=== PATIENT | male | born 1965 | race Caucasian/White ===

== ENCOUNTER 2020-02-16 17:09 | Emergency (ER) | payer BC, SELFPAY ==
[2020-02-16] VITALS (7 sets, daily range): BP systolic 114–130; BP diastolic 77–94; PULSE 74–82; RESP 16–18; TEMP 36.5–36.9; O2SAT 97–99; BMI 19.2
[2020-02-16 17:22] LABS: Glucose, Whole Blood 119 mg/dL (60-115)
--- NOTE | 2020-02-16 17:33 | ECG_ITS ---
Test Reason : SYNCOPE Blood Pressure : / mmHG Vent. Rate : 079 BPM Atrial Rate : 080 BPM P-R Int : 162 ms QRS Dur : 094 ms QT Int : 392 ms P-R-T Axes : 057 041 049 degrees QTc Int : 449 ms Normal sinus rhythm Minimal voltage criteria for LVH, may be normal variant Borderline ECG No significant changes seen Referred By: Jessika Reilly Electronically Signed By:LEMUEL JASMINE MD
--- NOTE | 2020-02-16 17:45 | ED.SYNCOPE ---
HPI - Syncope General Chief Complaint: Syncope Stated Complaint: failure to thrive Time Seen by Provider: 02/16/20 17:14 Source: EMS Mode of arrival: EMS History of Present Illness HPI narrative: 54-year-old male with a past medical history of hemorrhoids presenting to ED S/P witnessed syncopal episode at home APPLICATION SUPPORT. Patient reports having issues with hemorrhoids over the past week, has been taking about 5 hotSitz baths daily for relief, got out of a Sitz bath today, felt lightheaded, laid on bed and had syncopal episode. Denies head trauma. Also reports decreased p.o. intake/dehydration due to hemorrhoids. Denies complaints at present other than hemorrhoid pain. Denies CP/SOB, abdominal pain, nausea/vomiting, headache, rectal bleeding MD complaint: loss of consciousness and felt faint -: second(s) Related Data Allergies Allergy/AdvReac Type Severity Reaction Status Date / Time No Known Allergies Allergy Unverified 12/20/19 14:59 [No Known Allergies*] Review of Systems Review of Systems: Constitutional: No Weight loss, No Fever Eyes: No Eye Pain, No Vision Changes Cardiovascular: No Chest Pain, No SOB, No Palpitations Respiratory: No Cough, No Sputum, No Dyspnea Gastrointestinal: No Nausea, No Vomiting, No Diarrhea, No Constipation, No Abdominal pain, no bloody stool Genitourinary: No irregular bleeding, No Dysuria, No Urinary Frequency, No Hematuria, + hemorrhoid pain Musculoskeletal: No joint pain, No Myalgias, No Joint Swelling Skin: No Skin Lesions, No rash Neuro: No Weakness, No Numbness, No Paresthesias, +Loss of Consciousness, + lightheadedness prior to syncope, No Headache Yes all other systems are reviewed and are negative Neurologic: Denies Abnormal speech present and Denies Sensory deficit (Neuro) [facility] Past Medical History Attestation statement: The following information was validated with the patient. Surgical History (Updated 02/16/20 @ 17:20 by En Liu) History of appendectomy Social History Social History Alcohol intake: never Smoking Status: Never smoker Use of substances other than those prescribed or required for medical reasons: No Advance Directives: No Advance Directives Information Provided: Yes Physical Exam Vital Signs: Vital Signs: Last Vital Signs Temp 98.4 F 02/16/20 20:00 Pulse 82 02/16/20 20:09 Resp 16 02/16/20 20:00 BP 130/94 H 02/16/20 20:09 Pulse Ox 99 02/16/20 20:00 Body Mass Index 19.2 Const: General: cooperative and healthy appearing Orientation/consciousness: patient oriented x3 Limitations: no limitations HENMT: Head: Yes normal to inspection Ears: hearing grossly normal bilaterally General nose exam: Normal external nose present Face and sinus: Yes normal facial exam Eyes: General: appearance normal, both eyes and all related structures Periorbital: periorbital findings normal Pupils: Equal, round and reactive pupils present EOM: EOMs intact bilaterally Neck: Neck: Yes normal visual inspection and Yes no meningeal signs Resp: Effort & Inspection: normal respiratory effort Auscultation: clear to auscultation bilaterally, no crackles, no rhonchi and no wheezes Cardio: Rate: regular rate Heart sounds: S1 normal heart sound present and S2 normal heart sound present GI: Inspection: Yes normal to inspection Palpation (GI): Soft to palpation, nontender, no guarding and not rigid : Other: + large hemorrhoid noted at 9 o'clock region. Tender to palpation. No evidence of thrombosis, no surrounding cellulitis or fluctuance. No bleeding Skin: Rashes: no rashes Wounds: no wounds Neuro: General: patient oriented x3, tone normal, moves all extremities, no meningeal signs, no focal motor deficits and CN's II-XI intact bilaterally Cranial nerves: Yes Equal, round and reactive pupils present Cognition (Neuro): normal cognition Speech: No Abnormal speech present Gait exam (Neuro): Normal gait present Motor exam (neuro): 5/5 motor strength present throughout Sensory Exam: No Sensory deficit (Neuro) Extrem: General: Yes normal to inspection Course Course Course Narrative: -leukocytosis of 15.4 > vital signs stable, no indication for sepsis at this time Orthostatics negative Patient was given lidocaine cream tube for hemorrhoids in the ED -BUN 29 likely dehydration, troponin 5 > will obtain 3 hour repeat at 8:30 p.m., labs otherwise unremarkable -repeat EKG unchanged from prior earlier today -2147--repeat troponin without 50% increase in delta, PA unlikely Lab results discussed with patient including worrisome signs and symptoms and strict return precautions. Patient verbalized understanding feel safe discharge home MDM - Syncope MDM Narrative Medical decision making narrative: 54-year-old male with a past medical history of hemorrhoids presenting to ED S/P witnessed syncopal episode at home APPLICATION SUPPORT. On exam VSS, NAD/well-appearing, no focal neuro deficits, hemorrhoid noted on exam without acute complications. Syncopal episode likely vasovagal or from dehydration. Low concern for ACS, PE, or other infectious etiology Plan: EKG, labs, IVF, reassess Lab Data Result diagrams: 02/16/20 18:26 02/16/20 18:26 Labs: Lab Results 02/16/20 02/16/20 02/16/20 Range/Units 17:19 18:26 18:26 WBC 15.4 H (4.8-10.8) X10*3/uL RBC 4.64 (4.60-5.80) X10*6/uL Hgb 14.2 (14.0-18.0) g/dl Hct 43.0 (42-52) % MCV 92.7 (80-98) fL MCH 30.6 (27.0-33.0) pg MCHC 33.0 (31.0-36.0) g/dl RDW 11.9 (11.0-16.0) % Plt Count 289 (160-400) X10*3/uL MPV 10.6 (9.4-12.4) fL Immature Gran % (Auto) 0.3 (0.0-0.4) % Neut % (Auto) 84.4 H (45-73) % Lymph % (Auto) 7.4 L (20-40) % [place] % (Auto) 7.5 (2-11) % Eos % (Auto) 0.1 (0-4) % Baso % (Auto) 0.3 (0-2) % Lymph # (Auto) 1.1 L (1.2-4.9) X10*3/uL [place] # (Auto) 1.2 (0.1-1.2) X10*3/uL Eos # (Auto) 0.0 (0.0-0.4) X10*3/uL Baso # (Auto) 0.0 (0.0-0.2) X10*3/uL Abs Immat Gran (auto) 0.05 H (0.00-0.03) X10*3/uL Absolute Neuts (auto) 13.0 H (2.0-8.3) X10*3/uL Absolute Nucleated RBC 0.000 (0.0-0.012) X10*3/uL Nucleated RBC % (auto) 0.0 (0.0-0.2) /100WBC Hold Blue Top Sodium 138 (135-145) mmol/L Potassium 4.0 (3.3-5.1) mmol/l Chloride 102 (96-108) mmol/L Carbon Dioxide 25 (22-29) mmol/L Anion Gap 15 (12-20) BUN 29 H (9-16) mg/dL Creatinine 1.07 (0.5-1.4) mg/dL Estim Creat Clear Calc 70.6 Estimated GFR > 60 POC Glucose 119 H (60-115) mg/dL Random Glucose 103 (60-115) mg/dL Calcium 8.8 (8.4-10.2) mg/dL Magnesium (1.6-2.6) mg/dL Total Bilirubin (0.0-1.0) mg/dL Direct Bilirubin (0.0-0.5) mg/dL AST (5-37) U/L ALT (0-40) U/L Alkaline Phosphatase (39-117) U/L Troponin I High Sens (<3.5-35.0) ng/L Total Protein (6.5-8.0) g/dL Albumin (3.5-5.0) g/dL Urine Color Urine Appearance Urine pH (5.0-8.0) Ur Specific [place] (1.005-1.025) Urine Protein (NEG-TRACE) MG/DL Urine Glucose (UA) (NEG) MG/DL Urine Ketones (NEG) MG/DL Urine Blood (NEG) Urine Nitrite (NEG) Ur Leukocyte Esterase (NEG) Urine RBC (0) /HPF Urine WBC (0-4) /HPF Ur Squamous Epith Cells /LPF Urine Bacteria /LPF Urine Mucus /LPF 02/16/20 02/16/20 02/16/20 Range/Units 18:26 18:26 18:26 WBC (4.8-10.8) X10*3/uL RBC (4.60-5.80) X10*6/uL Hgb (14.0-18.0) g/dl Hct (42-52) % MCV (80-98) fL MCH (27.0-33.0) pg MCHC (31.0-36.0) g/dl RDW (11.0-16.0) % Plt Count (160-400) X10*3/uL MPV (9.4-12.4) fL Immature Gran % (Auto) (0.0-0.4) % Neut % (Auto) (45-73) % Lymph % (Auto) (20-40) % [place] % (Auto) (2-11) % Eos % (Auto) (0-4) % Baso % (Auto) (0-2) % Lymph # (Auto) (1.2-4.9) X10*3/uL [place] # (Auto) (0.1-1.2) X10*3/uL Eos # (Auto) (0.0-0.4) X10*3/uL Baso # (Auto) (0.0-0.2) X10*3/uL Abs Immat Gran (auto) (0.00-0.03) X10*3/uL Absolute Neuts (auto) (2.0-8.3) X10*3/uL Absolute Nucleated RBC (0.0-0.012) X10*3/uL Nucleated RBC % (auto) (0.0-0.2) /100WBC Hold Blue Top SEE NOTE Sodium (135-145) mmol/L Potassium (3.3-5.1) mmol/l Chloride (96-108) mmol/L Carbon Dioxide (22-29) mmol/L Anion Gap (12-20) BUN (9-16) mg/dL Creatinine (0.5-1.4) mg/dL Estim Creat Clear Calc Estimated GFR POC Glucose (60-115) mg/dL Random Glucose (60-115) mg/dL Calcium (8.4-10.2) mg/dL Magnesium 1.7 (1.6-2.6) mg/dL Total Bilirubin 1.1 H (0.0-1.0) mg/dL Direct Bilirubin 0.4 (0.0-0.5) mg/dL AST 18 (5-37) U/L ALT 21 (0-40) U/L Alkaline Phosphatase 119 H (39-117) U/L Troponin I High Sens 5.0 (<3.5-35.0) ng/L Total Protein 6.9 (6.5-8.0) g/dL Albumin 4.0 (3.5-5.0) g/dL Urine Color Urine Appearance Urine pH (5.0-8.0) Ur Specific [place] (1.005-1.025) Urine Protein (NEG-TRACE) MG/DL Urine Glucose (UA) (NEG) MG/DL Urine Ketones (NEG) MG/DL Urine Blood (NEG) Urine Nitrite (NEG) Ur Leukocyte Esterase (NEG) Urine RBC (0) /HPF Urine WBC (0-4) /HPF Ur Squamous Epith Cells /LPF Urine Bacteria /LPF Urine Mucus /LPF 02/16/20 02/16/20 Range/Units 20:07 20:40 WBC (4.8-10.8) X10*3/uL RBC (4.60-5.80) X10*6/uL Hgb (14.0-18.0) g/dl Hct (42-52) % MCV (80-98) fL MCH (27.0-33.0) pg MCHC (31.0-36.0) g/dl RDW (11.0-16.0) % Plt Count (160-400) X10*3/uL MPV (9.4-12.4) fL Immature Gran % (Auto) (0.0-0.4) % Neut % (Auto) (45-73) % Lymph % (Auto) (20-40) % [place] % (Auto) (2-11) % Eos % (Auto) (0-4) % Baso % (Auto) (0-2) % Lymph # (Auto) (1.2-4.9) X10*3/uL [place] # (Auto) (0.1-1.2) X10*3/uL Eos # (Auto) (0.0-0.4) X10*3/uL Baso # (Auto) (0.0-0.2) X10*3/uL Abs Immat Gran (auto) (0.00-0.03) X10*3/uL Absolute Neuts (auto) (2.0-8.3) X10*3/uL Absolute Nucleated RBC (0.0-0.012) X10*3/uL Nucleated RBC % (auto) (0.0-0.2) /100WBC Hold Blue Top Sodium (135-145) mmol/L Potassium (3.3-5.1) mmol/l Chloride (96-108) mmol/L Carbon Dioxide (22-29) mmol/L Anion Gap (12-20) BUN (9-16) mg/dL Creatinine (0.5-1.4) mg/dL Estim Creat Clear Calc Estimated GFR POC Glucose (60-115) mg/dL Random Glucose (60-115) mg/dL Calcium (8.4-10.2) mg/dL Magnesium (1.6-2.6) mg/dL Total Bilirubin (0.0-1.0) mg/dL Direct Bilirubin (0.0-0.5) mg/dL AST (5-37) U/L ALT (0-40) U/L Alkaline Phosphatase (39-117) U/L Troponin I High Sens 5.2 (<3.5-35.0) ng/L Total Protein (6.5-8.0) g/dL Albumin (3.5-5.0) g/dL Urine Color YELLOW Urine Appearance CLEAR Urine pH 6.0 (5.0-8.0) Ur Specific [place] >= 1.030 H (1.005-1.025) Urine Protein NEG (NEG-TRACE) MG/DL Urine Glucose (UA) NEG (NEG) MG/DL Urine Ketones NEG (NEG) MG/DL Urine Blood 1+ H (NEG) Urine Nitrite NEG (NEG) Ur Leukocyte Esterase NEG (NEG) Urine RBC 0-2 (0) /HPF Urine WBC 0-2 (0-4) /HPF Ur Squamous Epith Cells NONE /LPF Urine Bacteria NONE /LPF Urine Mucus 1+ /LPF ECG Data Attestation: I personally reviewed and interpreted this ECG as follows: ECG interpretation date: 02/16/20 Interpretation: Initial EKG normal sinus rhythm. Rate 79. Peak Ts noted throughout Discharge Plan Discharge Clinical Impression: Vasovagal syncope, Hemorrhoid Patient Disposition: Home, Self-Care Instructions: Hydrocortisone (Into the rectum), Syncope (ED) Additional Instructions: Your blood work showed nonspecific markers of inflammation You need to have close follow-up with your primary care doctor Make sure you are drinking plenty of fluids at home Apply a topical lidocaine to her hemorrhoids in addition to hydrocortisone at home for symptomatic relief You should follow-up with the colorectal doctor If her symptoms persist or worsen, your passing out again, developed chest pain, shortness of breath, abdominal pain, or unable to eat or drink return to the ED Referrals: Brenton Hui MD [Physician] - 1 week Physician,Unknown [Primary Care Provider] - 2 days (Your doctor)
[2020-02-16] MEDS: 0.9 % Sodium Chloride 1,000 ML 999 ML IVCONT ×2 (18:27)
[2020-02-16 18:33] LABS: MANUAL DIFF FLAG NO
[2020-02-16 18:36] LABS: Basophils Percent Auto 0.3 % (0-2); Eosinophils Percent Auto 0.1 % (0-4); Hemoglobin 14.2 g/dl (14.0-18.0); Imm Gran Abs Auto 0.05 X10*3/uL (0.00-0.03); Imm Gran Pct Auto 0.3 % (0.0-0.4); Lymphocytes Absolute Auto 1.1 X10*3/uL (1.2-4.9); Lymphocytes Percent Auto 7.4 % (20-40); Mean Corpuscular Hemoglobin 30.6 pg (27.0-33.0); Mean Corpuscular Volume 92.7 fL (80-98); Mean Platelet Volume 10.6 fL (9.4-12.4); Monocytes Absolute Auto 1.2 X10*3/uL (0.1-1.2); Monocytes Percent Auto 7.5 % (2-11); Neutrophils Percent Auto 84.4 % (45-73); Platelet Count 289 X10*3/uL (160-400); Red Blood Count 4.64 X10*6/uL (4.60-5.80); Red Cell Distribution Width 11.9 % (11.0-16.0); White Blood Count 15.4 X10*3/uL (4.8-10.8)
[2020-02-16] MEDS: Lidocaine 5 % Ointment 35 GM 1 APPL TOPICAL (18:43)
[2020-02-16 18:58] LABS: Anion Gap 15 (12-20); Blood Urea Nitrogen 29 mg/dL (9-16); Calcium 8.8 mg/dL (8.4-10.2); Carbon Dioxide 25 mmol/L (22-29); Chloride 102 mmol/L (96-108); Creatinine Clr Calc Pharmacy 70.6; Estimated Glomerular Filt Rate > 60; Glucose Random 103 mg/dL (60-115); Sodium 138 mmol/L (135-145)
[2020-02-16 19:04] LABS: Alanine Aminotransferase 21 U/L (0-40); Alkaline Phosphatase 119 U/L (39-117); Aspartate Amino Transferase 18 U/L (5-37); Bilirubin Direct 0.4 mg/dL (0.0-0.5); Bilirubin Total 1.1 mg/dL (0.0-1.0); Magnesium 1.7 mg/dL (1.6-2.6); Total Protein 6.9 g/dL (6.5-8.0)
--- NOTE | 2020-02-16 19:50 | ECG_ITS ---
Test Reason : REPEAT Blood Pressure : / mmHG Vent. Rate : 074 BPM Atrial Rate : 074 BPM P-R Int : 168 ms QRS Dur : 098 ms QT Int : 404 ms P-R-T Axes : 052 011 034 degrees QTc Int : 448 ms Normal sinus rhythm Normal ECG When compared with ECG of 28-MAY-2019 12:41, No significant change was found Referred By: Jessika Reilly Electronically Signed By:LEMUEL JASMINE MD
[2020-02-16 20:13] LABS: Glucose Urine UA NEG (NEG); Leukocyte Esterase Urine NEG (NEG); Nitrite Urine NEG (NEG); Specific Gravity - Urine >= 1.030 (1.005-1.025); Urine Blood 1+ (NEG); Urine Ketones NEG (NEG); Urine Protein NEG (NEG-TRACE)
[2020-02-16 20:16] LABS: Appearance Urine CLEAR; Color Urine YELLOW
[2020-02-16 20:50] LABS: Mucus Urine 1+ /LPF; RBC Urine 0-2 /HPF (0); WBC Urine 0-2 /HPF (0-4)
[2020-02-16 21:12] LABS: Troponin-I High Sensitivity 5.2 ng/L (<3.5-35.0)
== END 2020-02-16 22:07 | disposition home or self-care (01) ==
PROVIDERS: Physician Assistant; Emergency Provider Student in an Organized Health Care Education/Training Program
DX: R55 Syncope and collapse (principal)
CPT/HCPCS: 36415; 80048; 80076; 81001; 82947; 83735; 84484; 85025; 93005; 96360; 99284; 99285

== ENCOUNTER 2020-05-28 09:54 | Outpatient (REF) | payer BC, SELFPAY ==
--- NOTE | ~2020-05-28 | XR_ITS ---
EXAMINATION: XR SHOULDER, LEFT CLINICAL INFORMATION: Pain in unspecified shoulder COMPARISON: None TECHNIQUE: AP internal rotation, Grashey, scapular Y, and axillary views of the left shoulder. FINDINGS: There is mild acromioclavicular osteoarthritis. Glenohumeral joint is well preserved. No fracture. Alignment is anatomic. Soft tissues are normal with no abnormal calcifications. XR/XR shoulder LT min 2V IMPRESSION: No acute osseous abnormality of the left shoulder.
[2020-05-28 11:25] LABS: Rheumatoid Factor < 15.0 IU/mL (<15.0)
== END 2020-05-28 09:55 | disposition home or self-care (01) ==
LOC: HO.LAB 09:54
PROVIDERS: PCP Internal Medicine; Visit Provider Nurse Practitioner Family
DX: M25.519 Pain in unspecified shoulder (principal)
CPT/HCPCS: 36415; 73030; 86431

== ENCOUNTER 2021-04-17 14:25 | Outpatient (REF) | payer BC, SELFPAY ==
--- NOTE | ~2021-04-17 | US_ITS ---
EXAMINATION: ULTRASOUND EXTREMITY NONVASCULAR CLINICAL INFORMATION: Painful lump in her buttock COMPARISON: None TECHNIQUE: Grayscale and color imaging of the left inner but acuity using a linear transducer FINDINGS: There is a complex cystic lesion in the left inner buttock corresponding to palpable abnormality. This is 1 cm deep to the skin. This measures 2.9 x 2.42 cm. This appears avascular. Ultrasound appearance is nonspecific. This may represent a a small abscess or sinus tract. If there is history of previous trauma, hematoma. Neoplastic process cannot be excluded and clinical correlation is recommended. US/US extremity nonvascular IMPRESSION: 2.9 x 2.4 x 2 cm complex cyst in the left inner buttock. Ultrasound appearance is nonspecific. This may represent a small abscess or sinus tract. Differential would include a hematoma. Neoplastic process cannot be excluded. If there is concern of a sinus tract or fistula, CT or MRI of the pelvis may be helpful.
== END 2021-04-17 14:26 | disposition home or self-care (01) ==
LOC: HO.HMGCX 14:25
PROVIDERS: PCP Internal Medicine; Visit Provider Nurse Practitioner Family
DX: R22.9 Localized swelling, mass and lump, unspecified (principal)
CPT/HCPCS: 76882

== ENCOUNTER 2021-04-18 08:34 | Emergency (ER) | payer BC, SELFPAY ==
--- NOTE | ~2021-04-18 | CT_ITS ---
EXAMINATION: CT ABDOMEN AND PELVIS WITH CONTRAST CLINICAL INFORMATION: Left lower quadrant pain. The bladder. COMPARISON: None TECHNIQUE: Multidetector volumetric images were obtained from the superior aspect of the liver through the pubic symphysis following administration 85 mL of Omnipaque 350 intravenous contrast. Sagittal and coronal reformatted images were obtained on the technologist's workstation. Oral contrast: No This CT examination was performed using dose optimization techniques as appropriate, variously including the following: *Automated exposure control *Adjustment of mA and/or kV according to patient size (this includes techniques or standardized protocols for targeted exams where dose is matched to indication/reason for exam; i.e. extremities or head) *Use of iterative reconstruction technique DLP: 454 mGy-cm FINDINGS: LUNG BASES: There is bibasilar atelectatic changes. The heart size is normal. LIVER, GALLBLADDER, AND BILIARY TREE: The liver is normal in size, shape, and attenuation. There is a 9 mm hypodensity in the segment 4A. No additional lesions seen. There is no intrahepatic ductal dilatation. The gallbladder is unremarkable with no evidence of radiopaque gallstones, gallbladder wall thickening, or obvious pericholecystic inflammatory changes. PANCREAS: Unremarkable. SPLEEN: Unremarkable. ADRENAL GLANDS: Unremarkable. KIDNEYS AND URETERS: The kidneys are normal in size, shape, and attenuation. No hydronephrosis, hydroureter, or calculi seen. No perinephric stranding. Is a punctate hypodensity in the lower pole left kidney likely tiny cysts. BLADDER: The bladder is decompressed. GASTROINTESTINAL TRACT: There is scattered stool and gas seen throughout the colon without significant distention. Mild mural thickening seen involving the sigmoid colon with minimal pericolic fat stranding, nonspecific colitis. No diverticula visualized. ABDOMINAL WALL: No significant hernia is appreciated. LYMPH NODES: Normal. VASCULAR: Unremarkable. PELVIC VISCERA: There is a left perirectal small abscess measuring 2.7 x 2.1 x 3.5 cm. It extends from the left perirectal, perianal lesion into the ischiorectal fossa. Minimal fat stranding extends to the subcutaneous medial buttock however there is no fistulous tract seen. Soft tissue density along the left sigmoid-rectum junction question adherent stool versus soft tissue mass. Recommend sigmoidoscopy. There is scattered stool and gas seen throughout the colon without significant distention. The small bowel loops are normal caliber. OSSEOUS STRUCTURES: There is vacuum disc phenomena L5-S1 disc level with a rudimentary S1-S2 disc. CT/CT abdomen pelvis w con IMPRESSION: Small left perirectal abscess extending the ischiorectal fossa. Nonspecific mild mural thickening of sigmoid colon with pericolic fat stranding likely inflammatory and infectious colitis. Soft tissue density along the left sigmoid/rectum junction question adherent stool versus soft tissue mass. Recommend sigmoidoscopy. Fleischner guidelines were followed.
[2021-04-18 08:56] VITALS: BP 127/78; PULSE 75; RESP 18; TEMP 35.9; O2SAT 100; BMI 19.5
[2021-04-18 14:09] LABS: MANUAL DIFF FLAG NO
[2021-04-18 14:10] LABS: Basophils Percent Auto 0.1 % (0-2); Eosinophils Percent Auto 0.4 % (0-4); Hematocrit 42.9 % (42.0-52.0); Hemoglobin 14.1 g/dl (14.0-18.0); Imm Gran Abs Auto 0.03 X10*3/uL (0.00-0.03); Imm Gran Pct Auto 0.4 % (0.0-0.4); Lymphocytes Absolute Auto 1.6 X10*3/uL (1.2-4.9); Lymphocytes Percent Auto 18.9 % (20-40); Mean Corpuscular HGB Conc 32.9 g/dl (31.0-36.0); Mean Corpuscular Hemoglobin 29.4 pg (27.0-33.0); Mean Corpuscular Volume 89.6 fL (80.0-98.0); Monocytes Absolute Auto 0.5 X10*3/uL (0.1-1.2); Monocytes Percent Auto 5.6 % (2-11); Neutrophils Absolute Auto 6.3 x10*3/uL (2.0-8.3); Neutrophils Percent Auto 74.6 % (45-73); Platelet Count 286 X10*3/uL (160-400); Red Blood Count 4.79 X10*6/uL (4.60-5.80); Red Cell Distribution Width 11.8 % (11.0-16.0); White Blood Count 8.5 X10*3/uL (4.8-10.8)
[2021-04-18 14:23] LABS: COVID-19 Test Positive (Negative)
[2021-04-18 14:30] LABS: Lactic Acid 1.2 mmol/L (0.5-2.0)
[2021-04-18 14:34] LABS: Alanine Aminotransferase 14 U/L (0-40); Alkaline Phosphatase 103 U/L (39-117); Anion Gap 11 (12-20); Aspartate Amino Transferase 11 U/L (5-37); Bilirubin Direct 0.4 mg/dL (0.0-0.5); Bilirubin Total 1.2 mg/dL (0.0-1.0); Blood Urea Nitrogen 14 mg/dL (9-16); Calcium 9.7 mg/dL (8.4-10.2); Carbon Dioxide 29 mmol/L (22-29); Chloride 105 mmol/L (96-108); Creatinine Clr Calc Pharmacy 92.5; Estimated Glomerular Filt Rate > 60; Glucose Random 163 mg/dL (60-115); Magnesium 1.5 mg/dL (1.6-2.6); Potassium 3.9 mmol/L (3.3-5.1); Sodium 141 mmol/L (135-145)
--- NOTE | 2021-04-18 15:48 | ED.ABDPAIN ---
HPI - Abdominal Pain General Chief Complaint: Abdominal Pain Stated Complaint: diverticulitis Time Seen by Provider: 04/18/21 13:15 Source: patient Mode of arrival: ambulatory Limitations: no limitations History of Present Illness HPI narrative: 55-year-old male with a past medical history of alcohol abuse, anxiety, GERD, diverticulitis, and hyperlipidemia presents with 1 month of changes in his stool, reduced amount of stool, and 10 days worsening left lower abdominal pain. Patient states that 1 month ago he fell a lump in the left side of his inner buttock by his anus. States that at times he has been constipated and other times has had diarrhea. And states he is passing a lot of gas and his stool is very thin and he is having smaller bowel movements. States he has been losing weight. No pain with bowel movement, no nausea or vomiting, no dark, tarry, or bloody stool. Ten days ago patient had fever and chills and tested COVID positive with a rapid test at home. One week ago his Covid symptoms resolved. He took a home rapid COVID test yesterday that was negative, and had an ultrasound at an urgent care in the soft tissue of his left buttock. Does not have those results yet. This morning he started having abdominal pain in his left lower quadrant. States that he has no pain now, but has concern for diverticulitis, because he was hospitalized with diverticulitis for 1 week in the past. States that the pain in his left buttock has been severe for the last month. Related Data Home Medications Medication Instructions Recorded Confirmed cholecalciferol (vitamin D3) 25 25 mcg PO DAILY 03/10/20 04/07/21 mcg (1,000 unit) capsule Previous Rx's Medication Instructions Recorded metaxalone 400 mg tablet 800 mg PO TID PRN 30 Days #30 tab 03/24/21 ibuprofen 600 mg tablet 600 mg PO TID 30 Days #90 tab 04/07/21 amoxicillin 875 mg-potassium 1 tab PO BID 7 Days #14 tab 04/18/21 clavulanate 125 mg tablet (Augmentin) Allergies Allergy/AdvReac Type Severity Reaction Status Date / Time No Known Allergies Allergy Verified 04/07/21 13:59 [No Known Allergies*] Review of Systems Constitutional: Denies body ache(s), Denies chills, Denies fatigue, Denies fever(s), Denies headache(s), Denies malaise and Denies weakness Eyes: Denies diplopia Denies dysphagia, Denies vertigo, Denies dizziness, Denies otalgia, Denies headache(s), Denies post nasal drip and Denies sore throat Cardiovascular: Denies chest pain, Denies syncope, Denies leg edema, Denies lightheadedness, Denies Loss of Consciousness, Denies palpitations and Denies dyspnea Respiratory: Denies chest congestion, Denies cough and Denies dyspnea Gastrointestinal: Reports abdominal pain, Denies melena, Reports bloating, Denies hematochezia, Reports change in bowel habits, Denies coffee ground emesis, Reports constipation, Denies dysphagia, Reports excessive flatus, Denies early satiety, Denies fecal incontinence, Reports diarrhea, Denies nausea and Denies vomiting Genitourinary: Denies dysuria, Denies flank pain, Denies penile discharge, Denies scrotal swelling, Denies testicular mass and Denies testicular pain Musculoskeletal: Reports no additional musculoskeletal complaints Comments: lump inner left buttock Denies confusion, Denies vertigo, Denies dizziness, Denies syncope, Denies headache(s) and Denies weakness Psychiatric: Denies anxiety, Denies confusion and Denies depression Endocrine: Denies fatigue and Denies palpitations Physical Exam Vital Signs: Vital Signs: Last Vital Signs Temp 98.2 F 04/18/21 16:25 Pulse 82 04/18/21 16:25 Resp 18 04/18/21 16:25 BP 125/89 04/18/21 16:25 Pulse Ox 100 04/18/21 08:56 BMI result Body Mass Index 19.5 Const: General: No confusion Nutritional Appearance: well nourished Orientation/consciousness: No confusion Limitations: no limitations HENMT: Head: Yes normal to inspection, Yes normocephalic and Yes atraumatic Ears: hearing grossly normal bilaterally, external ears normal, TM's normal bilaterally and EAC's normal General nose exam: Normal external nose present Face and sinus: Yes normal facial exam and Yes sinuses nontender Mouth: Normal oral and palatal mucosa present Throat: Yes posterior oropharynx normal Eyes: Conjunctivae: conjunctivae normal Pupils: Equal, round and reactive pupils present EOM: EOMs intact bilaterally Neck: Neck: Yes full ROM, Yes no lymphadenopathy and Yes supple Resp: Effort & Inspection: normal respiratory effort and able to speak in complete sentences Auscultation: clear to auscultation bilaterally, no crackles, no rales, no rhonchi and no wheezes Cardio: Rate: regular rate Rhythm: regular rhythm Heart sounds: S1 normal heart sound present and S2 normal heart sound present GI: Other: Able to palpate very small mass that was not painful on left inner buttock near anus. Not in perineal area, mass is deep to the skin, no erythema or pointing Inspection: Yes normal to inspection Palpation (GI): Soft to palpation, Tenderness to palpation present (GI) in the LLQ, no guarding and not rigid Percussion: Yes normal to percussion Auscultation: normal bowel sounds Rectal Exam - Male: Yes visual inspection normal, Yes normal sphincter tone, No Abnormal stool present, No External hemorrhoid(s) present, No Internal hemorrhoid(s) present, No Lesions present (GI), No Fistula present (GI), No Excoriation present (GI), No fecal impaction, No Anal fissure(s) present, No mass and No tenderness : Male General Exam: Yes normal external exam, No ecchymosis, No edema, No erythema, No inguinal lymphadenopathy and No tenderness Penis: normal penis and circumcised Meatus: meatus normal Scrotum: scrotum normal Testes: Testes normal, testicular lie normal, epididymides normal, no epidiymal tenderness, no testicular mass, no testicular swelling and no testicular tenderness Skin: General skin exam: no rashes or lesions noted Neuro: General: No confusion Cranial nerves: Yes Equal, round and reactive pupils present Extrem: General: Yes normal to inspection and Yes full ROM Psych: Appearance: grossly normal Affect: normal affect Attitude: cooperative Thought process: Normal thought process present Course Course Course Narrative: 55-year-old male presents with changes in stool, pain in his left buttock by his anus, for the last month. In addition, patient has had lower left abdominal pain which has worsened this morning with a history of diverticulitis. Patient is anxious with stable vitals. This is rectal exam shows no hemorrhoid, left soft tissue near anus has a small, 1 cm mass I could palpate, is not painful to palpate. Will get CT with concern for both diverticulitis and perirectal abscess Patient is COVID positive, CBC had shows no leukocytosis, magnesium 1.5, bilirubin 1.2, no elevation of AST, ALT, or alk-phos. Urine shows 2+ blood, no infection, fecal occult blood test is positive. H&H 14.1 and 42.9 Lipase within normal limits. Patient tells me he is due for colonoscopy and has 1 scheduled at the end of May Reevaluation(s) Reevaluation #1: CT/CT abdomen pelvis w con IMPRESSION: Small left perirectal abscess extending the ischiorectal fossa. Nonspecific mild mural thickening of sigmoid colon with pericolic fat stranding likely inflammatory and infectious colitis. Soft tissue density along the left sigmoid/rectum junction question adherent stool versus soft tissue mass. Recommend sigmoidoscopy. [facility] with general surgery, Dr Stearns, who advised treating with antibiotics and he would like to see the patient in his office this coming Tuesday Patient tells me he has had micro hematuria for years, and has had a negative cystoscope in the past and his primary care provider is aware of this. Fecal occult blood can be explained by colitis. Advised patient if he has worsening pain, fevers, nausea vomiting, dark tarry or bloody stools, he should return to emergency room Referred pt to Dr Stearns for re-evaluation early next week MDM - Abdominal Pain Lab Data Result diagrams: 04/18/21 14:01 04/18/21 14:01 Labs: Lab Results 04/18/21 04/18/21 04/18/21 Range/Units 14:01 14:01 14:01 WBC 8.5 (4.8-10.8) X10*3/uL RBC 4.79 (4.60-5.80) X10*6/uL Hgb 14.1 (14.0-18.0) g/dl Hct 42.9 (42.0-52.0) % MCV 89.6 (80.0-98.0) fL MCH 29.4 (27.0-33.0) pg MCHC 32.9 (31.0-36.0) g/dl RDW 11.8 (11.0-16.0) % Plt Count 286 (160-400) X10*3/uL MPV 11.0 (9.4-12.4) fL Immature Gran % (Auto) 0.4 (0.0-0.4) % Neut % (Auto) 74.6 H (45-73) % Lymph % (Auto) 18.9 L (20-40) % Shannon % (Auto) 5.6 (2-11) % Eos % (Auto) 0.4 (0-4) % Baso % (Auto) 0.1 (0-2) % Lymph # (Auto) 1.6 (1.2-4.9) X10*3/uL Shannon # (Auto) 0.5 (0.1-1.2) X10*3/uL Eos # (Auto) 0.0 (0.0-0.4) X10*3/uL Baso # (Auto) 0.0 (0.0-0.2) X10*3/uL Abs Immat Gran (auto) 0.03 (0.00-0.03) X10*3/uL Absolute Neuts (auto) 6.3 (2.0-8.3) x10*3/uL Absolute Nucleated RBC 0.000 (0.0-0.012) X10*3/uL Nucleated RBC % (auto) 0.0 (0.0-0.2) /100WBC Sodium 141 (135-145) mmol/L Potassium 3.9 (3.3-5.1) mmol/L Chloride 105 (96-108) mmol/L Carbon Dioxide 29 (22-29) mmol/L Anion Gap 11 L (12-20) BUN 14 (9-16) mg/dL Creatinine 0.82 (0.5-1.4) mg/dL Estim Creat Clear Calc 92.5 Estimated GFR > 60 Random Glucose 163 H D (60-115) mg/dL Lactic Acid 1.2 (0.5-2.0) mmol/L Calcium 9.7 D (8.4-10.2) mg/dL Magnesium 1.5 L (1.6-2.6) mg/dL Total Bilirubin 1.2 H (0.0-1.0) mg/dL Direct Bilirubin 0.4 (0.0-0.5) mg/dL AST 11 (5-37) U/L ALT 14 (0-40) U/L Alkaline Phosphatase 103 (39-117) U/L Total Protein 7.0 (6.5-8.0) g/dL Albumin 4.0 (3.5-5.0) g/dL Lipase 26 (8-78) U/L Urine Color Urine Appearance Urine pH (5.0-8.0) Ur Specific [place] (1.005-1.025) Urine Protein (NEG-TRACE) MG/DL Urine Glucose (UA) (NEG) MG/DL Urine Ketones (NEG) MG/DL Urine Blood (NEG) Urine Nitrite (NEG) Ur Leukocyte Esterase (NEG) Urine RBC (0) /HPF Urine WBC (0-4) /HPF Ur Squamous Epith Cells /LPF Urine Bacteria /LPF Stool Occult Blood (NEGATIVE) COVID-19 ([facility]) (Negative) COVID-19 Clin Com 04/18/21 04/18/21 04/18/21 Range/Units 14:01 16:33 16:34 WBC (4.8-10.8) X10*3/uL RBC (4.60-5.80) X10*6/uL Hgb (14.0-18.0) g/dl Hct (42.0-52.0) % MCV (80.0-98.0) fL MCH (27.0-33.0) pg MCHC (31.0-36.0) g/dl RDW (11.0-16.0) % Plt Count (160-400) X10*3/uL MPV (9.4-12.4) fL Immature Gran % (Auto) (0.0-0.4) % Neut % (Auto) (45-73) % Lymph % (Auto) (20-40) % Shannon % (Auto) (2-11) % Eos % (Auto) (0-4) % Baso % (Auto) (0-2) % Lymph # (Auto) (1.2-4.9) X10*3/uL Shannon # (Auto) (0.1-1.2) X10*3/uL Eos # (Auto) (0.0-0.4) X10*3/uL Baso # (Auto) (0.0-0.2) X10*3/uL Abs Immat Gran (auto) (0.00-0.03) X10*3/uL Absolute Neuts (auto) (2.0-8.3) x10*3/uL Absolute Nucleated RBC (0.0-0.012) X10*3/uL Nucleated RBC % (auto) (0.0-0.2) /100WBC Sodium (135-145) mmol/L Potassium (3.3-5.1) mmol/L Chloride (96-108) mmol/L Carbon Dioxide (22-29) mmol/L Anion Gap (12-20) BUN (9-16) mg/dL Creatinine (0.5-1.4) mg/dL Estim Creat Clear Calc Estimated GFR Random Glucose (60-115) mg/dL Lactic Acid (0.5-2.0) mmol/L Calcium (8.4-10.2) mg/dL Magnesium (1.6-2.6) mg/dL Total Bilirubin (0.0-1.0) mg/dL Direct Bilirubin (0.0-0.5) mg/dL AST (5-37) U/L ALT (0-40) U/L Alkaline Phosphatase (39-117) U/L Total Protein (6.5-8.0) g/dL Albumin (3.5-5.0) g/dL Lipase (8-78) U/L Urine Color YELLOW Urine Appearance CLEAR Urine pH 6.5 (5.0-8.0) Ur Specific [place] 1.025 (1.005-1.025) Urine Protein NEG (NEG-TRACE) MG/DL Urine Glucose (UA) NEG (NEG) MG/DL Urine Ketones 5 (NEG) MG/DL Urine Blood 2+ H (NEG) Urine Nitrite NEG (NEG) Ur Leukocyte Esterase NEG (NEG) Urine RBC 1-4 (0) /HPF Urine WBC 0 (0-4) /HPF Ur Squamous Epith Cells TRACE /LPF Urine Bacteria NONE /LPF Stool Occult Blood POSITIVE (NEGATIVE) COVID-19 ([facility]) Positive A (Negative) COVID-19 Clin Com See Note Discharge Plan Discharge Clinical Impression: Abscess, perirectal, Fecal occult blood test positive, Colitis Hematuria Qualifiers: Hematuria type: asymptomatic microscopic Qualified Code(s): R31.21 - Asymptomatic microscopic hematuria Patient Disposition: Home, Self-Care Instructions: Colitis (ED) Additional Instructions: Please call Dr Stearns at [phone] on Tuesday; he is aware of you, and you can tell the audio visual secretary that he knows you were in the ER, and he wants to see you in the office this April 21. You had your dose of antibiotic tonight; please fill the prescription and take it for the next 7 days. Eat yogurt or use probiotics also. Please alternate Tylenol and ibuprofen for pain. Take 1 or the other every 4 hours. For example, at midnight take 1000 mg of Tylenol, then at 4:00 a.m. take 800 mg ibuprofen, at 8:00 a.m. take 1000 mg of Tylenol, at noon take 800 mg of ibuprofen, at 4:00 p.m. take 1000 mg of Tylenol, at 8:00 p.m. take 800 mg of ibuprofen. Do not exceed 3000 mg of Tylenol in 24 hours. This method is proven to be as effective as an opioid for pain control. If you have severe worsening pain, fevers, nausea vomiting, or dark tarry or bloody stools, please return to emergency room. Prescriptions: New amoxicillin-pot clavulanate [Augmentin] 875-125 mg tablet 1 tab PO BID 7 Days Qty: 14 RF: 0 No Action metaxalone 400 mg tablet 800 mg PO TID PRN (Reason: muscle pain) 30 Days Qty: 30 RF: 0 ibuprofen 600 mg tablet 600 mg PO TID 30 Days Qty: 90 RF: 0 cholecalciferol (vitamin D3) 25 mcg (1,000 unit) capsule 25 mcg PO DAILY RF: 0 Referrals: Vicente Stearns MD [Physician] - [facility] Past Medical History Medical History Alcohol abuse Anxiety Diverticulitis GERD (gastroesophageal reflux disease) Hypercholesterolemia Shoulder pain Vitamin D deficiency Surgical History H/O wrist surgery History of appendectomy History of colonoscopy History of eye surgery History of surgery Family History Family History Father Diabetes Hypertension Mother No problems noted. Paternal Grandfather Substance abuse Maternal Grandfather Substance abuse Social History Social History (Updated 04/07/21 @ 13:53 by Shimarlia Kwade, RMA) Housing: House Alcohol intake: current Alcohol intake frequency: does not drink Patient Tobacco Use Status: Former Tobacco user Years Smoked: quit 2017 e-Cigarette/Vaping Use: Never Used Second Hand Smoke Exposure: No Use of substances other than those prescribed or required for medical reasons: No Substance Use Type: Marijuana Advance Directives: No Advance Directives Information Provided: Yes service: No Current occupational status: unemployed Cognitive needs: No Hearing needs: No Vision needs: Yes (Glasses)
[2021-04-18 16:25] VITALS: BP 125/89; PULSE 82; RESP 18; TEMP 36.8
[2021-04-18] MEDS: 0.9 % Sodium Chloride 1,000 ML 999 ML IV (16:32)
[2021-04-18 16:47] LABS: Appearance Urine CLEAR; Color Urine YELLOW; Glucose Urine UA NEG (NEG); Leukocyte Esterase Urine NEG (NEG); Nitrite Urine NEG (NEG); PH 6.5 (5.0-8.0); Specific Gravity - Urine 1.025 (1.005-1.025); UACC Culture Trigger NO; Urine Blood 2+ (NEG); Urine Ketones 5 MG/DL (NEG); Urine Protein NEG (NEG-TRACE)
[2021-04-18 16:47] LABS: OBS Int Ctl Valid YES; OBS1 POSITIVE (NEGATIVE)
[2021-04-18 16:56] LABS: Lipase 26 U/L (8-78)
[2021-04-18 16:56] LABS: Squamous Epithelial Cell Urine TRACE /LPF; WBC Urine 0 /HPF (0-4)
[2021-04-18] MEDS: iohexoL 350 MG/ML 100 ML INFUS..BTL 85 ML IV (16:59)
[2021-04-18] MEDS: Amoxicillin/Potassium Clav 875 MG TABLET PO (18:35)
== END 2021-04-18 18:38 | disposition home or self-care (01) ==
PROVIDERS: Physician Assistant; Emergency Provider Emergency Medicine; PCP Internal Medicine
DX: U07.1 COVID-19 (principal); K52.9 Noninfective gastroenteritis and colitis, unspecified; K61.1 Rectal abscess; R31.21 Asymptomatic microscopic hematuria; E78.5 Hyperlipidemia, unspecified; F10.10 Alcohol abuse, uncomplicated
CPT/HCPCS: 74177; 80048; 80076; 81001; 82272; 83605; 83690; 83735; 85025; 87635; 96360; 99284; Q9967

== ENCOUNTER → 2021-04-23 08:39 | Outpatient (BNVA) | payer BC, SELFPAY | PROVIDERS: PCP Internal Medicine; Visit Provider Surgery | DX: R22.9 Localized swelling, mass and lump, unspecified (principal) | CPT/HCPCS: 10160 ==

== ENCOUNTER 2021-04-29 10:28 | Day surgery (SDC) | payer BC, SELFPAY ==
--- NOTE | 2021-04-28 11:13 | HO.ANESPROP2 ---
Documented by User: Angie Hercules NP 04/28/21 11:14 HPI - Anesthesia Eval Consult details Narrative: 55yo M for Incisional Biopsy of Buttock Mass PMFSH Active Problems Active Problems: All Active Problems (Updated 04/19/21 @ 00:01 by Abilio Morataya) Screening for hypothyroidism (Acute) Screening for prostate cancer (Acute) Screening for colon cancer (Acute) Lump of skin (Acute) Contact dermatitis (Acute) Shoulder pain (Acute) Annual physical exam (Acute) GERD (gastroesophageal reflux disease) (Acute) Anxiety (Acute) Hypercholesterolemia (Acute) Past Medical History Medical History Alcohol abuse Anxiety Diverticulitis GERD (gastroesophageal reflux disease) Hypercholesterolemia Shoulder pain Vitamin D deficiency Family History Family History Father Diabetes Hypertension Mother No problems noted. Paternal Grandfather Substance abuse Maternal Grandfather Substance abuse Surgical History Surgical History H/O wrist surgery History of appendectomy History of colonoscopy History of eye surgery History of surgery Social History Social History Housing: House Alcohol intake: current Alcohol intake frequency: does not drink Patient Tobacco Use Status: Former Tobacco user Years Smoked: quit 2017 e-Cigarette/Vaping Use: Never Used Second Hand Smoke Exposure: No Use of substances other than those prescribed or required for medical reasons: Yes Substance Use Type: Marijuana Are you DNR?: No Advance Directives: No Advance Directives Information Provided: Yes service: No Current occupational status: unemployed Cognitive needs: No Hearing needs: No Vision needs: Yes (Glasses) Meds Allergies Allergy/AdvReac Type Severity Reaction Status Date / Time No Known Allergies Allergy Verified 04/23/21 08:56 [No Known Allergies*] Home Medications Medication Instructions Recorded Confirmed Last Taken Type cholecalciferol (vitamin D3) 25 25 mcg PO DAILY 03/10/20 04/23/21 Unknown History mcg (1,000 unit) capsule Exam Exam Date and Time: April 28, 2021 1113 Pertinent Lab Results Pertinent Lab Results: Laboratory Tests 04/18/21 04/18/21 14:01 14:01 WBC 8.5 Hgb 14.1 Hct 42.9 Plt Count 286 Sodium 141 Potassium 3.9 Chloride 105 Carbon Dioxide 29 BUN 14 Creatinine 0.82 Assessment and Plan Assessment Anesthesia Assessment: Chart Reviewed Documented by User: Suzy Gibson MD 04/29/21 14:08 [facility] Past Medical History Medical History Alcohol abuse Anxiety Diverticulitis GERD (gastroesophageal reflux disease) Hypercholesterolemia Shoulder pain Vitamin D deficiency Family History Family History Father Diabetes Hypertension Mother No problems noted. Paternal Grandfather Substance abuse Maternal Grandfather Substance abuse Surgical History Surgical History H/O wrist surgery History of appendectomy History of colonoscopy History of eye surgery History of surgery History of Problems with Anesthesia: No Social History Social History Housing: House Alcohol intake: current Alcohol intake frequency: does not drink Patient Tobacco Use Status: Former Tobacco user Years Smoked: quit 2017 e-Cigarette/Vaping Use: Never Used Second Hand Smoke Exposure: No Use of substances other than those prescribed or required for medical reasons: Yes Substance Use Type: Marijuana Are you DNR?: No Advance Directives: No Advance Directives Information Provided: Yes service: No Current occupational status: unemployed Cognitive needs: No Hearing needs: No Vision needs: Yes (Glasses) Meds Allergies Allergy/AdvReac Type Severity Reaction Status Date / Time No Known Allergies Allergy Verified 04/23/21 08:56 [No Known Allergies*] Home Medications Medication Instructions Recorded Confirmed Last Taken Type cholecalciferol (vitamin D3) 25 25 mcg PO DAILY 03/10/20 04/23/21 Unknown History mcg (1,000 unit) capsule Exam Airway Mallampati Class: II TM Dist: >3cm Neck ROM: Full Loose/Missing/Broken Teeth: No Heart: RRR Lungs: CTA Assessment and Plan Assessment Anesthesia Assessment: Anesthesia Plan Discussed Final Anesthetic Review History of Problems with Anesthesia: No NPO: Yes ASA Class: II Final Preanesthetic Review: Meds/Allgs Chart Reviewed, Consent Obtained/Reviewed and Anes Risks/Benef Reviewed Patient Risk: Low Procedure Risk: Low Anesthetic Plan Anesthetic Plan: GA Disposition: Standard PACU
[2021-04-29 10:56] VITALS: BMI 21.2
[2021-04-29] MEDS: Lactated Ringers 1,000 ML 100 ML IVCONT (11:45)
[2021-04-29 15:02] VITALS: BP 126/88; PULSE 69; RESP 18; TEMP 36.5; O2SAT 100
[2021-04-29 15:07] VITALS: BP 119/95; PULSE 71; RESP 16; O2SAT 100
[2021-04-29 15:12] VITALS: BP 115/88; PULSE 69; RESP 18; O2SAT 100
[2021-04-29 15:17] VITALS: BP 116/57; PULSE 70; RESP 16; O2SAT 99
--- NOTE | 2021-04-29 15:20 | P.OP_ITS ---
Operative Note Operative Note Date of Service: 04/29/21 Narrative: Preoperative diagnosis:Perirectal mass Postoperative diagnosis:perirectal abscess Procedure:Incisional biopsy of perirectal mass; incision and drainage of perirectal abscess Surgeon: Vicente Stearns MD Laser Machine Operator: No physician Anesthesia:General LMA Indications for procedure: 55-year-old male patient presenting with a mass in the left gluteal wall adjacent to the rectum. Needle aspiration was negative for purulence discharge. Patient presents for possible excision and or incision and drainage. Operative findings: Abscess cavity with some purulence discharge. Specimen:Wound culture; biopsy of wall of perirectal abscess Estimated blood loss:20 mls Complications:none Procedure details: Patient was brought to the OR and placed in a supine position. After administering general anesthesia he was placed in a left lateral decubitus position. The skin around the palpable mass in the left buttock was prepped with Betadine and draped in a sterile fashion. A surgical time-out was called the consent confirmed. Patient received preoperative antibiotics and Venodyne boots were in place. Local anesthesia consisting of 0.5% Sensorcaine was infiltrated over the palpable mass. Incision was then made carried out through the wall the mass. Purulence collection was identified. Wound cultures were obtained. A portion of the wall of the cavity was excised and sent to pathology for further examination. Hemostasis was assured using electrocautery. Wounds were then irrigated thoroughly with saline solution and suctioned dry. Wounds were then packed with 1 in iodoform gauze. Incision was loosely approximated between the packing using a 3-0 nylon suture. Sterile dressings were then applied. The patient tolerated the procedure well. Sponge, instrument, and needle counts reported as correct. The patient was transferred to PACU in stable condition.
[2021-04-29] MEDS: oxyCODONE HCl Immed Release 5 MG TABLET 10 MG PO (15:23)
[2021-04-29] MEDS: Acetaminophen 325 MG TABLET 650 MG PO (15:24)
[2021-04-29 15:32] VITALS: BP 131/96; PULSE 63; RESP 64; O2SAT 99
== END 2021-04-29 16:09 | disposition home or self-care (01) ==
PROVIDERS: PCP Internal Medicine; Visit Provider Surgery
PROC: (CPT 46040; principal; 2021-04-29 12:40)
DX: K61.1 Rectal abscess (principal); F10.10 Alcohol abuse, uncomplicated; F41.1 Generalized anxiety disorder; E55.9 Vitamin D deficiency, unspecified; E78.00 Pure hypercholesterolemia, unspecified; Z79.899 Other long term (current) drug therapy; Z87.19 Personal history of other diseases of the digestive system
CPT/HCPCS: 46040; 87071; 87186; 87205; 88304; J2250; J3010

== ENCOUNTER → 2021-05-07 13:37 | Outpatient (BNVA) | payer BC, SELFPAY | PROVIDERS: PCP Internal Medicine; Visit Provider Surgery ==

== ENCOUNTER → 2021-06-10 09:38 | Outpatient (BNVA) | payer BC, SELFPAY | PROVIDERS: PCP Internal Medicine; Referring Provider Internal Medicine; Visit Provider Surgery ==

== ENCOUNTER 2021-06-19 07:54 | Day surgery (SDC) | payer BC, SELFPAY ==
[2021-06-15 16:24] VITALS: BMI 20.2
--- NOTE | 2021-06-17 14:10 | HO.ANESPROP2 ---
Documented by User: Angie Hercules NP 06/17/21 14:13 HPI - Anesthesia Eval Consult details Narrative: 55yo M for Colonoscopy s/p buttock abcess bx 04/2021 with GA-LMA 4 PMFSH Active Problems Active Problems: All Active Problems (Updated 06/17/21 @ 09:50 by Bethel Cruz MD) Abdominal pain (Acute) Tonsillitis (Acute) Perirectal abscess (Acute) Screening for hypothyroidism (Acute) Screening for prostate cancer (Acute) Screening for colon cancer (Acute) Lump of skin (Acute) Contact dermatitis (Acute) Shoulder pain (Acute) Annual physical exam (Acute) GERD (gastroesophageal reflux disease) (Acute) Anxiety (Acute) Hypercholesterolemia (Acute) Past Medical History Medical History Alcohol abuse Anxiety Diverticulitis GERD (gastroesophageal reflux disease) Hypercholesterolemia Perirectal abscess Shoulder pain Vitamin D deficiency Family History Family History Father Diabetes Hypertension Mother No problems noted. Paternal Grandfather Substance abuse Maternal Grandfather Substance abuse Surgical History Surgical History H/O wrist surgery History of appendectomy History of colonoscopy History of eye surgery History of surgery History of Problems with Anesthesia: No Social History Social History Housing: House Alcohol intake: current Alcohol intake frequency: former alcohol drinker Patient Tobacco Use Status: Former Tobacco user Years Smoked: quit 2016 e-Cigarette/Vaping Use: Never Used Second Hand Smoke Exposure: No Substance Use Type: Marijuana Substance Use Type Other:: 1 month ago Substance Use Frequency: Chronic Longstanding Are you DNR?: No Advance Directives: No Advance Directives Information Provided: Yes service: No Current occupational status: unemployed Cognitive needs: No Hearing needs: No Vision needs: Yes (Glasses) Meds Allergies Allergy/AdvReac Type Severity Reaction Status Date / Time No Known Allergies Allergy Verified 06/17/21 09:09 [No Known Allergies*] Home Medications Medication Instructions Recorded Confirmed Last Taken Type cholecalciferol (vitamin D3) 25 25 mcg PO DAILY 03/10/20 06/10/21 Unknown History mcg (1,000 unit) capsule Exam Exam Date and Time: June 17, 2021 1410 Height,Weight and Vital Signs: Height 5 ft 11 in Weight 65.771 kg Pertinent Lab Results Pertinent Lab Results: Laboratory Tests 04/18/21 14:01 Sodium 141 Potassium 3.9 Chloride 105 Carbon Dioxide 29 BUN 14 Creatinine 0.82 Assessment and Plan Assessment Anesthesia Assessment: Chart Reviewed Final Anesthetic Review History of Problems with Anesthesia: No Documented by User: Suzy Gibson MD 06/19/21 08:43 PMF Past Medical History Medical History Alcohol abuse Anxiety Diverticulitis GERD (gastroesophageal reflux disease) Hypercholesterolemia Perirectal abscess Shoulder pain Vitamin D deficiency Family History Family History Father Diabetes Hypertension Mother No problems noted. Paternal Grandfather Substance abuse Maternal Grandfather Substance abuse Surgical History Surgical History H/O wrist surgery History of appendectomy History of colonoscopy History of eye surgery History of surgery Social History Social History Housing: House Alcohol intake: current Alcohol intake frequency: former alcohol drinker Patient Tobacco Use Status: Former Tobacco user Years Smoked: quit 2017 e-Cigarette/Vaping Use: Never Used Second Hand Smoke Exposure: No Substance Use Type: Marijuana Substance Use Type Other:: 1 month ago Substance Use Frequency: Chronic Longstanding Are you DNR?: No Advance Directives: No Advance Directives Information Provided: Yes service: No Current occupational status: unemployed Cognitive needs: No Hearing needs: No Vision needs: Yes (Glasses) Meds Allergies Allergy/AdvReac Type Severity Reaction Status Date / Time No Known Allergies Allergy Verified 06/17/21 09:09 [No Known Allergies*] Home Medications Medication Instructions Recorded Confirmed Last Taken Type cholecalciferol (vitamin D3) 25 25 mcg PO DAILY 03/10/20 06/10/21 Unknown History mcg (1,000 unit) capsule Exam Airway Mallampati Class: II TM Dist: >3cm Neck ROM: Full Loose/Missing/Broken Teeth: No Heart: RRR Lungs: CTA Assessment and Plan Final Anesthetic Review NPO: Yes ASA Class: II Final Preanesthetic Review: Meds/Allgs Chart Reviewed, Consent Obtained/Reviewed and Anes Risks/Benef Reviewed Patient Risk: Low Procedure Risk: Low Anesthetic Plan Anesthetic Plan: MAC: Disposition: Standard PACU
--- NOTE | ~2021-06-19 | FL_ITS ---
EXAMINATION: XR BARIUM ENEMA CLINICAL INFORMATION: Incomplete colonoscopy. COMPARISON: None TECHNIQUE: Single contrast barium enema was performed post colonoscopy. Fluoroscopy time 2.1 minutes. DAP 74 powell per centimeter squared. 23 saved fluoroscopic images and 10 overhead images. FINDINGS: Oral contrast reaches the cecum. There is mild diverticulosis of the colon. No mass or stricture is seen. FLUOROSCOPY TIME: 2.1 DOSE AREA PRODUCT: 74 powell per centimeter squared. FL/FL barium enema IMPRESSION: Mild diverticulosis.
[2021-06-19 08:14] VITALS: BP 125/86; PULSE 81; RESP 18; TEMP 36.6; O2SAT 98
[2021-06-19] MEDS: Lactated Ringers 1,000 ML 100 ML IVCONT (08:26)
--- NOTE | 2021-06-19 08:42 | MHC.SHP ---
Pre-Procedural Eval Section A Date of Service: 06/19/21 Section B Chief Complaint: abnormal findings,fecal abnormalities Details of Present Illness: see H&P no changes Relevant Family History (Specify if Yes): No Relevant Social History: None Present Medications: see Short Stay Collaborative assessment Medical History: No relevant PMH History of Previous Operations: No relevant previous surgery Allergies: Allergies Allergy/AdvReac Type Severity Reaction Status Date / Time No Known Allergies Allergy Verified 06/17/21 09:09 [No Known Allergies*] Review of Systems Sugical H&P ROS: Negative: Constitution, Cardiovascular, Respiratory, Neurological, Psychiatric, Hem-Onc, Allergic/Immunologic, Gastrointestinal, Genitourinary, Musculoskeletal, Integumentary, Endocrine and Eyes/Ears/Nose/Throat Exam Surgical H&P Exam: Normal: HEENT, Normal: Heart, Normal: Lungs, Normal: Extremities, Normal: Abdomen, Normal: Skin and Normal: Neurological Plan Diagnosis/Plan: Unchanged I have reviewed the history and physical and performed a pertinent physical examination on my patient. No changes have occurred unless specified.
[2021-06-19 09:38] VITALS: BP 96/64; PULSE 64; RESP 18; TEMP 36.5; O2SAT 99
--- NOTE | 2021-06-19 09:41 | PM.OP ---
Brief Operative Note Date of Service: 06/19/21 Pre-op diagnosis: heme pos stool, abnl ct scan Post-op diagnosis: same (diverticulosis) Procedure: flex sig to 30 cm Surgeon: Sonu Her Anesthesia: MAC Was an [employer] used for this Procedure?: No Estimated blood loss (mL): 0 Pathology: none sent Condition: stable Disposition: PACU
[2021-06-19 09:53] VITALS: BP 104/71; PULSE 67; RESP 18; TEMP 36.5; O2SAT 99
--- NOTE | 2021-06-19 10:23 | OP_ITS ---
SURGEON: Sonu Her MD INDICATIONS: Hemoccult-positive stool and abnormal CT scan. PREOPERATIVE DIAGNOSIS: POSTOPERATIVE DIAGNOSIS: PROCEDURE PERFORMED: Flexible sigmoidoscopy to 30 cm. ESTIMATED BLOOD LOSS: COMPLICATIONS: ANESTHESIA: ASSISTANTS: SPECIMENS: MEDICATIONS: Monitored anesthesia care. DESCRIPTION OF PROCEDURE: History and physical were performed. The risks and benefits of the procedure were explained to the patient. Informed consent was obtained. The patient was placed in left lateral decubitus position. A digital rectal exam was performed and was remarkable for a small opening on the left side of the external anus where his perirectal abscess had drained. Exam was otherwise normal. The Olympus pediatric video colonoscope was introduced into the rectum and advanced to 30 cm at which point, there was acute angulation and narrowing of the sigmoid and an area of diverticulosis. This did not permit further advancement of the scope. Examination was performed. The scope was removed. He tolerated the procedure well and was taken to recovery in stable condition. FINDINGS: As noted above. There was a narrowed area in the sigmoid with acute angulation secondary to diverticulosis. Mucosa appeared normal. No lesions were identified. The remainder of the examination was normal. The scope could not be advanced beyond 30 cm. Retroflexed examination showed moderate-sized internal hemorrhoids. IMPRESSION: Flexible sigmoidoscopy to 30 cm as above. RECOMMENDATION: Barium enema to evaluate the remainder of the colon. MD OLESYA Al/JORGE L / [id number] MTDD
[2021-06-19 12:38] VITALS: BP 118/85; PULSE 76; RESP 18; TEMP 36.5; O2SAT 99
== END 2021-06-19 13:10 ==
LOC: HO.SSS 07:54
PROVIDERS: PCP Internal Medicine; Visit Provider Internal Medicine Gastroenterology
PROC: 0DJD8ZZ Inspection of Lower Intestinal Tract, Via Natural or Artificial Opening Endoscopic (ICD-10-PCS; CPT 45378; principal; 2021-06-19 09:00)
DX: R19.5 Other fecal abnormalities (principal); Z86.010 Personal history of colon polyps; K56.609 Unspecified intestinal obstruction, unspecified as to partial versus complete obstruction; K57.30 Diverticulosis of large intestine without perforation or abscess without bleeding; K64.8 Other hemorrhoids; Z87.19 Personal history of other diseases of the digestive system; K61.2 Anorectal abscess; K21.9 Gastro-esophageal reflux disease without esophagitis; E78.00 Pure hypercholesterolemia, unspecified; E55.9 Vitamin D deficiency, unspecified; F41.1 Generalized anxiety disorder; Z79.899 Other long term (current) drug therapy; Z79.1 Long term (current) use of non-steroidal anti-inflammatories (NSAID)
CPT/HCPCS: 45330; 74270

== ENCOUNTER → 2021-06-23 13:33 | Outpatient (BNVA) | payer BC, SELFPAY | PROVIDERS: PCP Internal Medicine; Referring Provider Internal Medicine; Visit Provider Surgery | DX: K61.1 Rectal abscess (principal) | CPT/HCPCS: 99212 ==

== ENCOUNTER 2021-06-29 07:49 | Outpatient (REF) | payer BC, SELFPAY ==
[2021-06-29 08:21] LABS: MANUAL DIFF FLAG NO
[2021-06-29 08:43] LABS: Basophils Absolute Auto 0.1 X10*3/uL (0.0-0.2); Basophils Percent Auto 1.2 % (0-2); Eosinophils Absolute Auto 0.1 X10*3/uL (0.0-0.4); Eosinophils Percent Auto 2.9 % (0-4); Hematocrit 44.3 % (42.0-52.0); Hemoglobin 14.1 g/dl (14.0-18.0); Imm Gran Abs Auto 0.01 X10*3/uL (0.00-0.03); Imm Gran Pct Auto 0.2 % (0.0-0.4); Lymphocytes Absolute Auto 1.3 X10*3/uL (1.2-4.9); Lymphocytes Percent Auto 30.8 % (20-40); Mean Corpuscular HGB Conc 31.8 g/dl (31.0-36.0); Mean Platelet Volume 10.3 fL (9.4-12.4); Monocytes Absolute Auto 0.5 X10*3/uL (0.1-1.2); Monocytes Percent Auto 11.2 % (2-11); Neutrophils Absolute Auto 2.2 x10*3/uL (2.0-8.3); Neutrophils Percent Auto 53.7 % (45-73); Platelet Count 259 X10*3/uL (160-400); Red Blood Count 4.87 X10*6/uL (4.60-5.80); Red Cell Distribution Width 12.5 % (11.0-16.0); White Blood Count 4.1 X10*3/uL (4.8-10.8)
[2021-06-29 09:18] LABS: Alanine Aminotransferase 26 U/L (0-40); Alkaline Phosphatase 105 U/L (39-117); Anion Gap 11 (12-20); Aspartate Amino Transferase 17 U/L (5-37); Bilirubin Total 0.7 mg/dL (0.0-1.0); Blood Urea Nitrogen 16 mg/dL (9-16); Calcium 9.7 mg/dL (8.4-10.2); Carbon Dioxide 29 mmol/L (22-29); Chloride 105 mmol/L (96-108); Cholesterol 177 mg/dL; Estimated Glomerular Filt Rate > 60; Glucose Random 91 mg/dL (60-115); HDL Cholesterol 43 mg/dL; LDL Cholesterol Calculated 115 mg/dl; Potassium 4.4 mmol/L (3.3-5.1); Sodium 141 mmol/L (135-145); Total Protein 6.9 g/dL (6.5-8.0); Triglycerides 95 mg/dL
[2021-06-29 09:31] LABS: Prostate Specific Antigen 1.72 ng/mL (<0.05-4.0); TSH reflex Free T4 1.73 uIU/mL (0.32-4.0); Vitamin D 25-OH Total 35.4 ng/mL (>30)
[2021-06-29 09:54] LABS: Folate 7.5 ng/mL (> or = 4.0); Vitamin B12 255 pg/mL (200-900)
== END 2021-06-29 07:50 | disposition home or self-care (01) ==
LOC: HO.LAB 07:49
PROVIDERS: PCP Internal Medicine; Visit Provider Nurse Practitioner Family
DX: Z12.5 Encounter for screening for malignant neoplasm of prostate (principal); Z13.29 Encounter for screening for other suspected endocrine disorder; R22.9 Localized swelling, mass and lump, unspecified; E78.00 Pure hypercholesterolemia, unspecified
CPT/HCPCS: 36415; 80053; 80061; 82306; 82607; 82746; 84153; 84443; 85025

== ENCOUNTER 2021-07-13 07:17 | Day surgery (SDC) | payer BC, SELFPAY ==
[2021-07-07 14:35] VITALS: BMI 21.0
--- NOTE | 2021-07-09 13:43 | P.CONAN_ITS ---
Documented by User: Angie Hercules NP 07/09/21 13:44 HPI - Anesthesia Eval Consult details Narrative: 55yo M for Excision Rectal Fistula s/p buttock abcess 04/2021 with GA-LMA 4 PMFSH Active Problems Active Problems: All Active Problems (Updated 06/23/21 @ 14:14 by Vicente Stearns MD) Anal fistula (Acute) Abdominal pain (Acute) Tonsillitis (Acute) Perirectal abscess (Acute) Screening for hypothyroidism (Acute) Screening for prostate cancer (Acute) Screening for colon cancer (Acute) Lump of skin (Acute) Contact dermatitis (Acute) Shoulder pain (Acute) Annual physical exam (Acute) GERD (gastroesophageal reflux disease) (Acute) Anxiety (Acute) Hypercholesterolemia (Acute) Past Medical History Medical History Alcohol abuse Anxiety Diverticulitis GERD (gastroesophageal reflux disease) Hypercholesterolemia Perirectal abscess Shoulder pain Vitamin D deficiency Family History Family History Father Diabetes Hypertension Mother No problems noted. Paternal Grandfather Substance abuse Maternal Grandfather Substance abuse Surgical History Surgical History H/O wrist surgery History of appendectomy History of colonoscopy History of eye surgery History of surgery History of Problems with Anesthesia: No Social History Social History Housing: House Alcohol intake: current Alcohol intake frequency: a few times a month Patient Tobacco Use Status: Former Tobacco user Quit Date: 2016 Tobacco use type: Cigarette Years Smoked: quit 2017 Smoked in Last 30 Days: No e-Cigarette/Vaping Use: Never Used Second Hand Smoke Exposure: No Use of substances other than those prescribed or required for medical reasons: Yes Substance Use Type: Marijuana Are you DNR?: No Advance Directives: No Advance Directives Information Provided: Yes service: No Current occupational status: unemployed Cognitive needs: No Hearing needs: No Vision needs: Yes (Glasses) Meds Allergies Allergy/AdvReac Type Severity Reaction Status Date / Time No Known Allergies Allergy Verified 07/13/21 08:14 [No Known Allergies*] Home Medications Medication Instructions Recorded Confirmed Last Taken Type cholecalciferol (vitamin D3) 25 25 mcg PO DAILY 03/10/20 06/23/21 Unknown History mcg (1,000 unit) capsule Exam Exam Date and Time: July 09, 2021 1343 Height,Weight and Vital Signs: Height 5 ft 11 in Weight 68.492 kg Pertinent Lab Results Pertinent Lab Results: Laboratory Tests 06/29/21 06/29/21 08:19 08:19 WBC 4.1 L RBC 4.87 Hgb 14.1 Hct 44.3 Plt Count 259 Sodium 141 Potassium 4.4 Chloride 105 Carbon Dioxide 29 BUN 16 Creatinine 0.86 Assessment and Plan Assessment Anesthesia Assessment: Chart Reviewed Final Anesthetic Review History of Problems with Anesthesia: No Documented by User: Suzy Gibson MD 07/13/21 10:00 PMFSH Past Medical History Medical History Alcohol abuse Anxiety Diverticulitis GERD (gastroesophageal reflux disease) Hypercholesterolemia Perirectal abscess Shoulder pain Vitamin D deficiency Family History Family History Father Diabetes Hypertension Mother No problems noted. Paternal Grandfather Substance abuse Maternal Grandfather Substance abuse Surgical History Surgical History H/O wrist surgery History of appendectomy History of colonoscopy History of eye surgery History of surgery Social History Social History Housing: House Alcohol intake: current Alcohol intake frequency: a few times a month Patient Tobacco Use Status: Former Tobacco user Quit Date: 2016 Tobacco use type: Cigarette Years Smoked: quit 2017 Smoked in Last 30 Days: No e-Cigarette/Vaping Use: Never Used Second Hand Smoke Exposure: No Use of substances other than those prescribed or required for medical reasons: Yes Substance Use Type: Marijuana Are you DNR?: No Advance Directives: No Advance Directives Information Provided: Yes service: No Current occupational status: unemployed Cognitive needs: No Hearing needs: No Vision needs: Yes (Glasses) Meds Allergies Allergy/AdvReac Type Severity Reaction Status Date / Time No Known Allergies Allergy Verified 07/13/21 08:14 [No Known Allergies*] Home Medications Medication Instructions Recorded Confirmed Last Taken Type cholecalciferol (vitamin D3) 25 25 mcg PO DAILY 03/10/20 06/23/21 Unknown His tory mcg (1,000 unit) capsule Exam Airway Mallampati Class: II TM Dist: >3cm Neck ROM: Full Loose/Missing/Broken Teeth: No Heart: RRR Lungs: CTA Assessment and Plan Assessment Anesthesia Assessment: Anesthesia Plan Discussed Final Anesthetic Review NPO: Yes ASA Class: II Final Preanesthetic Review: Meds/Allgs Chart Reviewed, Consent Obtained/Reviewed and Anes Risks/Benef Reviewed Patient Risk: Low Procedure Risk: Low Anesthetic Plan Anesthetic Plan: GA Disposition: Standard PACU
[2021-07-13] VITALS (8 sets, daily range): BP systolic 114–131; BP diastolic 62–92; PULSE 59–67; RESP 16–19; TEMP 36.2–37; O2SAT 97–100; BMI 21.6
[2021-07-13] MEDS: Lactated Ringers 1,000 ML 100 ML IVCONT (08:49)
--- NOTE | 2021-07-13 08:52 | MHC.SHP ---
Pre-Procedural Eval Section A Date of Service: 07/13/21 The patient is an INPATIENT: No Changes since office visit: Yes Patient answered all questions; No Cold of Flu in the past 2 weeks, No New Medical Problems and No Changes in Medication The History & Physical has been completed within 30 days and I have reviewed it.: Yes Section B Chief Complaint: Anal fistula Allergies: Allergies Allergy/AdvReac Type Severity Reaction Status Date / Time No Known Allergies Allergy Verified 07/13/21 08:14 [No Known Allergies*] Plan Diagnosis/Plan: Unchanged I have reviewed the history and physical and performed a pertinent physical examination on my patient. No changes have occurred unless specified.
--- NOTE | 2021-07-13 09:54 | W.PM.OPN ---
Operative Note Operative Note Date of Service: 07/13/21 Narrative: Preoperative diagnosis: Anal fistula Postoperative diagnosis:same Procedure: Anal fistulotomy Surgeon: Vicente Stearns MD Tumbling Machine Operator: Sammie Jacobs PA-C Anesthesia:general ET Indications for procedure: 55-year-old male patient with a previous history of a large perirectal abscess status post incision and drainage now presenting with persistent drainage from the same site. He was found on outpatient examination to possibly have a fistula. He presents today for anal fistulotomy. Operative findings: Small anal fistulous tract which does not appear to extend beyond the subcutaneous tissue. No internal opening is identified. Findings are suggestive of a healing perirectal abscess cavity. Specimen: Fistulous track Estimated blood loss: 5 mL Complications: None Procedure details: Patient was brought to the OR placed in a supine position. After administering general anesthesia he was placed in a prone position. Perirectal skin was prepped with Betadine and draped in a sterile fashion. A surgical time-out was called the consent confirmed. Patient received preoperative antibiotics and Venodyne boots were in place. Local anesthesia consisting of 0.25% Sensorcaine was infiltrated around the fistulous opening. A probe was then inserted through the fistulous tract. Incision was then made over the probe down to the track. Tract was unable to be advanced beyond the subcutaneous tissue. No internal opening of the tract be identified. This appears to have healed completely. The subcutaneous cavity was then completely excised using electrocautery and a curette. Portion of the specimen was sent to pathology for further examination. Wounds were checked for hemostasis which was assured using electrocautery. Wounds were then packed with quarter-inch Nu Gauze followed by fluffed gauze and ABD pad. The patient was returned to the supine position and woken from anesthesia. Tolerated the procedure well. Sponge, instrument, needle counts reported as correct. Patient was transferred to PACU in stable condition.
[2021-07-13] MEDS: Acetaminophen 325 MG TABLET 650 MG PO (10:35)
[2021-07-13] MEDS: oxyCODONE HCl Immed Release 5 MG TABLET PO (10:35)
== END 2021-07-13 11:30 | disposition home or self-care (01) ==
PROVIDERS: PCP Internal Medicine; Visit Provider Surgery
PROC: (CPT 46270; principal; 2021-07-13 09:10)
DX: K60.3 Anal fistula (principal)
CPT/HCPCS: 46270; 88304; J1100; J1885; J2250; J2405; J3010

== ENCOUNTER → 2021-07-21 13:35 | Outpatient (BNVA) | payer BC, SELFPAY | PROVIDERS: PCP Internal Medicine; Referring Provider Internal Medicine; Visit Provider Surgery | DX: Z13.89 Encounter for screening for other disorder (principal) ==

== ENCOUNTER → 2021-08-20 15:02 | Outpatient (BNVA) | payer BC, SELFPAY | PROVIDERS: PCP Internal Medicine; Referring Provider Internal Medicine; Visit Provider Surgery | DX: K60.3 Anal fistula (principal) ==

== ENCOUNTER 2021-12-22 03:41 | Emergency (ER) | payer OTHER, SELFPAY ==
--- NOTE | ~2021-12-22 | CT_ITS ---
EXAMINATION: CT ABDOMEN AND PELVIS WITH CONTRAST CLINICAL INFORMATION: Abdominal pain, history of diverticulitis COMPARISON: 04/18/2021 TECHNIQUE: Multidetector volumetric images were obtained from the superior aspect of the liver through the pubic symphysis following administration 85 mL of Omnipaque 350 intravenous contrast. Sagittal and coronal reformatted images were obtained on the technologist's workstation. Oral contrast: No This CT examination was performed using dose optimization techniques as appropriate, variously including the following: *Automated exposure control *Adjustment of mA and/or kV according to patient size (this includes techniques or standardized protocols for targeted exams where dose is matched to indication/reason for exam; i.e. extremities or head) *Use of iterative reconstruction technique DLP: 402 mGy-cm FINDINGS: LUNG BASES: Subsegmental bibasilar atelectasis. LIVER, GALLBLADDER, AND BILIARY TREE: The liver is normal in size, shape, and attenuation. Small hypodensity in segment 4A is redemonstrated, favored to reflect a cyst. No biliary ductal dilatation is present. The gallbladder is unremarkable with no evidence of radiopaque gallstones, gallbladder wall thickening, or obvious pericholecystic inflammatory changes. PANCREAS: Unremarkable. SPLEEN: Unremarkable. ADRENAL GLANDS: Unremarkable. KIDNEYS AND URETERS: Bilateral nephrograms are symmetric. No hydronephrosis or obstructing calculus identified. Tiny hypodensity in the posterior right kidney is suggestive of a cyst and unchanged from prior, though too small to definitively characterize. BLADDER: Unremarkable. GASTROINTESTINAL TRACT: No evidence of bowel obstruction. There is a thick-walled segment of sigmoid colon, similar to prior. Minimal surrounding stranding is seen. There is redemonstrated diverticulosis, greatest in the sigmoid colon. No free fluid or free air is seen. ABDOMINAL WALL: No significant hernia is appreciated. LYMPH NODES: Normal. VASCULAR: Scattered atherosclerotic calcifications. PELVIC VISCERA: Unremarkable. OSSEOUS STRUCTURES: Facet arthropathy is noted in the lumbar spine. CT/CT abdomen pelvis w IV con IMPRESSION: Thick-walled segment of sigmoid colon, with minimal surrounding stranding raising concern for a mild diverticulitis in the proper clinical setting. However, at least some of this wall thickening may be chronic in nature, as this appearance is fairly similar to 04/18/2021. Component of underlying stricturing or mass cannot be excluded. Correlation with recent or followup colonoscopy is advised to exclude an underlying mass lesion.
[2021-12-22 03:56] VITALS: BP 113/81; PULSE 65; RESP 16; TEMP 36.8; O2SAT 100; BMI 21.6
[2021-12-22 06:31] VITALS: BP 139/89; PULSE 53; RESP 16; O2SAT 100
--- NOTE | 2021-12-22 06:44 | PC.NURSE ---
Patient states blood is on the TP when he is wiping after having a BM. Last BM was Tuesday overnight and it was very loose. NO large quantities of blood seen. NO vomiting. No urinary symptoms.
--- NOTE | 2021-12-22 06:47 | ED.GIBLEED ---
HPI - GI Bleed General Chief complaint: GI Bleed Stated complaint: passing blood Time Seen by Provider: 12/22/21 06:47 Source: patient Mode of arrival: ambulatory Limitations: no limitations History of Present Illness HPI Narrative: Patient with a history of colitis and fistula. Patient passed a little blood this morning. He had diarrhea 2 days ago, this morning passed gas and when he wiped he had a lot of blood. He is concerned that he has colitis again. No history of UC or chrohns but he does have diverticulitis Onset (ago): day(s) Pain Consistency: intermittent Severity: mild Associated symptoms: abdominal pain and nausea Related Data Home Medications Medication Instructions Recorded Confirmed cholecalciferol (vitamin D3) 25 25 mcg PO DAILY 03/10/20 10/06/21 mcg (1,000 unit) capsule Previous Rx's Medication Instructions Recorded ibuprofen 600 mg tablet 600 mg PO TID 30 days #90 tabs 06/01/21 bupropion HCl 150 mg tablet,12 hr 150 mg PO DAILY 90 days #90 tabs 10/06/21 sustained-release (Wellbutrin SR) levofloxacin 500 mg tablet 500 mg PO DAILY 7 days #7 tabs 12/22/21 metronidazole 500 mg tablet 500 mg PO Q8H 7 days #21 tabs 12/22/21 Allergies Allergy/AdvReac Type Severity Reaction Status Date / Time No Known Allergies Allergy Verified 10/06/21 15:42 [No Known Allergies*] Review of Systems Constitutional: Constitutional: Reports no additional constitutional complaints Eyes: Eyes: Reports no additional eye complaints ENT: Denies dizziness Cardiovascular: Cardiovascular: Reports no additional cardiovascular complaints Respiratory: Respiratory: Reports as per HPI Gastrointestinal: Gastrointestinal: Reports no additional gastrointestinal complaints Musculoskeletal: Musculoskeletal: Reports no additional musculoskeletal complaints Integumentary/Breasts: Skin/Breast: Denies rash Neurologic: Reports system reviewed and no additional complaints, except as documented, Denies dizziness and Denies Sensory deficit (Neuro) Psychiatric: Psychiatric: Denies anxiety PMFSH Past Medical History Medical History Alcohol abuse Anxiety Diverticulitis GERD (gastroesophageal reflux disease) Hypercholesterolemia Perirectal abscess Screening for colon cancer Screening for hypothyroidism Screening for prostate cancer Shoulder pain Vitamin D deficiency Surgical History H/O wrist surgery History of appendectomy History of colonoscopy History of eye surgery History of surgery Family History Family History Father Diabetes Hypertension Mother No problems noted. Paternal Grandfather Substance abuse Maternal Grandfather Substance abuse Social History Social History Housing: House Alcohol intake: current Alcohol intake frequency: a few times a month Patient Tobacco Use Status: Former Tobacco user Quit Date: 2016 Tobacco use type: Cigarette Years Smoked: quit 2016 e-Cigarette/Vaping Use: Never Used Second Hand Smoke Exposure: No Substance Use Type: Marijuana Advance Directives: No Advance Directives Information Provided: Yes service: No Current occupational status: unemployed Cognitive needs: No Hearing needs: No Vision needs: Yes (Glasses) Physical Exam Vital Signs: Vital Signs: Last Vital Signs Temp 98.2 F 12/22/21 10:17 Pulse 62 12/22/21 10:17 Resp 14 12/22/21 10:17 BP 124/83 12/22/21 10:17 Pulse Ox 99 12/22/21 10:17 O2 Del Method 12/22/21 10:17 BMI result Body Mass Index 21.6 Const: General: healthy appearing Nutritional Appearance: average body habitus Orientation/consciousness: oriented to person and patient oriented x3 Limitations: no limitations HEENT: Head: Yes normal to inspection Ears: external ears normal General nose exam: Normal external nose present Mouth: Normal oral and palatal mucosa present and oropharynx normal Throat: Yes posterior oropharynx normal Eyes: General: appearance normal, both eyes and all related structures Neck: Other: supple Neck: Yes normal visual inspection Chest: Chest palpation & inspection: normal inspection of the chest Resp: Auscultation: clear to auscultation bilaterally Cardio: Jugular venous distension: no JVD Rate: regular rate Rhythm: regular rhythm Heart sounds: S1 normal heart sound present and S2 normal heart sound present GI: Inspection: Yes normal to inspection Palpation (GI): Soft to palpation, nontender and No hepatosplenomegaly present Auscultation: normal bowel sounds : Other: small area of possible rectal fissure, black stool, slightly heme positive Skin: General skin exam: no rashes or lesions noted Neuro: General: oriented to person and patient oriented x3 Cranial nerves: Yes CN's II-XII intact bilaterally Motor exam (neuro): 5/5 motor strength present throughout Sensory Exam: No Sensory deficit (Neuro) Extrem: General: Yes normal to inspection Psych: Appearance: grossly normal Course Reevaluation(s) Reevaluation #1: Patient with area of thick walled colon will dc on levaquin and flagyl Time: 11:19 MDM - GI Bleed Lab Data Result diagrams: 12/22/21 08:35 12/22/21 08:35 Labs: Lab Results 12/22/21 12/22/21 Range/Units 08:35 08:35 WBC 10.2 (4.8-10.8) X10*3/uL RBC 4.71 (4.60-5.80) X10*6/uL Hgb 14.2 (14.0-18.0) g/dl Hct 42.7 (42.0-52.0) % MCV 90.7 (80.0-98.0) fL MCH 30.1 (27.0-33.0) pg MCHC 33.3 (31.0-36.0) g/dl RDW 12.4 (11.0-16.0) % Plt Count 234 (160-400) X10*3/uL MPV 10.8 (9.4-12.4) fL Immature Gran % (Auto) 0.3 (0.0-0.4) % Neut % (Auto) 83.3 H (45-73) % Lymph % (Auto) 9.8 L (20-40) % [place] % (Auto) 6.0 (2-11) % Eos % (Auto) 0.3 (0-4) % Baso % (Auto) 0.3 (0-2) % Lymph # (Auto) 1.0 L (1.2-4.9) X10*3/uL [place] # (Auto) 0.6 (0.1-1.2) X10*3/uL Eos # (Auto) 0.0 (0.0-0.4) X10*3/uL Baso # (Auto) 0.0 (0.0-0.2) X10*3/uL Abs Immat Gran (auto) 0.03 (0.00-0.03) X10*3/uL Absolute Neuts (auto) 8.5 H (2.0-8.3) x10*3/uL Absolute Nucleated RBC 0.000 (0.0-0.012) X10*3/uL Nucleated RBC % (auto) 0.0 (0.0-0.2) /100WBC Sodium 142 (135-145) mmol/L Potassium 3.8 (3.3-5.1) mmol/L Chloride 105 (96-108) mmol/L Carbon Dioxide 25 (22-29) mmol/L Anion Gap 16 (12-20) BUN 17 H (9-16) mg/dL Creatinine 0.78 (0.5-1.4) mg/dL Estim Creat Clear Calc 106.4 Estimated GFR > 60 Random Glucose 96 (60-115) mg/dL Calcium 9.1 D (8.4-10.2) mg/dL Imaging Data CT scan - abdomen: Radiologist's impression: MPRESSION: Thick-walled segment of sigmoid colon, with minimal surrounding stranding raising concern for a mild diverticulitis in the proper clinical setting. However, at least some of this wall thickening may be chronic in nature, as this appearance is fairly similar to 04/18/2021. Component of underlying stricturing or mass cannot be excluded. Correlation with recent or followup colonoscopy is advised to exclude an underlying mass lesion. Discharge Plan Discharge Clinical Impression: Diverticulitis Patient Disposition: Home, Self-Care Instructions: Diverticulitis (ED), Diverticulitis Diet (ED) Prescriptions: New levofloxacin 500 mg tablet 500 mg PO DAILY 7 Days Qty: 7 0RF metronidazole 500 mg tablet 500 mg PO Q8H 7 Days Qty: 21 0RF No Action ibuprofen 600 mg tablet 600 mg PO TID 30 Days Qty: 90 0RF Label Comments: no am meds 06/19/21 cholecalciferol (vitamin D3) 25 mcg (1,000 unit) capsule 25 mcg PO DAILY bupropion HCl [Wellbutrin SR] 150 mg tablet sustained-release 12 hr 150 mg PO DAILY 90 Days Qty: 90 1RF Referrals: Po,Shell Melendez MD [Primary Care Provider] - 5 days
[2021-12-22 08:08] VITALS: BP 124/86; PULSE 56; RESP 14; TEMP 36.7; O2SAT 96
[2021-12-22 08:52] LABS: MANUAL DIFF FLAG NO
[2021-12-22 08:53] LABS: Basophils Percent Auto 0.3 % (0-2); Eosinophils Percent Auto 0.3 % (0-4); Hematocrit 42.7 % (42.0-52.0); Hemoglobin 14.2 g/dl (14.0-18.0); Imm Gran Abs Auto 0.03 X10*3/uL (0.00-0.03); Imm Gran Pct Auto 0.3 % (0.0-0.4); Lymphocytes Percent Auto 9.8 % (20-40); Mean Corpuscular HGB Conc 33.3 g/dl (31.0-36.0); Mean Corpuscular Hemoglobin 30.1 pg (27.0-33.0); Mean Corpuscular Volume 90.7 fL (80.0-98.0); Mean Platelet Volume 10.8 fL (9.4-12.4); Monocytes Absolute Auto 0.6 X10*3/uL (0.1-1.2); Neutrophils Absolute Auto 8.5 x10*3/uL (2.0-8.3); Neutrophils Percent Auto 83.3 % (45-73); Platelet Count 234 X10*3/uL (160-400); Red Blood Count 4.71 X10*6/uL (4.60-5.80); Red Cell Distribution Width 12.4 % (11.0-16.0); White Blood Count 10.2 X10*3/uL (4.8-10.8)
[2021-12-22 09:11] LABS: Anion Gap 16 (12-20); Blood Urea Nitrogen 17 mg/dL (9-16); Calcium 9.1 mg/dL (8.4-10.2); Carbon Dioxide 25 mmol/L (22-29); Chloride 105 mmol/L (96-108); Creatinine Clr Calc Pharmacy 106.4; Estimated Glomerular Filt Rate > 60; Glucose Random 96 mg/dL (60-115); Potassium 3.8 mmol/L (3.3-5.1); Sodium 142 mmol/L (135-145)
[2021-12-22] MEDS: iohexoL 350 MG/ML 100 ML INFUS..BTL IV (09:42)
[2021-12-22 10:17] VITALS: BP 124/83; PULSE 62; RESP 14; TEMP 36.8; O2SAT 99
[2021-12-22] MEDS: metroNIDAZOLE 500 MG TABLET PO (11:33)
[2021-12-22] MEDS: levoFLOXacin 500 MG TABLET PO (11:33)
[2021-12-22 15:10] LABS: Campylobacter Not Detected (Not Detect.); Plesiomonas shigelloides Not Detected (Not Detect.); Salmonella Not Detected (Not Detect.); Vibrio Not Detected (Not Detect.); Vibrio Cholerae Not Detected (Not Detect.); Yersinia enterocolitica Not Detected (Not Detect.)
[2021-12-22 15:11] LABS: Adenovirus F 40/41 Not Detected (Not Detect.); Astrovirus Not Detected (Not Detect.); Cryptosporidium Not Detected (Not Detect.); Cyclospora cayetanensis Not Detected (Not Detect.); E. coli EAEC Not Detected (Not Detect.); E. coli EPEC Not Detected (Not Detect.); E. coli ETEC Not Detected (Not Detect.); E. coli STEC Not Detected (Not Detect.); Entamoeba histolytica Not Detected (Not Detect.); Giardia lamblia Not Detected (Not Detect.); Norovirus GI/GII Not Detected (Not Detect.); Rotavirus A Not Detected (Not Detect.); Sapovirus Not Detected (Not Detect.); Shigella sp./EIEC Not Detected (Not Detect.)
== END 2021-12-22 11:55 | disposition home or self-care (01) ==
PROVIDERS: Emergency Provider Emergency Medicine; PCP Internal Medicine
DX: K57.32 Diverticulitis of large intestine without perforation or abscess without bleeding (principal); R10.9 Unspecified abdominal pain; R11.2 Nausea with vomiting, unspecified; Z20.822 Contact with and (suspected) exposure to COVID-19; Z79.899 Other long term (current) drug therapy; Z87.891 Personal history of nicotine dependence
CPT/HCPCS: 36415; 74177; 80048; 85025; 87507; 99284; Q9967

== ENCOUNTER 2022-02-19 14:13 | Outpatient (REF) | payer OTHER, SELFPAY ==
[2022-02-19 14:56] LABS: Influenza A PCR NEGATIVE (Negative); Influenza B PCR NEGATIVE (Negative); Resp Syncy Virus RNA Qual PCR POSITIVE (Negative); SARS COV2 PCR INHOUSE NEGATIVE (Negative)
== END 2022-02-19 14:14 | disposition home or self-care (01) ==
LOC: HO.LNP 14:13
PROVIDERS: Visit Provider Internal Medicine
DX: R43.9 Unspecified disturbances of smell and taste (principal); Z20.822 Contact with and (suspected) exposure to COVID-19
CPT/HCPCS: 0241U

== ENCOUNTER → 2022-05-07 09:05 | Outpatient (BNVA) | payer OTHER, SELFPAY | PROVIDERS: PCP Internal Medicine; Visit Provider Surgery | DX: Z13.89 Encounter for screening for other disorder (principal) ==

== ENCOUNTER 2022-12-28 05:39 | Emergency (ER) | payer OTHER, SELFPAY ==
--- NOTE | ~2022-12-28 | CT_ITS ---
EXAMINATION: CT ABDOMEN AND PELVIS WITH CONTRAST CLINICAL INFORMATION: Abdominal pain, rectal bleeding. History of fistula repair. COMPARISON: CT abdomen and pelvis 2021. TECHNIQUE: Multidetector volumetric images were obtained from the superior aspect of the liver through the pubic symphysis following administration 85 mL of Omnipaque 350 intravenous contrast. Sagittal and coronal reformatted images were obtained on the technologist's workstation. Oral contrast: No This CT examination was performed using dose optimization techniques as appropriate, variously including the following: *Automated exposure control *Adjustment of mA and/or kV according to patient size (this includes techniques or standardized protocols for targeted exams where dose is matched to indication/reason for exam; i.e. extremities or head) *Use of iterative reconstruction technique DLP: 402 mGy-cm FINDINGS: LUNG BASES: There is bibasilar atelectasis. Heart size is normal. LIVER, GALLBLADDER, AND BILIARY TREE: The liver is normal in size, shape, and attenuation. There is mild translation hypodensity in the segment 4A, favored to be a small cyst, unchanged to last exam. No additional lesions seen. Biliary ductal dilatation is present. The gallbladder is unremarkable with no evidence of radiopaque gallstones, gallbladder wall thickening, or obvious pericholecystic inflammatory changes. PANCREAS: Unremarkable. SPLEEN: Unremarkable. ADRENAL GLANDS: Unremarkable. KIDNEYS AND URETERS: The kidneys are normal in size, shape, and attenuation. No hydronephrosis, hydroureter, or calculi seen. No perinephric stranding. There is mild hypoattenuating lesions in the upper and and 1.9 cm lesion in lower pole. The lesion in the lower pole measures 30 Hounsfield units likely complex cyst. No additional lesions seen. BLADDER: Unremarkable. GASTROINTESTINAL TRACT: There is scattered stool and gas seen throughout the colon without significant distention. The small bowel loops are normal caliber. There is mild with mild mural thickening involving the sigmoid colon and trace fat stranding similar previous study. The small bowel loops are normal caliber. The stomach is nondistended. Appendix is not seen in its certainty. No free air or free fluid. ABDOMINAL WALL: No significant hernia is appreciated. LYMPH NODES: Normal. VASCULAR: Unremarkable. PELVIC VISCERA: There is heterogeneous appearance of prostate gland. The periprostatic fat planes are preserved. There is no free air or free fluid. OSSEOUS STRUCTURES: There are degenerative disc changes L4-L5 disc level. No aggressive lytic or sclerotic process seen. CT/CT abdomen pelvis w IV con IMPRESSION: Bibasilar atelectasis. Mild wall thickening with minimal fat stranding in the sigmoid colon likely early diverticulitis. Moderate constipation. Further evaluation with sigmoidoscopy ovarian or can be performed if clinically indicated. Fleischner guidelines were followed.
[2022-12-28 05:40] VITALS: BP 142/84; PULSE 73; RESP 18; TEMP 36.4; O2SAT 98; BMI 20.4
[2022-12-28 05:58] LABS: MANUAL DIFF FLAG NO
[2022-12-28 05:59] LABS: Basophils Percent Auto 0.5 % (0-2); Eosinophils Absolute Auto 0.1 X10*3/uL (0.0-0.4); Eosinophils Percent Auto 1.1 % (0-4); Hematocrit 46.3 % (42.0-52.0); Imm Gran Abs Auto 0.01 X10*3/uL (0.00-0.03); Imm Gran Pct Auto 0.2 % (0.0-0.4); Lymphocytes Absolute Auto 1.5 X10*3/uL (1.2-4.9); Lymphocytes Percent Auto 26.4 % (20-40); Mean Corpuscular HGB Conc 32.4 g/dl (31.0-36.0); Mean Corpuscular Hemoglobin 29.3 pg (27.0-33.0); Mean Corpuscular Volume 90.4 fL (80.0-98.0); Mean Platelet Volume 10.6 fL (9.4-12.4); Monocytes Absolute Auto 0.4 X10*3/uL (0.1-1.2); Monocytes Percent Auto 7.6 % (2-11); Neutrophils Absolute Auto 3.6 x10*3/uL (2.0-8.3); Neutrophils Percent Auto 64.2 % (45-73); Platelet Count 281 X10*3/uL (160-400); Red Blood Count 5.12 X10*6/uL (4.60-5.80); Red Cell Distribution Width 13.2 % (11.0-16.0); White Blood Count 5.6 X10*3/uL (4.8-10.8)
[2022-12-28 06:13] LABS: Alanine Aminotransferase 12 U/L (0-40); Albumin Level 4.2 g/dL (3.5-5.0); Alkaline Phosphatase 80 U/L (39-117); Anion Gap 17 (12-20); Aspartate Amino Transferase 15 U/L (5-37); Bilirubin Direct 0.4 mg/dL (0.0-0.5); Bilirubin Total 1.6 mg/dL (0.0-1.0); Blood Urea Nitrogen 14 mg/dL (9-16); Calcium 9.6 mg/dL (8.4-10.2); Carbon Dioxide 23 mmol/L (22-29); Chloride 104 mmol/L (96-108); Creatinine Clr Calc Pharmacy 77.2; Estimated Glomerular Filt Rate > 60; Glucose Random 122 mg/dL (60-115); Lipase 16 U/L (8-78); Potassium 3.8 mmol/L (3.3-5.1); Sodium 140 mmol/L (135-145); Total Protein 7.3 g/dL (6.5-8.0)
--- NOTE | 2022-12-28 06:35 | PC.NURSE ---
Pt ambulated to room, reporting diarrhea with some blood seen when wiping since yesterday, with intermittent sharp abdominal pain during BM, pt stated feels like I have to go but nothing really comes out. Pt also reports feeling need to vomit when trying to have a BM. Bowel sounds heard in all four quadrants, no pain with palpation.
--- NOTE | 2022-12-28 06:37 | ED_ITS ---
HPI - General Adult General Chief complaint: Nausea/Vomiting/Diarrhea Stated complaint: Rectal bleeding Time Seen by Provider: 12/28/22 06:33 Source: patient, RN notes reviewed and old records reviewed Mode of arrival: ambulatory History of Present Illness HPI narrative: 57-year-old male with past medical history of ETOH abuse, GERD, anxiety, diverticulitis, HLD, perirectal abscess, anal fistula s/p fistulotomy '22, presenting to the ED complaining of abdominal discomfort/cramping, nausea, loose diarrhea and brbpr x1 week. reports bright red blood every time he wipes. Denies fever, chills, vomiting, dysuria/hematuria. Denies taking anticoagulation Related Data Home Medications Medication Instructions Recorded Confirmed cholecalciferol (vitamin D3) 25 25 mcg PO DAILY 03/10/20 06/28/22 mcg (1,000 unit) capsule vitamin B complex-folic acid 0.4 1 tab PO DAILY 06/28/22 06/28/22 mg tablet Previous Rx's Medication Instructions Recorded ibuprofen 600 mg tablet 600 mg PO TID 30 days #90 tabs 06/27/22 trazodone 50 mg tablet 50 mg PO BEDTIME PRN sleep #30 tabs 09/27/22 bupropion HCl 150 mg tablet,12 hr 150 mg PO DAILY 90 days #90 tabs 10/26/22 sustained-release (Wellbutrin SR) methylcellulose (laxative) 500 mg 1,000 mg (2 x 500 mg) PO DAILY #60 12/27/22 tablet (Citrucel) tabs sennosides 8.6 mg-docusate sodium 1 tab-cap PO BEDTIME #60 tabs 12/27/22 50 mg tablet (Senna Plus) amoxicillin 875 mg-potassium 1 tab PO BID 7 days #14 tabs 12/28/22 clavulanate 125 mg tablet Allergies Allergy/AdvReac Type Severity Reaction Status Date / Time No Known Allergies Allergy Verified 06/28/22 09:43 [No Known Allergies*] Review of Systems 2 Review of Systems: Constitutional: No Fever, No Chills, No Fatigue, No Malaise ENT/Mouth: No Hearing loss, No Ear Pain, No Rhinorrhea, No Swallowing Difficulty Eyes: No Eye Pain, No Swelling, No Redness, No Vision Changes Cardiovascular: No Chest Pain, No SOB, No Palpitations Respiratory: No Cough, No Sputum, No Dyspnea Gastrointestinal: + Nausea, No Vomiting, +Diarrhea, No Constipation, +Abdominal pain, +brbpr, No Melena Genitourinary: No irregular bleeding, No Dysuria, No Urinary Frequency, No Hematuria, No Urinary Incontinence/retention, No Flank Pain Skin: No Skin Lesions, No rash Neuro: No Weakness, No Numbness, No Paresthesias, No Loss of Consciousness, No Dizziness, No Headache Yes all other systems are reviewed and are negative Constitutional: Constitutional: Reports as per [facility] Past Medical History Attestation statement: The following information was validated with the patient. Source: old records reviewed Medical History Perirectal abscess Shoulder pain Alcohol abuse GERD (gastroesophageal reflux disease) Vitamin D deficiency Anxiety Diverticulitis Hypercholesterolemia Surgical History History of surgery History of colonoscopy H/O wrist surgery History of eye surgery History of appendectomy Family History Family History Father Diabetes Hypertension Mother No problems noted. Paternal Grandfather Substance abuse Maternal Grandfather Substance abuse Social History Social History Housing: House Alcohol intake: current Alcohol intake frequency: holidays/special occasions only Patient Tobacco Use Status: Former Tobacco user Quit Date: 2016 Tobacco use type: Cigarette Years Smoked: quit 2017 Smoked in Last 30 Days: No e-Cigarette/Vaping Use: Never Used Second Hand Smoke Exposure: No Use of substances other than those prescribed or required for medical reasons: No Substance Use Type: Marijuana Advance Directives: No Advance Directives Information Provided: Yes service: No Current occupational status: unemployed Cognitive needs: No Hearing needs: No Vision needs: Yes (Glasses) Physical Exam ED Vital Signs: Vital Signs - 24 hr 12/28/22 05:40 12/28/22 08:25 12/28/22 10:00 Temperature 97.6 F 97.8 F 98.0 F Pulse Rate 73 62 63 Respiratory Rate 18 16 16 Blood Pressure 142/84 H 114/80 118/86 Pulse Oximetry 98 97 98 Oxygen Delivery Method Room Air Room Air Room Air BMI result Body Mass Index 20.4 Const General: cooperative, healthy appearing and no acute distress Orientation/consciousness: patient oriented x3 Limitations: no limitations HENMT Head: Yes normal to inspection and Yes atraumatic Ears: hearing grossly normal bilaterally General nose exam: Normal external nose present Face and sinus: Yes normal facial exam Eyes General: appearance normal, both eyes and all related structures EOM: EOMs intact bilaterally Neck Neck: Yes normal visual inspection and Yes no meningeal signs Resp Effort & Inspection: normal respiratory effort and no respiratory distress Auscultation: clear to auscultation bilaterally Cardio Rate: regular rate Heart sounds: S1 normal heart sound present and S2 normal heart sound present GI Inspection: Yes normal to inspection Palpation (GI): Soft to palpation, Tenderness to palpation present (GI) suprapubicly; with no rebound tenderness, no guarding and not rigid Rectal Exam - Male: No External hemorrhoid(s) present, No Internal hemorrhoid(s) present, No Fistula present (GI), No Anal fissure(s) present and No hemorrhoids General: Yes no CVA tenderness Back/Spine/Pelvis Back: no CVA tenderness Skin Rashes: no rashes Wounds: no wounds Neuro General: patient oriented x3, tone normal and no meningeal signs Cranial nerves: Yes CN's II-XII intact bilaterally Gait exam (Neuro): Normal gait present Extrem General: Yes normal to inspection Course Course Course Narrative: -no leukocytosis. H&H stable. T bili mildly elevated, labs otherwise reassuring. Occult stool positive -UA with RBC/blood, not infected 0905--CT abdomen pelvis w IV con IMPRESSION: Bibasilar atelectasis. Mild wall thickening with minimal fat stranding in the sigmoid colon likely early diverticulitis. Moderate constipation. Further evaluation with sigmoidoscopy ovarian or can be performed if clinically indicated. Fleischner guidelines were followed. > 1037--after speaking with lab multiple times, now unable to run GI stool panel as not enough sample, but will still run C diff. patient tolerating p.o. in the ED without difficulty, pain controlled. Will discharge prior to result, will be contacted if C diff is positive. Will send patient home with outpatient lab slip for GI panel to follow-up with PCP. Results discussed with patient including worrisome signs and symptoms and strict return precautions, and when to return to the emergency department. They verbalized understanding and feel safe for discharge at this time. -1153--C.diff negative Medications Administered Discontinued Medications Generic Name Dose Route Start Last Admin Trade Name Carly PRN Reason Stop Dose Admin Sodium Chloride 1,000 mls @ 999 mls/hr 12/28/22 07:00 12/28/22 10:44 Ns IV 12/28/22 08:00 Infused .Q1H1M KIRA Infusion Iohexol 100 ml 12/28/22 07:56 12/28/22 07:56 Iohexol 350 Mg/Ml 100 Ml Infus..Btl IV 12/28/22 07:57 85 ml ONCE ONE Administration Medical Decision Making Medical Decision Making [facility] Narrative: 57-year-old male with past medical history of ETOH abuse, GERD, anxiety, diverticulitis, HLD, perirectal abscess, anal fistula s/p fistulotomy '22, presenting to the ED complaining of abdominal discomfort/cramping, nausea, loose diarrhea and brbpr x1 week reports bright red blood every time he wipes. On exam vital signs stable, NAD, nontoxic appearing, abdomen soft with mild suprapubic tenderness, rebound guarding, no appreciable internal or external hemorrhoids or external fistula on rectal exam. Concern for recurrent fistula vs diverticulitis vs GI bleed vs gastroenteritis/colitis. Rule out infectious diarrhea including C diff Plan: Labs, occult stool, UA, CT AP, re-evaluate Please refer to course for remaining clinical decision making, interpretation of labs/imaging results, and discussions with consultants and/or family members. Differential Diagnosis Differential Diagnoses: The differential diagnosis associated with the presentation includes As above Admission/Observation Consideration of admission/observation: Escalation of care including admission/observation considered Lab Data [facility] Lab Attestation statement: I reviewed the patient's lab results. 12/28/22 05:54 12/28/22 05:54 Labs: Lab Results 12/28/22 12/28/22 12/28/22 Range/Units 05:54 07:10 07:17 WBC 5.6 (4.8-10.8) X10*3/uL RBC 5.12 (4.60-5.80) X10*6/uL Hgb 15.0 (14.0-18.0) g/dl Hct 46.3 (42.0-52.0) % MCV 90.4 (80.0-98.0) fL MCH 29.3 (27.0-33.0) pg MCHC 32.4 (31.0-36.0) g/dl RDW 13.2 (11.0-16.0) % Plt Count 281 (160-400) X10*3/uL MPV 10.6 (9.4-12.4) fL Immature Gran % (Auto) 0.2 (0.0-0.4) % Neut % (Auto) 64.2 (45-73) % Lymph % (Auto) 26.4 (20-40) % [place] % (Auto) 7.6 (2-11) % Eos % (Auto) 1.1 (0-4) % Baso % (Auto) 0.5 (0-2) % Lymph # (Auto) 1.5 (1.2-4.9) X10*3/uL [place] # (Auto) 0.4 (0.1-1.2) X10*3/uL Eos # (Auto) 0.1 (0.0-0.4) X10*3/uL Baso # (Auto) 0.0 (0.0-0.2) X10*3/uL Abs Immat Gran (auto) 0.01 (0.00-0.03) X10*3/uL Absolute Neuts (auto) 3.6 (2.0-8.3) x10*3/uL Absolute Nucleated RBC 0.000 (0.0-0.012) X10*3/uL Nucleated RBC % (auto) 0.0 (0.0-0.2) /100WBC Sodium 140 (135-145) mmol/L Potassium 3.8 (3.3-5.1) mmol/L Chloride 104 (96-108) mmol/L Carbon Dioxide 23 (22-29) mmol/L Anion Gap 17 (12-20) BUN 14 (9-16) mg/dL Creatinine 1.00 (0.5-1.4) mg/dL Estim Creat Clear Calc 77.2 Estimated GFR > 60 Random Glucose 122 H (60-115) mg/dL Calcium 9.6 (8.4-10.2) mg/dL Magnesium 1.6 (1.6-2.6) mg/dL Total Bilirubin 1.6 H (0.0-1.0) mg/dL Direct Bilirubin 0.4 (0.0-0.5) mg/dL AST 15 (5-37) U/L ALT 12 (0-40) U/L Alkaline Phosphatase 80 (39-117) U/L Total Protein 7.3 (6.5-8.0) g/dL Albumin 4.2 (3.5-5.0) g/dL Lipase 16 (8-78) U/L Urine Color Dark Yellow Urine Appearance Clear Urine pH 5.5 (5.0-9.0) Ur Specific [place] >= 1.030 H (1.005-1.025) Urine Protein 30 (1+) H (Neg-Trace) mg/dL Urine Glucose (UA) Negative (Negative) mg/dL Urine Ketones Trace (Negative) mg/dL Urine Blood Moderate (2+) H (Negative) Urine Nitrite Negative (Negative) Ur Leukocyte Esterase Small (1+) H (Negative) Urine RBC 3-5 H (0-2) /HPF Urine WBC 0-5 (0-5) /HPF Ur Squamous Epith Cells 0-2 (0-2) /HPF Urine Bacteria None Seen (None Seen) Hyaline Casts 0-2 (0-2) /LPF Stool Occult Blood POSITIVE (NEGATIVE) C. difficile Tox B Gene (Negative) 12/28/22 Range/Units 10:05 WBC (4.8-10.8) X10*3/uL RBC (4.60-5.80) X10*6/uL Hgb (14.0-18.0) g/dl Hct (42.0-52.0) % MCV (80.0-98.0) fL MCH (27.0-33.0) pg MCHC (31.0-36.0) g/dl RDW (11.0-16.0) % Plt Count (160-400) X10*3/uL MPV (9.4-12.4) fL Immature Gran % (Auto) (0.0-0.4) % Neut % (Auto) (45-73) % Lymph % (Auto) (20-40) % [place] % (Auto) (2-11) % Eos % (Auto) (0-4) % Baso % (Auto) (0-2) % Lymph # (Auto) (1.2-4.9) X10*3/uL [place] # (Auto) (0.1-1.2) X10*3/uL Eos # (Auto) (0.0-0.4) X10*3/uL Baso # (Auto) (0.0-0.2) X10*3/uL Abs Immat Gran (auto) (0.00-0.03) X10*3/uL Absolute Neuts (auto) (2.0-8.3) x10*3/uL Absolute Nucleated RBC (0.0-0.012) X10*3/uL Nucleated RBC % (auto) (0.0-0.2) /100WBC Sodium (135-145) mmol/L Potassium (3.3-5.1) mmol/L Chloride (96-108) mmol/L Carbon Dioxide (22-29) mmol/L Anion Gap (12-20) BUN (9-16) mg/dL Creatinine (0.5-1.4) mg/dL Estim Creat Clear Calc Estimated GFR Random Glucose (60-115) mg/dL Calcium (8.4-10.2) mg/dL Magnesium (1.6-2.6) mg/dL Total Bilirubin (0.0-1.0) mg/dL Direct Bilirubin (0.0-0.5) mg/dL AST (5-37) U/L ALT (0-40) U/L Alkaline Phosphatase (39-117) U/L Total Protein (6.5-8.0) g/dL Albumin (3.5-5.0) g/dL Lipase (8-78) U/L Urine Color Urine Appearance Urine pH (5.0-9.0) Ur Specific [place] (1.005-1.025) Urine Protein (Neg-Trace) mg/dL Urine Glucose (UA) (Negative) mg/dL Urine Ketones (Negative) mg/dL Urine Blood (Negative) Urine Nitrite (Negative) Ur Leukocyte Esterase (Negative) Urine RBC (0-2) /HPF Urine WBC (0-5) /HPF Ur Squamous Epith Cells (0-2) /HPF Urine Bacteria (None Seen) Hyaline Casts (0-2) /LPF Stool Occult Blood (NEGATIVE) C. difficile Tox B Gene NEGATIVE (Negative) Radiology Impression Discussion of test interpretation with radiology: I have reviewed the radiologist's reading. External Record Review External record reviewed: Inpatient record, Office record, Outpatient record, Prior outpatient labs, Prior outpatient radiology, Primary care record and Outside ED record Tests considered The following testing was considered but not selected: As above Prescription Management I considered prescription management with: Pain Medication Chronic Conditions Patient?s care impacted by: Other Discharge Plan Discharge Clinical Impression: Diverticulitis Patient Disposition: Home, Self-Care Instructions: Diverticulitis (ED), Diverticulitis Diet (ED) Additional Instructions: Your blood work is reassuring. Your stool does have blood in it, this is likely from her acute diverticulitis Augmentin is an antibiotic please take as prescribed Practice a clear liquid diet for the next 24-48 hours, avoid anything with seeds as could make her symptoms worse Please have close follow-up with your doctor as well as Gastroenterology outpatient If symptoms persist or worsen, pain has unbearable, persistent or worsening diarrhea/pain or fever return to the ED Prescriptions: New amoxicillin-pot clavulanate 875-125 mg tablet 1 tab PO BID 7 Days Qty: 14 0RF No Action ibuprofen 600 mg tablet 600 mg PO TID 30 Days Qty: 90 0RF Patient Comments: no am meds 06/19/21 trazodone 50 mg tablet 50 mg PO BEDTIME PRN (Reason: sleep) Qty: 30 2RF bupropion HCl [Wellbutrin SR] 150 mg tablet sustained-release 12 hr 150 mg PO DAILY 90 Days Qty: 90 1RF sennosides-docusate sodium [Senna Plus] 8.6-50 mg tablet 1 tab-cap PO BEDTIME Qty: 60 1RF Citrucel 500 mg tablet 1,000 mg PO DAILY Qty: 60 0RF cholecalciferol (vitamin D3) 25 mcg (1,000 unit) capsule 25 mcg PO DAILY vitamin B complex-folic acid 0.4 mg tablet 1 tab PO DAILY Referrals: [facility] [place] [facility] [Provider Group] - 1 week Po,Shell Melendez MD [Primary Care Provider] - Interventions: ED Discharge Assessment Last Done: 12/28/22 11:01 Discharge Date/Time: 12/28/22 11:01
[2022-12-28] MEDS: 0.9 % Sodium Chloride 1,000 ML 999 ML IV (07:13)
[2022-12-28 07:24] LABS: Appearance Urine Clear; Color Urine Dark Yellow; Glucose Urine UA Negative (Negative); Leukocyte Esterase Urine Small (1+) (Negative); Nitrite Urine Negative (Negative); PH 5.5 (5.0-9.0); Specific Gravity - Urine >= 1.030 (1.005-1.025); UMIC TRIGGER UACC YES; Urine Blood Moderate (2+) (Negative); Urine Ketones Trace mg/dL (Negative); Urine Protein 30 (1+) mg/dL (Neg-Trace)
[2022-12-28 07:26] LABS: OBS Int Ctl Valid YES; OBS1 POSITIVE (NEGATIVE)
[2022-12-28 07:35] LABS: Bacteria Urine None Seen (None Seen); Hyaline Casts Urine 0-2 /LPF (0-2); Squamous Epithelial Cell Urine 0-2 /HPF (0-2); UACC Culture Trigger YES; WBC Urine 0-5 /HPF (0-5)
[2022-12-28 07:38] LABS: Magnesium 1.6 mg/dL (1.6-2.6)
[2022-12-28] MEDS: iohexoL 350 MG/ML 100 ML INFUS..BTL IV (07:56)
[2022-12-28 08:25] VITALS: BP 114/80; PULSE 62; RESP 16; TEMP 36.6; O2SAT 97
[2022-12-28 10:00] VITALS: BP 118/86; PULSE 63; RESP 16; TEMP 36.7; O2SAT 98
[2022-12-28 11:50] LABS: CDiff Gene PCR NEGATIVE (Negative)
[2022-12-28 12:52] LABS: Adenovirus F 40/41 Not Detected (Not Detect.); Astrovirus Not Detected (Not Detect.); Campylobacter Not Detected (Not Detect.); Cryptosporidium Not Detected (Not Detect.); Cyclospora cayetanensis Not Detected (Not Detect.); E. coli EAEC Not Detected (Not Detect.); E. coli EPEC Not Detected (Not Detect.); E. coli ETEC Not Detected (Not Detect.); E. coli STEC Not Detected (Not Detect.); Entamoeba histolytica Not Detected (Not Detect.); Giardia lamblia Not Detected (Not Detect.); Norovirus GI/GII Not Detected (Not Detect.); Plesiomonas shigelloides Not Detected (Not Detect.); Rotavirus A Not Detected (Not Detect.); Salmonella Not Detected (Not Detect.); Sapovirus Not Detected (Not Detect.); Shigella sp./EIEC Not Detected (Not Detect.); Vibrio Not Detected (Not Detect.); Vibrio Cholerae Not Detected (Not Detect.); Yersinia enterocolitica Not Detected (Not Detect.)
== END 2022-12-28 11:01 | disposition home or self-care (01) ==
PROVIDERS: Physician Assistant; Emergency Provider Emergency Medicine; PCP Internal Medicine
DX: K57.32 Diverticulitis of large intestine without perforation or abscess without bleeding (principal); R25.2 Cramp and spasm; K92.1 Melena; Z20.822 Contact with and (suspected) exposure to COVID-19; Z20.828 Contact with and (suspected) exposure to other viral communicable diseases; Z79.899 Other long term (current) drug therapy; Z87.891 Personal history of nicotine dependence
CPT/HCPCS: 36415; 74177; 80048; 80076; 81001; 82272; 83690; 83735; 85025; 87086; 87493; 87507; 96360; 96361; 99284; Q9967

== ENCOUNTER 2023-01-31 16:05 | Outpatient (AMB) | payer OTHER, SELFPAY ==
[2023-01-31 16:07] VITALS: BP 102/70; PULSE 76; O2SAT 7; BMI 20.4
--- NOTE | 2023-01-31 16:07 | A.OFFPC_ITS ---
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 Allergies No Known Allergies [No Known Allergies*] Allergy (Verified 01/31/23 16:07) Medication List - Last Reconciled 01/31/23 by Shell Eaton MD bupropion HCl (Wellbutrin SR) 150 mg PO DAILY 90 days cholecalciferol (vitamin D3) 25 mcg PO DAILY ibuprofen 600 mg PO TID 30 days methylcellulose (laxative) (Citrucel) 1,000 mg (2 x 500 mg) PO DAILY sennosides-docusate sodium 8.6-50 mg (Senna Plus) 1 tab-cap PO BEDTIME trazodone 50 mg PO BEDTIME PRN vitamin B complex-folic acid 0.4 mg 1 tab PO DAILY Tobacco use date assessed: 01/31/23 Dental Screening Dental Screen Date: 01/31/23 Did you have a dental visit in the last 12 months?: Yes Did you have a dental problem in the last 6 months where you did not have access to dental care?: No Was dental information given to patient?: Patient has dentist HPI PHYSICAL HPI Details 57-year-old male with history of hyperch olesterolemia GERD generalized anxiety disorder elvin rectal abscess with anal fistula 2021 insomnia coming in for physical exam last seen in June 2022. Colonoscopy is up-to-date. Noted ER visit December 2022 abdominal cramping and notes red blood on wiping patient had a CT scan of the abdomen showing fat stranding sigmoid diverticulitis Augmentin given [facility] Medical History (Updated 01/31/23 @ 16:38 by Shell Eaton MD) Hematuria Diverticulitis Perirectal abscess Shoulder pain Alcohol abuse GERD (gastroesophageal reflux disease) Vitamin D deficiency Anxiety Diverticulitis Hypercholesterolemia Surgical History History of surgery History of colonoscopy H/O wrist surgery History of eye surgery History of appendectomy Family History Father Diabetes Hypertension Mother No problems noted. Paternal Grandfather Substance abuse Maternal Grandfather Substance abuse Social History (Updated 01/31/23 @ 16:23 by Shell Eaton MD) Housing: House Alcohol intake: current Alcohol intake frequency: holidays/special occasions only Patient Tobacco Use Status: Former Tobacco user Quit Date: 2016 Tobacco use type: Cigarette Years Smoked: quit 2017 e-Cigarette/Vaping Use: Never Used Second Hand Smoke Exposure: No Substance Use Type: Marijuana service: No Current occupational status: unemployed Cognitive needs: No Hearing needs: No Vision needs: Yes (Glasses) Questionnaire PHQ-9 Over the last 2 weeks, how often have you been bothered by any of the following problems? 1. Little interest or pleasure in doing things: not at all 2. Feeling down, depressed, or hopeless: not at all 3. Trouble falling or staying asleep, or sleeping too much: not at all 4. Feeling tired or having little energy: not at all 5. Poor appetite or overeating: not at all 6. Feeling bad about yourself - or that you are a failure or have let yourself or your family down: not at all 7. Trouble concentrating on things, such as reading the newspaper or watching television: not at all 8. Moving or speaking so slowly that other people could have noticed. Or the opposite - being so fidgety or restless that you have been moving around a lot more than usual: not at all 9. Thoughts that you would be better off or of hurting yourself in some way: not at all Total score: 0 Depression Screening Interpretation: Negative Depression Screening Done: Yes Source: Developed by Drs. Alden Dozier, Nella Dudley, Grant Hogan and colleagues, with an educational nilson from [employer]. Thrive Questionnaire Date Thrive assessed: 01/31/23 I am a: Patient What is your living situation today?: I have a steady place to live Within the past 12 months, did the food you bought not last and you didn't have the money to get more?: Never true Within the past 12 months, did you worry whether your food would run out before you got money to buy more?: Never true Do you have trouble paying for medicines?: No Do you have trouble getting transportation to medical appointments?: No Do you have trouble paying your heating and electricity bill?: No Do you have trouble taking care of your child, family member or friend?: No Do you have trouble with day-to-day activities such as bathing, preparing meals, shopping, managing finances, etc.?: No Are you currently unemployed and looking for a job?: No Are you interested in more education?: No AUDIT C Alcohol Use Questionnaire (AUDIT-C) 1. How often do you have a drink containing alcohol?: Monthly or less 2. How many drinks containing alcohol do you have on a typical day when you are drinking?: 3 or 4 3. How often do you have six or more drinks on one occasion?: Never Total Score: 2 Score Reviewed/Action Taken: Yes JELANI-7 AMB Questionnaire JELANI-7 Date JELANI - 7 assessed: 01/31/23 Feeling nervous, anxious, or on edge: 0 = Not at all Not being able to stop or control worryin = Not at all Worrying too much about different things: 0 = Not at all Trouble relaxin = Not at all Being so restless that it is hard to sit still: 0 = Not at all Becoming easily annoyed or irritable: 0 = Not at all Feeling afraid as if something awful might happen: 0 = Not at all Total JELANI-7 score (0-4 normal; 5-9 mild; 10-14 moderate; 15-21 severe): 0 Source: Developed by Drs. Alden Dozier, Nella Dudley, Grant Hogan and colleagues, with an educational nilson from [employer]. Review of Systems Const Denies poor appetite and Denies weakness Eyes Denies no additional complaints ENT Reports Normal hearing present, Denies dizziness, Denies nasal congestion, Denies tinnitus and Denies sore throat Card Denies chest pain, Denies syncope, Denies rapid heart rate and Denies dyspnea Resp Denies cough and Denies dyspnea GI Denies change in stool character, Reports constipation, Denies diarrhea, Denies nausea and Denies vomiting Denies dysuria and Denies urinary frequency Neuro Reports Normal hearing present, Denies confusion, Denies dizziness, Denies syncope and Denies weakness Psych Denies confusion Physical exam (Primary Care) Vital Signs: Last Vital Signs Pulse 76 01/31/23 16:07 BP 102/70 01/31/23 16:07 Pulse Ox 7 L 01/31/23 16:07 Oxygen Delivery Method Room Air 01/31/23 16:07 BMI result Body Mass Index 20.4 Tobacco/Smoking Status: Tobacco use Status Tobacco use date assessed 01/31/23 01/31/23 16:08 Patient Tobacco Use Status Former Tobacco user 01/31/23 16:08 Tobacco use type Cigarette 01/31/23 16:08 e-Cigarette/Vaping Use Never Used 01/31/23 16:08 PHQ-9: PHQ-9 Score PHQ-9: Total score 0 01/31/23 16:08 Depression Screening Interpretation: Negative Thrive Assessment: Date of Thrive Assessment Date Thrive assessed 01/31/23 01/31/23 16:08 Const General: No confusion Orientation/consciousness: No confusion HENMT Head: Yes normocephalic Ears: external ears normal and TM's normal bilaterally Face and sinus: Yes normal facial exam Mouth: moist mucous membranes Throat: Yes tonsils normal Eyes Conjunctivae: conjunctivae normal Pupils: Equal, round and reactive pupils present and Pupil accommodation reflex normal Direct Ophthalmoscopy: normal light reflex Neck Neck: No lymphadenopathy Thyroid: Thyroid normal Chest Chest palpation & inspection: normal inspection of the chest Resp Effort & Inspection: normal respiratory effort and no audible wheezes Auscultation: clear to auscultation bilaterally, no crackles, no wheezes and lung sounds not diminished Cardio Rate: regular rate Rhythm: regular rhythm Peripheral pulses: radial pulses present and dorsalis pedis present GI Other: had rectal done in ER 12/2022 Palpation (GI): no masses Auscultation: normal bowel sounds and normoactive bowel sounds Skin General skin exam: no rashes or lesions noted Rashes: no rashes Neuro General: No confusion Cranial nerves: Yes Equal, round and reactive pupils present and Yes Normal hearing present Cognition (Neuro): normal cognition Gait exam (Neuro): Normal gait present Motor exam (neuro): 5/5 motor strength present throughout Deep tendon reflexes (DTR's): Right brachioradialis reflex intensity grade: 2+, Left brachioradialis reflex intensity grade: 2+, Right patellar reflex intensity grade: 2+ and Left patellar reflex intensity grade: 2+ Extrem General: No edema Assessment and Plan Assessment & Plan (1) Annual physical exam: Code(s): Z00.00 - Encounter for general adult medical examination without abnormal findings (2) Hypercholesterolemia: Code(s): E78.00 - Pure hypercholesterolemia, unspecified Plan: Avoid fried foods, chicken skin, eggs, butter margarine, pastries and meat. Be it pork or beef they have a lot of cholesterol LDL goal of less than 130 and triglyceride of less than 150. Last blood work for cholesterol June 2021 normal (3) Generalized anxiety disorder: Code(s): F41.1 - Generalized anxiety disorder Plan: Continue with present medication (4) Constipation: Code(s): K59.00 - Constipation, unspecified Plan: Three rules for constipation 1. Diet need to have a high fiber diet less of meat 2. Increase oral fluids 3. Exercise (5) Diverticulitis: Comment: December 2022 Code(s): K57.92 - Diverticulitis of intestine, part unspecified, without perforation or abscess without bleeding Plan: ER treated with Augmentin (6) Hematuria: Comment: chronic since childhood and has been work up before Code(s): R31.9 - Hematuria, unspecified Qualifiers: Hematuria type: asymptomatic microscopic Qualified Code(s): R31.21 - Asymptomatic microscopic hematuria Orders: Orders Urine Cytology Today R31.21 - Asymptomatic microscopic hematuria Coding Level of Care Code Est Pt Prev Care 40-64y(36631) Diagnoses Annual physical exam Z00.00 Hypercholesterolemia E78.00 Generalized anxiety disorder F41.1 Constipation K59.00 Diverticulitis K57.92 Hematuria R31.21 Hematuria type: asymptomatic microscopic
== END 2023-01-31 16:47 | disposition home or self-care (01) ==
PROVIDERS: Visit Provider Internal Medicine
DX: Z00.00 Encounter for general adult medical examination without abnormal findings (principal); E78.00 Pure hypercholesterolemia, unspecified; F41.1 Generalized anxiety disorder; K59.00 Constipation, unspecified; K57.92 Diverticulitis of intestine, part unspecified, without perforation or abscess without bleeding; R31.21 Asymptomatic microscopic hematuria
CPT/HCPCS: 99396

== ENCOUNTER 2023-02-10 15:03 | Outpatient (AMB) | payer OTHER, SELFPAY ==
[2023-02-10 15:05] VITALS: BP 109/83; PULSE 76; BMI 20.6
--- NOTE | 2023-02-10 15:05 | MHC.OFFVIS ---
Intake Vital Signs 02/10/23 15:05 Height 5 ft 11 in Weight 147 lb 8 oz BMI 20.6 BP 109/83 Blood Pressure Location Lt brachial Position Sitting Pulse 76 Intake Visit Reasons: ? thrombosed hemorrhoid Intake Note: Patient is seen in office for follow up visit, following thrombosed hemorrhoid. 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 Required: No Accompanied by: Self / Same As Patient Allergies No Known Allergies [No Known Allergies*] Allergy (Verified 02/10/23 15:13) Medication List - Last Reconciled 02/10/23 by Vicente Stearns MD bupropion HCl (Wellbutrin SR) 150 mg PO DAILY 90 days cholecalciferol (vitamin D3) 25 mcg PO DAILY ibuprofen 600 mg PO TID 30 days methylcellulose (laxative) (Citrucel) 1,000 mg (2 x 500 mg) PO DAILY sennosides-docusate sodium 8.6-50 mg (Senna Plus) 1 tab-cap PO BEDTIME trazodone 50 mg PO BEDTIME PRN vitamin B complex-folic acid 0.4 mg 1 tab PO DAILY HPI HPI Comments History of Present Illness Details 57-year-old male patient with a prior history of an anal fistula status post fistulotomy now presenting with a 5 day history of a lump in the anal skin. He additionally felt severe pain and reports requiring to strain to have a bowel movement prior to the onset of symptoms. He denies any bleeding or discharge initially and subsequently presented to the emergency department for further evaluation. In the ED he was noted to have a thrombosed external hemorrhoid. Since this time the pain has improved dramatically although he still feels a lump in the perianal skin. He denies any bleeding and reports normal bowel movements currently. He reports a previous history of thrombosed hemorrhoid many years ago. He is concerned because he is planning a trip [facility] and does not know what have any problems when he is out of the country. [facility] Medical History Hematuria Diverticulitis Perirectal abscess Shoulder pain Alcohol abuse GERD (gastroesophageal reflux disease) Vitamin D deficiency Anxiety Diverticulitis Hypercholesterolemia Surgical History History of surgery History of colonoscopy H/O wrist surgery History of eye surgery History of appendectomy Family History Father Diabetes Hypertension Mother No problems noted. Paternal Grandfather Substance abuse Maternal Grandfather Substance abuse Social History Housing: House Alcohol intake: current Alcohol intake frequency: holidays/special occasions only Patient Tobacco Use Status: Former Tobacco user Quit Date: 2016 Tobacco use type: Cigarette Years Smoked: quit 2016 e-Cigarette/Vaping Use: Never Used Second Hand Smoke Exposure: No Substance Use Type: Marijuana service: No Current occupational status: unemployed Cognitive needs: No Hearing needs: No Vision needs: Yes (Glasses) Review of Systems Const All systems reviewed & are unremarkable except as noted in HPI and below Physical Exam Vital Signs: Last Vital Signs Pulse 76 02/10/23 15:05 BP 109/83 02/10/23 15:05 BMI result Body Mass Index 20.6 Const General: cooperative and no acute distress Nutritional Appearance: well nourished Orientation/consciousness: patient oriented x3 Limitations: no limitations HEENT Head: Yes normocephalic and Yes atraumatic Ears: hearing grossly normal bilaterally Resp Effort & Inspection: normal respiratory effort, no audible wheezes, no cough and no respiratory distress Cardio Jugular venous distension: no JVD GI Other: Anal examination: Well-healed fistulotomy incision in the right lateral anal wall. Directly adjacent to this is a thrombosed external hemorrhoid with no evidence of skin necrosis. Hemorrhoid is in his weaning phase and is nontender to palpation. Inspection: Yes normal to inspection Skin Other: Warm, dry, no rash Neuro General: patient oriented x3 Extrem General: Yes no clubbing, cyanosis or edema Assessment & Plan Assessment & Plan (1) Thrombosed external hemorrhoid: Code(s): K64.5 - Perianal venous thrombosis Plan 57-year-old male patient with a prior history of anal fistulas now presenting with thrombosed external hemorrhoid. Symptoms began approximately 5 days ago and now seem to be resolving. On examination there is a thrombosed external hemorrhoid on the right lateral wall which is nontender to palpation. No drainage is required at this time as the symptoms should improve non operatively. He should continue with warm soaks either in a hot tub or Sitz bath. He should follow up as needed. Coding Level of Care Code Est Pt Level 4 (56166) Diagnoses Thrombosed external hemorrhoid K64.5
== END 2023-02-10 15:22 | disposition home or self-care (01) ==
PROVIDERS: PCP Internal Medicine; Visit Provider Surgery
DX: K64.5 Perianal venous thrombosis (principal)
CPT/HCPCS: 99213

== ENCOUNTER → 2023-02-10 15:03 | Outpatient (BNVA) | payer OTHER, SELFPAY | PROVIDERS: PCP Internal Medicine; Visit Provider Surgery ==

== ENCOUNTER 2023-03-17 08:36 | Outpatient (AMB) | payer OTHER, SELFPAY ==
--- NOTE | 2023-03-17 08:42 | A.OFFVIS_ITS ---
Intake Vital Signs 03/17/23 08:50 Height 5 ft 11 in Weight 147 lb BMI 20.5 BP 136/88 Blood Pressure Location Lt brachial Position Sitting Pulse 77 Intake Visit Reasons: ? rectal abscess (already drained) Intake Note: Patient is seen in office for follow up visit, following rectal abscess/hemorrhoids. 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 Accompanied by: Self / Same As Patient Allergies No Known Allergies [No Known Allergies*] Allergy (Verified 02/10/23 15:13) Medication List - Last Reconciled 03/17/23 by Vicente Stearns MD amoxicillin-pot clavulanate 875-125 mg 1 tab PO BID bupropion HCl (Wellbutrin SR) 150 mg PO DAILY 90 days cholecalciferol (vitamin D3) 25 mcg PO DAILY ibuprofen 600 mg PO TID 30 days methylcellulose (laxative) (Citrucel) 1,000 mg (2 x 500 mg) PO DAILY sennosides-docusate sodium 8.6-50 mg (Senna Plus) 1 tab-cap PO BEDTIME trazodone 50 mg PO BEDTIME PRN vitamin B complex-folic acid 0.4 mg 1 tab PO DAILY HPI HPI Comments History of Present Illness Details 57-year-old male patient returning with recurrent infection following a trip to the [facility]. Reports noting increased pain and swelling the site of his previous perirectal abscess while on his vacation. But a time he came home, the pain was increased and after soaking in hot water in his hot tub, was able to get the abscess to drain spontaneously approximately 4-5 days ago. He now feels improved with decreased pain but still notes a small amount of discharge. He returns today for wound check. He has been taking antibiotics since the pain started (amoxicillin/clavulanic acid). [facility] Medical History Hematuria Diverticulitis Perirectal abscess Shoulder pain Alcohol abuse GERD (gastroesophageal reflux disease) Vitamin D deficiency Anxiety Diverticulitis Hypercholesterolemia Surgical History History of surgery History of colonoscopy H/O wrist surgery History of eye surgery History of appendectomy Family History Father Diabetes Hypertension Mother No problems noted. Paternal Grandfather Substance abuse Maternal Grandfather Substance abuse Social History Housing: House Alcohol intake: current Alcohol intake frequency: holidays/special occasions only Patient Tobacco Use Status: Former Tobacco user Quit Date: 2016 Tobacco use type: Cigarette Years Smoked: quit 2016 e-Cigarette/Vaping Use: Never Used Second Hand Smoke Exposure: No Substance Use Type: Marijuana service: No Current occupational status: unemployed Cognitive needs: No Hearing needs: No Vision needs: Yes (Glasses) Review of Systems Const All systems reviewed & are unremarkable except as noted in HPI and below Physical Exam Vital Signs: Last Vital Signs Pulse 77 03/17/23 08:50 BP 136/88 03/17/23 08:50 BMI result Body Mass Index 20.5 Const General: cooperative and no acute distress Nutritional Appearance: well nourished Orientation/consciousness: patient oriented x3 Limitations: no limitations HEENT Head: Yes normocephalic and Yes atraumatic Ears: hearing grossly normal bilaterally Resp Effort & Inspection: normal respiratory effort, no audible wheezes, no cough and no respiratory distress Cardio Jugular venous distension: no JVD GI Other: Anal examination: A small amount of swelling in the fistulotomy incision on the perianal wall with small amount of discharge noted. No evidence of fluctuance. No active infection at this time. Minimal tenderness to deep palpation. Inspection: Yes normal to inspection Skin Other: Warm, dry, no rash Neuro General: patient oriented x3 Extrem General: Yes no clubbing, cyanosis or edema Assessment & Plan Assessment & Plan (1) Abscess, perirectal: Code(s): K61.1 - Rectal abscess Plan Patient now with a resolving recurrent perirectal abscess. Wounds appear to be healing nicely. He should continue warm soaks and antibiotics as prescribed. He should follow up as needed. Medications: New amoxicillin-pot clavulanate 875-125 mg 1 tab PO BID 40 tabs 0RF K61.1 - Rectal abscess Coding Level of Care Code Est Pt Level 3 (03956) Diagnoses Abscess, perirectal K61.1
[2023-03-17 08:50] VITALS: BP 136/88; PULSE 77; BMI 20.5
== END 2023-03-17 09:11 | disposition home or self-care (01) ==
PROVIDERS: PCP Internal Medicine; Visit Provider Surgery
DX: K61.1 Rectal abscess (principal)
CPT/HCPCS: 99213

== ENCOUNTER → 2023-03-17 08:36 | Outpatient (BNVA) | payer OTHER, SELFPAY | PROVIDERS: PCP Internal Medicine; Visit Provider Surgery ==

== ENCOUNTER 2023-04-29 06:26 | Outpatient (REF) | payer OTHER, SELFPAY ==
--- NOTE | ~2023-04-29 | XR_ITS ---
EXAMINATION: XR SHOULDER, LEFT CLINICAL INFORMATION: Left shoulder pain COMPARISON: Chest radiograph 05/28/2019 TECHNIQUE: AP external rotation, Grashey, scapular Y, and axillary views of the left shoulder. FINDINGS: There is mild acromioclavicular osteoarthritis. Subtle calcific density noted inferior to the acromioclavicular joint, possibly within the subacromial bursa. Glenohumeral joint is well preserved. No fracture. Alignment is anatomic. Soft tissues are otherwise normal with no abnormal calcifications. XR/XR shoulder LT min 2V IMPRESSION: 1. Mild acromioclavicular osteoarthritis. 2. Subtle calcific density noted inferior to the acromioclavicular joint, possibly within the subacromial bursa.
== END 2023-04-29 06:27 | disposition home or self-care (01) ==
LOC: HO.XRAY 06:26
PROVIDERS: PCP Internal Medicine; Visit Provider Internal Medicine
DX: M25.512 Pain in left shoulder (principal)
CPT/HCPCS: 73030

== ENCOUNTER 2023-05-20 12:39 | Outpatient (AMB) | payer OTHER, SELFPAY ==
--- NOTE | 2023-05-20 12:48 | MHC.OFFVIS ---
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 He states that his pain started about a couple years ago. Patient states that his pain is focused on top of the shoulder. He states that his pain is getting worse with movement. Hx of taking ibuprofen with mild relief. 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 He claims his pain started a few years ago. He states the pain is located at the top of the left shoulder. 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 [facility] Medical History Hematuria Diverticulitis Perirectal abscess Shoulder pain Alcohol abuse GERD (gastroesophageal reflux disease) Vitamin D deficiency Anxiety Diverticulitis Hypercholesterolemia Surgical History History of surgery History of colonoscopy H/O wrist surgery History of eye surgery History of appendectomy Family History Father Diabetes Hypertension Mother No problems noted. Paternal Grandfather Substance abuse Maternal Grandfather Substance abuse Social History Housing: House Alcohol intake: current Alcohol intake frequency: holidays/special occasions only Patient Tobacco Use Status: Former Tobacco user Quit Date: 2016 Tobacco use type: Cigarette Years Smoked: quit 2017 e-Cigarette/Vaping Use: Never Used Second Hand Smoke Exposure: No Substance Use Type: Marijuana service: No Current occupational status: unemployed Cognitive needs: No Hearing needs: No Vision needs: Yes (Glasses) Review of Systems Const All systems reviewed & are unremarkable except as noted in HPI and below Physical Exam Vital Signs: BMI result Body Mass Index 20.5 Const General: cooperative and no acute distress Orientation/consciousness: patient oriented x3 Resp Effort & Inspection: normal respiratory effort and able to speak in complete sentences Cardio Peripheral pulses: Peripheral pulses 2+ throughout Skin General skin exam: no rashes or lesions noted Neuro General: patient oriented x3 Extrem Other: Left shoulder: Normal to inspection. No ecchymosis, erythema, or edema. Full shoulder ROM in all planes. Negative cross-body reach. 4/5 strength empty can. Negative drop arm. NVI. Office Procedures Joint Injection/Drain Joint Injection/Drain Primary Site: left shoulder Prep: site was prepped using aseptic technique, ethochloride spray was applied and injection warnings given Injected: 80 mg of, DepoMedrol, with 8 mL of (2% plain lido ) and in the subcromial space Approach Used: posterolateral Procedure: The patient tolerated the procedure well, but had some pain with the injection and there was some relief with the local anesthesia Coding 48666 - Large joint Procedure code (CPT) selection complete Assessment & Plan Assessment & Plan (1) Painful arc syndrome of left shoulder: Code(s): M75.102 - Unspecified rotator cuff tear or rupture of left shoulder, not specified as traumatic (2) Calcific tendinitis of left shoulder: Code(s): M75.32 - Calcific tendinitis of left shoulder Plan Mr. Santiago is a 57-year-old right hand dominant male who presents in the office today, as a new patient, for an evaluation of left shoulder pain. He claims his pain started a few years ago. He states the pain is located at the top of the left shoulder. 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 The patient was offered a cortisone injection in the left shoulder with 80 mg of DepoMedrol. The patient was explained the risk, benefits, and alternatives to receiving this injection. After receiving consent for the injection, the patient had the procedure done while in office today. The patient tolerated the procedure well with no complications. We discussed the role of physical therapy, however we are going to defer at this time. Follow up will be PRN, or sooner if needed. X-rays of the left shoulder, obtained on 04/29/2023, revealed: 1. Mild acromioclavicular osteoarthritis. 2. Subtle calcific density noted inferior to the acromioclavicular joint, possibly within the subacromial bursa. Patient Instructions: Scribed by Nighat Brewer electromedical service engineer, for Lesli Garcia PA-C on 05/20/2023 at 12:48 pm, EST. Coding Level of Care Code New Pt Level 4 (06784) Diagnoses Painful arc syndrome of left shoulder M75.102 Calcific tendinitis of left shoulder M75.32 CPT Codes Coding - 01454 Large joint: 09298 - Large joint ([id number])
[2023-05-20 12:51] VITALS: BMI 20.5
== END 2023-05-20 13:21 | disposition home or self-care (01) ==
LOC: HO.HOS 12:39
PROVIDERS: PCP Internal Medicine; Visit Provider Physician Assistant
DX: M75.102 Unspecified rotator cuff tear or rupture of left shoulder, not specified as traumatic (principal); M75.32 Calcific tendinitis of left shoulder
CPT/HCPCS: 20610; 99204

== ENCOUNTER → 2023-05-20 12:39 | Outpatient (BNVA) | payer OTHER, SELFPAY | PROVIDERS: PCP Internal Medicine; Visit Provider Physician Assistant | DX: M75.102 Unspecified rotator cuff tear or rupture of left shoulder, not specified as traumatic (principal); M75.32 Calcific tendinitis of left shoulder | CPT/HCPCS: 20610; J1040 ==

== ENCOUNTER 2023-06-07 06:16 | Outpatient (REF) | payer OTHER, SELFPAY ==
[2023-06-07 06:31] LABS: MANUAL DIFF FLAG NO
[2023-06-07 07:08] LABS: Basophils Percent Auto 0.5 % (0-2); Eosinophils Absolute Auto 0.1 X10*3/uL (0.0-0.4); Eosinophils Percent Auto 1.7 % (0-4); Hematocrit 41.8 % (42.0-52.0); Hemoglobin 13.5 g/dl (14.0-18.0); Imm Gran Abs Auto 0.02 X10*3/uL (0.00-0.03); Imm Gran Pct Auto 0.3 % (0.0-0.4); Lymphocytes Percent Auto 33.3 % (20-40); Mean Corpuscular HGB Conc 32.3 g/dl (31.0-36.0); Mean Corpuscular Hemoglobin 29.2 pg (27.0-33.0); Mean Corpuscular Volume 90.5 fL (80.0-98.0); Mean Platelet Volume 10.5 fL (9.4-12.4); Monocytes Absolute Auto 0.5 X10*3/uL (0.1-1.2); Monocytes Percent Auto 8.6 % (2-11); Neutrophils Absolute Auto 3.3 x10*3/uL (2.0-8.3); Neutrophils Percent Auto 55.6 % (45-73); Platelet Count 264 X10*3/uL (160-400); Red Blood Count 4.62 X10*6/uL (4.60-5.80); Red Cell Distribution Width 12.9 % (11.0-16.0); White Blood Count 5.9 X10*3/uL (4.8-10.8)
[2023-06-07 07:30] LABS: Alanine Aminotransferase 16 U/L (0-40); Albumin Level 3.8 g/dL (3.5-5.0); Alkaline Phosphatase 84 U/L (39-117); Anion Gap 10 (12-20); Aspartate Amino Transferase 14 U/L (5-37); Bilirubin Total 0.5 mg/dL (0.0-1.0); Blood Urea Nitrogen 23 mg/dL (9-16); Calcium 9.6 mg/dL (8.4-10.2); Carbon Dioxide 30 mmol/L (22-29); Chloride 106 mmol/L (96-108); Cholesterol 195 mg/dL (<200); Estimated Glomerular Filt Rate > 60; Glucose Random 99 mg/dL (60-115); HDL Cholesterol 55 mg/dL (>40); LDL Cholesterol Calculated 119 mg/dL (<100); Potassium 3.7 mmol/L (3.3-5.1); Sodium 142 mmol/L (135-145); Total Protein 6.7 g/dL (6.5-8.0); Triglycerides 106 mg/dL (<150)
[2023-06-07 07:46] LABS: Thyroid Stimulating Hormone 2.95 uIU/mL (0.32-4.0)
[2023-06-07 07:58] LABS: Folate 4.9 ng/mL (> or = 4.0); Prostate Specific Antigen Scr 1.23 ng/mL (<0.05-4.0); Vitamin B12 949 pg/mL (200-900)
[2023-06-08 13:34] LABS: Immunoglobulin A 361 mg/dL (47-310)
[2023-06-08 20:33] LABS: Transglutaminase IgA <1.0 U/mL
== END 2023-06-07 06:17 | disposition home or self-care (01) ==
LOC: HO.LAB 06:16
PROVIDERS: Absent Provider Internal Medicine Gastroenterology; PCP Internal Medicine; Visit Provider Internal Medicine
DX: Z12.5 Encounter for screening for malignant neoplasm of prostate (principal); R10.13 Epigastric pain; K21.9 Gastro-esophageal reflux disease without esophagitis; E78.00 Pure hypercholesterolemia, unspecified
CPT/HCPCS: 36415; 80053; 80061; 82607; 82746; 82784; 84153; 84439; 84443; 85025; 86364

== ENCOUNTER 2023-06-07 10:15 | Day surgery (SDC) | payer OTHER, SELFPAY ==
[2023-06-03 14:01] VITALS: BMI 21.7
--- NOTE | 2023-06-03 15:59 | HO.ANESPROP2 ---
Documented by User: Angie Hercules NP 06/03/23 15:59 HPI - Anesthesia Eval Consult details Narrative: 57yo M for Upper Endoscopy PMFSH Active Problems Active Problems: All Active Problems (Updated 06/03/23 @ 14:00 by Stephanie Bucio RN) Painful arc syndrome of left shoulder (Acute) Calcific tendinitis of left shoulder (Acute) Thrombosed external hemorrhoid (Acute) Constipation (Acute) Neck pain (Acute) Insomnia (Acute) Upper respiratory tract infection (Acute) Shoulder pain, left (Acute) Generalized anxiety disorder (Acute) Anal fistula (Acute) Abdominal pain (Acute) Tonsillitis (Acute) Lump of skin (Acute) Contact dermatitis (Acute) Annual physical exam (Acute) Hematuria (Acute) Diverticulitis (Acute) Perirectal abscess (Acute) Shoulder pain (Acute) GERD (gastroesophageal reflux disease) (Acute) Anxiety (Acute) Hypercholesterolemia (Acute) Past Medical History Medical History (Updated 06/07/23 @ 10:30 by Nicole Velasquez MD) Hx of sigmoidoscopy Diverticulitis Perirectal abscess Hematuria Shoulder pain Alcohol abuse GERD (gastroesophageal reflux disease) Vitamin D deficiency Anxiety Diverticulitis Hypercholesterolemia Family History Family History Father Diabetes Hypertension Mother No problems noted. Paternal Grandfather Substance abuse Maternal Grandfather Substance abuse Surgical History Surgical History History of biopsy History of rectal surgery History of surgery History of colonoscopy H/O wrist surgery History of eye surgery History of appendectomy History of Problems with Anesthesia: No Social History Social History Housing: House Alcohol intake: current Alcohol intake frequency: holidays/special occasions only Patient Tobacco Use Status: Former Tobacco user Quit Date: 2016 Tobacco use type: Cigarette Years Smoked: quit 2017 e-Cigarette/Vaping Use: Never Used Second Hand Smoke Exposure: No Substance Use Type: Marijuana Substance Use Frequency: Daily Are you DNR?: No Advance Directives: No Advance Directives Information Provided: Yes Recently lost weight without trying: No Nutrition Risks: No Nutritional Risk service: No Current occupational status: unemployed Cognitive needs: No Hearing needs: No Vision needs: Yes (Glasses) Meds Allergies Allergy/AdvReac Type Severity Reaction Status Date / Time No Known Allergies Allergy Verified 05/20/23 12:50 [No Known Allergies*] Home Medications Medication Instructions Recorded Confirmed Last Taken Type cholecalciferol (vitamin D3) 25 25 mcg PO DAILY 03/10/20 06/03/23 Unknown History mcg (1,000 unit) capsule vitamin B complex-folic acid 0.4 1 tab PO DAILY 06/28/22 06/03/23 Unknown History mg tablet Exam Height,Weight and Vital Signs: Height 5 ft 10 in Weight 68.492 kg Assessment and Plan Assessment Anesthesia Assessment: Chart Reviewed Final Anesthetic Review History of Problems with Anesthesia: No Documented by User: Nicole Velasquez MD 06/07/23 11:20 PMFSH Active Problems Active Problems: All Active Problems (Updated 06/07/23 @ 10:28 by Nicole Velasquez MD) Painful arc syndrome of left shoulder (Acute). Just had cortisone injection Calcific tendinitis of left shoulder (Acute) Thrombosed external hemorrhoid (Acute) Insomnia (Acute) Shoulder pain, left (Acute) Generalized anxiety disorder (Acute) Anal fistula (Acute) Abdominal pain (Acute) Tonsillitis (Acute) Lump of skin (Acute) Contact dermatitis (Acute) Diverticulitis (Acute) GERD (gastroesophageal reflux disease) (Acute) Hypercholesterolemia (Acute) H/o ETOH abuse. Patient states not drinking so much any more Marijuana use Past Medical History Medical History (Updated 06/07/23 @ 10:30 by Nicole Velasquez MD) Hx of sigmoidoscopy Diverticulitis Perirectal abscess Hematuria Shoulder pain Alcohol abuse GERD (gastroesophageal reflux disease) Vitamin D deficiency Anxiety Diverticulitis Hypercholesterolemia Family History Family History Father Diabetes Hypertension Mother No problems noted. Paternal Grandfather Substance abuse Maternal Grandfather Substance abuse Family history of problems with anesthesia: No Surgical History Surgical History History of biopsy History of rectal surgery History of surgery History of colonoscopy H/O wrist surgery History of eye surgery History of appendectomy History of Problems with Anesthesia: No Social History Social History Housing: House Alcohol intake: current Alcohol intake frequency: holidays/special occasions only Patient Tobacco Use Status: Former Tobacco user Quit Date: 2016 Tobacco use type: Cigarette Years Smoked: quit 2016 e-Cigarette/Vaping Use: Never Used Second Hand Smoke Exposure: No Substance Use Type: Marijuana Substance Use Frequency: Daily Are you DNR?: No Advance Directives: No Advance Directives Information Provided: Yes Recently lost weight without trying: No Nutrition Risks: No Nutritional Risk service: No Current occupational status: unemployed Cognitive needs: No Hearing needs: No Vision needs: Yes (Glasses) Meds Allergies Allergy/AdvReac Type Severity Reaction Status Date / Time No Known Allergies Allergy Verified 05/20/23 12:50 [No Known Allergies*] Home Medications Medication Instructions Recorded Confirmed Last Taken Type cholecalciferol (vitamin D3) 25 25 mcg PO DAILY 03/10/20 06/03/23 Unknown History mcg (1,000 unit) capsule vitamin B complex-folic acid 0.4 1 tab PO DAILY 06/28/22 06/03/23 Unknown History mg tablet Exam Height,Weight and Vital Signs: Height 5 ft 10 in Weight 68.492 kg Vital Signs Temp Pulse Resp BP Pulse Ox O2 Del Method 06/07/23 10:24 97.3 F 61 18 121/81 98 Room Air Airway Mallampati Class: Patient Non-Cooperative TM Dist: >3cm Neck ROM: Full Loose/Missing/Broken Teeth: Yes (Top front bonded. Intact. Denies loose or missing teeth) Heart: RRR Lungs: CTAB Assessment and Plan Assessment Anesthesia Assessment: Anesthesia Plan Discussed and Chart Reviewed Final Anesthetic Review Family History of Problems with Anesthesia: No History of Problems with Anesthesia: No NPO: Yes ASA Class: II Final Preanesthetic Review: No Changes in Pt Med Stat, Meds/Allgs Chart Reviewed, Consent Obtained/Reviewed and Anes Risks/Benef Reviewed Patient Risk: Intermediate Procedure Risk: Low Assessment/Block/Sedation in SS: Assess/Block/Sedation-SS Anesthetic Plan Anesthetic Plan: MAC: and TIVA Disposition: Standard PACU
[2023-06-07 10:24] VITALS: BP 121/81; PULSE 61; RESP 18; TEMP 36.3; O2SAT 98
[2023-06-07] MEDS: Lactated Ringers 1,000 ML 100 ML IVCONT (10:50)
--- NOTE | 2023-06-07 11:13 | MHC.SHP ---
Pre-Procedural Eval Section A - 24 Hr Update-Section A only Date of Service: 06/07/23 The patient is an INPATIENT: No Changes since office visit: No Cold of Flu in the past 2 weeks, No New Medical Problems, No Changes in Medication and No Patient answered all questions The patient has been examined within 24 hours of the surgical procedure. The History & Physical has been completed within 30 days and I have reviewed it.: Yes Section B - Complete if H&P > 30 days Chief Complaint: Epigastric pain,gerd, Allergies: Allergies Allergy/AdvReac Type Severity Reaction Status Date / Time No Known Allergies Allergy Verified 05/20/23 12:50 [No Known Allergies*] Plan I have reviewed the history and physical and performed a pertinent physical examination on my patient. No changes have occurred unless specified. Time Spent With Patient Time: Total time managing care of this patient today ____ minutes.
[2023-06-07 11:35] VITALS: BP 113/72; PULSE 52; RESP 16; TEMP 36.1; O2SAT 100
[2023-06-07 11:50] VITALS: BP 127/82; PULSE 60; RESP 17; TEMP 36.1; O2SAT 98
--- NOTE | 2023-06-07 12:20 | OP_ITS ---
DATE OF SERVICE: 06/07/2023 SURGEON: Sonu Her MD INDICATIONS: Epigastric pain and gastroesophageal reflux disease. PREOPERATIVE DIAGNOSIS: POSTOPERATIVE DIAGNOSIS: PROCEDURE PERFORMED: Upper endoscopy with biopsy. ESTIMATED BLOOD LOSS: COMPLICATIONS: ANESTHESIA: Monitored anesthesia care. ASSISTANTS: SPECIMENS: DESCRIPTION OF PROCEDURE: A history and physical was performed. The risks and benefits of the procedure were explained to the patient. Informed consent was obtained. The patient was placed in the left lateral decubitus position. The Olympus video gastroscope was introduced into the esophagus, stomach, and duodenum. Examination was performed. The scope was removed. He tolerated the procedure well and was returned to the recovery area in stable condition. FINDINGS: Esophagus: The esophagus was normal. There was an irregular EG junction. This was biopsied. Stomach: The stomach was normal. Antral biopsies were obtained for evaluation for H pylori. Duodenum: The bulb and 2nd portion were normal. IMPRESSION: Normal upper endoscopy. RECOMMENDATION: Follow up the biopsy results. MD OLESYA Al/MODL / [id number]
--- NOTE | 2023-06-09 11:08 | PM.EVENT ---
Event Note Date of Service: 06/09/23 Event Note: Addendum Duodenal biopsies were obtained. Time Spent With Patient Time: Total time managing care of this patient today ____ minutes.
== END 2023-06-07 12:37 | disposition home or self-care (01) ==
PROVIDERS: PCP Internal Medicine; Visit Provider Internal Medicine Gastroenterology
PROC: 0DJ08ZZ Inspection of Upper Intestinal Tract, Via Natural or Artificial Opening Endoscopic (ICD-10-PCS; CPT 43235; principal; 2023-06-07 11:50)
DX: K22.9 Disease of esophagus, unspecified (principal); K21.9 Gastro-esophageal reflux disease without esophagitis; E78.00 Pure hypercholesterolemia, unspecified; Z79.899 Other long term (current) drug therapy
CPT/HCPCS: 43239; 88305; 88313; 88342; J2704

== ENCOUNTER 2023-06-30 08:19 | Outpatient (AMB) | payer OTHER, SELFPAY ==
--- NOTE | 2023-06-30 08:21 | A.OFFVIS_ITS ---
Intake Vital Signs 06/30/23 08:30 Height 5 ft 10 in Weight 155 lb 4 oz BMI 22.3 BP 115/88 Blood Pressure Location Lt brachial Position Sitting Pulse 100 Intake Visit Reasons: possible perirectal abscess Intake Note: Patient is seen in office for follow up visit, following possible perirectal abscess. 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: No Accompanied by: Self / Same As Patient Allergies No Known Allergies [No Known Allergies*] Allergy (Verified 06/30/23 08:28) Medication List - Last Reconciled 06/30/23 by Vicente Stearns MD amoxicillin-pot clavulanate 875-125 mg 1 tab PO BID bupropion HCl (Wellbutrin SR) 150 mg PO DAILY 90 days cholecalciferol (vitamin D3) 25 mcg PO DAILY ibuprofen 600 mg PO TID PRN 30 days methylcellulose (laxative) (Citrucel) 1,000 mg (2 x 500 mg) PO DAILY sennosides-docusate sodium 8.6-50 mg (Senna Plus) 1 tab-cap PO BEDTIME trazodone 50 mg PO BEDTIME PRN vitamin B complex-folic acid 0.4 mg 1 tab PO DAILY HPI HPI Comments History of Present Illness Details 57-year-old male patient returning with complaints of perianal pain which started on Tuesday (4 days ago), several days after the start of abdominal pain usually suggestive of diverticulitis. He started taking antibiotics on Tuesday (Augmentin) but continues to feel pressure in the perianal skin. He is tried to express discharge from the site but this has not been successful. He has been soaking in his hot tub as well. He denies any fever but did have some chills overnight. [facility] Medical History Hx of sigmoidoscopy Diverticulitis Perirectal abscess Hematuria Shoulder pain Alcohol abuse GERD (gastroesophageal reflux disease) Vitamin D deficiency Anxiety Diverticulitis Hypercholesterolemia Surgical History History of biopsy History of rectal surgery History of surgery History of colonoscopy H/O wrist surgery History of eye surgery History of appendectomy Family History Father Diabetes Hypertension Mother No problems noted. Paternal Grandfather Substance abuse Maternal Grandfather Substance abuse Social History Housing: House Alcohol intake: current Alcohol intake frequency: holidays/special occasions only Patient Tobacco Use Status: Former Tobacco user Quit Date: 2016 Tobacco use type: Cigarette Years Smoked: quit 2016 e-Cigarette/Vaping Use: Never Used Second Hand Smoke Exposure: No Substance Use Type: Marijuana service: No Current occupational status: unemployed Cognitive needs: No Hearing needs: No Vision needs: Yes (Glasses) Review of Systems Const All systems reviewed & are unremarkable except as noted in HPI and below Physical Exam Const General: cooperative and no acute distress Nutritional Appearance: well nourished Orientation/consciousness: patient oriented x3 Limitations: no limitations HEENT Head: Yes normocephalic and Yes atraumatic Ears: hearing grossly normal bilaterally Resp Effort & Inspection: normal respiratory effort, no audible wheezes, no cough and no respiratory distress Cardio Jugular venous distension: no JVD GI Other: Anal examination: Well-healed incision following fistulotomy noted in the left anal wall. Palpation does reveal some scar tissue but no apparent fluctuance. The surrounding skin is not red. Minimal tenderness is noted to deep palpation but no convincing evidence of an abscess at this time. No other areas of inflammation, fluctuance, or tenderness. Inspection: Yes normal to inspection Skin Other: Warm, dry, no rash Neuro General: patient oriented x3 Extrem General: Yes no clubbing, cyanosis or edema Assessment & Plan Assessment & Plan (1) Perirectal abscess: Comment: Incision and drainage April 2021 Dr. Stearns Code(s): K61.1 - Rectal abscess Plan 57-year-old male patient well known to the [place] with prior history of perirectal abscess and anal fistula now presenting with recurrence of perirectal pain on the left anal wall. He was concerned about recurrence of the abscess. Examination today however reveals a well-healed incision with underlying scar tissue but no definite evidence of an abscess. I recommended he continue with the antibiotics and warm soaks. He will return in 1 week to re-evaluate. He is welcome to call sooner for any change in his symptoms. Medications: Changed From ibuprofen 600 mg PO TID 30 days 90 tabs 0RF K61.1 - Rectal abscess To ibuprofen 600 mg PO TID 30 days PRN 20 tabs 0RF pain K61.1 - Rectal abscess Refilled amoxicillin-pot clavulanate 875-125 mg 1 tab PO BID 40 tabs 0RF K61.1 - Rectal abscess Coding Level of Care Code Est Pt Level 3 (66250) Diagnoses Perirectal abscess K61.1
[2023-06-30 08:30] VITALS: BP 115/88; PULSE 100; BMI 22.3
== END 2023-06-30 08:40 | disposition home or self-care (01) ==
PROVIDERS: PCP Internal Medicine; Visit Provider Surgery
DX: K61.1 Rectal abscess (principal)
CPT/HCPCS: 99213

== ENCOUNTER → 2023-06-30 08:19 | Outpatient (BNVA) | payer OTHER, SELFPAY | PROVIDERS: PCP Internal Medicine; Visit Provider Surgery ==

== ENCOUNTER 2023-07-01 12:47 | Outpatient (REF) | payer OTHER, SELFPAY | END 2023-07-01 12:48 | disposition home or self-care (01) | LOC: HO.LNP 12:47 | PROVIDERS: PCP Internal Medicine; Visit Provider Surgery | DX: K61.1 Rectal abscess (principal) | CPT/HCPCS: 87070; 87077; 87186; 87205 ==

== ENCOUNTER 2023-07-01 12:47 | Outpatient (AMB) | payer OTHER, SELFPAY ==
--- NOTE | 2023-07-01 12:55 | A.OFFVIS_ITS ---
Intake Vital Signs 3 07/01/23 13:15 Height 5 ft 10 in Weight 154 lb 5.177 oz BMI 22.1 Pulse 70 Intake Visit Reasons: recheck rectal abscess Intake Note: Patient is seen in office to recheck rectal abscess. Pt c/o:admits to continued discharge, has been soaking the area, swollen and increase pain Allergies No Known Allergies [No Known Allergies*] Allergy (Verified 07/01/23 13:16) Medication List - Last Reconciled 07/01/23 by Vicente Stearns MD amoxicillin-pot clavulanate 875-125 mg 1 tab PO BID bupropion HCl (Wellbutrin SR) 150 mg PO DAILY 90 days cholecalciferol (vitamin D3) 25 mcg PO DAILY ibuprofen 600 mg PO TID PRN 30 days methylcellulose (laxative) (Citrucel) 1,000 mg (2 x 500 mg) PO DAILY sennosides-docusate sodium 8.6-50 mg (Senna Plus) 1 tab-cap PO BEDTIME trazodone 50 mg PO BEDTIME PRN vitamin B complex-folic acid 0.4 mg 1 tab PO DAILY HPI HPI Comments 2 History of Present Illness0 Details Patient returns with increased perianal pain. Reports episode of fever and chills during the night feels an abscess is present. [facility] Medical History Hx of sigmoidoscopy Diverticulitis Perirectal abscess Hematuria Shoulder pain Alcohol abuse GERD (gastroesophageal reflux disease) Vitamin D deficiency Anxiety Diverticulitis Hypercholesterolemia Surgical History History of biopsy History of rectal surgery History of surgery History of colonoscopy H/O wrist surgery History of eye surgery History of appendectomy Family History Father Diabetes Hypertension Mother No problems noted. Paternal Grandfather Substance abuse Maternal Grandfather Substance abuse Social History Housing: House Alcohol intake: current Alcohol intake frequency: holidays/special occasions only Patient Tobacco Use Status: Former Tobacco user Quit Date: 2016 Tobacco use type: Cigarette Years Smoked: quit 2016 e-Cigarette/Vaping Use: Never Used Second Hand Smoke Exposure: No Substance Use Type: Marijuana service: No Current occupational status: unemployed Cognitive needs: No Hearing needs: No Vision needs: Yes (Glasses) Physical Exam Vital Signs: Last Vital Signs Pulse 70 07/01/23 13:15 BMI result Body Mass Index 22.1 Back/Spine/Pelvis Other: Perirectal examination reveals no areas of erythema or fluctuance. There is exquisite tenderness however in the site of previous incision and drainage. Back/spine/pelvis image: 2 1. Site of previous incision and tenderness Office Procedures Incision and Drainage Details: Preoperative diagnosis: Perirectal abscess left rectal wall Postoperative diagnosis: Same Procedure: Incision and drainage of large perirectal abscess left rectal wall Surgeon: Vicente Stearns MD Technical Sales Representative: None Anesthesia: Local lidocaine 1% with epinephrine Indications for procedure: Previous history of perirectal abscess now with increased pain Operative findings: Large perirectal abscess Specimen: Wound culture Estimated blood loss: 5 mL Complications: None Procedure details: Patient was brought to the procedure room and placed in a left lateral decubitus position. After assuring informed consent confirming the site of surgery, the skin was prepped with Betadine in the left rectal wall and draped in a sterile fashion. Local anesthesia was then infiltrated circumferentially around the area of tenderness. Eleven blade was then used to incise the skin at the previous incision site. A large purulence collection was drained. Cultures were obtained. Wounds were then irrigated and packed with Nu Gauze. Dry sterile dressings were then applied. The patient tolerated the procedure well and was discharged home in stable condition. Assessment & Plan Assessment & Plan (1) Perirectal abscess: Comment: Incision and drainage April 2021 Dr. Stearns Code(s): K61.1 - Rectal abscess Plan The patient returns with a recurrent perirectal abscess requiring incision and drainage. He will soak the incision and warm water or shower several times daily and should return in 1 week for wound check. Orders: Orders 2 Routine Culture w Gram Stain Today K61.1 - Rectal abscess Coding Level of Care Code Procedure Only Diagnoses Perirectal abscess K61.1
[2023-07-01 13:15] VITALS: PULSE 70; BMI 22.1
== END 2023-07-01 13:14 | disposition home or self-care (01) ==
PROVIDERS: PCP Internal Medicine; Visit Provider Surgery
DX: K61.1 Rectal abscess (principal)
CPT/HCPCS: 46040

== ENCOUNTER 2023-07-07 14:23 | Outpatient (AMB) | payer OTHER, SELFPAY ==
--- NOTE | 2023-07-07 14:33 | MHC.OFFVIS ---
Intake Vital Signs 07/07/23 14:34 Height 5 ft 10 in Weight 162 lb BMI 23.2 BP 148/82 H Blood Pressure Location Lt brachial Position Sitting Pulse 83 Intake Visit Reasons: possible perirectal abscess Intake Note: Patient is seen in office to recheck rectal abscess. Pt c/o: taking the new antbx prescribe about 4 days ago, denies discharge or any concerns Adoption Specialist Required: No Accompanied by: Self / Same As Patient Allergies No Known Allergies [No Known Allergies*] Allergy (Verified 07/07/23 14:36) HPI HPI Comments History of Present Illness Details Patient feels much improved with no further pain or discharge. Discharge lasted for approximately another day following the procedure but now is completely dry. He denies any new rectal symptoms. [facility] Medical History Hx of sigmoidoscopy Diverticulitis Perirectal abscess Hematuria Shoulder pain Alcohol abuse GERD (gastroesophageal reflux disease) Vitamin D deficiency Anxiety Diverticulitis Hypercholesterolemia Surgical History History of biopsy History of rectal surgery History of surgery History of colonoscopy H/O wrist surgery History of eye surgery History of appendectomy Family History Father Diabetes Hypertension Mother No problems noted. Paternal Grandfather Substance abuse Maternal Grandfather Substance abuse Social History Housing: House Alcohol intake: current Alcohol intake frequency: holidays/special occasions only Patient Tobacco Use Status: Former Tobacco user Quit Date: 2016 Tobacco use type: Cigarette Years Smoked: quit 2016 e-Cigarette/Vaping Use: Never Used Second Hand Smoke Exposure: No Substance Use Type: Marijuana service: No Current occupational status: unemployed Cognitive needs: No Hearing needs: No Vision needs: Yes (Glasses) Physical Exam Vital Signs: Last Vital Signs Pulse 83 07/07/23 14:34 BP 148/82 H 07/07/23 14:34 BMI result Body Mass Index 23.2 GI Other: External anal examination reveals a healing incision and drainage site in the left perianal wall. No tenderness to deep palpation. No definite fluctuance appreciated. Assessment & Plan Assessment & Plan (1) Perirectal abscess: Comment: Incision and drainage April 2021 Dr. Stearns Code(s): K61.1 - Rectal abscess Plan 57-year-old male patient returning status post incision and drainage of recurrent perirectal abscess. He feels much improved this week with no further pain or discharge. Examination reveals a healing incision and drainage site with no evidence of ongoing infection. He should continue to keep the area clean and follow-up as needed. Coding Level of Care Code Global (45580) Diagnoses Perirectal abscess K61.1
[2023-07-07 14:34] VITALS: BP 148/82; PULSE 83; BMI 23.2
== END 2023-07-07 14:35 | disposition home or self-care (01) ==
PROVIDERS: PCP Internal Medicine; Visit Provider Surgery
DX: K61.1 Rectal abscess (principal)
CPT/HCPCS: 99024

== ENCOUNTER → 2023-07-07 14:23 | Outpatient (BNVA) | payer OTHER, SELFPAY | PROVIDERS: PCP Internal Medicine; Visit Provider Surgery | DX: K61.1 Rectal abscess (principal) ==

== ENCOUNTER 2023-07-12 10:27 | Outpatient (REF) | payer OTHER, SELFPAY ==
--- NOTE | ~2023-07-12 | XR_ITS ---
EXAMINATION: XR WRIST, RIGHT CLINICAL INFORMATION: Pain. COMPARISON: Radiographs dated 03/29/2007. TECHNIQUE: PA, lateral, and oblique views of the right wrist. FINDINGS: Bony alignment and mineralization are normal. There is a mild ulnar positive variance. There is narrowing of the radiocarpal interval. A chronic deformity is redemonstrated of the ulnar styloid. There is increased arthropathy of the distal ulna at the radioulnar articulation. Chondrocalcinosis is seen of the ulnocarpal joint. No acute fracture or dislocation is seen. Orthopedic screws are again applied to the base of the third metacarpal bone, and there are periarticular calcifications of the third carpometacarpal joint. There is no focal soft tissue swelling, gas or foreign body. XR/XR wrist LT min 3V IMPRESSION: 1. There is increased degenerative change of the radioulnar and ulnocarpal joints. 2. Postoperative change is seen of the third metacarpal base. There are degenerative periarticular calcifications of the third carpometacarpal joint. 3. No acute fracture or dislocation is seen. 4. There is chondrocalcinosis, which can be associated with gout, CPPD or hypercalcemia. EXAMINATION: XR WRIST, LEFT CLINICAL INFORMATION: Pain. COMPARISON: Radiographs dated 03/29/2007 TECHNIQUE: PA, lateral, and oblique views of the left wrist. FINDINGS: Bony mineralization is normal. There is a neutral ulnar variance. There is an incompletely united fracture of the waist of the navicular bone, in improved alignment from 03/29/2007. No acute fracture or dislocation is seen. There is chondrocalcinosis of the triangular ligament. 2 sclerotic bone islands are redemonstrated within the distal radius. No focal soft tissue swelling, gas or foreign body is seen. IMPRESSION: 1. There is an incompletely united fracture of the waist of the left navicular bone, in improved alignment from radiograph dated 03/29/2007. 2. No acute fracture or dislocation is seen. 3. There is chondrocalcinosis, which can be associated with gout, CPPD or hypercalcemia.
== END 2023-07-12 10:28 | disposition home or self-care (01) ==
LOC: HO.HOSX 10:27
PROVIDERS: Visit Provider Physician Assistant
DX: M24.131 Other articular cartilage disorders, right wrist (principal); M25.532 Pain in left wrist; M11.231 Other chondrocalcinosis, right wrist
CPT/HCPCS: 73110

== ENCOUNTER 2023-07-12 14:58 | Outpatient (AMB) | payer OTHER, SELFPAY ==
--- NOTE | 2023-07-12 15:08 | A.OFFVIS_ITS ---
Intake Vital Signs 07/12/23 15:12 Height 5 ft 10 in Weight 162 lb BMI 23.2 Handedness Right Intake Visit Reasons: Newprob-Right wrist/feels dislocated or locks up Intake Note: Antonio is a 57 year old right hand dominant male who presents today for a evaluation for locking of his right wrist. No hx of injury. Patient reports off and on pain/locking for a couple months. He states that his pain is on the ulnar aspect of his right wrist. Denies numbness and tingling. Pain is worse with repetitive movements. Allergies No Known Allergies [No Known Allergies*] Allergy (Verified 07/12/23 15:10) HPI Newprob-Right wrist/feels dislocated or locks up HPI Details 57-year-old right hand dominant male who presents in the office today for an evaluation of right wrist pain. Patient denies any known injury. His pain is intermittent with locking for a couple of months. Reports pain on the ulnar aspect of the right wrist. Described as a burning pain with followed up edema. Denies numbness and tingling. Increase in pain with repetitive movements. Confirms use of a wrist brace with mild relief. 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 [facility]LY [facility] Medical History Hx of sigmoidoscopy Diverticulitis Perirectal abscess Hematuria Shoulder pain Alcohol abuse GERD (gastroesophageal reflux disease) Vitamin D deficiency Anxiety Diverticulitis Hypercholesterolemia Surgical History History of biopsy History of rectal surgery History of surgery History of colonoscopy H/O wrist surgery History of eye surgery History of appendectomy Family History Father Diabetes Hypertension Mother No problems noted. 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) Cognitive needs: No Hearing needs: No Vision needs: Yes (Glasses) Review of Systems Const All systems reviewed & are unremarkable except as noted in HPI and below Physical Exam Vital Signs: BMI result Body Mass Index 23.2 Const General: cooperative and no acute distress Orientation/consciousness: patient oriented x3 Resp Effort & Inspection: normal respiratory effort and able to speak in complete sentences Cardio Peripheral pulses: Peripheral pulses 2+ throughout Skin General skin exam: no rashes or lesions noted Neuro General: patient oriented x3 Extrem Other: Right wrist: Slight restriction on the last 10 degrees of wrist extension, full wrist flexion and limited radial and ulnar deviation due to pain. Tenderness to palpation over the ulnar styloid. Able to perform full finger flexion, extension, abduction, adduction, finger cross, okay sign, and thumbs up without deficit. Able to make a closed fist. Sensation intact. Capillary refill is brisk. Radial pulse intact. Assessment & Plan Assessment & Plan (1) Osteoarthritis of right wrist: Code(s): M19.031 - Primary osteoarthritis, right wrist Plan Mr. Santiago is a 57-year-old right hand dominant male who presents in the office today for an evaluation of right wrist pain. Patient denies any known injury. His pain is intermittent with locking for a couple of months. Reports pain on the ulnar aspect of the right wrist. Described as a burning pain with followed up edema. Denies numbness and tingling. Increase in pain with repetitive movements. Confirms use of a wrist brace with mild relief. 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 We discussed the role of cortisone injections. He would like to defer at this time. He would like to resume his construction job. The patient is to continue to monitor the wrist and should he continue to have pain and difficulty I would like for him to follow up with Dr. Bravo in the winter. Otherwise, follow up will be PRN, or sooner if needed. X-rays of the right wrist which were obtained while in the office today and were reviewed by me, Lesli Garcia PA-C, revealed arthritis. No acute fractures or dislocation. Orders: Orders XR wrist LT min 3V 07/12/23 M25.539 - Pain in unspecified wrist Patient Instructions: Scribed by loc Smith scribe, for Lesli Garcia PA-C on 07/12/2023 at 2:59 pm, EST. Coding Level of Care Code Est Pt Level 4 (68760) Diagnoses Osteoarthritis of right wrist M19.031
[2023-07-12 15:12] VITALS: BMI 23.2
== END 2023-07-12 15:37 | disposition home or self-care (01) ==
PROVIDERS: PCP Internal Medicine; Visit Provider Physician Assistant
DX: M19.031 Primary osteoarthritis, right wrist (principal)
CPT/HCPCS: 99213

== ENCOUNTER 2023-08-02 15:40 | Outpatient (AMB) | payer OTHER, SELFPAY ==
[2023-08-02 15:40] VITALS: BP 110/74; PULSE 80; O2SAT 98; BMI 23.4
--- NOTE | 2023-08-02 15:40 | MHC.PC.OV ---
Vital Signs 08/02/23 15:40 Height 5 ft 10 in Weight 163 lb BMI 23.4 BP 110/74 Blood Pressure Location Lt brachial Position Sitting Pulse 80 Pulse Source Pulse Oximeter Pulse Oximetry (%) 98 Oxygen Delivery Method Room Air Intake Visit Reasons: GERD, cholesterol Concrete Block Mason: Not Required per policy Accompanied by: Self / Same As Patient Allergies No Known Allergies [No Known Allergies*] Allergy (Verified 08/02/23 15:41) Medication List - Last Reconciled 08/02/23 by Shell Eaton MD bupropion HCl SR (Wellbutrin SR) 150 mg PO DAILY 90 days cholecalciferol (vitamin D3) 25 mcg PO DAILY ibuprofen 600 mg PO TID PRN 30 days methylcellulose (laxative) (Citrucel) 1,000 mg (2 x 500 mg) PO DAILY sennosides-docusate sodium 8.6-50 mg (Senna Plus) 1 tab-cap PO BEDTIME trazodone 50 mg PO BEDTIME PRN vitamin B complex-folic acid 0.4 mg 1 tab PO DAILY Tobacco use date assessed: 08/02/23 Dental Screening Dental Screen Date: 08/02/23 Did you have a dental visit in the last 12 months?: Yes Did you have a dental problem in the last 6 months where you did not have access to dental care?: No Was dental information given to patient?: Patient has dentist HPI GERD, cholesterol HPI Details 57-year-old male with hypercholesterolemia generalized anxiety disorder diverticular disease coming in for follow-up. Last seen in January 2023. Patient's colonoscopy is up-to-date June 2021. Patient has been seen by Orthopedics for the right wrist pain primary osteoarthritis deferred cortisone injection x-ray done showing increased degenerative change radioulnar and all no carpal. Patient also has a history of perirectal abscess and follows up with Gastroenterology status post I&D. June 2023 had an EGD done no H pylori squamous columnar junctional mucosa with mild chronic inflammation. [facility] Medical History Hx of sigmoidoscopy Diverticulitis Perirectal abscess Hematuria Shoulder pain Alcohol abuse GERD (gastroesophageal reflux disease) Vitamin D deficiency Anxiety Diverticulitis Hypercholesterolemia Surgical History History of biopsy History of rectal surgery History of surgery History of colonoscopy H/O wrist surgery History of eye surgery History of appendectomy Family History Father Diabetes Hypertension Mother No problems noted. 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 1. Little interest or pleasure in doing things: not at all 2. Feeling down, depressed, or hopeless: not at all 3. Trouble falling or staying asleep, or sleeping too much: not at all 4. Feeling tired or having little energy: not at all 5. Poor appetite or overeating: not at all 6. Feeling bad about yourself - or that you are a failure or have let yourself or your family down: not at all 7. Trouble concentrating on things, such as reading the newspaper or watching television: not at all 8. Moving or speaking so slowly that other people could have noticed. Or the opposite - being so fidgety or restless that you have been moving around a lot more than usual: not at all 9. Thoughts that you would be better off or of hurting yourself in some way: not at all Total score: 0 Depression Screening Interpretation: Negative Depression Screening Done: Yes Source: Developed by Drs. Alden Dozier, Nella Dudley, Grant Hogan and colleagues, with an educational nilson from [employer]. Thrive Questionnaire Date Thrive assessed: 08/02/23 I am a: Patient What is your living situation today?: I have a steady place to live Within the past 12 months, did the food you bought not last and you didn't have the money to get more?: Never true Within the past 12 months, did you worry whether your food would run out before you got money to buy more?: Never true Do you have trouble paying for medicines?: No Do you have trouble getting transportation to medical appointments?: No Do you have trouble paying your heating and electricity bill?: No Do you have trouble taking care of your child, family member or friend?: No Do you have trouble with day-to-day activities such as bathing, preparing meals, shopping, managing finances, etc.?: No Are you currently unemployed and looking for a job?: No Are you interested in more education?: No Please select the resources that you would like help with: None THRIVE Score: 0 AUDIT C Alcohol Use Questionnaire (AUDIT-C) 1. How often do you have a drink containing alcohol?: Monthly or less 2. How many drinks containing alcohol do you have on a typical day when you are drinking?: 3 or 4 3. How often do you have six or more drinks on one occasion?: Never Total Score: 2 Score Reviewed/Action Taken: Yes JELANI-7 AMB Questionnaire JELANI-7 Date JELANI - 7 assessed: 08/02/23 Feeling nervous, anxious, or on edge: 0 = Not at all Not being able to stop or control worryin = Not at all Worrying too much about different things: 0 = Not at all Trouble relaxin = Not at all Being so restless that it is hard to sit still: 0 = Not at all Becoming easily annoyed or irritable: 0 = Not at all Feeling afraid as if something awful might happen: 0 = Not at all Total JELANI-7 score (0-4 normal; 5-9 mild; 10-14 moderate; 15-21 severe): 0 Source: Developed by Drs. Alden Dozier, Nella Dudley, Grant Hogan and colleagues, with an educational nilson from [employer]. Physical exam (Primary Care) Vital Signs: Last Vital Signs Pulse 80 08/02/23 15:40 BP 110/74 08/02/23 15:40 Pulse Ox 98 08/02/23 15:40 Oxygen Delivery Method Room Air 08/02/23 15:40 BMI result Body Mass Index 23.4 Tobacco/Smoking Status: Tobacco use Status Tobacco use date assessed 08/02/23 08/02/23 15:42 Patient Tobacco Use Status Former Tobacco user 08/02/23 15:42 Tobacco use type Cigarette 08/02/23 15:42 e-Cigarette/Vaping Use Never Used 08/02/23 15:42 PHQ-9: PHQ-9 Score PHQ-9: Total score 0 08/02/23 15:42 Depression Screening Interpretation: Negative Thrive Assessment: Date of Thrive Assessment Date Thrive assessed 08/02/23 08/02/23 15:42 Const General: alert; No acute distress Eyes Conjunctivae: conjunctivae normal Resp Auscultation: clear to auscultation bilaterally Cardio Rate: regular rate Rhythm: regular rhythm GI Inspection: Yes normal to inspection Extrem General: Yes normal to inspection and No edema Assessment and Plan Assessment & Plan (1) Osteoarthritis of right wrist: Code(s): M19.031 - Primary osteoarthritis, right wrist Plan: Patient is being followed up by Orthopedics. Conservative management (2) Mild anemia: Code(s): D64.9 - Anemia, unspecified Plan: Continue to monitor (3) Anal fistula: Comment: Anal fistulotomy Dr. Stearns July 2021 Code(s): K60.3 - Anal fistula Plan: Patient is being followed up by Gastroenterology status post I and D for an abscess perirectal (4) Hypercholesterolemia: Code(s): E78.00 - Pure hypercholesterolemia, unspecified Plan: Avoid fried foods, chicken skin, eggs, butter margarine, pastries and meat. Be it pork or beef they have a lot of cholesterol LDL goal of less than 130 and triglyceride of less than 150 (5) GERD (gastroesophageal reflux disease): Code(s): K21.9 - Gastro-esophageal reflux disease without esophagitis Qualifiers: Esophagitis presence: without esophagitis Qualified Code(s): K21.9 - Gastro-esophageal reflux disease without esophagitis Plan: Avoid the foods that causes that usually spicy foods, tomato products, juices, coffee, soda and foods that your sensitive to. After eating do not lie down, allow 3-4 hours before in lie down. And keep the head of bed above 30 degrees to avoid the acid from going up. (6) Generalized anxiety disorder: Code(s): F41.1 - Generalized anxiety disorder Plan: Continue with present medication Orders: Orders Complete Blood Count Auto Diff Today D64.9 - Anemia, unspecified Ferritin Today D64.9 - Anemia, unspecified IRON PROFILE Today D64.9 - Anemia, unspecified Reticulocyte Count Today D64.9 - Anemia, unspecified Medications: New folic acid 1 mg PO DAILY 30 tabs 1RF D64.9 - Anemia, unspecified Refilled ibuprofen 600 mg PO TID 30 days PRN 30 tabs 0RF pain K61.1 - Rectal abscess bupropion HCl SR (Wellbutrin SR) 150 mg PO DAILY 90 days 90 tabs 3RF F41.1 - Generalized anxiety disorder Discontinued sulfamethoxazole-trimethoprim 800-160 mg (Bactrim DS) Discontinued Reason: Order 1 tab PO Q12H 20 tabs 0RF Coding Level of Care Code Est Pt Level 4 (98810) Diagnoses Osteoarthritis of right wrist M19.031 Mild anemia D64.9 Anal fistula K60.3 Hypercholesterolemia E78.00 Gastroesophageal reflux disease without esophagitis K21.9 Esophagitis presence: without esophagitis Generalized anxiety disorder F41.1
== END 2023-08-02 16:39 | disposition home or self-care (01) ==
PROVIDERS: PCP Internal Medicine; Visit Provider Internal Medicine
DX: M19.031 Primary osteoarthritis, right wrist (principal); D64.9 Anemia, unspecified; K60.3 Anal fistula; E78.00 Pure hypercholesterolemia, unspecified; K21.9 Gastro-esophageal reflux disease without esophagitis; F41.1 Generalized anxiety disorder
CPT/HCPCS: 99214

== ENCOUNTER 2023-11-18 10:00 | Outpatient (AMB) | payer OTHER, SELFPAY ==
--- NOTE | 2023-11-18 10:08 | MHC.OFFVIS ---
Intake Visit Reasons: left shoulder inj, last inj 05/20/23 Intake Note: Antonio is a 58 year old male who presents today for a repeat injection for his left shoulder OA, last injection 05/20/23. Patient reports his last injection lasted him until last week he started to feel a sharp pain. He would like to repeat his injection. Allergies No Known Allergies [No Known Allergies*] Allergy (Verified 08/02/23 15:41) HPI HPI left shoulder inj, last inj 05/20/23: Details: 58-year-old right hand dominant male who presents in the office today for a follow-up of left shoulder pain. I last saw the patient in the office for treatment of his left shoulder on 05/20/23 when he received a cortisone injection. We did discuss a referral to PT but that was deferred.? ? While in the office today, the patient reports his last cortisone injection lasted until last week when he started to have a sharp pain. He would like to repeat the injection today. ? [facility] Medical History Hx of sigmoidoscopy Diverticulitis Perirectal abscess Hematuria Shoulder pain Alcohol abuse GERD (gastroesophageal reflux disease) Vitamin D deficiency Anxiety Diverticulitis Hypercholesterolemia Surgical History History of biopsy History of rectal surgery History of surgery History of colonoscopy H/O wrist surgery History of eye surgery History of appendectomy Family History Father Diabetes Hypertension Mother No problems noted. 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 No ecchymosis, erythema, or edema. Full shoulder ROM in all planes. Negative cross-body reach. 4/5 strength empty can. Negative drop arm. NVI. Assessment & Plan Assessment & Plan (1) Painful arc syndrome of left shoulder: Code(s): M75.102 - Unspecified rotator cuff tear or rupture of left shoulder, not specified as traumatic Category: Medical (2) Calcific tendinitis of left shoulder: Code(s): M75.32 - Calcific tendinitis of left shoulder Category: Medical Plan Mr. Santiago is a 58-year-old right hand dominant male who presents in the office today for a follow-up of left shoulder pain. I last saw the patient in the office for treatment of his left shoulder on 05/20/23 when he received a cortisone injection. We did discuss a referral to PT but that was deferred.? ? While in the office today, the patient reports his last cortisone injection lasted until last week when he started to have a sharp pain. He would like to repeat the injection today.? ? The patient was offered a cortisone injection in the left shoulder with 80 mg of DepoMedrol. The patient was explained the risk, benefits, and alternatives to receiving this injection. After receiving consent for the injection, the patient had the procedure done while in the office today. The patient tolerated the procedure well with no complications.? ? Follow-up will be PRN, or sooner if needed. ? Patient Instructions: Scribed by Nighat Brewer diagnostic medical sonographer, for Lesli Garcia PA-C on 11/18/2023 at 10:08 am, EST.? Coding Level of Care Code Est Pt Level 3 (26516) Diagnoses Painful arc syndrome of left shoulder M75.102 Calcific tendinitis of left shoulder M75.32
== END 2023-11-18 10:17 | disposition home or self-care (01) ==
PROVIDERS: PCP Internal Medicine; Visit Provider Physician Assistant
DX: M75.102 Unspecified rotator cuff tear or rupture of left shoulder, not specified as traumatic (principal); M75.32 Calcific tendinitis of left shoulder
CPT/HCPCS: 20610; 99213

== ENCOUNTER → 2023-11-18 10:00 | Outpatient (BNVA) | payer OTHER, SELFPAY | PROVIDERS: PCP Internal Medicine; Visit Provider Physician Assistant | DX: M75.102 Unspecified rotator cuff tear or rupture of left shoulder, not specified as traumatic (principal); M75.32 Calcific tendinitis of left shoulder | CPT/HCPCS: 20610; J1010 ==

== ENCOUNTER 2023-12-20 09:19 | Outpatient (AMB) | payer OTHER, SELFPAY ==
--- NOTE | 2023-12-20 09:20 | MHC.OFFVIS ---
Vital Signs 12/20/23 09:26 Height 5 ft 10 in Weight 158 lb BMI 22.7 BP 136/82 Blood Pressure Location Rt brachial Position Sitting Pulse 99 Intake Visit Reasons: Drain Fisula, possible IND Intake Note: Patient scheduled as an urgent appointment for possible I&D of perirectal abscess on left buttock. On Augmentin course. Electrocardiograph Operator Required: No Accompanied by: Self / Same As Patient Allergies No Known Allergies [No Known Allergies*] Allergy (Verified 12/20/23 09:26) HPI Comments Details: The patient is a patient of Dr. Mcdonald. He has had aspiration and I and D of a perirectal abscess in the past. He presents here with what he thinks is an early recurrence of his perirectal abscess. He does not know if he had a fistula in the past or not. He called earlier and was prescribed antibiotics. Now presents here for further evaluation. He thinks he had some drainage from the area but is unsure. Chart was reviewed and patient evaluated [facility] Medical History Hx of sigmoidoscopy Diverticulitis Perirectal abscess Hematuria Shoulder pain Alcohol abuse GERD (gastroesophageal reflux disease) Vitamin D deficiency Anxiety Diverticulitis Hypercholesterolemia Surgical History History of biopsy History of rectal surgery History of surgery History of colonoscopy H/O wrist surgery History of eye surgery History of appendectomy Family History Father Diabetes Hypertension Mother No problems noted. 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 Rectal exam demonstrates at the prone position 09:00 o'clock area some induration and possible an external opening but no fluctuance or abscess. Under sterile technique, this was aspirated with an 18 gauge needle with several passes and no purulence was retrieved. Assessment & Plan Assessment & Plan (1) Anorectal pain: Code(s): K62.89 - Other specified diseases of anus and rectum Category: Medical Plan The current plan is to have the patient continue his local wound care in the form assist bypass and warm compresses. He is to continue his antibiotic course. He will be seen in the few days time for follow-up. During the interim should his symptoms progress or worsen, he has been instructed to call the office or go to ER. All questions answered. Should his symptoms progress or worsen, patient may require I&D. Coding Level of Care Code New Pt Level 4 (65117) Diagnoses Anorectal pain K62.89
[2023-12-20 09:26] VITALS: BP 136/82; PULSE 99; BMI 22.7
== END 2023-12-20 09:46 | disposition home or self-care (01) ==
PROVIDERS: PCP Internal Medicine; Visit Provider Surgery
DX: K62.89 Other specified diseases of anus and rectum (principal)
CPT/HCPCS: 99204

== ENCOUNTER → 2023-12-20 09:19 | Outpatient (BNVA) | payer OTHER, SELFPAY | PROVIDERS: PCP Internal Medicine; Visit Provider Surgery ==

== ENCOUNTER 2024-02-03 16:07 | Outpatient (AMB) | payer OTHER, SELFPAY ==
--- NOTE | 2024-02-03 16:13 | A.OFFPC_ITS ---
Vital Signs 02/03/24 16:15 Height 5 ft 10 in Weight 160 lb BMI 23.0 BP 110/64 Blood Pressure Location Lt brachial Position Sitting Pulse 74 Pulse Source Pulse Oximeter Pulse Oximetry (%) 96 Oxygen Delivery Method Room Air Intake Visit Reasons: PE Intake Note: Patient is here today for a physical. Pt decline flu shot today. Hydramatic Specialist Required: No Machine Washer: Not Required per policy Accompanied by: Self / Same As Patient Allergies No Known Allergies [No Known Allergies*] Allergy (Verified 02/03/24 16:14) Medication List - Last Reconciled 02/03/24 by Shell Eaton MD cholecalciferol (vitamin D3) 25 mcg PO DAILY folic acid 1 mg PO DAILY ibuprofen 600 mg PO TID PRN sennosides-docusate sodium 8.6-50 mg (Senna Plus) 1 tab-cap PO BEDTIME trazodone 50 mg PO BEDTIME PRN vitamin B complex-folic acid 0.4 mg 1 tab PO DAILY Tobacco use date assessed: 02/03/24 Dental Screening Dental Screen Date: 08/02/23 HPI PE HPI Details 58-year-old male with history of hyperch olesterolemia GERD generalized anxiety disorder with a history of anal fistula coming in for physical exam last seen 07/23/2023. Patient had some mild anemia as well as right wrist osteoarthritis. As for the colonoscopy last done in 2021. December 19 seen by the surgeon for the fistula has had perirectal abscess in the past local wound care. Patient was also seen by the Orthopedics 05/20/2023 for left shoulder arthritis. Diagnosis of calcific tendonitis cortisone injection PFSH Medical History Hx of sigmoidoscopy Diverticulitis Perirectal abscess Hematuria Shoulder pain Alcohol abuse GERD (gastroesophageal reflux disease) Vitamin D deficiency Anxiety Diverticulitis Hypercholesterolemia Surgical History History of biopsy History of rectal surgery History of surgery History of colonoscopy H/O wrist surgery History of eye surgery History of appendectomy Family History Father Diabetes Hypertension Mother No problems noted. 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 1. Little interest or pleasure in doing things: not at all 2. Feeling down, depressed, or hopeless: not at all 3. Trouble falling or staying asleep, or sleeping too much: not at all 4. Feeling tired or having little energy: not at all 5. Poor appetite or overeating: not at all 6. Feeling bad about yourself - or that you are a failure or have let yourself or your family down: not at all 7. Trouble concentrating on things, such as reading the newspaper or watching television: not at all 8. Moving or speaking so slowly that other people could have noticed. Or the opposite - being so fidgety or restless that you have been moving around a lot more than usual: not at all 9. Thoughts that you would be better off or of hurting yourself in some way: not at all Total score: 0 Depression Screening Interpretation: Negative Depression Screening Done: Yes Source: Developed by Drs. Alden Dozier, Nella Dudley, Grant Hogan and colleagues, with an educational nilson from [employer]. Thrive Questionnaire Date Thrive assessed: 02/03/24 I am a: Patient What is your living situation today?: I have a steady place to live Within the past 12 months, did the food you bought not last and you didn't have the money to get more?: Never true Within the past 12 months, did you worry whether your food would run out before you got money to buy more?: Never true Do you have trouble paying for medicines?: No Do you have trouble getting transportation to medical appointments?: No Do you have trouble paying your heating and electricity bill?: No Do you have trouble taking care of your child, family member or friend?: No Do you have trouble with day-to-day activities such as bathing, preparing meals, shopping, managing finances, etc.?: No Are you currently unemployed and looking for a job?: No Are you interested in more education?: No Please select the resources that you would like help with: None Currently or been in a relationship where the following occur: No concerns reported THRIVE Score: 0 AUDIT C Alcohol Use Questionnaire (AUDIT-C) 1. How often do you have a drink containing alcohol?: Monthly or less 2. How many drinks containing alcohol do you have on a typical day when you are drinking?: 1 or 2 3. How often do you have six or more drinks on one occasion?: Less than monthly Total Score: 2 JELANI-7 AMB Questionnaire JELANI-7 Date JELANI - 7 assessed: 02/03/24 Feeling nervous, anxious, or on edge: 0 = Not at all Not being able to stop or control worryin = Not at all Worrying too much about different things: 0 = Not at all Trouble relaxin = Not at all Being so restless that it is hard to sit still: 0 = Not at all Becoming easily annoyed or irritable: 0 = Not at all Feeling afraid as if something awful might happen: 0 = Not at all Total JELANI-7 score (0-4 normal; 5-9 mild; 10-14 moderate; 15-21 severe): 0 Source: Developed by Drs. Alden Dozier, Nella Dudley, Grant Hogan and colleagues, with an educational nilson from [employer]. Review of Systems Const Denies poor appetite and Denies weakness Eyes Denies no additional complaints ENT Reports Normal hearing present, Denies dizziness, Denies nasal congestion, Denies tinnitus and Denies sore throat Card Denies chest pain, Denies syncope, Denies rapid heart rate and Denies dyspnea Resp Denies cough and Denies dyspnea GI Denies change in stool character, Reports constipation, Denies diarrhea, Denies nausea and Denies vomiting Denies dysuria and Denies urinary frequency Neuro Reports Normal hearing present, Denies confusion, Denies dizziness, Denies syncope and Denies weakness Psych Denies confusion Physical exam (Primary Care) Vital Signs: Last Vital Signs Pulse 74 02/03/24 16:15 BP 110/64 02/03/24 16:15 Pulse Ox 96 02/03/24 16:15 Oxygen Delivery Method Room Air 02/03/24 16:15 BMI result Body Mass Index 23.0 Tobacco/Smoking Status: Tobacco use Status Tobacco use date assessed 02/03/24 02/03/24 16:39 Patient Tobacco Use Status Former Tobacco user 02/03/24 16:39 Tobacco use type Cigarette 02/03/24 16:39 e-Cigarette/Vaping Use Never Used 02/03/24 16:39 PHQ-9: PHQ-9 Score PHQ-9: Total score 0 02/03/24 16:52 Depression Screening Interpretation: Negative Thrive Assessment: Date of Thrive Assessment Date Thrive assessed 02/03/24 02/03/24 16:39 Currently or been in a relationship where the following occur: No concerns reported Const General: No confusion Orientation/consciousness: No confusion HENMT Head: Yes normocephalic Ears: external ears normal and TM's normal bilaterally Face and sinus: Yes normal facial exam Mouth: moist mucous membranes Throat: Yes tonsils normal Eyes Conjunctivae: conjunctivae normal Pupils: Equal, round and reactive pupils present and Pupil accommodation reflex normal Direct Ophthalmoscopy: normal light reflex Neck Neck: No lymphadenopathy Thyroid: Thyroid normal Chest Chest palpation & inspection: normal inspection of the chest Resp Effort & Inspection: normal respiratory effort and no audible wheezes Auscultation: clear to auscultation bilaterally, no crackles, no wheezes and lung sounds not diminished Cardio Rate: regular rate Rhythm: regular rhythm Peripheral pulses: radial pulses present and dorsalis pedis present GI Other: giuaiac negative prostate mild enlarged Palpation (GI): no masses Auscultation: normal bowel sounds and normoactive bowel sounds Male General Exam: Yes normal external exam Skin General skin exam: no rashes or lesions noted Rashes: no rashes Neuro General: No confusion Cranial nerves: Yes Equal, round and reactive pupils present and Yes Normal hearing present Cognition (Neuro): normal cognition Gait exam (Neuro): Normal gait present Motor exam (neuro): 5/5 motor strength present throughout Deep tendon reflexes (DTR's): Right brachioradialis reflex intensity grade: 2+, Left brachioradialis reflex intensity grade: 2+, Right patellar reflex intensity grade: 2+ and Left patellar reflex intensity grade: 2+ Extrem General: No edema Office Procedures Flu Questionnaire Does the patient have a severe egg allergy?: No Immunizations Fluarix Triv [id number] (PF) 45 mcg (15 mcg x 3)/0.5 mL IM syringe Performing Provider: Shell Eaton MD [facility] [place] [facility] Documented (not given) by: MORGAN Byrnes on 02/03/24 16:55 Reason Not Given: Patient Refused Coding Level of Care Code Est Pt Prev Care 40-64y(23798) Diagnoses Annual physical exam Z00.00 Hypercholesterolemia E78.00 Gastroesophageal reflux disease without esophagitis K21.9 Esophagitis presence: without esophagitis Anal fistula K60.3 Painful arc syndrome of left shoulder M75.102 Mild anemia D64.9 Generalized anxiety disorder F41.1 Assessment & Plan Assessment & Plan (1) Annual physical exam: Code(s): Z00.00 - Encounter for general adult medical examination without abnormal findings Category: Medical Plan: Patient is advised to eat healthy, keep well hydrated, keep active and have adequate sleep. (2) Hypercholesterolemia: Code(s): E78.00 - Pure hypercholesterolemia, unspecified Category: Medical Plan: Avoid fried foods, chicken skin, eggs, butter margarine, pastries and meat. Be it pork or beef they have a lot of cholesterol LDL goal of less than 130 and triglyceride of less than 150. Diet controlled (3) GERD (gastroesophageal reflux disease): Code(s): K21.9 - Gastro-esophageal reflux disease without esophagitis Category: Medical Qualifiers: Esophagitis presence: without esophagitis Qualified Code(s): K21.9 - Gastro-esophageal reflux disease without esophagitis Plan: Avoid the foods that causes that usually spicy foods, tomato products, juices, coffee, soda and foods that your sensitive to. After eating do not lie down, allow 3-4 hours before in lie down. And keep the head of bed above 30 degrees to avoid the acid from going up. (4) Anal fistula: Comment: Anal fistulotomy Dr. Stearns July 2021 Code(s): K60.3 - Anal fistula Category: Medical Plan: Continue to follow-up with the surgeon (5) Painful arc syndrome of left shoulder: Code(s): M75.102 - Unspecified rotator cuff tear or rupture of left shoulder, not specified as traumatic Category: Medical Plan: Patient has met with Orthopedics and had left shoulder injections. (6) Mild anemia: Code(s): D64.9 - Anemia, unspecified Category: Medical Plan: Continuing to monitor (7) Generalized anxiety disorder: Code(s): F41.1 - Generalized anxiety disorder Category: Medical Plan: Continue with present medication Orders: Orders Comprehensive Met. Panel Today E78.00 - Pure hypercholesterolemia, unspecified Thyroid Stimulating Hormone Today E78.00 - Pure hypercholesterolemia, unspecified Reticulocyte Count Today E78.00 - Pure hypercholesterolemia, unspecified IRON PROFILE Today E78.00 - Pure hypercholesterolemia, unspecified Lipid Panel Today E78.00 - Pure hypercholesterolemia, unspecified XR chest 2V Today M75.102 - Unspecified rotator cuff tear or rupture of left shoulder, not specified as traumatic Influenza [id number] Immunization Today Z23 - Encounter for immunization Complete Blood Count Auto Diff Today E78.00 - Pure hypercholesterolemia, unspecified Ferritin Today E78.00 - Pure hypercholesterolemia, unspecified Free T4 (Free Thyroxine) Today E78.00 - Pure hypercholesterolemia, unspecified Prostate Specific Antigen Scr Today E78.00 - Pure hypercholesterolemia, unspecified Vitamin B12 and Folate Today E78.00 - Pure hypercholesterolemia, unspecified Medications: Refilled ibuprofen 600 mg PO TID PRN 30 tabs 0RF for pain K61.1 - Rectal abscess
[2024-02-03 16:15] VITALS: BP 110/64; PULSE 74; O2SAT 96; BMI 23.0
== END 2024-02-03 17:13 | disposition home or self-care (01) ==
LOC: HO.HMCH 16:09
PROVIDERS: PCP Internal Medicine; Visit Provider Internal Medicine
DX: Z00.00 Encounter for general adult medical examination without abnormal findings (principal); E78.00 Pure hypercholesterolemia, unspecified; K21.9 Gastro-esophageal reflux disease without esophagitis; K60.30 Anal fistula, unspecified; M75.102 Unspecified rotator cuff tear or rupture of left shoulder, not specified as traumatic; D64.9 Anemia, unspecified; F41.1 Generalized anxiety disorder; Z23 Encounter for immunization

== ENCOUNTER → 2024-02-03 16:07 | Outpatient (BNVA) | payer OTHER, SELFPAY | PROVIDERS: PCP Internal Medicine; Visit Provider Internal Medicine | DX: Z00.00 Encounter for general adult medical examination without abnormal findings (principal); E78.00 Pure hypercholesterolemia, unspecified; K21.9 Gastro-esophageal reflux disease without esophagitis; K60.30 Anal fistula, unspecified; M75.102 Unspecified rotator cuff tear or rupture of left shoulder, not specified as traumatic; D64.9 Anemia, unspecified; F41.1 Generalized anxiety disorder; Z28.21 Immunization not carried out because of patient refusal | CPT/HCPCS: 90471; 96127 ==

== ENCOUNTER 2024-02-21 13:17 | Outpatient (AMB) | payer OTHER, SELFPAY ==
--- NOTE | 2024-02-21 13:22 | A.OFFVIS_ITS ---
Intake Visit Reasons: Left Shoulder cortisone inj, last inj 11/18/23 Intake Note: Antonio is a 58 year old male who presents today for a repeat injection for his left shoulder OA, last injection 11/18/23. Patient reports his last injection gave him about a couple weeks of releif. He states that his last injection didnt give him much of relief, however he would still want to repeat. Allergies No Known Allergies [No Known Allergies*] Allergy (Verified 02/21/24 13:29) HPI HPI Left Shoulder cortisone inj, last inj 11/18/23: Details: 58-year-old female who presents in the office today follow-up of left shoulder pain. I last saw the patient in the office on 11/18/23 when he was given a cortisone injection in the left shoulder. While in the office today, the patient reports his last cortisone injection in the left shoulder gave him about 2 weeks of relief. He would like to try a repeat injection today. [facility] Medical History Hx of sigmoidoscopy Diverticulitis Perirectal abscess Hematuria Shoulder pain Alcohol abuse GERD (gastroesophageal reflux disease) Vitamin D deficiency Anxiety Diverticulitis Hypercholesterolemia Surgical History History of biopsy History of rectal surgery History of surgery History of colonoscopy H/O wrist surgery History of eye surgery History of appendectomy Family History Father Diabetes Hypertension Mother No problems noted. 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 No ecchymosis, erythema, or edema. Full shoulder ROM in all planes. Negative cross-body reach. 4/5 strength empty can. Negative drop arm. NVI. Office Procedures AMB Joint Injection/Aspiration Joint Injection/Aspiration Primary Site: left shoulder Prep: site was prepped using aseptic technique, ethochloride spray was applied and injection warnings given Injected: 80 mg of, DepoMedrol, with 8 mL of (2% plain lido ) and in the subcromial space Approach Used: posterolateral Procedure: The patient tolerated the procedure well, but had some pain with the injection and there was some relief with the local anesthesia Coding 44057 - Large joint Procedure code (CPT) selection complete Assessment & Plan Assessment & Plan (1) Painful arc syndrome of left shoulder: Code(s): M75.102 - Unspecified rotator cuff tear or rupture of left shoulder, not specified as traumatic Category: Medical (2) Calcific tendinitis of left shoulder: Code(s): M75.32 - Calcific tendinitis of left shoulder Category: Medical Plan 58-year-old female who presents in the office today follow-up of left shoulder pain. I last saw the patient in the office on 11/18/23 when he was given a cortisone injection in the left shoulder. While in the office today, the patient reports his last cortisone injection in the left shoulder gave him about 2 weeks of relief. He would like to try a repeat injection today. The patient was offered a cortisone injection in the left shoulder with 80 mg of DepoMedrol. The patient was explained the risks, benefits, and alternatives to receiving this injection. After receiving consent for the injection, the patient had the procedure done while in the office today. The patient tolerated the procedure well with no complications. Follow-up will be PRN, or sooner if needed. Patient Instructions: Scribed by Mile [facility] medical assistant cardiology, for Lesli Garcia PA-C on 02/21/2024 at 1:40 pm EST. Coding Level of Care Code Est Pt Level 3 (12579) Diagnoses Painful arc syndrome of left shoulder M75.102 Calcific tendinitis of left shoulder M75.32 CPT Codes Coding - 73647 Large joint: 35495 - Large joint ([id number])
== END 2024-02-21 13:33 | disposition home or self-care (01) ==
PROVIDERS: PCP Internal Medicine; Visit Provider Physician Assistant
DX: M75.102 Unspecified rotator cuff tear or rupture of left shoulder, not specified as traumatic (principal); M75.32 Calcific tendinitis of left shoulder
CPT/HCPCS: 20610; 99213

== ENCOUNTER → 2024-02-21 13:17 | Outpatient (BNVA) | payer OTHER, SELFPAY | PROVIDERS: PCP Internal Medicine; Visit Provider Physician Assistant | DX: M75.102 Unspecified rotator cuff tear or rupture of left shoulder, not specified as traumatic (principal); M75.32 Calcific tendinitis of left shoulder | CPT/HCPCS: 20610; J1010; J2003 ==

== ENCOUNTER 2024-04-02 06:16 | Outpatient (REF) | payer OTHER, SELFPAY ==
--- OUTSIDE RECORDS SUMMARY | 2024-04-02 06:18 | XMS_ITS | Patient Health Record ---
Author Organization [facility] Address [address] [place] [address] Care Team Providers Care Therapeutic Specialist Name Role Phone Shell Eaton MD Primary Care Provider Sonu Chauhan Jr ALLERGIES No Known Allergies RESULTS Component Value Reference Range Notes Immunoglobulin A Reviewed date:06/09/2023 11:11:11 AM Interpretation: Performing Lab:[facility], [address] [place] [phone] Notes/Report: Immunoglobulin A 361 47-310 mg/dL THIS TEST WAS PERFORMED AT: [facility] [address] [place] [phone] KELSEY LARKIN MD Transglutaminase IgA Reviewed date:06/09/2023 11:11:06 AM Interpretation: Performing Lab:[facility], [address] [place] [phone] Notes/Report: Transglutaminase IgA <1.0 Value Interpretation ----- <15.0 Antibody not detected > or = 15.0 Antibody detected THIS TEST WAS PERFORMED AT: [facility] [address] [place] [phone] KELSEY LARKIN MD Pathology Reviewed date:06/09/2023 11:11:00 AM Interpretation: Performing Lab:[address] [phone] Notes/Report: REASON FOR REFERRAL No Information MEDICATIONS Medication SIG (Take, Route, Frequency, Duration) Notes Start Date End Date Status traZODone HCl 50 MG TAKE 1 TABLET ORALLY BEDTIME NEEDED FOR SLEEP Oral for 90 Active Ibuprofen 600 MG Oral for 30 A ctive buPROPion HCl ER (XL) 150 MG Oral for 30 Active IMMUNIZATIONS Vaccine Route Administration Date Status Comme nts Influenza Unknown 04/22/2021 Refused Influenza Unknown 05/16/2023 Refused SOCIAL HISTORY Tobacco Use: Social History Observation Description Date Details (start date - stop date) Never Smoker NA - NA Sex Assigned At : Social History Observation Description Sex Assigned At Unknown Tobacco Use/Smoking Question Answer Notes Patient is a nonsmoker Alcohol Screen Question Answer Notes Did you have a drink containing alcohol in the p ast year? No Points 0 Interpretation Negative PROBLEMS Problem Type ICD Code Onset Dates Problem Status W/U Status Risk SNOMED Code Notes Problem Abnormal findings in stool (R19.5) Active confirmed 548907219 Problem Abnormal CT scan, colon (R93.3) Active confirmed 198471700 Problem Diverticulosis (K57.90) Active confirmed Diverticular disease of colon (766070870) Problem Gastroesophageal reflux disease, unspecified whether esophagitis present (K21.9) Active confirmed 599315152 Problem Epigastric pain (R10.13) Active confirmed 24499006 Problem Chronic GERD (K21.9) Active confirmed Gastroesophagea l reflux disease (disorder) (861313142) VITAL SIGNS Temperature 97.7 degrees Fahrenheit 05/16/2023 Blood pressure diastolic 00 mm Hg 05/16/2023 Height 71 in 05/16/2023 Blood pressure systolic 000 mm Hg 05/16/2023 Weight 151 lbs 05/16/2023 BMI 21.06 kg/m2 05/16/2023 Encounters Encounter Location Date Provider Diagnosis [facility] Outpatient [address] [place] [phone] 06/07/2023 Sonu Her Jr Epigastric pain R10.13 and Chronic GERD K21.9 [facility] [address] [place] [phone] 08/01/2023 Sonu Her Jr [facility] [address] [place] [phone] 05/16/2023 Sonu Her Jr Gastroesophageal reflux disease, unspecified whether esophagitis present K21.9 and Epigastric pain R10.13 [facility] [address] [place] [phone] 06/09/2023 Sonu Her Jr ASSESSMENTS Encounter Date Diagnosis Assessment Notes Treatment Notes Treatment Clinical Notes 06/07/2023 Epigastric pain (ICD -10 - R10.13) 06/07/2023 Chronic GERD (ICD-10 - K21.9) 05/16/2023 Epigastric pain (ICD -10 - R10.13) 05/16/2023 Gastroesophageal ref lux disease, unspecified whether esophagitis present (ICD-10 - K21.9) PLAN OF TREATMENT Pending Test Test Name Order Date IgA 05/16/2023 TRANSGLUTAMINASE AB IGA 05/16/2023 Future Test Test Name Order Date COLONOSCOPY 04/22/2021 UPPER GI ENDOSCOPY 05/16/2023 Next Appt Details Provider Name:Sonu luz Jr, 06/11/2024 01:15:00 PM, [address] [place] [address], [address], [place], [address], Insurance Providers Payer Name Payer Address Payer Phone Subscriber Number Group Number Insured Name Patient Relationship to Insured Coverage Start Date Coverage End Date [employer] [address] [place] [address] [id number] PAM TERRAZAS Self - patient is the insured MEDICAL (GENERAL) HISTORY Medical History History ICD Code Gastroesophageal reflux disease Anxiety Colonoscopy 06/19/21, exam to 30 cm, thompson um enema normal, ten-year followup Hyperlipidemia Anal fistula Surgical History Surgery Date(Month/Year) appendicitis 1979 Hospitalization History Reason Date(Month/Year) diverticulitis 04/2021
--- OUTSIDE RECORDS SUMMARY | 2024-04-02 06:18 | XMS_ITS ---
Author Organization [facility] Address [address] [facility] [address] [place] [address] Care Team Providers Care Certified Control Systems Technician Name Role Phone Po Shell CHINCHILLA Primary Care Provider Von Her Jr, Sonu Crowley REASON FOR VISIT pathology/lab Encounters Encounter Location Date Provider Diagnosis [facility] [address] [place] [address] 06/09/2023 Sonu Her Jr PLAN OF TREATMENT Next Appt Details Provider Name:Sonu luz Jr, 06/11/2024 01:15:00 PM, [address] [place] [address], [address], [place], [address],
--- OUTSIDE RECORDS SUMMARY | 2024-04-02 06:18 | XMS_ITS | Data Portability ---
Author Organization VARGAS [facility] [id number] Address [address] [place] [address] Assessment No assessment recorded. Plan of Treatment Reminders Order Date Submit Date Provider Last Modified By Organization Details Last Modified Time Details Appointments None record ed. Lab None record ed. Referral None record ed. Procedures None record ed. Surgeries None record ed. Imaging None record ed. Medication Orders None record ed. Patient TargetsNo targets recorded. Patient InstructionsNo instructions recorded. Reason for Referral None Reported. Procedures Surgical History Date Name Laterality Status Provider Name and Address Organization Details Recorded Time OC-UDS Send Out Template DOT completed ROHIT [facility] 06/10/2022 09:37:22 Imaging Results None recorded. Procedure Notes None recorded. Medical Equipment None Reported. Vitals None Recorded Social History None recorded. Functional Status None recorded. Mental Status None recorded. Family History Nothing Reported. Medical History No medical history recorded. Past Encounters Encounter ID Performer Location Encounter Start Date Encounter Closed Date Diagnosis/Indication Diagnosis SNOMED-CT Code Diagnosis ICD10 Code [id number] [address] [place] [address] 06/22/2015 09:24:56 06/22/2015 10:17:08 [id number] [address] [place] [address] 07/03/2015 18:04:47 07/03/2015 19:15:00 [id number] CHANDA HERNANDEZ MD [address] [place] [address] 06/10/2022 09:07:50 06/10/2022 09:40:45 History and physical examination, occupation [id number] Z02.1 Health Concerns Section Related Observation LastModified by Organization Detai ls LastModified Time None Recorded Concern Status LastModified by Organization Details LastModified Time None Recorded Advance Directives Directive None Recorded Payers Encounter Date Sequence Insurance Name Policy Number Policy Smiht Covered Member ID Smith Member ID Guarantor Name 06/22/[address] [facility] [id number] Antonio Santiago [id number] Antonio Santiago 06/10/2022 OC-ESCREEN Antonio Santiago [id number] Antonio Santiago
--- OUTSIDE RECORDS SUMMARY | 2024-04-02 06:18 | XMS_ITS ---
Author Organization [facility] Address [address] [facility] [address] [place] [address] Care Team Providers Care Assistant Oceanographer Name Role Phone Shell Eaton MD Primary Care Provider Sonu Chauhan Jr Unavailable [phone] REASON FOR VISIT gerd epigastric pain PROBLEMS Problem Type ICD Code Onset Dates Problem Status W/U Status Risk SNOMED Code Notes Problem Chronic GERD (K21.9) Active confirmed Gastroesophagea l reflux disease (disorder) (161234249) Encounters Encounter Location Date Provider Diagnosis [facility] [place] [address] [place] [id number] 06/07/2023 Sonu eHr Jr Epigastric pain R10.13 and Chronic GERD K21.9 ASSESSMENTS Encounter Date Diagnosis Assessment Notes Treatment Notes Treatment Clinical Notes 06/07/2023 Epigastric pain (ICD-10 - R10.13) 06/07/2023 Chronic GERD (ICD-10 - K21.9) PLAN OF TREATMENT Next Appt Details Provider Name:Sonu luz Jr, 06/11/2024 01:15:00 PM, [address] [facility], [address], [place], [address],
[2024-04-02 06:34] LABS: MANUAL DIFF FLAG NO
[2024-04-02 07:23] LABS: Basophils Percent Auto 0.7 % (0-2); Eosinophils Absolute Auto 0.1 X10*3/uL (0.0-0.4); Eosinophils Percent Auto 1.8 % (0-4); Hematocrit 45.2 % (42.0-52.0); Hemoglobin 14.6 g/dl (14.0-18.0); Imm Gran Abs Auto 0.02 X10*3/uL (0.00-0.03); Imm Gran Pct Auto 0.4 % (0.0-0.4); Immature Retic Fraction 4.9 % (2.3-13.4); Lymphocytes Absolute Auto 1.8 X10*3/uL (1.2-4.9); Lymphocytes Percent Auto 32.1 % (20-40); Mean Corpuscular HGB Conc 32.3 g/dl (31.0-36.0); Mean Corpuscular Hemoglobin 29.9 pg (27.0-33.0); Mean Corpuscular Volume 92.6 fL (80.0-98.0); Mean Platelet Volume 11.2 fL (9.4-12.4); Monocytes Absolute Auto 0.5 X10*3/uL (0.1-1.2); Monocytes Percent Auto 8.5 % (2-11); Neutrophils Absolute Auto 3.1 x10*3/uL (2.0-8.3); Neutrophils Percent Auto 56.5 % (45-73); Platelet Count 285 X10*3/uL (160-400); Red Blood Count 4.88 X10*6/uL (4.60-5.80); Reticulocyte Percent 0.8 % (0.5-1.8); Reticulocytes Absolute 0.039 X10*6/uL (0.026-0.095); White Blood Count 5.5 X10*3/uL (4.8-10.8)
[2024-04-02 08:03] LABS: Alanine Aminotransferase 23 U/L (0-40); Albumin Level 4.3 g/dL (3.5-5.0); Alkaline Phosphatase 78 U/L (39-117); Anion Gap 11 (12-20); Aspartate Amino Transferase 26 U/L (5-37); Bilirubin Total 0.7 mg/dL (0.0-1.0); Blood Urea Nitrogen 18 mg/dL (9-16); Calcium 9.6 mg/dL (8.4-10.2); Carbon Dioxide 28 mmol/L (22-29); Chloride 108 mmol/L (96-108); Cholesterol 220 mg/dL (<200); Estimated Glomerular Filt Rate > 60; Glucose Random 99 mg/dL (60-115); HDL Cholesterol 65 mg/dL (>40); Iron 70 mcg/dL (45-160); LDL Cholesterol Calculated 131 mg/dL (<100); Percent Iron Saturation 25 % (15-50); Potassium 4.2 mmol/L (3.3-5.1); Sodium 143 mmol/L (135-145); Total Iron Binding Capacity 275 mcg/dL (228-428); Total Protein 7.4 g/dL (6.5-8.0); Triglycerides 123 mg/dL (<150); Unsaturated Iron Binding 205 ug/dL
[2024-04-02 08:20] LABS: Ferritin 143 ng/mL (20-250); Free T4 (Free Thyroxine) 1.13 ng/dL (0.71-1.85); Thyroid Stimulating Hormone 2.11 uIU/mL (0.32-4.0)
[2024-04-02 08:28] LABS: Folate 12.1 ng/mL (> or = 4.0); Prostate Specific Antigen Scr 2.23 ng/mL (<0.05-4.0); Vitamin B12 1876 pg/mL (200-900)
== END 2024-04-02 06:17 | disposition home or self-care (01) ==
LOC: HO.LAB 06:16
PROVIDERS: PCP Internal Medicine; Visit Provider Internal Medicine
DX: D64.9 Anemia, unspecified (principal); E78.00 Pure hypercholesterolemia, unspecified; Z12.5 Encounter for screening for malignant neoplasm of prostate
CPT/HCPCS: 36415; 80053; 80061; 82607; 82728; 82746; 83540; 84153; 84439; 84443; 85025; 85045

== ENCOUNTER 2024-07-07 07:51 | Emergency (ER) | payer OTHER, SELFPAY ==
--- NOTE | ~2024-07-07 | CT_ITS ---
CLINICAL HISTORY: LLQ pain CT abdomen and pelvis with contrast Comparison: CT/SR - CT ABDOMEN PELVIS W IV CON - 12/28/22 07:43 EDT Findings: The heart is not enlarged. Calcific atherosclerosis. Lung bases are clear other than subsegmental atelectasis. A left hepatic lobe subcentimeter hypodensity is too small to characterize. The liver is otherwise unremarkable. Couple small right renal cysts. No urolithiasis or urinary obstruction. The gallbladder and other abdominal solid organs are unremarkable. Small fat containing left paraumbilical hernia. No bowel obstruction. Distal colonic diverticulosis. Sigmoid colonic mural thickening and mild pericolonic fat stranding. No evidence of perforation or abscess. No evidence of appendicitis. The mildly enlarged prostate measures 4.6 cm transversely. The urinary bladder is incompletely distended. Tiny fat containing left indirect inguinal hernia. Degenerative change of the spine and partial sacralization of L5. Degenerative change of the pubic symphysis. Mild bilateral hip osteoarthritis and mild left hip chondrocalcinosis. IMPRESSION: Distal colonic diverticulosis with sigmoid colonic mural thickening and mild pericolonic inflammatory change. Differential includes diverticulitis, although the mural thickening appears disproportionate to the pericolonic inflammatory change and recommend further evaluation with colonoscopy to exclude underlying malignancy. This document has been electronically signed by: Rick Foy DO on 07/07/2024 12:05:46
[2024-07-07 08:06] VITALS: BP 143/99; PULSE 80; RESP 18; TEMP 36.7; O2SAT 99; BMI 22.3
--- NOTE | 2024-07-07 08:11 | ED_ITS ---
HPI - General Adult General Chief complaint: General Medical Stated complaint: constipated Time Seen by Provider: 07/07/24 08:07 Source: patient and RN notes reviewed Mode of arrival: ambulatory Limitations: no limitations History of Present Illness ED Provider: Shayna Jenkins PA-C HPI narrative: This is a 58-year-old male, with a past medical history of diverticulitis, anxiety, diverticulitis, hyperlipidemia (not on medication), perirectal abscess, and fistula status post fistulectomy 2021, who presents emergency department with complaints of increased lower abdominal pain for the last 1-2 weeks. Patient reports that he noticed about 1-2 weeks ago he had some discomfort to developing in his left lower quadrant. He then called his GI specialist who advised him to wait several days and if his symptoms do not improve to go to the emergency room. Patient reports that he has been able to have bowel movements however states that they are smaller in nature and feels as though he is not fully emptying his stool. Patient reports decreased appetite, endorsing slight nausea. He states yesterday he only had a chicken wrap and liquids. yesterday he took a laxative as well as today with little to no relief. He does report some urinary hesitancy which he believes is due to the pressure he was having in his left lower abdomen. he denies any fevers, chills, chest pain, shortness of breath, vomiting. No bloody or black stool. he is a nonsmoker, states he does drink alcohol however does not drink daily. No other complaints or concerns at this time. MD complaint: Left lower quadrant pain Onset (ago): week(s) Severity: moderate Quality: aching Pain Consistency: constant Relieving factors: none Exacerbating factors: none Associated symptoms: denies other symptoms Treatments prior to arrival: other ( Laxative) Related Data Home Medications ?Medication ?Instructions ?Recorded ?Confirmed cholecalciferol (vitamin D3) 25 25 mcg PO DAILY 03/10/20 02/03/24 mcg (1,000 unit) capsule vitamin B complex-folic acid 0.4 1 tab PO DAILY 06/28/22 02/03/24 mg tablet Previous Rx's ?Medication ?Instructions ?Recorded sennosides 8.6 mg-docusate sodium 1 tab-cap PO BEDTIME #60 tabs 12/27/22 50 mg tablet (Senna Plus) folic acid 1 mg tablet 1 mg PO DAILY #30 tabs 10/05/23 trazodone 50 mg tablet 50 mg PO BEDTIME PRN sleep #90 tabs 01/03/24 ibuprofen 600 mg tablet 600 mg PO TID PRN for pain #30 tabs 05/25/24 amoxicillin 875 mg-potassium 1 tab PO BID #30 tabs 06/25/24 clavulanate 125 mg tablet amoxicillin 875 mg-potassium 1 tab PO BID 10 days #20 tabs 07/07/24 clavulanate 125 mg tablet Allergies Allergy/AdvReac Type Severity Reaction Status Date / Time No Known Allergies Allergy Verified 07/07/24 08:09 [No Known Allergies*] Review of Systems 2 Review of Systems: Yes all other systems are reviewed and are negative Constitutional: Constitutional: Reports as per [facility] Past Medical History Attestation statement: The following information was validated with the patient. Medical History Hx of sigmoidoscopy Diverticulitis Perirectal abscess Hematuria Shoulder pain Alcohol abuse GERD (gastroesophageal reflux disease) Vitamin D deficiency Anxiety Diverticulitis Hypercholesterolemia Surgical History History of biopsy History of rectal surgery History of surgery History of colonoscopy H/O wrist surgery History of eye surgery History of appendectomy Family History Family History Father Diabetes Hypertension Mother No problems noted. Paternal Grandfather Substance abuse Maternal Grandfather Substance abuse Social History Social History Housing: House Alcohol intake: current Alcohol intake frequency: holidays/special occasions only Comment: 2 x a month 3-4 beers Patient Tobacco Use Status: Former Tobacco user Tobacco use type: Cigarette Years Smoked: quit 2017 Smoked in Last 30 Days: No e-Cigarette/Vaping Use: Never Used Second Hand Smoke Exposure: No Use of substances other than those prescribed or required for medical reasons: No Substance Use Type: Marijuana Advance Directives: No Advance Directives Information Provided: Yes Do you have a plan to hurt others: No Plan service: No Current occupational status: employed and unemployed 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) Cognitive needs: No Hearing needs: No Vision needs: Yes (Glasses) Physical Exam ED Vital Signs: Vital Signs - 24 hr 07/07/24 08:06 07/07/24 09:10 07/07/24 10:26 Temperature 98.0 F 98.2 F Pulse Rate 80 64 64 Respiratory Rate 18 18 18 Blood Pressure 143/99 H 122/87 124/85 Pulse Oximetry 99 98 98 Oxygen Delivery Method Room Air Room Air Room Air BMI result Body Mass Index 22.3 Const General: cooperative, comfortable and no acute distress Orientation/consciousness: patient oriented x3 Limitations: no limitations HENMT Head: Yes normal to inspection, Yes normocephalic and Yes atraumatic Ears: hearing grossly normal bilaterally General nose exam: Normal external nose present Face and sinus: Yes normal facial exam Mouth: Normal oral and palatal mucosa present, oropharynx normal and moist mucous membranes Throat: Yes posterior oropharynx normal Eyes General: appearance normal, both eyes and all related structures Eyelids: Yes eyelids normal Conjunctivae: conjunctivae normal Sclerae: sclerae normal Pupils: Equal, round and reactive pupils present EOM: EOMs intact bilaterally Neck Neck: Yes normal visual inspection, Yes full ROM and Yes no lymphadenopathy Lymphatic: no lymphadenopathy noted Chest Chest palpation & inspection: normal inspection of the chest Resp Effort & Inspection: normal respiratory effort and able to speak in complete sentences Auscultation: clear to auscultation bilaterally, no crackles, no rales, no rhonchi and no wheezes Cardio Rate: regular rate Rhythm: regular rhythm Heart sounds: S1 normal heart sound present and S2 normal heart sound present GI Other: abdomen is soft with mild tenderness palpation in the left lower quadrant, no rebound or guarding. Normoactive bowel sounds present in all 4 quadrants. Inspection: Yes normal to inspection Skin General skin exam: no rashes or lesions noted Trauma: no lacerations or abrasions Wounds: no wounds Neuro General: patient oriented x3 and moves all extremities Cranial nerves: Yes Equal, round and reactive pupils present Extrem General: Yes normal to inspection Right upper extremity: normal to inspection Left upper extremity: normal to inspection Right lower extremity: normal to inspection Left lower extremity: normal to inspection Course Reevaluation(s) Reevaluation #1: CT scan returns revealing distal colonic diverticulosis, with sigmoid colonic mural thickening and pericolonic inflammatory changes. Differential includes diverticulitis, although the mural thickening appears disproportionate to the pericolonic inflammatory change and recommend further evaluation with colonoscopy to exclude underlying malignancy. Labs revealing no leukocytosis, stable H&H, chemistry revealing slight elevation in t. bili, nonspecific. He has no epigastric pain. Urine with trace blood, trace leuk esterases, and rbc's. This does not appear to be infectious in he is not having any urinary symptoms, will defer treatment for UTI until culture returns. Patient previously had a similar appearing urinalysis which did not grow anything therefore deferring treatment. Will treat with Augmentin. Given strict return precautions. Also advised patient to call his GI specialist to follow-up on Tuesday. Patient states he recently had a colonoscopy and was put on the 10 year plan as he had polyps that were removed which were unremarkable. I stressed the importance of following up with his GI specialist as this should be further looked into as we are unable to rule out any malignant sources. Of note, patient also has a mildly enlarged prostate, umbilical hernia, renal cyst, any left hepatic subcentimeter hypodensity. Patient will follow-up with PCP, and GI specialist. Patient given strict return precautions. Patient stable for discharge. Time: 12:27 Medications Administered Discontinued Medications Generic Name Dose Route Start Last Admin Trade Name Freq PRN Reason Stop Dose Admin Iohexol 100 ml 07/07/24 10:21 07/07/24 10:21 Iohexol 350 Mg/Ml 100 Ml Infus..Btl IV 07/07/24 10:22 85 ml ONCE ONE Administration Medical Decision Making Medical Decision Making [facility] Narrative: This is a 58-year-old male, with a history of diverticulitis, who presents emergency department with complaints of left lower quadrant pain which started 1-2 weeks ago. On arrival, patient is well-appearing, under no acute distress. Vital signs reveal slight hyper tension at 143/99, otherwise, vitals are within normal ranges. No shortness a soft with tenderness palpation lungs are quadrant. He has a history of diverticulitis. differential diagnoses include diverticulitis, diverticulosis, SBO, gastroenteritis, abscess. Patient also reports urinary hesitancy which he believes is due to the pressure he is having in his left lower quadrant. He has no chest pain or shortness Of breath. Patient reports that his pain is managed at this time, declining pain medication at this time. Will obtain labs rule out any electrolyte derangement or leukocytosis. Added ESR and CRP for inflammatory markers. Will obtain urinalysis to rule out UTI. Will also obtain CT abdomen and pelvis with IV contrast to further investigate the floor quadrant pain. We will continue to monitor pending overall workup today. Differential Diagnosis Differential Diagnoses: The differential diagnosis associated with the presentation includes See above Lab Data MDM Lab Attestation statement: I reviewed the patient's lab results. See course comment 07/07/24 09:09 07/07/24 09:09 Labs: Lab Results 07/07/24 07/07/24 07/07/24 Range/Units 09:09 09:16 10:27 WBC 6.6 (4.8-10.8) X10*3/uL RBC 5.14 (4.60-5.80) X10*6/uL Hgb 15.3 (14.0-18.0) g/dl Hct 45.5 (42.0-52.0) % MCV 88.5 (80.0-98.0) fL MCH 29.8 (27.0-33.0) pg MCHC 33.6 (31.0-36.0) g/dl RDW 12.4 (11.0-16.0) % Plt Count 280 (160-400) X10*3/uL MPV 10.6 (9.4-12.4) fL Immature Gran % (Auto) 0.3 (0.0-0.4) % Neut % (Auto) 71.6 (45-73) % Lymph % (Auto) 18.9 L (20-40) % [place] % (Auto) 8.1 (2-11) % Eos % (Auto) 0.6 (0-4) % Baso % (Auto) 0.5 (0-2) % Lymph # (Auto) 1.3 (1.2-4.9) X10*3/uL [place] # (Auto) 0.5 (0.1-1.2) X10*3/uL Eos # (Auto) 0.0 (0.0-0.4) X10*3/uL Baso # (Auto) 0.0 (0.0-0.2) X10*3/uL Abs Immat Gran (auto) 0.02 (0.00-0.03) X10*3/uL Absolute Neuts (auto) 4.8 (2.0-8.3) x10*3/uL Absolute Nucleated RBC 0.000 (0.0-0.012) X10*3/uL Nucleated RBC % (auto) 0.0 (0.0-0.2) /100WBC ESR 5 (0-15) MM/HR Sodium 139 (135-145) mmol/L Potassium 4.2 (3.3-5.1) mmol/L Chloride 106 (96-108) mmol/L Carbon Dioxide 26 (22-29) mmol/L Anion Gap 11 L (12-20) BUN 17 H (9-16) mg/dL Creatinine 0.85 (0.5-1.4) mg/dL Estim Creat Clear Calc 98.4 Estimated GFR > 60 Random Glucose 105 (60-115) mg/dL Calcium 9.7 (8.4-10.2) mg/dL Magnesium 1.8 (1.6-2.6) mg/dL Total Bilirubin 2.1 H (0.0-1.0) mg/dL Direct Bilirubin 0.4 (0.0-0.5) mg/dL AST 22 (5-37) U/L ALT 18 (0-40) U/L Alkaline Phosphatase 84 (39-117) U/L Total Protein 7.3 (6.5-8.0) g/dL Albumin 4.3 (3.5-5.0) g/dL Lipase 16 (8-78) U/L Urine Color Dark Yellow Urine Appearance Clear Urine pH 6.0 (5.0-9.0) Ur Specific [place] >= 1.030 H (1.005-1.025) Urine Protein Trace (Neg-Trace) mg/dL Urine Glucose (UA) Negative (Negative) mg/dL Urine Ketones Trace (Negative) mg/dL Urine Blood Trace H (Negative) Urine Nitrite Negative (Negative) Ur Leukocyte Esterase Trace H (Negative) Urine RBC 6-10 H (0-2) /HPF Urine WBC 0-5 (0-5) /HPF Ur Squamous Epith Cells 0-2 (0-2) /HPF Urine Bacteria None Seen (None Seen) Hyaline Casts 0-2 (0-2) /LPF C. difficile Tox B Gene NEGATIVE (Negative) Radiology Impression Discussion of test interpretation with radiology: I have reviewed the radiologist's reading. Radiologist Impression: Findings: The heart is not enlarged. Calcific atherosclerosis. Lung bases are clear other than subsegmental atelectasis. A left hepatic lobe subcentimeter hypodensity is too small to characterize. The liver is otherwise unremarkable. Couple small right renal cysts. No urolithiasis or urinary obstruction. The gallbladder and other abdominal solid organs are unremarkable. Small fat containing left paraumbilical hernia. No bowel obstruction. Distal colonic diverticulosis. Sigmoid colonic mural thickening and mild pericolonic fat stranding. No evidence of perforation or abscess. No evidence of appendicitis. The mildly enlarged prostate measures 4.6 cm transversely. The urinary bladder is incompletely distended. Tiny fat containing left indirect inguinal hernia. Degenerative change of the spine and partial sacralization of L5. Degenerative change of the pubic symphysis. Mild bilateral hip osteoarthritis and mild left hip chondrocalcinosis. IMPRESSION: Distal colonic diverticulosis with sigmoid colonic mural thickening and mild pericolonic inflammatory change. Differential includes diverticulitis, although the mural thickening appears disproportionate to the pericolonic inflammatory change and recommend further evaluation with colonoscopy to exclude underlying malignancy. This document has been electronically signed by: Rick Foy DO on 07/07/2024 12:05:46 Dictated By: Rick Foy MD Discharge Plan Discharge Clinical Impression: Diverticulitis Patient Disposition: Home, Self-Care Instructions: Diverticulitis (ED), Diverticulitis Diet (ED) Additional Instructions: You were seen in the emergency department due to abdominal pain. Your CT scan reveals concerns for diverticulitis, however some of the thickening may be due to underlying malignancy therefore it is very important that you follow-up with your GI specialist. Call on Tuesday to make an appointment in hopes that they will be able to see you sooner than September. Take prescribed antibiotic as directed, finish the entire course even if your symptoms improve. Drink plenty of fluids and get plenty of rest. Stick to a liquid diet for the 1st 2-3 days and advance diet as tolerated. Bone broth this a great source of protein, and may keep you for for longer periods of time. If any new or worsening symptoms occur including but not limited to fevers, worsening pain, chest pain, shortness of breath, please seek emergent care. You do have incidental findings within your CT scan seen below. Follow up with PCP and GI specialist as discussed. I hope you feel better soon! Findings: The heart is not enlarged. Calcific atherosclerosis. Lung bases are clear other than subsegmental atelectasis. A left hepatic lobe subcentimeter hypodensity is too small to characterize. The liver is otherwise unremarkable. Couple small right renal cysts. No urolithiasis or urinary obstruction. The gallbladder and other abdominal solid organs are unremarkable. Small fat containing left paraumbilical hernia. No bowel obstruction. Distal colonic diverticulosis. Sigmoid colonic mural thickening and mild pericolonic fat stranding. No evidence of perforation or abscess. No evidence of appendicitis. The mildly enlarged prostate measures 4.6 cm transversely. The urinary bladder is incompletely distended. Tiny fat containing left indirect inguinal hernia. Degenerative change of the spine and partial sacralization of L5. Degenerative change of the pubic symphysis. Mild bilateral hip osteoarthritis and mild left hip chondrocalcinosis. IMPRESSION: Distal colonic diverticulosis with sigmoid colonic mural thickening and mild pericolonic inflammatory change. Differential includes diverticulitis, although the mural thickening appears disproportionate to the pericolonic inflammatory change and recommend further evaluation with colonoscopy to exclude underlying malignancy. This document has been electronically signed by: Rick Foy DO on 07/07/2024 12:05:46 Dictated By: Rick Foy MD Prescriptions: New amoxicillin-pot clavulanate 875-125 mg tablet 1 tab PO BID 10 Days Qty: 20 0RF No Action sennosides-docusate sodium [Senna Plus] 8.6-50 mg tablet 1 tab-cap PO BEDTIME Qty: 60 1RF folic acid 1 mg tablet 1 mg PO DAILY Qty: 30 1RF trazodone 50 mg tablet 50 mg PO BEDTIME PRN (Reason: sleep) Qty: 90 2RF ibuprofen 600 mg tablet 600 mg PO TID PRN (Reason: for pain) Qty: 30 0RF amoxicillin-pot clavulanate 875-125 mg tablet 1 tab PO BID Qty: 30 0RF cholecalciferol (vitamin D3) 25 mcg (1,000 unit) capsule 25 mcg PO DAILY vitamin B complex-folic acid 0.4 mg tablet 1 tab PO DAILY Stand Alone Forms: Work/School Release Print Language: Martiniquais
--- OUTSIDE RECORDS SUMMARY | 2024-07-07 08:32 | XMS_ITS ---
Author Organization [facility] Address [address] [place] [phone] Care Team Providers Care Geophysical Observer Name Role Phone Shell Eaton MD Primary Care Provider Sonu Chauhan Jr Unavailable REASON FOR VISIT cancelled 06-11-2024 appt Encounters Encounter Location Date Provider Diagnosis [facility] [address] [place] [phone] 06/07/2024 Sonu Her Jr Plan Of Treatment No Information Progress Notes * PAM TERRAZAS ADOB:1965 (58 yo M)Acc No.[id number]:06/07/2024 Patient:?PAM TERRAZAS A :1965???Age:58 Y???Sex:Male Address:[address] [place] [address], [address] * true * Date:? Generated for Mary villarreal/Hanna/eTransmitting on:?07/07/2024 08:32 AM EDT
--- OUTSIDE RECORDS SUMMARY | 2024-07-07 08:33 | XMS_ITS | Data Portability ---
Author Organization [facility] [address] Address [address] [place] [address] Assessment No assessment recorded. Plan of Treatment [...] Diagnosis/Indication Diagnosis SNOMED-CT Code Diagnosis ICD10 Code Diagnosis Note [id number] [address] [place] [address] 06/22/2015 09:24:56 06/22/2015 10:17:08 [id number] [address] [place] [address] 07/03/2015 18:04:47 07/03/2015 19:15:00 [id number] CHANDA HERNANDEZ MD [address] [place] [address] 06/10/2022 09:07:50 06/10/2022 09:40:45 History and physical examination, occupation 811926146 Z02.1 Health Concerns Section Related Observation LastModified by Organization Detai ls LastModified Time None Recorded Concern Status LastModified by Organization Details LastModified Time None Recorded Advance Directives Directive None Recorded Payers Encounter Date Sequence Insurance Name Policy Number Policy Smith Covered Member ID Smith Member ID Guarantor Name 06/22/2015 1 [facility] [id number] Antonio Santiago [id number] Antonio Santiago 06/10/2022 [employer] Antonio Santiago [id number] Antonio Santiago
--- OUTSIDE RECORDS SUMMARY | 2024-07-07 08:33 | XMS_ITS ---
Author Organization [facility] Address [address] [place] [phone] Care Team Providers Care Mountain Guide Name Role Phone Shell Eaton MD Primary Care Provider Von Her Jr, Sonu Unavailable [phone] REASON FOR VISIT pain Encounters Encounter Location Date Provider Diagnosis [facility] [address] [place] [phone] 06/25/2024 Sonu Her Jr Plan Of Treatment No Information Progress Notes * PAM TERRAZAS ADOB:1965 (58 yo M)Acc No.[id number]:06/25/2024 Patient:?PAM TERRAZAS :1965???Age:58 Y???Sex:Male Address:[address] [place] [address], [address] * true * Date:? Generated for Mary villarreal/Hanna/eTransmitting on:?07/07/2024 08:32 AM EDT
--- OUTSIDE RECORDS SUMMARY | 2024-07-07 08:33 | XMS_ITS | Patient Health Record ---
Author Organization [facility] Address [address] [place] [phone] Care Team Providers Care Trailer Technician Name Role Phone Shell Eaton MD Primary Care Provider Sonu Chauhan Jr Unavailable Allergies No Known Allergies Reason For Referral No Information Medications Medication SIG (Take, Route, Frequency, Duration) Notes Start Date End Date Status traZODone HCl 50 MG TAKE 1 TABLET ORALLY BEDTIME NEEDED FOR SLEEP Oral for 90 Active Ibuprofen 600 MG Oral for 30 A ctive buPROPion HCl ER (XL) 150 MG Oral for 30 Active Immunizations Vaccine Route Administration Date Status Comme nts Influenza Unknown 04/22/2021 Refused Influenza Unknown 05/16/2023 Refused Social History Tobacco Use: Social History Observation Description Date Details (start date - stop date) Never Smoker NA - NA Tobacco Use/Smoking Question Answer Notes Patient is a nonsmoker Alcohol Screen Question Answer Notes Did you have a drink containing alcohol in the p ast year? No Points 0 Interpretation Negative Problems Problem Type SNOMED Code ICD Code Onset Dates Problem Status W/U Status Risk Notes Problem 51015213 Epigastric pain (R10.13) Active confirmed Problem Diverticular disease of colon (920191077) Diverticulosis (K57.90) Active confirmed Problem 172633573 Abnormal finding s in stool (R19.5) Active confirmed Problem 811081561 Abnormal CT scan , colon (R93.3) Active confirmed Problem 598076397 Gastroesophageal reflux disease, unspecified whether esophagitis present (K21.9) Active confirmed Problem Gastroesophageal reflux disease (disorder) (934551998) Chronic GERD (K21.9) Active confirmed Encounters Encounter Location Date Provider Diagnosis [facility] [address] [place] [phone] 06/07/2024 Sonu Her Jr [facility] [address] [place] [address] [place] [address] 06/25/2024 Sonu Her Jr Plan Of Treatment Pending Test Test Name Order Date IgA 05/16/2023 TRANSGLUTAMINASE AB IGA 05/16/2023 Future Test Test Name Order Date COLONOSCOPY 04/22/2021 UPPER GI ENDOSCOPY 05/16/2023 Insurance Providers Payer Name Payer Address Payer Phone Subscriber Number Group Number Insured Name Patient Relationship to Insured Coverage Start Date Coverage End Date [employer] [address] [place] [address] [id number] PAM TERRAZAS Self - patient is the insured Medical (General) History Medical History History ICD Code Gastroesophageal reflux disease Anxiety Colonoscopy 06/19/21, exam to 30 cm, thompson um enema normal, ten-year followup Hyperlipidemia Anal fistula Surgical History Surgery Date(Month/Year) appendicitis 1979 Hospitalization History Reason Date(Month/Year) diverticulitis 04/2021
--- OUTSIDE RECORDS SUMMARY | 2024-07-07 08:33 | XMS_ITS ---
Author Organization [facility] Address [address] [place] [phone] Care Team Providers Care Strategic Account Director Name Role Phone Shell Eaton MD Primary Care Provider Von eHr Jr, Sonu Crowley REASON FOR VISIT Patient presents today for gerd Encounters Encounter Location Date Provider Diagnosis [facility] [address] [facility] [address] [place] [phone] 06/11/2024 Sonu Her Jr Plan Of Treatment No Information Progress Notes * PAM TERRAZAS ADOB:1965 (58 yo M)Acc No.[id number]:06/11/2024 Progress Notes Patient:?PAM TERRAZAS Provider:?Sonu Her MD :1965???Age:58 Y???Sex:Male Scar e:06/11/2024 Address:[address] [place], [place] [phone] Pcp:Shell Eaton MD Subjective: * Chief Complaints: * ???1. Patient presents today for gerd. * Medical History:? Objective: * Vitals:? Assessment: Plan: * Treatment: * * The named appointment provid er may or may not be the originator of this progress note, and it is not deemed complete until electronically signed by the appointment provider. Sign off status: Pending * Provider:?Sonu Her MD Date:?0 06/11/2024 Generated for Mary villarreal/Hanna/eTransmitting on:?07/07/2024 08:33 AM EDT
[2024-07-07 09:10] VITALS: BP 122/87; PULSE 64; RESP 18; TEMP 36.8; O2SAT 98
[2024-07-07 09:14] LABS: MANUAL DIFF FLAG NO
[2024-07-07 09:23] LABS: Basophils Percent Auto 0.5 % (0-2); Eosinophils Percent Auto 0.6 % (0-4); Hematocrit 45.5 % (42.0-52.0); Hemoglobin 15.3 g/dl (14.0-18.0); Imm Gran Abs Auto 0.02 X10*3/uL (0.00-0.03); Imm Gran Pct Auto 0.3 % (0.0-0.4); Lymphocytes Absolute Auto 1.3 X10*3/uL (1.2-4.9); Lymphocytes Percent Auto 18.9 % (20-40); Mean Corpuscular HGB Conc 33.6 g/dl (31.0-36.0); Mean Corpuscular Hemoglobin 29.8 pg (27.0-33.0); Mean Corpuscular Volume 88.5 fL (80.0-98.0); Mean Platelet Volume 10.6 fL (9.4-12.4); Monocytes Absolute Auto 0.5 X10*3/uL (0.1-1.2); Monocytes Percent Auto 8.1 % (2-11); Neutrophils Absolute Auto 4.8 x10*3/uL (2.0-8.3); Neutrophils Percent Auto 71.6 % (45-73); Platelet Count 280 X10*3/uL (160-400); Red Blood Count 5.14 X10*6/uL (4.60-5.80); Red Cell Distribution Width 12.4 % (11.0-16.0); White Blood Count 6.6 X10*3/uL (4.8-10.8)
[2024-07-07 09:31] LABS: Alanine Aminotransferase 18 U/L (0-40); Albumin Level 4.3 g/dL (3.5-5.0); Alkaline Phosphatase 84 U/L (39-117); Anion Gap 11 (12-20); Aspartate Amino Transferase 22 U/L (5-37); Bilirubin Direct 0.4 mg/dL (0.0-0.5); Bilirubin Total 2.1 mg/dL (0.0-1.0); Blood Urea Nitrogen 17 mg/dL (9-16); Calcium 9.7 mg/dL (8.4-10.2); Carbon Dioxide 26 mmol/L (22-29); Chloride 106 mmol/L (96-108); Creatinine Clr Calc Pharmacy 98.4; Estimated Glomerular Filt Rate > 60; Glucose Random 105 mg/dL (60-115); Lipase 16 U/L (8-78); Magnesium 1.8 mg/dL (1.6-2.6); Potassium 4.2 mmol/L (3.3-5.1); Sodium 139 mmol/L (135-145); Total Protein 7.3 g/dL (6.5-8.0)
[2024-07-07 09:33] LABS: Appearance Urine Clear; Color Urine Dark Yellow; Glucose Urine UA Negative (Negative); Leukocyte Esterase Urine Trace (Negative); Nitrite Urine Negative (Negative); Specific Gravity - Urine >= 1.030 (1.005-1.025); UMIC TRIGGER UACC YES; Urine Blood Trace (Negative); Urine Ketones Trace mg/dL (Negative); Urine Protein Trace mg/dL (Neg-Trace)
[2024-07-07 09:36] LABS: Bacteria Urine None Seen (None Seen); Hyaline Casts Urine 0-2 /LPF (0-2); Squamous Epithelial Cell Urine 0-2 /HPF (0-2); WBC Urine 0-5 /HPF (0-5)
[2024-07-07 10:00] LABS: Erythrocyte Sedimentation Rate 5 MM/HR (0-15)
[2024-07-07] MEDS: iohexoL 350 MG/ML 100 ML INFUS..BTL IV (10:21)
[2024-07-07 10:26] VITALS: BP 124/85; PULSE 64; RESP 18; O2SAT 98
[2024-07-07 11:50] LABS: CDiff Gene PCR NEGATIVE (Negative)
[2024-07-07 12:28] LABS: Adenovirus F 40/41 Not Detected (Not Detect.); Astrovirus Not Detected (Not Detect.); Campylobacter Not Detected (Not Detect.); Cryptosporidium Not Detected (Not Detect.); Cyclospora cayetanensis Not Detected (Not Detect.); E. coli EAEC Not Detected (Not Detect.); E. coli EPEC Not Detected (Not Detect.); E. coli ETEC Not Detected (Not Detect.); E. coli STEC Not Detected (Not Detect.); Entamoeba histolytica Not Detected (Not Detect.); Giardia lamblia Not Detected (Not Detect.); Norovirus GI/GII Not Detected (Not Detect.); Plesiomonas shigelloides Not Detected (Not Detect.); Rotavirus A Not Detected (Not Detect.); Salmonella Not Detected (Not Detect.); Sapovirus Not Detected (Not Detect.); Shigella sp./EIEC Not Detected (Not Detect.); Vibrio Not Detected (Not Detect.); Vibrio Cholerae Not Detected (Not Detect.); Yersinia enterocolitica Not Detected (Not Detect.)
[2024-07-07 12:58] VITALS: BP 124/85; PULSE 64; RESP 18; TEMP 36.7; O2SAT 98
[2024-07-09 17:43] LABS: CRP High Sensitivity 2.6 mg/L
== END 2024-07-07 12:59 | disposition home or self-care (01) ==
PROVIDERS: Physician Assistant Medical; Emergency Provider Emergency Medicine Emergency Medical Services; PCP Internal Medicine
DX: K57.32 Diverticulitis of large intestine without perforation or abscess without bleeding (principal); R10.32 Left lower quadrant pain; E78.00 Pure hypercholesterolemia, unspecified; Z79.899 Other long term (current) drug therapy
CPT/HCPCS: 36415; 74177; 80048; 80076; 81001; 83690; 83735; 85025; 85652; 86141; 87493; 87507; 99284; Q9967

== ENCOUNTER → 2024-07-07 08:26 | Outpatient (BNV) | payer OTHER, SELFPAY | PROVIDERS: Emergency Provider Emergency Medicine Emergency Medical Services; PCP Internal Medicine; Visit Provider Radiology Diagnostic Radiology | DX: K57.30 Diverticulosis of large intestine without perforation or abscess without bleeding (principal); K57.92 Diverticulitis of intestine, part unspecified, without perforation or abscess without bleeding | CPT/HCPCS: 74177 ==

== ENCOUNTER 2024-07-18 09:04 | Outpatient (AMB) | payer OTHER, SELFPAY ==
[2024-07-18 09:10] VITALS: BP 104/68; PULSE 73; O2SAT 99; BMI 21.3
--- NOTE | 2024-07-18 09:10 | MHC.PC.OV ---
Vital Signs 07/18/24 09:10 Height 5 ft 11 in Weight 153 lb BMI 21.3 BP 104/68 Blood Pressure Location Lt brachial Position Sitting Pulse 73 Pulse Source Pulse Oximeter Pulse Oximetry (%) 99 Oxygen Delivery Method Room Air Intake Visit Reasons: Gut issues/ bladder Allergies No Known Allergies [No Known Allergies*] Allergy (Verified 07/18/24 09:10) Tobacco use date assessed: 07/18/24 Dental Screening Dental Screen Date: 07/18/24 Did you have a dental visit in the last 12 months?: Yes Did you have a dental problem in the last 6 months where you did not have access to dental care?: No Was dental information given to patient?: Patient has dentist [facility] Medical History Hx of sigmoidoscopy Diverticulitis Perirectal abscess Hematuria Shoulder pain Alcohol abuse GERD (gastroesophageal reflux disease) Vitamin D deficiency Anxiety Diverticulitis Hypercholesterolemia Surgical History History of biopsy History of rectal surgery History of surgery History of colonoscopy H/O wrist surgery History of eye surgery History of appendectomy Family History Father Diabetes Hypertension Mother No problems noted. 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 1. Little interest or pleasure in doing things: not at all 2. Feeling down, depressed, or hopeless: not at all 3. Trouble falling or staying asleep, or sleeping too much: not at all 4. Feeling tired or having little energy: not at all 5. Poor appetite or overeating: not at all 6. Feeling bad about yourself - or that you are a failure or have let yourself or your family down: not at all 7. Trouble concentrating on things, such as reading the newspaper or watching television: not at all 8. Moving or speaking so slowly that other people could have noticed. Or the opposite - being so fidgety or restless that you have been moving around a lot more than usual: not at all 9. Thoughts that you would be better off or of hurting yourself in some way: not at all Total score: 0 Depression Screening Interpretation: Negative Depression Screening Done: Yes Source: Developed by Drs. Alden Dozier, Nella Dudley, Grant Hogan and colleagues, with an educational nilson from [employer]. Thrive Questionnaire Date Thrive assessed: 07/18/24 I am a: Patient What is your living situation today?: I have a steady place to live Within the past 12 months, did the food you bought not last and you didn't have the money to get more?: Never true Within the past 12 months, did you worry whether your food would run out before you got money to buy more?: Never true Do you have trouble paying for medicines?: No Do you have trouble getting transportation to medical appointments?: No Do you have trouble paying your heating and electricity bill?: No Do you have trouble taking care of your child, family member or friend?: No Do you have trouble with day-to-day activities such as bathing, preparing meals, shopping, managing finances, etc.?: No Are you currently unemployed and looking for a job?: No Are you interested in more education?: No Please select the resources that you would like help with: None Currently or been in a relationship where the following occur: No concerns reported THRIVE Score: 0 AUDIT C Alcohol Use Questionnaire (AUDIT-C) 2. How many drinks containing alcohol do you have on a typical day when you are drinking?: 3 or 4 3. How often do you have six or more drinks on one occasion?: Never Total Score: 1 JELANI-7 AMB Questionnaire JELANI-7 Date JELANI - 7 assessed: 07/18/24 Feeling nervous, anxious, or on edge: 0 = Not at all Not being able to stop or control worryin = Not at all Worrying too much about different things: 0 = Not at all Trouble relaxin = Not at all Being so restless that it is hard to sit still: 0 = Not at all Becoming easily annoyed or irritable: 0 = Not at all Feeling afraid as if something awful might happen: 0 = Not at all Total JELANI-7 score (0-4 normal; 5-9 mild; 10-14 moderate; 15-21 severe): 0 Source: Developed by Drs. Alden Dozier, Nella Dudley, Grant Hogan and colleagues, with an educational nilson from [employer]. Physical exam (Primary Care) Vital Signs: Last Vital Signs Pulse 73 07/18/24 09:10 BP 104/68 07/18/24 09:10 Pulse Ox 99 07/18/24 09:10 Oxygen Delivery Method Room Air 07/18/24 09:10 BMI result Body Mass Index 21.3 Tobacco/Smoking Status: Tobacco use Status Tobacco use date assessed 07/18/24 07/18/24 09:14 Patient Tobacco Use Status Former Tobacco user 07/18/24 09:14 Tobacco use type Cigarette 07/18/24 09:14 e-Cigarette/Vaping Use Never Used 07/18/24 09:14 PHQ-9: PHQ-9 Score PHQ-9: Total score 0 07/18/24 09:37 Depression Screening Interpretation: Negative Thrive Assessment: Date of Thrive Assessment Date Thrive assessed 07/18/24 07/18/24 09:14 Currently or been in a relationship where the following occur: No concerns reported Const General: alert; No acute distress Eyes Conjunctivae: conjunctivae normal Resp Auscultation: clear to auscultation bilaterally Cardio Rate: regular rate Rhythm: regular rhythm GI Inspection: Yes normal to inspection Extrem General: Yes normal to inspection and No edema Coding Level of Care Code Est Pt Level 4 (98172) Diagnoses BPH (benign prostatic hyperplasia) N40.0 Hypercholesterolemia E78.00 Diverticulitis K57.92 Left inguinal hernia K40.90 Paraumbilical hernia K42.9 Assessment & Plan Assessment & Plan (1) BPH (benign prostatic hyperplasia): Code(s): N40.0 - Benign prostatic hyperplasia without lower urinary tract symptoms Category: Medical Plan: Continue to monitor (2) Hypercholesterolemia: Code(s): E78.00 - Pure hypercholesterolemia, unspecified Category: Medical Plan: Avoid fried foods, chicken skin, eggs, butter margarine, pastries and meat. Be it pork or beef they have a lot of cholesterol LDL goal of less than 130 and triglyceride of less than 150 (3) Diverticulitis: Comment: December Code(s): K57.92 - Diverticulitis of intestine, part unspecified, without perforation or abscess without bleeding Category: Medical Plan: Patient was treated in the emergency room with Augmentin- resolved (4) Left inguinal hernia: Code(s): K40.90 - Unilateral inguinal hernia, without obstruction or gangrene, not specified as recurrent Category: Medical (5) Paraumbilical hernia: Comment: left Code(s): K42.9 - Umbilical hernia without obstruction or gangrene Category: Medical Plan History of Present Illness The patient is a 58-year-old male presenting with left shoulder pain and urinary symptoms attributed to an enlarged prostate. His left shoulder pain relates to prior treatments, including injections in November and February 2024. He also has bilateral hip osteoarthritis. Regarding urinary symptoms, the patient reports increased nocturia and difficulty emptying his bladder fully, linked to his diagnosis of BPH. He notes frequent nighttime urination linked to his water intake and experiences straining when his bladder is full, which exacerbates the symptoms. The patient mentions past episodes of diverticulosis with associated mural thickening, successfully treated with Augmentin, although no recent flare-ups are reported. There is also a history of constipation due to changes in his work schedule affecting bowel habits. Health Maintenance - Cholesterol monitoring with an LDL goal of under 130 mg/dL and triglycerides under 150 mg/dL - Monitoring and management of hypercholesterolemia - Continued monitoring of BPH and related urinary symptoms - Avoidance of constipation through increased dietary fiber intake and adequate fluid intake Social History - Employment details affecting sleep schedule leading to altered bowel habits - Increased fluid intake during nighttime work shifts contributing to nocturia Review of Systems - Musculoskeletal: Reports left shoulder pain - Genitourinary: Reports nocturia and straining to urinate - Gastrointestinal: Denies current abdominal pain; reports past constipation - Psychological: Reports diagnosed generalized anxiety disorder Physical Exam - Musculoskeletal- Noted parumbilical and inguinal hernias on physical exam Results - Imaging (July 07): Diverticulosis with sigmoid mural thickening and pericolonic inflammatory changes - Labwork (July 07): Normal blood count, normal electrolytes, normal renal function, elevated blood sugar, liver function normal, LDL of 131 mg/dL Plan We focused on managing the patient's left shoulder pain and urinary issues associated with BPH. Treatment for shoulder pain includes ongoing monitoring and coordination with orthopedic care following previous injections. An ultrasound of the bladder will assess potential urine retention issues. For BPH symptoms, we reviewed medication options and advised close self-monitoring. The patient's diverticulosis management involves dietary recommendations to prevent constipation. Patient was informed and verbally consented to the use of an ambient scribe for clinic note documentation during this visit. Discussion Notes I discussed the current status of the patient's left shoulder issues, informing him that orthopedic follow-up and monitoring are ongoing. Regarding the urinary symptoms associated with BPH, we reviewed bladder ultrasound parameters to assess retention and discussed the possibility of medication if symptoms persist. For the patient's diverticulosis, we emphasized regular dietary fiber intake and hydration. We encouraged the patient to report any worsening symptoms or complications. Patient Instructions - Monitor shoulder pain and communicate any increased discomfort to your qa specialist. - Follow up with the recommended bladder ultrasound. - Take preventive measures for BPH symptoms, including adjusting fluid intake and scheduling an appointment if symptoms do not improve. - Increase dietary fiber and fluid intake to prevent constipation. - Avoid heavy lifting and activities that strain the abdominal area. - Report any new or worsening symptoms promptly. Orders: Orders US bladder Today N40.0 - Benign prostatic hyperplasia without lower urinary tract symptoms
--- OUTSIDE RECORDS SUMMARY | 2024-07-18 09:46 | XMS_ITS ---
Author Organization [facility] Address [address] [place] [phone] Care Team Providers Care Dough Mixer Name Role Phone Shell Eaton MD Primary Care Provider Sonu Chauhan Jr Unavailable Allergies No Known Allergies REASON FOR VISIT Patient presents today for diverticulitis Medications Medication SIG (Take, Route, Frequency, Duration) Notes Start Date End Date Status Tylenol 325 MG 1 tablet as needed O rally every 6 hrs as needed Active Ibuprofen 600 MG Oral for 30 as needed. Active traZODone HCl 50 MG TAKE 1 TABLET ORALLY BEDTIME NEEDED FOR SLEEP Oral for 90 as needed Active Immunizations Vaccine Route Administration Date Status Comme nts Influenza Unknown 07/16/2024 Refused Social History Tobacco Use: Social History Observation Description Date Details (start date - stop date) Never Smoker NA - NA Tobacco Use/Smoking Question Answer Notes Patient is a nonsmoker Alcohol Screen Question Answer Notes Did you have a drink containing alcohol in the p ast year? No Points 0 Interpretation Negative Vital Signs Temperature 98.2 degrees Fahrenheit 07/17/19 25 Blood pressure systolic 001 mm Hg 07/17/19 25 Blood pressure diastolic 01 mm Hg 025 Height 71 in 07/16/2024 Weight 150 lbs 07/16/2024 BMI 20.92 kg/m2 07/16/2024 Encounters Encounter Location Date Provider Diagnosis [facility] [address] [place] [id number] 07/16/2024 Sonu Her Jr Diverticulosis K57.[address] scan, colon R93.3 Assessments Encounter Date Diagnosis (ICD Code) Assessment Notes Treatment Notes Treatment Clinical Notes Section Notes 07/16/2024 Diverticulosis (ICD-10 - K57.90) We discussed h is symptoms today. We discussed diverticulosis and diverticulitis. We discussed a high-fiber diet. We have recommended that he continue this. He will be due for follow-up colonoscopy for further evaluation of his symptoms and the abnormal CT scan. This will be arranged in September. He understands risks and benefits and agrees to proceed. 07/16/[address] scan, colon (ICD-10 - R93.3) We discussed his symptoms today. We discussed diverticulosis and diverticulitis. We discussed a high-fiber diet. We have recommended that he continue this. He will be due for follow-up colonoscopy for further evaluation of his symptoms and the abnormal CT scan. This will be arranged in September. He understands risks and benefits and agrees to proceed. 07/16/2024 Other Colonoscopy material was printed We discussed his symptoms today. We discussed diverticulosis and diverticulitis. We discussed a high-fiber diet. We have recommended that he continue this. He will be due for follow-up colonoscopy for further evaluation of his symptoms and the abnormal CT scan. This will be arranged in September. He understands risks and benefits and agrees to proceed. Plan Of Treatment Treatment Notes Assessment Notes Other Colonoscopy material was printed Future Test Test Name Order Date COLONOSCOPY 07/16/2024 Next Appt Details Follow Up: 1 Year, Reason: Provider Name:Sonu Sousa luz , 09/07/2024 07:30:00 AM, [address] [place] [address], [phone], Progress Notes * PAM TERRAZAS ADOB:1965 (58 yo M)Acc No.[id number]:07/16/2024 Progress Notes Patient:?MK PAM A Provider:?Sonu Her MD :1965???Age:58 Y???Sex:Male Scar e:07/16/2024 Address:[address] [place] [address] Pcp:Shell Eaton MD Subjective: * Chief Complaints: * ???1. Patient presents today for diverticulitis. * HPI: ???New symptom(s):? The patient is a pleasant 58-year-old man seen today in consultation. He has a history of diverticulosis, and was recently diagnosed with diverticulitis from his emergency room visit in July of this year. At that time, he had evaluation with CT scanning and laboratory studies. He was prescribed Augmentin. He has completed this. He reports his left-sided abdominal pain is better. He is not sure what caused it, but questions whether it was his change in work hours and dietary changes. He tried a liquid diet but this did not help. His CT scan from the emergency department is reviewed. Further evaluation with colonoscopy was recommended to exclude malignancy because of the abnormal appearance of the sigmoid colon. We reviewed this today. * Medical History:?Gastroesoph ageal reflux disease, Anxiety, Colonoscopy 06/19/21, exam to 30 cm, barium enema normal, ten-year followup, Hyperlipidemia, Anal fistula. * Surgical History:?appendicit is 1979. * Hospitalization/Major Diagno stic Procedure:?diverticulitis 04/2021. * Family History:?Father: tera de jesus, diagnosed with Diabetes.?Mother: .? No family history liver cancer, or colon cancer. Patient has had colon polyps in past with Dr. Rosas. * Social History:?Tobacco Use:?Tobacco Use/Smoking?Patient is a?nonsmoker.?Drugs/Alcohol:?Alcohol Screen?Did you have a drink containing alcohol in the past year??No,?Points?0,?Interpretation?Negative.?Miscellaneous:?Marital status: . Occupation: works full-time. * Medications:?Taking Tylenol 325 MG Tablet 1 tablet as needed Orally every 6 hrs , Notes to Pharmacist: as needed, Taking Ibuprofen 600 MG Tablet Oral , Notes to Pharmacist: as needed., Taking traZODone HCl 50 MG Tablet TAKE 1 TABLET ORALLY BEDTIME NEEDED FOR SLEEP Oral , Notes to Pharmacist: as needed, Discontinued buPROPion HCl ER (XL) 150 MG Tablet Extended Release 24 Hour Oral , Medication List reviewed and reconciled with the patient * Allergies:?N.K.D.A. Objective: * Vitals:?Wt:150lbs, Ht: 71 in , BMI:20.92Index, BP:001/01mm Hg, Temp:98.2, Wt-k.04. * Examination: ???General Examination: ???On examination today, he appears well. Skin is anicteric. Lungs are clear. Heart shows a regular rate and rhythm. Abdomen is soft without focal masses or tenderness. Extremities are without edema. Assessment: * Assessment: 1.?Diverticulosis - K57.90 ( Primary)???2.?Abnormal CT scan, colon - R93.3??? We discussed his symptoms to day. We discussed diverticulosis and diverticulitis. We discussed a high-fiber diet. We have recommended that he continue this. He will be due for follow-up colonoscopy for further evaluation of his symptoms and the abnormal CT scan. This will be arranged in September. He understands risks and benefits and agrees to proceed. Plan: * Treatment: 2.?Abnormal CT scan, colon?Procedure: COLONOSCOPY (Ordered for 07/16/2024)* sched for 09/07/24 at 7:30amma cmiralax 3.?Others? Notes: Colonoscopy material was printed?? * Immunizations:? Influenza (Not administered - Refused: Patient decision) * Procedure Codes:?3017F COLOR ECTAL CA SCREEN DOC REV, G9903 Pt scrn tbco id as non user, G8785 BP SCR NOT PRFRM REC REASON NOS * Follow Up:?1 Year * * Sign off status: Completed true * Provider:?Sonu Her MD Date:?0 07/16/2024 Generated for Mary villarreal/Hanna/eTransmitting on:?07/18/2024 09:46 AM EDT History and Physical Notes * HPI (History of Present Illness) Category Sub-Category Detail Notes Category Not es New symptom(s) The patient is a pleasant 58-year-old man seen today in consultation. He has a history of diverticulosis, and was recently diagnosed with diverticulitis from his emergency room visit in July of this year. At that time, he had evaluation with CT scanning and laboratory studies. He was prescribed Augmentin. He has completed this. He reports his left-sided abdominal pain is better. He is not sure what caused it, but questions whether it was his change in work hours and dietary changes. He tried a liquid diet but this did not help. His CT scan from the emergency department is reviewed. Further evaluation with colonoscopy was recommended to exclude malignancy because of the abnormal appearance of the sigmoid colon. We reviewed this today. Examination Category Sub-Category Detail Notes Category Not es General Examination On exami nation today, he appears well. Skin is anicteric. Lungs are clear. Heart shows a regular rate and rhythm. Abdomen is soft without focal masses or tenderness. Extremities are without edema.
--- OUTSIDE RECORDS SUMMARY | 2024-07-18 09:46 | XMS_ITS | Patient Health Record ---
Author Organization [facility] Address [address] [place] [phone] Care Team Providers Care Rn Flight Name Role Phone Shell Eaton MD Primary Care Provider Sonu Chauhan Jr Unavailable [phone] Allergies No Known Allergies Reason For Referral [...] Unknown 04/22/2021 Refused Influenza Unknown 05/16/2023 Refused Influenza Unknown 07/16/2024 Refused Social History Tobacco [...] Problem Status W/U Status Risk Notes Problem 69584533 Epigastric pain (R10.13) Active confirmed Problem Diverticular disease of colon (412101745) Diverticulosis (K57.90) Active confirmed Problem 465340262 Abnormal finding s in stool (R19.5) Active confirmed Problem 183536302 Abnormal CT scan , colon (R93.3) Active confirmed Problem [id number] Gastroesophageal reflux disease, unspecified whether esophagitis present (K21.9) Active confirmed Problem Gastroesophageal reflux disease (disorder) (227471614) Chronic GERD (K21.9) Active confirmed Vital Signs Temperature 98.2 degrees Fahrenheit 07/16/2024 Blood pressure diastolic 01 mm Hg 07/16/2024 Height 71 in 07/16/2024 Blood pressure systolic 001 mm Hg 07/16/2024 Weight 150 lbs 07/16/2024 BMI 20.92 kg/m2 07/16/2024 Encounters Encounter Location Date Provider Diagnosis [facility] [address] [place] [address] 07/16/2024 Sonu Her Jr Diverticulosis K57.[address] scan, colon R93.3 [facility] [address] [place] [address] 06/07/2024 Sonu Her Jr [facility] [address] [place] [address] 06/25/2024 Sonu Her Jr [facility] [address] [place] [address] 07/10/2024 Sonu Her Jr Assessments Encounter Date Diagnosis (ICD Code) Assessment [...] and agrees to proceed. Plan Of Treatment Pending Test Test Name Order Date IgA 05/16/2023 TRANSGLUTAMINASE AB IGA 05/16/2023 Future Test Test Name Order Date COLONOSCOPY 04/22/2021 UPPER GI ENDOSCOPY 05/16/2023 COLONOSCOPY 07/16/2024 Next Appt Details Provider Name:Sonu Nathanael Sousa luz , 09/07/2024 07:30:00 AM, [address] [place] [address] , [place], [place], [phone], Insurance Providers Payer Name Payer Address Payer Phone Subscriber Number Group Number Insured Name Patient Relationship to Insured Coverage Start Date Coverage End Date [employer] [place] [address] [place] [phone] [id number] PAM TERRAZAS Self - patient is the insured Medical (General) History Medical History History ICD Code Gastroesophageal reflux disease Anxiety Colonoscopy 06/19/21, exam to 30 cm, thompson um enema normal, ten-year followup Hyperlipidemia Anal fistula Surgical History Surgery Date(Month/Year) appendicitis 1979 Hospitalization History Reason Date(Month/Year) diverticulitis 04/2021
--- OUTSIDE RECORDS SUMMARY | 2024-07-18 09:46 | XMS_ITS ---
Author Organization [facility] Address [address] [place] [address] Care Team Providers Care Toe Sewer Name Role Phone Shell Eaton MD Primary Care Provider Von Her Jr, Sonu Crowley [phone] REASON FOR VISIT pain Encounters Encounter Location Date Provider Diagnosis [facility] [address] [place] [address] 06/25/2024 Sonu Her Jr Plan Of Treatment Next Appt Details Provider Name:Sonu luz Jr, 09/07/2024 07:30:00 AM, [address] [place] [address], [phone], Progress Notes * PAM TERRAZAS ADOB:1965 (58 yo M)Acc No.[id number]:06/25/2024 Patient:?MK, PAM Garzon :1965???Age:58 Y???Sex:Male Address:[address] [place] [address], [address] * true * Date:? Generated for Farzanehi phil/Hanna/eTransmitting on:?07/18/2024 09:46 AM EDT
--- OUTSIDE RECORDS SUMMARY | 2024-07-18 09:46 | XMS_ITS | Data Portability ---
Author Organization [facility] [address] Address [address] [place] [address] Assessment No assessment recorded. Plan of Treatment [...] SNOMED-CT Code Diagnosis ICD10 Code Diagnosis Note [id number] [address] [place] [address] 06/22/2015 09:24:56 06/22/2015 10:17:08 [id number] [address] [place] [address] 07/03/2015 18:04:47 07/03/2015 19:15:00 [id number] CHANDA HERNANDEZ MD [address] [place] [address] 06/10/2022 09:07:50 06/10/2022 09:40:45 History and physical examination, occupation 026260244 Z02.1 Health Concerns Section Related Observation LastModified by Organization Detai ls LastModified Time None Recorded Concern Status LastModified by Organization Details LastModified Time None Recorded Advance Directives Directive None Recorded Payers Encounter Date Sequence Insurance Name Policy Number Policy Smith Covered Member ID Smith Member ID Guarantor Name 06/22/2015 1 [facility] [id number] Antonio Santiago [id number] Antonio Santiago 06/10/2022 OC-ESCREEN Antonio Santiago [id number] Antonio Santiago
--- OUTSIDE RECORDS SUMMARY | 2024-07-18 09:46 | XMS_ITS ---
Author Organization [facility] Address [address] [place] [address] Care Team Providers Care Pipeline Superintendent Name Role Phone Shell Eaton MD Primary Care Provider Von Her Jr, Sonu Crowley Encounters Encounter Location Date Provider Diagnosis [facility] [address] [place] [address] 07/10/2024 Sonu Her Jr Plan Of Treatment Next Appt Details Provider Name:Sonu luz Jr, 09/07/2024 07:30:00 AM, [address] [place] [address], [phone], Progress Notes * PAM TERRAZAS ADOB:1965 (58 yo M)Acc No.[id number]:07/10/2024 Patient:?MK, PAM Ryann :1965???Age:58 Y???Sex:Male Address:[address] [place] [address], [address] * true * Date:? Generated for Farzanehi phil/Hanna/eTransmitting on:?07/18/2024 09:46 AM EDT
== END 2024-07-18 09:51 | disposition home or self-care (01) ==
LOC: HO.HMCH 09:05
PROVIDERS: PCP Internal Medicine; Visit Provider Internal Medicine
DX: N40.0 Benign prostatic hyperplasia without lower urinary tract symptoms (principal); E78.00 Pure hypercholesterolemia, unspecified; K57.92 Diverticulitis of intestine, part unspecified, without perforation or abscess without bleeding; K40.90 Unilateral inguinal hernia, without obstruction or gangrene, not specified as recurrent; K42.9 Umbilical hernia without obstruction or gangrene

== ENCOUNTER → 2024-07-18 09:04 | Outpatient (BNVA) | payer OTHER, SELFPAY | PROVIDERS: PCP Internal Medicine; Visit Provider Internal Medicine | DX: Z13.89 Encounter for screening for other disorder (principal) ==

== ENCOUNTER 2024-08-16 09:19 | Outpatient (AMB) | payer OTHER, SELFPAY ==
--- NOTE | 2024-08-16 09:20 | MHC.OFFVIS ---
Vital Signs 08/16/24 09:28 Height 5 ft 11 in Weight 153 lb BMI 21.3 BP 132/84 Blood Pressure Location Lt brachial Position Sitting Pulse 84 Intake Visit Reasons: fistula needs lancing Intake Note: Patient is seen in office for wound check, following perirectal abscess. Pt c/o: symptoms started about a week ago, sensation to urinate, constipation, straining, minimal blood in stool, mucus in stool, feels a marble size lump in the area, started taking antibiotics 4 days ago and Miralax Carbon Sequestration Plant Engineer Required: No Allergies No Known Allergies [No Known Allergies*] Allergy (Verified 07/18/24 09:10) HPI Comments Details: 58-year-old male patient well known to service with a previous history of perirectal abscess with several recurrences now presenting with complaints of increased pain at the same location. He started some antibiotics does feel improved however does have tenderness when palpating the perianal skin. He denies any bleeding or discharge. He has a sensation of chills but denies any fever. [facility] Medical History Hx of sigmoidoscopy Diverticulitis Perirectal abscess Hematuria Shoulder pain Alcohol abuse GERD (gastroesophageal reflux disease) Vitamin D deficiency Anxiety Diverticulitis Hypercholesterolemia Surgical History History of biopsy History of rectal surgery History of surgery History of colonoscopy H/O wrist surgery History of eye surgery History of appendectomy Family History Father Diabetes Hypertension Mother No problems noted. 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 No definite fluctuance appreciated. There is tenderness to deep palpation but no evidence of an underlying abscess. Surrounding skin is nonerythematous. No other new abscess could be appreciated. No external hemorrhoids or anal fissure. Neuro General: patient oriented x3 Extrem General: No edema Assessment & Plan Assessment & Plan (1) Perirectal abscess: Comment: Incision and drainage April 2021 Dr. Stearns Code(s): K61.1 - Rectal abscess Category: Medical Plan 58-year-old male patient with a long history of perirectal infections now returning with increased pain over the last several days in the same location. Examination today does not reveal any definite abscess which could be incised and drained. I recommended restarting antibiotics with the next 2 weeks. He will return after this for follow-up examination. Medications: New amoxicillin-pot clavulanate 500-125 mg 1 tab PO Q8H 42 tabs 0RF K61.1 - Rectal abscess Coding Level of Care Code Est Pt Level 3 (08282) Diagnoses Perirectal abscess K61.1
[2024-08-16 09:28] VITALS: BP 132/84; PULSE 84; BMI 21.3
--- OUTSIDE RECORDS SUMMARY | 2024-08-16 09:55 | XMS_ITS | Patient Health Record ---
Author Organization [facility] Address [address] [place] [address] Care Team Providers Care Information Assurance Analyst Name Role Phone Shell Eaton MD Primary [...] Problem Status W/U Status Risk Notes Problem 85833798 Epigastric pain (R10.13) Active confirmed Problem Diverticular disease of colon (808595008) Diverticulosis (K57.90) Active confirmed Problem 044526820 Abnormal finding s in stool (R19.5) Active confirmed Problem 761534510 Abnormal CT scan , colon (R93.3) Active confirmed Problem 043539239 Gastroesophageal reflux disease, unspecified whether esophagitis present (K21.9) Active confirmed Problem Chronic GERD (K21.9) Active confirmed Vital Signs Temperature 98.2 degrees Fahrenheit 07/16/2024 Blood pressure diastolic 01 mm Hg 07/16/2024 Height 71 in 07/16/2024 Blood pressure systolic 001 mm Hg 07/16/2024 Weight 150 lbs 07/16/2024 BMI 20.92 kg/m2 07/16/2024 Encounters Encounter Location Date Provider Diagnosis [facility] [address] [place], [place] [address] 07/16/2024 Sonu Her Jr Diverticulosis K57.[address] scan, colon R93.3 [facility] [address] [place], [place] [address] 06/07/2024 Sonu Her Jr [facility] [address] [place], [place] [address] 06/25/2024 Sonu Her Jr [facility] [address] [place], [place] [address] 07/10/2024 Sonu Her Jr [facility] [address] [place], [place] [address] 08/07/2024 Sonu Her Jr Assessments Encounter Date Diagnosis [...] Details Provider Name:Sonu Nathanael Sousa luz , 09/14/2024 10:10:00 AM, [address] [place] [address] , [place], [place], [phone], Insurance Providers Payer Name Payer Address Payer Phone Subscriber Number Group Number Insured Name Patient Relationship to Insured Coverage Start Date Coverage End Date Diversified [place] [address] [place] [phone] [id number] PAM TERRAZAS Self - patient is the insured Medical (General) History Medical History History ICD Code Gastroesophageal reflux disease Anxiety Colonoscopy 06/19/21, exam to 30 cm, thompson um enema normal, ten-year followup Hyperlipidemia Anal fistula Surgical History Surgery Date(Month/Year) appendicitis 1979 Hospitalization History Reason Date(Month/Year) diverticulitis 04/2021
--- OUTSIDE RECORDS SUMMARY | 2024-08-16 09:55 | XMS_ITS ---
Author Organization [facility] Address [address] [place] [address] Care Team Providers Care Seismometer Operator Name Role Phone Shell Eaton MD Primary Care Provider Von Her Jr, Sonu Unavailable [phone] REASON FOR VISIT Is pa required for diversified kiki Encounters Encounter Location Date Provider Diagnosis [facility] [address] [place] [phone] 08/07/2024 Sonu Her Jr Plan Of Treatment Next Appt Details Provider Name:Sonu luz Jr, 09/14/2024 10:10:00 AM, [address] [place] [address], [phone], Progress Notes * PAM TERRAZAS ADOB:1965 (58 yo M)Acc No.[id number]:08/07/2024 Patient:?PAM TERRAZAS :1965???Age:58 Y???Sex:Male Address:[address] [place] [address], [address] * true * Date:? Generated for Mary villarreal/Hanna/eTransmitting on:?08/16/2024 09:55 AM EDT
--- OUTSIDE RECORDS SUMMARY | 2024-08-16 09:56 | XMS_ITS ---
Author Organization [facility] Address [address] [place] [address] Care Team Providers Care Sheet Metal Layout Mechanic Name Role Phone Shell Eaton MD Primary Care Provider Von Her Jr, Sonu Crowley Encounters Encounter Location Date Provider Diagnosis [facility] [address] [place] [address] 07/10/2024 Sonu Her Jr Plan Of Treatment Next Appt Details Provider Name:Sonu luz Jr, 09/14/2024 10:10:00 AM, [address] [place] [address], [phone], Progress Notes * PAM TERRAZAS ADOB:1965 (58 yo M)Acc No.[id number]:07/10/2024 Patient:?MK, PAM Ryann :1965???Age:58 Y???Sex:Male Address:[address] [place] [address], [address] * true * Date:? Generated for Farzanehi phil/Hanna/eTransmitting on:?08/16/2024 09:55 AM EDT
--- OUTSIDE RECORDS SUMMARY | 2024-08-16 09:56 | XMS_ITS | Data Portability ---
Author Organization [facility] [address] Address [address] [place] [address] Assessment No assessment recorded. Plan of Treatment [...] SNOMED-CT Code Diagnosis ICD10 Code Diagnosis Note [id number] [address] [place] [address] 06/22/2015 09:24:56 06/22/2015 10:17:08 [id number] [address] [place] [address] 07/03/2015 18:04:47 07/03/2015 19:15:00 [id number] CHANDA HERNANDEZ MD [address] [place] [address] 06/10/2022 09:07:50 06/10/2022 09:40:45 History and physical examination, occupation 997789933 Z02.1 Health Concerns Section Related Observation LastModified by Organization Detjoel ls LastModified Time None Recorded Concern Status LastModified by Organization Details LastModified Time None Recorded Advance Directives Directive None Recorded Payers Insurance Date Sequence Insurance Name Policy Number Policy Smith Covered Member ID Smith Member ID Guarantor Name 06/10/2022 OC-ESCREEN Antonio A Jack [id number] Antonio A [employer] 06/10/[address] [place] [id number] Antonio A A Jack [id number] Antonio A [employer] 02/22/2022 [employer] Antonio A [employer]
--- OUTSIDE RECORDS SUMMARY | 2024-08-16 09:56 | XMS_ITS ---
Author Organization [facility] Address [address] [place] [address] Care Team Providers Care Candy Cutter Hand Name Role Phone Shell Eaton MD Primary Care Provider Sonu Chauhan Jr Unavailable [phone] Allergies No Known Allergies REASON FOR VISIT [...] 07/16/2024 Encounters Encounter Location Date Provider Diagnosis [facility] [address] [place] [address] 07/16/2024 Sonu Her Jr Diverticulosis K57.90 and [...] Up: 1 Year, Reason: Provider Name:Sonu Sousa [facility], 09/14/2024 10:10:00 AM, [address] [place] [address], [phone], Progress Notes * PAM TERRAZAS ADOB:1965 (58 yo M)Acc No.[id number]:07/16/2024 Progress Notes Patient:?PAM TERRAZAS A Provider:?Sonu Her MD :1965???Age:58 Y???Sex:Male Scar e:07/16/2024 Address:[address] [place] [address] Pcp:Shell Eaton MD Subjective: * Chief Complaints: [...] MD Date:?0 07/16/2024 Generated for Mary villarreal/Hanna/eTransmitting on:?08/16/2024 09:55 AM EDT History and Physical Notes * [...]
== END 2024-08-16 09:36 | disposition home or self-care (01) ==
LOC: HO.HGS 09:20
PROVIDERS: PCP Internal Medicine; Visit Provider Surgery
DX: K61.1 Rectal abscess (principal)
CPT/HCPCS: 99213

== ENCOUNTER 2024-09-14 07:52 | Day surgery (SDC) | payer OTHER, SELFPAY ==
--- OUTSIDE RECORDS SUMMARY | 2024-08-02 07:40 | XMS_ITS | Data Portability ---
Author Organization [facility] [address] Address [address] [place] [address] Assessment No assessment recorded. Plan of Treatment [...] Name and Address Organization Details Recorded Time 3 OC-UDS Send Out Template DOT completed ROHIT KAYE - [facility] 06/10/2022 09:37:22 Imaging Results None recorded. Procedure Notes None recorded. Medical Equipment None Reported. Vitals None Recorded Social History None recorded. Functional Status None recorded. Mental Status None recorded. Family History Nothing Reported. Medical History No medical history recorded. Past Encounters Encounter ID Performer Location Encounter Start Date Encounter Closed Date Diagnosis/Indication Diagnosis SNOMED-CT Code Diagnosis ICD10 Code Diagnosis Note [id number] [address] [place] [address] 06/22/2015 09:24:56 06/22/2015 10:17:08 [id number] [address] [place] [address] 07/03/2015 18:04:47 07/03/2015 19:15:00 [id number] CHANDA HERNANDEZ MD [address] [place] [address] 06/10/2022 09:07:50 06/10/2022 09:40:45 History and physical examination, occupation [id number] Z02.1 Health Concerns Section Related Observation LastModified by Organization Detai ls LastModified Time None Recorded Concern Status LastModified by Organization Details LastModified Time None Recorded Advance Directives Directive None Recorded Payers Encounter Date Sequence Insurance Name Policy Number Policy Smith Covered Member ID Smith Member ID Guarantor Name 06/22/2015 1 [facility] [id number] Antonio Santiago [id number] Antonio Santiago 06/10/2022 OC-ESCREEN Antonio Santiago [id number] Antonio Santiago
[2024-09-12 13:48] VITALS: BMI 20.9
--- NOTE | 2024-09-13 09:44 | HO.ANESPROP2 ---
HPI - Anesthesia Eval Consult details Narrative: 58yo M for Colonoscopy [facility] Active Problems Active Problems: All Active Problems Paraumbilical hernia (Acute) Left inguinal hernia (Acute) BPH (benign prostatic hyperplasia) (Acute) Mural thickening of colon (Acute) Anorectal pain (Acute) Mild anemia (Acute) Osteoarthritis of right wrist (Acute) Right wrist pain (Acute) Painful arc syndrome of left shoulder (Acute) Calcific tendinitis of left shoulder (Acute) Thrombosed external hemorrhoid (Acute) Constipation (Acute) Neck pain (Acute) Insomnia (Acute) Upper respiratory tract infection (Acute) Shoulder pain, left (Acute) Generalized anxiety disorder (Acute) Anal fistula (Acute) Abdominal pain (Acute) Tonsillitis (Acute) Lump of skin (Acute) Contact dermatitis (Acute) Annual physical exam (Acute) Hematuria (Acute) Diverticulitis (Acute) Perirectal abscess (Acute) Shoulder pain (Acute) GERD (gastroesophageal reflux disease) (Acute) Anxiety (Acute) Hypercholesterolemia (Acute) Past Medical History Medical History Anal fistula Hx of sigmoidoscopy Diverticulitis Perirectal abscess Hematuria Shoulder pain Alcohol abuse GERD (gastroesophageal reflux disease) Vitamin D deficiency Anxiety Diverticulitis Hypercholesterolemia Family History Family History Father Diabetes Hypertension Mother No problems noted. Paternal Grandfather Substance abuse Maternal Grandfather Substance abuse Family history of problems with anesthesia: No Surgical History Surgical History History of biopsy History of rectal surgery History of surgery History of colonoscopy H/O wrist surgery History of eye surgery History of appendectomy (~1979) History of Problems with Anesthesia: No Social History Social History Housing: House Alcohol intake: current Alcohol intake frequency: does not drink Comment: 2 x a month 3-4 beers Patient Tobacco Use Status: Former Tobacco user Tobacco use type: Cigarette Years Smoked: quit 2017 e-Cigarette/Vaping Use: Never Used Second Hand Smoke Exposure: No Substance Use Type: Marijuana service: No Current occupational status: employed and unemployed 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) Cognitive needs: No Hearing needs: No Vision needs: Yes (Glasses) Meds Allergies Allergy/AdvReac Type Severity Reaction Status Date / Time No Known Allergies (No Known Allergy Verified 07/18/24 09:10 Allergies*) Home Medications ?Medication ?Instructions ?Recorded ?Confirmed ?Last Taken ?Type cholecalciferol (vitamin D3) 25 25 mcg PO DAILY 03/10/20 02/03/24 Unknown History mcg (1,000 unit) capsule vitamin B complex-folic acid 0.4 1 tab PO DAILY 06/28/22 02/03/24 Unknown History mg tablet acetaminophen 325 mg tablet 325 mg PO QID PRN Pain 09/12/24 09/12/24 Unknown History (Tylenol) Exam Height,Weight and Vital Signs: Height 5 ft 11 in Weight 68.039 kg Pertinent Lab Results Pertinent Lab Results: Laboratory Tests 07/07/24 09:09 WBC 6.6 Hgb 15.3 Hct 45.5 Plt Count 280 Sodium 139 Potassium 4.2 Chloride 106 Carbon Dioxide 26 BUN 17 H Creatinine 0.85 Assessment and Plan Assessment Anesthesia Assessment: Chart Reviewed Final Anesthetic Review Family History of Problems with Anesthesia: No History of Problems with Anesthesia: No
--- NOTE | ~2024-09-14 | XR_ITS ---
EXAMINATION: XR ABDOMEN KUB CLINICAL INDICATION: Post procedure COMPARISON: CT from 08/21/2024 TECHNIQUE: AP view of the abdomen. FINDINGS: Moderate small and large bowel gas is present. No abnormalities are evident. Rounded calcifications in left hemipelvis are probably phleboliths. XR/XR KUB IMPRESSION: Unremarkable abdomen. Electronically signed by: Magdi Martin MD 09/14/2024 12:12 PM EDT
--- NOTE | ~2024-09-14 | FL_ITS ---
EXAMINATION: XR BARIUM ENEMA WITH AIR CLINICAL INFORMATION: Diverticulosis. Failed colonoscopy. CT abdomen and pelvis with contrast 07/07/2024. COMPARISON: CT abdomen and pelvis 07/07/2024. TECHNIQUE: [employer] images of abdomen were obtained. Subsequently a balloon inflated rectal catheter was placed and retrograde thick barium was administered under fluoroscopy. FINDINGS: [employer] images reveal moderate gas in the colon following incomplete colonoscopy. There is normal retrograde flow of barium through the rectum, sigmoid, ascending, descending colon to the level of cecum. There is a segmental narrowing of sigmoid colon where there is diffuse diverticulosis. On static images there is extension of barium contrast in the submucosal and intramural tissue but no extraluminal contrast seen.. There are scattered diverticula seen in the rest of the sigmoid, transverse and ascending colon. No intraluminal filling defect or narrowing seen. . Visualized cecum is unremarkable. Appendix and small bowel is not visualized. FLUOROSCOPY TIME: 0.1 minute and 47 seconds DOSE AREA PRODUCT: 5469 uGy-m2 (microgray-meter squared) FL/FL barium enema w air contrast IMPRESSION: Colonic diverticulosis. There is area of narrowing in the sigmoid colon suspicious for diverticulitis. There is submucosal and submucosal extravasation of contrast but no extraluminal contrast seen. Rest of colon is unremarkable. Cecum is unremarkable. There is no reflux of contrast into the terminal ileum. Electronically signed by: Tam Hopkins MD 09/14/2024 04:32 PM EDT
[2024-09-14 07:55] VITALS: BP 117/87; PULSE 66; RESP 20; TEMP 36.9; O2SAT 97; BMI 20.7
[2024-09-14] MEDS: Lactated Ringers 1,000 ML 100 ML IVCONT (08:10)
--- NOTE | 2024-09-14 08:51 | P.CONAN_ITS ---
[facility] Active Problems Active Problems: All Active Problems Paraumbilical hernia (Acute) Left inguinal hernia (Acute) BPH (benign prostatic hyperplasia) (Acute) Mural thickening of colon (Acute) Anorectal pain (Acute) Mild anemia (Acute) Osteoarthritis of right wrist (Acute) Right wrist pain (Acute) Painful arc syndrome of left shoulder (Acute) Calcific tendinitis of left shoulder (Acute) Thrombosed external hemorrhoid (Acute) Constipation (Acute) Neck pain (Acute) Insomnia (Acute) Upper respiratory tract infection (Acute) Shoulder pain, left (Acute) Generalized anxiety disorder (Acute) Anal fistula (Acute) Abdominal pain (Acute) Tonsillitis (Acute) Lump of skin (Acute) Contact dermatitis (Acute) Annual physical exam (Acute) Hematuria (Acute) Diverticulitis (Acute) Perirectal abscess (Acute) Shoulder pain (Acute) GERD (gastroesophageal reflux disease) (Acute) Anxiety (Acute) Hypercholesterolemia (Acute) Past Medical History Medical History Anal fistula Hx of sigmoidoscopy Diverticulitis Perirectal abscess Hematuria Shoulder pain Alcohol abuse GERD (gastroesophageal reflux disease) Vitamin D deficiency Anxiety Diverticulitis Hypercholesterolemia Functional capacity: independent ambulation Family History Family History Father Diabetes Hypertension Mother No problems noted. Paternal Grandfather Substance abuse Maternal Grandfather Substance abuse Family history of problems with anesthesia: No Surgical History Surgical History History of biopsy History of rectal surgery History of surgery History of colonoscopy H/O wrist surgery History of eye surgery History of appendectomy (~1979) History of Problems with Anesthesia: No Social History Social History Housing: House Alcohol intake: current Alcohol intake frequency: does not drink Comment: 2 x a month 3-4 beers Patient Tobacco Use Status: Former Tobacco user Tobacco use type: Cigarette Years Smoked: quit 2016 e-Cigarette/Vaping Use: Never Used Second Hand Smoke Exposure: No Substance Use Type: Marijuana Have you been hit, kicked, punched, or otherwise hurt by someone within the past year? 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) Cognitive needs: No Hearing needs: No Vision needs: Yes (Glasses) Meds Allergies Allergy/AdvReac Type Severity Reaction Status Date / Time No Known Allergies Allergy Verified 07/18/24 09:10 [No Known Allergies*] Active Medications: Current Medications Lactated Ringer's (Lr) 1,000 mls @ 100 mls/hr IVCONT .Q10H KIRA Last Admin: 09/14/24 08:10 Dose: 100 mls/hr Home Medications ?Medication ?Instructions ?Recorded ?Confirmed ?Last Taken ?Type cholecalciferol (vitamin D3) 25 25 mcg PO DAILY 03/10/20 02/03/24 Unknown History mcg (1,000 unit) capsule vitamin B complex-folic acid 0.4 1 tab PO DAILY 06/28/22 02/03/24 Unknown History mg tablet acetaminophen 325 mg tablet 325 mg PO QID PRN Pain 09/12/24 09/12/24 Unknown History (Tylenol) Exam Height,Weight and Vital Signs: Height 5 ft 11 in Weight 67.2 kg Last Vital Signs Temp 98.5 F 09/14/24 07:55 Pulse 66 09/14/24 07:55 Resp 20 09/14/24 07:55 BP 117/87 09/14/24 07:55 Pulse Ox 97 09/14/24 07:55 O2 Del Method Room Air 09/14/24 07:55 Airway Mallampati Class: II TM Dist: >3cm Neck ROM: Full Heart: RRR Lungs: CTA Assessment and Plan Assessment Anesthesia Assessment: Anesthesia Plan Discussed Final Anesthetic Review Family History of Problems with Anesthesia: No History of Problems with Anesthesia: No NPO: Yes ASA Class: II Final Preanesthetic Review: Meds/Allgs Chart Reviewed, Consent Obtained/Reviewed and Anes Risks/Benef Reviewed Patient Risk: Low Procedure Risk: Low Anesthetic Plan Anesthetic Plan: MAC: Disposition: Standard PACU
--- NOTE | 2024-09-14 09:09 | MHC.SHP ---
Pre-Procedural Eval Section A - 24 Hr Update-Section A only Date of Service: 09/14/24 Section B - Complete if H&P > 30 days Chief Complaint: Diverticulosis of intestine, part unspecified, wit Details of Present Illness: see H&P no changes Relevant Family History (Specify if Yes): No Relevant Social History: None Present Medications: see Short Stay Collaborative assessment History of Previous Operations: No relevant previous surgery Allergies: Allergies Allergy/AdvReac Type Severity Reaction Status Date / Time No Known Allergies Allergy Verified 07/18/24 09:10 [No Known Allergies*] Review of Systems Sugical H&P ROS: Negative: Constitution, Cardiovascular, Respiratory, Neurological, Psychiatric, Hem-Onc, Allergic/Immunologic, Gastrointestinal, Genitourinary, Musculoskeletal, Integumentary, Endocrine and Eyes/Ears/Nose/Throat Exam Surgical H&P Exam: Normal: HEENT, Normal: Heart, Normal: Lungs, Normal: Extremities, Normal: Abdomen, Normal: Skin and Normal: Neurological Plan Diagnosis/Plan: Unchanged I have reviewed the history and physical and performed a pertinent physical examination on my patient. No changes have occurred unless specified. Time Spent With Patient Time: Total time managing care of this patient today ____ minutes.
[2024-09-14 10:05] VITALS: BP 90/47; PULSE 70; RESP 16; TEMP 36.1; O2SAT 97
--- NOTE | 2024-09-14 10:06 | PM.OP ---
Brief Operative Note Date of Service: 09/14/24 Pre-op diagnosis: abnl ct scan of colon diverticular disease Post-op diagnosis: same Procedure: f/s to 25cm Surgeon: Sonu Her MD Anesthesia: MAC Was an Pharmacy Retail Support Specialist used for this Procedure?: No Estimated blood loss (mL): 0 Pathology: none sent Condition: stable
[2024-09-14 10:20] VITALS: BP 114/77; PULSE 66; RESP 16; O2SAT 98
--- NOTE | 2024-09-14 10:30 | OP_ITS ---
DATE OF SERVICE: 09/14/2024 SURGEON: Sonu Her MD PREOPERATIVE DIAGNOSIS: POSTOPERATIVE DIAGNOSIS: PROCEDURE PERFORMED: Flexible sigmoidoscopy to 25 cm, incomplete colonoscopy. ESTIMATED BLOOD LOSS: COMPLICATIONS: ANESTHESIA: Monitored anesthesia care. ASSISTANTS: SPECIMENS: DESCRIPTION OF PROCEDURE: History and physical was performed. The risks and benefits of the procedure were explained to the patient, and informed consent was obtained. The patient was placed in left lateral decubitus position. A digital rectal exam was performed and was found to be normal. The Olympus pediatric video colonoscope was introduced into the rectum and advanced to 25 cm at which point further advancement was not possible due to acute angulation of the colon and diverticular disease. Examination was performed. The scope was removed. He tolerated the procedure well and was returned to recovery area in stable condition. FINDINGS: There was sigmoid diverticulosis. There was no evidence of diverticulitis. The mucosa appeared normal. No polyps were identified. Retroflexed examination showed some internal hemorrhoids. IMPRESSION: Limited colonoscopy as above. PLAN: Barium enema will be obtained if the patient is agreeable. MD OLESYA Al/JORGE L / [phone]
[2024-09-14 10:35] VITALS: BP 119/76; PULSE 65; RESP 16; O2SAT 100
--- NOTE | 2024-09-14 10:38 | HO.POSTANES ---
Post Anesthesia Evaluation Post Anesthesia Evaluation Date of Service: 09/14/24 Vital Signs: Vital Signs Temp Pulse Resp BP Pulse Ox O2 Del Method 09/14/24 10:35 65 16 119/76 100 Room Air 09/14/24 10:20 66 16 114/77 98 Room Air 09/14/24 10:05 97 F 70 16 90/47 L 97 Room Air 09/14/24 07:55 98.5 F 66 20 117/87 97 Room Air Anesthesia: Monitored Mental Status: Awake Pain Control: Satisfactory Nausea/Vomiting: None Hydration: Adequate Anesthesia-Related Issues: No Anes. Related Issues
[2024-09-14 10:50] VITALS: BP 115/76; PULSE 56; RESP 16; O2SAT 98
--- NOTE | 2024-09-14 11:39 | PC.NURSE ---
Pt to radiology for scan
== END 2024-09-14 13:58 | disposition home or self-care (01) ==
PROVIDERS: PCP Internal Medicine; Visit Provider Internal Medicine Gastroenterology
PROC: 0DJD8ZZ Inspection of Lower Intestinal Tract, Via Natural or Artificial Opening Endoscopic (ICD-10-PCS; CPT 45378; principal; 2024-09-14 09:20)
DX: R93.3 Abnormal findings on diagnostic imaging of other parts of digestive tract (principal); K57.30 Diverticulosis of large intestine without perforation or abscess without bleeding; K64.8 Other hemorrhoids; Z87.19 Personal history of other diseases of the digestive system; K21.9 Gastro-esophageal reflux disease without esophagitis; F41.9 Anxiety disorder, unspecified; E78.5 Hyperlipidemia, unspecified; Z79.1 Long term (current) use of non-steroidal anti-inflammatories (NSAID); Z79.899 Other long term (current) drug therapy; Z98.890 Other specified postprocedural states
CPT/HCPCS: 45330; 74018; 74280; J2003; J2704

== ENCOUNTER → 2024-09-14 11:40 | Outpatient (BNV) | payer OTHER, SELFPAY | PROVIDERS: PCP Internal Medicine; Visit Provider Radiology Diagnostic Radiology | DX: K57.30 Diverticulosis of large intestine without perforation or abscess without bleeding (principal); R14.0 Abdominal distension (gaseous) | CPT/HCPCS: 74018; 74280 ==

== ENCOUNTER 2024-10-26 02:16 | Inpatient (IN) | payer OTHER, SELFPAY ==
[2024-10-26] VITALS (7 sets, daily range): BP systolic 111–141; BP diastolic 70–101; PULSE 59–89; RESP 16–20; TEMP 36.6–37.7; O2SAT 96–99; BMI 20.9; BMI 20.3
--- NOTE | ~2024-10-26 | CT_ITS ---
CLINICAL HISTORY: LLQ pain; diarrhea, hx divertic CT abdomen and pelvis with contrast Comparison: CT/SR - CT ABDOMEN PELVIS W IV CON - 07/07/24 09:44 EDT Findings: No consolidation or effusion. Unremarkable gallbladder and solid organs. Simple cyst in the left hepatic lobe measuring 9 mm no urolithiasis. Marked inflammatory change within the pelvis involving the sigmoid colon and rectum. There appears to be a colo-colonic fistula on image 55 of series 3 between 2 loops of sigmoid colon versus sigmoid colon and proximal rectum. This is an unchanged finding compared to the prior exam. Additionally, new from the prior exam, in the mid to low rectum there is an intramural fluid collection highly concerning for abscess measuring 4.9 x 2.3 x 6.0 cm. A fluid and gas-filled track extends inferiorly within the ischiorectal and ischioanal space to the level of the perineum consistent with colocutaneous fistula. There are a few additional scattered noninflamed descending colon diverticula. The more proximal colon demonstrates no wall thickening or inflammatory change. The stomach and small bowel are nondilated. There is circumferential bladder wall thickening, possibly reactive. Unremarkable prostate. No vascular dilation or adenopathy. No acute fracture. Sacralization of L5. IMPRESSION: Inflammatory change in the pelvis persists. 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 There is a new intramural abscess within the rectum that appears to be fistulizing to the perineum via the left ischioanal and ischiorectal spaces. No evidence of bowel obstruction. This document has been electronically signed by: Rani Lopes MD on 10/26/2024 07:45:28
--- NOTE | ~2024-10-26 | CT_ITS ---
EXAMINATION: CT ABDOMEN PELVIS WITHOUT IV CONTRAST HISTORY: rectal/perirectal abscess COMPARISON: Comparison is made with the prior examination dated 10/26/2024. TECHNIQUE: CT scan of the abdomen and pelvis was performed without contrast using standard departmental protocol. Coronal and sagittal reformatted images were generated and reviewed. Oral contrast material was not administered at the request of the referring physician. This CT exam was performed with one or more of the following dose reduction techniques: automated exposure control, adjustment of the mA and/or kV according to patient size, use of iterative reconstruction technique. DLP: 320 mGy-cm FINDINGS: LOWER CHEST: The visualized lung bases are clear. There is no pleural effusion. CARDIOVASCULATURE: The heart is normal in size. There is no pericardial effusion. LIVER: The liver is normal in size and contour. Subcentimeter hypodensity in the left lobe is nonspecific, but unchanged. GALLBLADDER / BILE DUCTS: The gallbladder is unremarkable. There is no intra or extrahepatic biliary ductal dilatation. SPLEEN: The spleen is normal in size and has an unremarkable unenhanced appearance. PANCREAS: The pancreas has an unremarkable unenhanced appearance. ADRENAL GLANDS: Unremarkable. KIDNEYS/RETROPERITONEUM: No renal calculi are identified. There is no hydronephrosis. LYMPH NODES: No retroperitoneal lymphadenopathy is identified in the abdomen or pelvis. VASCULATURE: The abdominal aorta is normal in caliber. MESENTERY/PERITONEUM: No free fluid. No masses. There is no free intraperitoneal gas. STOMACH: The stomach is collapsed, limiting evaluation. SMALL BOWEL: The small bowel is normal in caliber. COLON: Again seen is marked wall thickening of the sigmoid colon with a probable rectosigmoid fistula. The previously seen perirectal abscess appears collapsed and partially outlined by hyperdense material. A small amount of gas and fluid is seen in this region. There is extension of inflammatory stranding and soft tissue into the left perirectal/perianal space which is partially imaged. Evaluation is extremely limited by lack of intravenous and oral contrast material. APPENDIX: The appendix is not seen, however no inflammatory changes are seen adjacent to the cecum. URINARY BLADDER/PELVIC ORGANS: The urinary bladder is collapsed, limiting evaluation. The prostate is enlarged. BONES / SOFT TISSUES: No suspicious bony or soft tissue abnormalities. CT/CT abdomen pelvis wo IV con IMPRESSION: Markedly limited examination due to lack of intravenous and oral contrast material. Persistent inflammatory process involving the rectosigmoid colon with a probable rectosigmoid fistula. The previously seen perirectal collection is smaller in size but poorly evaluated. There is extension of inflammation into the left perirectal/perianal space which is incompletely imaged. Electronically signed by: Alden Patel MD 10/29/2024 11:08 AM EDT
--- NOTE | 2024-10-26 03:12 | ED.ABDPAIN ---
HPI - Abdominal Pain General Chief Complaint: Abdominal Pain Stated Complaint: diverticulitis Time Seen by Provider: 10/26/24 02:27 Source: patient Mode of arrival: ambulatory Limitations: no limitations History of Present Illness ED Provider: Adalid KAYE HPI narrative: The patient is a 58-year-old male with history of diverticulitis presenting to the ED for evaluation of left lower quadrant abdominal pain with associated nonbloody diarrhea which began on Tuesday. Patient reports on Tuesday he developed associated subjective fever and chills with associated nausea but without vomiting. The patient denies associated chest pain, shortness of breath, recent sick contacts, or recent trauma. The patient reports remote history of appendectomy, denies any surgical management of his previous episodes of diverticulitis. Patient reports his most recent episode of diverticulitis was a few months ago, at which time there was concern for possible malignancy, patient underwent colonoscopy which was unremarkable other than diverticulitis. Related Data Home Medications ?Medication ?Instructions ?Recorded ?Confirmed cholecalciferol (vitamin D3) 25 25 mcg PO DAILY 03/10/20 02/03/24 mcg (1,000 unit) capsule vitamin B complex-folic acid 0.4 1 tab PO DAILY 06/28/22 02/03/24 mg tablet acetaminophen 325 mg tablet 325 mg PO QID PRN Pain 09/12/24 09/12/24 (Tylenol) Previous Rx's ?Medication ?Instructions ?Recorded sennosides 8.6 mg-docusate sodium 1 tab-cap PO BEDTIME #60 tabs 12/27/22 50 mg tablet (Senna Plus) folic acid 1 mg tablet 1 mg PO DAILY #30 tabs 10/05/23 trazodone 50 mg tablet 50 mg PO BEDTIME PRN sleep #90 tabs 01/03/24 ibuprofen 600 mg tablet 600 mg PO TID PRN for pain #30 tabs 05/25/24 amoxicillin 500 mg-potassium 1 tab PO Q8H #42 tabs 08/16/24 clavulanate 125 mg tablet potassium chloride 20 mEq oral 20 meq PO DAILY 4 days #4 ea 10/26/24 packet Allergies Allergy/AdvReac Type Severity Reaction Status Date / Time No Known Allergies (No Known Allergy Verified 10/26/24 02:25 Allergies*) Review of Systems Review of Systems Yes all other systems are reviewed and are negative PMFSH Past Medical History Medical History Anal fistula Hx of sigmoidoscopy Diverticulitis Perirectal abscess Hematuria Shoulder pain Alcohol abuse GERD (gastroesophageal reflux disease) Vitamin D deficiency Anxiety Diverticulitis Hypercholesterolemia Surgical History History of biopsy History of rectal surgery History of surgery History of colonoscopy H/O wrist surgery History of eye surgery History of appendectomy (~1979) Family History Family History Father Diabetes Hypertension Mother No problems noted. Paternal Grandfather Substance abuse Maternal Grandfather Substance abuse Social History Social History Housing: House Alcohol intake: current Alcohol intake frequency: does not drink Comment: 2 x a month 3-4 beers Patient Tobacco Use Status: Former Tobacco user Tobacco use type: Cigarette Years Smoked: quit 2017 Smoked in Last 30 Days: No e-Cigarette/Vaping Use: Never Used Second Hand Smoke Exposure: No Use of substances other than those prescribed or required for medical reasons: No Substance Use Type: Marijuana Advance Directives: No Advance Directives Information Provided: Yes service: No Current occupational status: employed and unemployed 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) Cognitive needs: No Hearing needs: No Vision needs: Yes (Glasses) Physical Exam ED Vital Signs: Vital Signs - 24 hr 10/26/24 02:23 10/26/24 04:38 10/26/24 06:14 Temperature 98.6 F 98.2 F 97.8 F Pulse Rate 89 76 78 Respiratory Rate 20 16 16 Blood Pressure 141/101 H 114/76 122/82 Pulse Oximetry 98 97 98 Oxygen Delivery Method Room Air Room Air Room Air 10/26/24 08:46 Temperature Pulse Rate 66 Respiratory Rate 16 Blood Pressure 111/75 Pulse Oximetry 98 Oxygen Delivery Method Room Air BMI result Body Mass Index 20.9 CONSTITUTIONAL: The patient appears uncomfortable but otherwise non-toxic, well nourished and in no acute distress. Vital signs as documented. HEAD: Atraumatic, normocephalic. EYES: EOMs grossly intact, pupils equal, conjunctiva clear, no exudate. ENT: Nares patent, no discharge. Airway patent, no audible stridor, visible mucosa is pink and moist without noted lesions. NECK: Trachea is midline, no obvious masses or gross abnormalities. CHEST: Symmetric movement, normal appearance. LUNGS: LS present and CTAB, no w/r/r. Non-labored work of breathing. CARDIAC: Regular Rhythm, S1/S2 appreciated, no murmurs, rubs or gallops. ABDOMEN: Abdomen soft x4 quadrants, positive tenderness to palpation of the left lower quadrant, negative rebound, no palpable masses or organomegaly. : Deferred. EXTREMITIES: Normal tone, moves all extremities spontaneously without reported pain. No obvious acute injury or deformity noted. NEURO: Alert and oriented x3, CN II-XII appear grossly intact. Cerebellar Functioning grossly intact. No obvious sensory or motor deficits. Speech clear and appropriate. PSYCH: normal affect, appropriate eye contact, fluid speech, with appropriate response to questioning. No reported suicidality or homicidality. SKIN: Warm, dry, color appropriate, normal turgor. No rashes noted. Medical Decision Making Medical Decision Making MDM Narrative: 3:32 AM 10/26/2024 (Trevor KAYE): The patient is a nontoxic-appearing 58-year-old male presenting to the ED for evaluation of left lower quadrant abdominal pain with history of diverticulitis. The patient reports associated nonbloody diarrhea, and subjective fever but arrived to the ED afebrile, patient is normotensive and not tachycardic. Abdomen is soft and tender in the left lower quadrant but negative for rebound, no concern for sepsis at this time. Patient will be treated with IV fluid hydration, morphine, and Zofran. The patient will be sent for laboratory evaluation and CT abdomen and pelvis. 4:25 AM 10/26/2024 (Trevor KAYE): Patient's care signed out to Dr. Milner 07:00: THE PATIENT HAS NOT YET HAD A READING OF THE CT SCAN I DEFER DISPOSITION TO THE MORNING PHYSICIAN Jethro Milner MD 10/26/24 Franky Mcgee MD 09:01 I assumed care of this patient from my colleague, Dr. Jethro Milner at 07:00 hours. Patient is a 58-year-old male history of diverticulitis, perirectal abscess, colonic fistula status post surgery by Dr. Stearns, appendectomy, GERD, anxiety, hypercholesterolemia who presents emergency department for evaluation of 2-3 days of rectal and left lower quadrant pain. The patient states that 5 days prior he was had an ice cream social and after eating ice cream he developed severe diarrhea for 2 days which then resolved. With the past 2-3 days he feels like there is a golf ball in his rectal area he has also had left lower abdominal pain. He states that he had subjective fever and chills. He had nausea with no vomiting. Patient states that he stopped eating and was drinking fluid only which causes diarrhea to resolve. Patient has been taking Augmentin 875/125 times 2-3 days with no improvement in his symptoms. My interpretation patient's laboratory evaluation is as follows: WBC 26658 with a low potassium of 3.0. Patient's AST and ALT were elevated 53 and 65. Alk-phos elevated 136. Bilirubin elevated 2.2 CT scan of the abdomen pelvis revealed a 4.9 x 2.3 x 6.0 lower rectal intramural abscess, colonic to colonic fistula versus sigmoid colon to rectal fistula and inflammatory change in his of the sigmoid colon and rectum. Patient was treated with Toradol 15 mg IV, morphine 4 mg IV, potassium 40 mEq orally and oxycodone 5 mg orally. He states that his pain is feeling better. On my examination he has mild left lower quadrant tenderness, he has tenderness palpation of his perirectal area, I did not do a rectal exam on him. There is no cutaneous fistula noted. I ordered blood cultures x2, lactic acid, PT/INR, PTT, EKG. Patient was also ordered to get Zosyn 4.5 g IV. I will discuss the patient's presentation with the covering surgeon, Dr. Pugh. 10:31 I did discuss the patient's presentation with the covering surgeon, Dr. Pugh. She was able to review the patient's record and CT scans. She will admit the patient to her service and requested that the patient be kept NPO. Admission/Observation Consideration of admission/observation: Escalation of care including admission/observation considered Consult Healthcare Provider Management of the patient was discussed with: Calcine Furnace Tender (On-call surgeon, Dr. Pugh) Lab Data MDM Lab Attestation statement: I reviewed the patient's lab results. 10/26/24 03:14 10/26/24 03:41 Labs: Lab Results 10/26/24 10/26/24 10/26/24 Range/Units 03:14 03:41 09:07 WBC 13.3 H (4.8-10.8) X10*3/uL RBC 4.77 (4.60-5.80) X10*6/uL Hgb 13.9 L (14.0-18.0) g/dl Hct 40.8 L (42.0-52.0) % MCV 85.5 (80.0-98.0) fL MCH 29.1 (27.0-33.0) pg MCHC 34.1 (31.0-36.0) g/dl RDW 12.4 (11.0-16.0) % Plt Count 274 (160-400) X10*3/uL MPV 10.4 (9.4-12.4) fL Immature Gran % (Auto) 0.2 (0.0-0.4) % Neut % (Auto) 83.0 H (45-73) % Lymph % (Auto) 6.2 L (20-40) % [place] % (Auto) 10.2 (2-11) % Eos % (Auto) 0.2 (0-4) % Baso % (Auto) 0.2 (0-2) % Lymph # (Auto) 0.8 L (1.2-4.9) X10*3/uL [place] # (Auto) 1.4 H (0.1-1.2) X10*3/uL Eos # (Auto) 0.0 (0.0-0.4) X10*3/uL Baso # (Auto) 0.0 (0.0-0.2) X10*3/uL Abs Immat Gran (auto) 0.03 (0.00-0.03) X10*3/uL Absolute Neuts (auto) 11.1 H (2.0-8.3) x10*3/uL Absolute Nucleated RBC 0.000 (0.0-0.012) X10*3/uL Nucleated RBC % (auto) 0.0 (0.0-0.2) /100WBC PT 13.4 H (10.9-12.4) SEC INR 1.2 H (0.9-1.1) APTT 30.2 (26.0-36.8) SEC Sodium 137 (135-145) mmol/L Potassium 3.0 L D (3.3-5.1) mmol/L Chloride 104 (96-108) mmol/L Carbon Dioxide 23 (22-29) mmol/L Anion Gap 13 (12-20) BUN 19 H (9-16) mg/dL Creatinine 0.77 (0.5-1.4) mg/dL Estim Creat Clear Calc 101.8 Estimated GFR > 60 Random Glucose 130 H (60-115) mg/dL Lactic Acid 0.8 (0.5-2.0) mmol/L Calcium 9.2 (8.4-10.2) mg/dL Magnesium 1.5 L (1.6-2.6) mg/dL Total Bilirubin 2.2 H (0.0-1.0) mg/dL AST 53 H (5-37) U/L ALT 65 H (0-40) U/L Alkaline Phosphatase 136 H (39-117) U/L Total Protein 7.1 (6.5-8.0) g/dL Albumin 4.0 (3.5-5.0) g/dL Lipase 13 (8-78) U/L Independent Interpretation I performed an independent interpretation of an: EKG Interpretation: My independent interpretation the patient's 12 EKG done on 10/26/2024 at 08:59 hours is as follows: Normal sinus rhythm rate of 73, normal MI interval, QRS duration QTC interval, no ST segment elevation, no ST segment depression, inverted T-wave in lead 3 and V1, no PACs, no PVCs. Radiology Impression Discussion of test interpretation with radiology: I have reviewed the radiologist's reading. Radiologist Impression: CT abdomen and pelvis with contrast Comparison: CT/SR - CT ABDOMEN PELVIS W IV CON - 07/07/24 09:44 EDT Findings: No consolidation or effusion. Unremarkable gallbladder and solid organs. Simple cyst in the left hepatic lobe measuring 9 mm no urolithiasis. Marked inflammatory change within the pelvis involving the sigmoid colon and rectum. There appears to be a colo-colonic fistula on image 55 of series 3 between 2 loops of sigmoid colon versus sigmoid colon and proximal rectum. This is an unchanged finding compared to the prior exam. Additionally, new from the prior exam, in the mid to low rectum there is an intramural fluid collection highly concerning for abscess measuring 4.9 x 2.3 x 6.0 cm. A fluid and gas-filled track extends inferiorly within the ischiorectal and ischioanal space to the level of the perineum consistent with colocutaneous fistula. There are a few additional scattered noninflamed descending colon diverticula. The more proximal colon demonstrates no wall thickening or inflammatory change. The stomach and small bowel are nondilated. There is circumferential bladder wall thickening, possibly reactive. Unremarkable prostate. No vascular dilation or adenopathy. No acute fracture. Sacralization of L5. IMPRESSION: Inflammatory change in the pelvis persists. 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 There is a new intramural abscess within the rectum that appears to be fistulizing to the perineum via the left ischioanal and ischiorectal spaces. No evidence of bowel obstruction. This document has been electronically signed by: Rani Lopes MD on 10/26/2024 07:45:28 External Record Review External record reviewed: Office record Prescription Management I considered prescription management with: Other Chronic Conditions Patient?s care impacted by: Other (Hypercholesterolemia) Medications Administered Discontinued Medications Generic Name Dose Route Start Last Admin Trade Name Freq PRN Reason Stop Dose Admin Sodium Chloride 1,000 mls @ 999 mls/hr 10/26/24 03:15 10/26/24 04:43 Ns IV 10/26/24 04:15 Infused .Q1H1M KIRA Infusion Piperacillin Sod/Tazobactam 100 mls @ 200 mls/hr 10/26/24 08:45 10/26/24 09:28 Sod 4.5 gm/ Sodium Chloride IV 10/26/24 09:14 200 mls/hr ONCE ONE Administration Iohexol 100 ml 10/26/24 04:31 10/26/24 04:32 Iohexol 350 Mg/Ml 100 Ml Infus..Btl IV 10/26/24 04:32 85 ml ONCE ONE Administration Ketorolac Tromethamine 15 mg 10/26/24 04:43 10/26/24 05:21 Ketorolac Tromethamine 15 Mg/Ml Vial IVPUSH 10/26/24 04:44 15 mg ONCE ONE Administration Magnesium Oxide 400 mg 10/26/24 04:43 10/26/24 05:21 Magnesium Oxide 400 Mg Tablet PO 10/26/24 04:44 400 mg ONCE ONE Administration Morphine Sulfate 4 mg 10/26/24 03:04 10/26/24 03:42 Morphine Sulfate 4 Mg/Ml Cartridge IVPUSH 10/26/24 03:05 4 mg ONCE ONE Administration Protocol Ondansetron HCl 4 mg 10/26/24 03:04 10/26/24 03:42 Ondansetron Hcl 4 Mg/2 Ml Vial IVPUSH 10/26/24 03:05 4 mg ONCE ONE Administration Oxycodone HCl 5 mg 10/26/24 04:44 10/26/24 05:21 Oxycodone Hcl Immed Release 5 Mg Tablet PO 10/26/24 04:45 5 mg ONCE ONE Administration Potassium Chloride 40 meq 10/26/24 04:39 10/26/24 05:21 Potassium Chloride Packet 20 Meq Packet PO 10/26/24 04:40 40 meq ONCE ONE Administration Critical Care Time Critical Care Time Critical Care Time: Yes Total Critical Care Time: 45 Attestation: Critical Care: The patient was critically ill with a high probability of imminent or life threatening deterioration. I spent greater than 30 minutes of discontinuous time evaluating the patient,delivering critical care at the bedside, discussing and evaluating pertinent data with consultants. Critical care time does not include time spent performing separately billable procedures or teaching. Total time spent performing critical care was 45 minutes. Discharge Plan Discharge Patient Disposition: Admitted As Inpatient Print Language: Israeli
[2024-10-26 03:17] LABS: MANUAL DIFF FLAG NO
[2024-10-26 03:18] LABS: Hematocrit 40.8 % (42.0-52.0); Hemoglobin 13.9 g/dl (14.0-18.0); Imm Gran Abs Auto 0.03 X10*3/uL (0.00-0.03); Imm Gran Pct Auto 0.2 % (0.0-0.4); Lymphocytes Absolute Auto 0.8 X10*3/uL (1.2-4.9); Mean Corpuscular HGB Conc 34.1 g/dl (31.0-36.0); Mean Corpuscular Hemoglobin 29.1 pg (27.0-33.0); Mean Corpuscular Volume 85.5 fL (80.0-98.0); NRBC Abs Auto 0.000 X10*3/uL (0.0-0.012); NRBC Pct Auto 0.0 /100WBC (0.0-0.2); Platelet Count 274 X10*3/uL (160-400); Red Blood Count 4.77 X10*6/uL (4.60-5.80); White Blood Count 13.3 X10*3/uL (4.8-10.8)
[2024-10-26 04:07] LABS: Alanine Aminotransferase 65 U/L (0-40); Albumin Level 4.0 g/dL (3.5-5.0); Alkaline Phosphatase 136 U/L (39-117); Anion Gap 13 (12-20); Aspartate Amino Transferase 53 U/L (5-37); Blood Urea Nitrogen 19 mg/dL (9-16); Calcium 9.2 mg/dL (8.4-10.2); Carbon Dioxide 23 mmol/L (22-29); Chloride 104 mmol/L (96-108); Creatinine Clr Calc Pharmacy 101.8; Estimated Glomerular Filt Rate > 60; Lipase 13 U/L (8-78); Magnesium 1.5 mg/dL (1.6-2.6); Potassium 3.0 mmol/L (3.3-5.1); Sodium 137 mmol/L (135-145); Total Protein 7.1 g/dL (6.5-8.0)
[2024-10-26] MEDS: iohexoL 350 MG/ML 100 ML INFUS..BTL IV (04:32)
[2024-10-26] MEDS: oxyCODONE HCl Immed Release 5 MG TABLET PO (05:21)
[2024-10-26] MEDS: Potassium Chloride Packet 20 MEQ PACKET 40 MEQ PO (05:21)
--- NOTE | 2024-10-26 08:45 | ECG_ITS ---
Test Reason : PREOP Blood Pressure : */* mmHG Vent. Rate : 70 BPM Atrial Rate : 70 BPM P-R Int : 166 ms QRS Dur : 92 ms QT Int : 434 ms P-R-T Axes : 61 13 22 degrees QTcB Int : 468 ms Normal sinus rhythm Normal ECG When compared with ECG of 16-Feb-2020 20:23, No significant change was found Referred By: Franky Mcgee Electronically Signed By:
[2024-10-26 09:24] LABS: INTERNATIONAL NORM RATIO 1.2 (0.9-1.1); Prothrombin Time 13.4 SEC (10.9-12.4)
[2024-10-26 09:27] LABS: Partial Thromboplastin Time 30.2 SEC (26.0-36.8)
--- NOTE | 2024-10-26 11:14 | PHA.MEDREC ---
Addendum entered by Maribel Rodríguez [facility] 10/26/24 11:20: reviewed Original Note: Pharmacy Consult ? Medication Reconciliation Pharmacy has completed the medication reconciliation. Spoke to patient to confirm med list. Patient confirmed he takes Trazadone 50 mg , Tylenol and Motrin 600 mg PRN. Patient states he is taking Augmentin 875 for the past 3 days, however last fill date was 07/07/24 for 10 day supply. Patient states he always has some on hand due to his hutton with diverticulitis. Patient last had his medication last night.
[2024-10-26] MEDS: Potassium Chloride/H20 10 MEQ/100 ML PIGGYBACK 100 MEQ IV ×2 (11:51→14:25)
[2024-10-26] MEDS: Lactated Ringers 1,000 ML 125 ML IVCONT (11:51)
--- NOTE | 2024-10-26 12:30 | P.HPGS_ITS ---
History of Present Illness History of Present Illness Date of Service: 10/26/24 Chief complaint: rectal pain Narrative: Antonio Santiago is a 58 year old male who is well known to the surgical service who had in the past and left significant perirectal abscess which seems like it may have occurred once or twice. He had been doing okay and then underwent a sigmoid scope back in September with Dr. Her however he was unable to traverse much past the sigmoid colon and the patient then had a barium enema which did not reveal any colon pathology once completed. Patient has started feeling some lower abdominal and then rectal pain that felt like his previous episodes of diverticulitis. He started having more discomfort in the rectal area and it felt like if there was a golf ball in place. He had been in his good health until a couple days ago when he went to an ice cream social had a lot of ice cream and then had a lot of diarrhea after that. When he has these GI flare ups he usually calls the surgical department gets on some antibiotics and he had taken at home some Augmentin that he had. He also used up on his diet eating just bland food and the diarrhea improved. However the sensation in the rectal area and just feeling not good maybe having some chills at home made him come into the emergency room. Here his white count was little elevated to 13,[address] scan of his abdomen and pelvis shows transmural collection consistent with maybe an abscess and inflammatory changes in the perirectal lower area going close to the subcutaneous tissue on the left side. On exam however the patient denies feeling any significant pain on palpation says that he has had just small bowel movements but no bloody material or purulent material. He received some pain medication and was feeling better. He denies any urinary retention. [facility] Past Medical History Medical History Anal fistula Hx of sigmoidoscopy Diverticulitis Perirectal abscess Hematuria Shoulder pain Alcohol abuse GERD (gastroesophageal reflux disease) Vitamin D deficiency Anxiety Diverticulitis Hypercholesterolemia Family History Family History Father Diabetes Hypertension Mother No problems noted. Paternal Grandfather Substance abuse Maternal Grandfather Substance abuse Surgical History Surgical History History of biopsy History of rectal surgery History of surgery History of colonoscopy H/O wrist surgery History of eye surgery History of appendectomy (~1979) Social History Social History Housing: House Alcohol intake: current Alcohol intake frequency: does not drink Comment: 2 x a month 3-4 beers Patient Tobacco Use Status: Former Tobacco user Tobacco use type: Cigarette Years Smoked: quit 2017 Smoked in Last 30 Days: No e-Cigarette/Vaping Use: Never Used Second Hand Smoke Exposure: No Use of substances other than those prescribed or required for medical reasons: No Substance Use Type: Marijuana Advance Directives: No Advance Directives Information Provided: Yes service: No Current occupational status: employed and unemployed 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) Cognitive needs: No Hearing needs: No Vision needs: Yes (Glasses) Meds Allergies Allergy/AdvReac Type Severity Reaction Status Date / Time No Known Allergies (No Known Allergy Verified 10/26/24 02:25 Allergies*) Active Medications: Current Medications Acetaminophen (Acetaminophen 325 Mg Tablet) 650 mg PO Q6H PRN PRN Reason: Pain, Mild 1-3,fever,headache Lactated Ringer's (Lr) 1,000 mls @ 125 mls/hr IVCONT .Q8H KIRA Last Admin: 10/26/24 11:51 Dose: 125 mls/hr Potassium Chloride (Potassium Chloride/H20) 10 meq in 100 mls @ 100 mls/hr IV Q1H KIRA Stop: 10/26/24 12:44 Last Admin: 10/26/24 11:51 Dose: 100 mls/hr Lactated Ringer's (Lr) 1,000 mls @ 50 mls/hr IVCONT .Q20H KIRA Piperacillin Sod/Tazobactam (Sod 3.375 gm/ Sodium Chloride) 50 mls @ 100 mls/hr IV ONCE ONE Stop: 10/26/24 12:55 Ondansetron HCl (Ondansetron Hcl 4 Mg/2 Ml Vial) 4 mg IVPUSH Q8H PRN PRN Reason: Nausea and Vomiting Sodium Chloride (0.9 % Sodium Chloride Flush 3 Ml Syringe) 3 ml IVFLUSH QSHIFT KIRA Trazodone HCl (Trazodone Hcl 50 Mg Tablet) 50 mg PO BEDTIME KIRA Home Medications ?Medication ?Instructions ?Recorded ?Confirmed ?Last Taken ?Type acetaminophen 325 mg tablet 325 mg PO QID PRN Pain 02/2610/26/24 Unknown History (Tylenol) amoxicillin 875 mg-potassium 1 tab PO BID 10/26/2410/25/24 History clavulanate 125 mg tablet Physical Exam Vital Signs: Vital Signs: Last Vital Signs Temp 97.8 F 10/26/24 06:14 Pulse 68 10/26/24 11:43 Resp 16 10/26/24 11:43 BP 123/70 10/26/24 11:43 Pulse Ox 98 10/26/24 11:43 O2 Del Method Room Air 10/26/24 11:43 BMI result Body Mass Index 20.9 Const: General: cooperative, healthy appearing, comfortable and no acute distress Resp: Effort & Inspection: normal respiratory effort Auscultation: clear to auscultation bilaterally Cardio: Rate: regular rate Rhythm: regular rhythm GI: Other: Abdomen is soft nondistended nontender. Perirectal area looks within normal limits without any erythema any open areas draining. Palpation here reveals soft healthy tissue that is nontender. Rectal exam was done with an empty rectal vault and no significant pain with examination. Palpation was carried out deep and circumferentially without any soft fluid collections noted or fullness through the mucosa submucosa. There was no drainage of any blood or purulent material. Results Results Labs: Short CBC 10/26/24 Range/Units 03:14 WBC 13.3 H (4.8-10.8) X10*3/uL Hgb 13.9 L (14.0-18.0) g/dl Hct 40.8 L (42.0-52.0) % Plt Count 274 (160-400) X10*3/uL BMP 10/26/24 03:41 Sodium 137 Potassium 3.0 L D Chloride 104 Carbon Dioxide 23 BUN 19 H Creatinine 0.77 Calcium 9.2 Liver Function 10/26/24 Range/Units 03:41 Total Bilirubin 2.2 H (0.0-1.0) mg/dL AST 53 H (5-37) U/L ALT 65 H (0-40) U/L Alkaline Phosphatase 136 H (39-117) U/L Albumin 4.0 (3.5-5.0) g/dL Abdomen CT scan report/results: report reviewed and image reviewed CT scan - pelvis: report reviewed and image reviewed Additional studies: Patient: Antonio Santiago MR#: [id number] : 1965 Acct:[id number] Age/Sex: 58 / M ADM Date: 10/26/24 Loc: HO.ED Attending Dr: Ordering Physician: Adalid Duran PA-C Date of Service: 10/26/24 Procedure(s): CT abdomen pelvis w IV con Accession Number(s): [id number] cc: Adalid Duran PA-C; Po,Shell Melendez MD~ Report Number: [id number]: Total DLP = 379.00 mGy-cm CLINICAL HISTORY: LLQ pain; diarrhea, hx divertic CT abdomen and pelvis with contrast Comparison: CT/SR - CT ABDOMEN PELVIS W IV CON - 07/07/24 09:44 EDT Findings: No consolidation or effusion. Unremarkable gallbladder and solid organs. Simple cyst in the left hepatic lobe measuring 9 mm no urolithiasis. Marked inflammatory change within the pelvis involving the sigmoid colon and rectum. There appears to be a colo-colonic fistula on image 55 of series 3 between 2 loops of sigmoid colon versus sigmoid colon and proximal rectum. This is an unchanged finding compared to the prior exam. Additionally, new from the prior exam, in the mid to low rectum there is an intramural fluid collection highly concerning for abscess measuring 4.9 x 2.3 x 6.0 cm. A fluid and gas-filled track extends inferiorly within the ischiorectal and ischioanal space to the level of the perineum consistent with colocutaneous fistula. There are a few additional scattered noninflamed descending colon diverticula. The more proximal colon demonstrates no wall thickening or inflammatory change. The stomach and small bowel are nondilated. There is circumferential bladder wall thickening, possibly reactive. Unremarkable prostate. No vascular dilation or adenopathy. No acute fracture. Sacralization of L5. IMPRESSION: Inflammatory change in the pelvis persists. 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 There is a new intramural abscess within the rectum that appears to be fistulizing to the perineum via the left ischioanal and ischiorectal spaces. No evidence of bowel obstruction. This document has been electronically signed by: Rani Lopes MD on 10/26/2024 07:45:28 Dictated By: Rani Lopes MD Signed By: <Electronically signed by Rani Lopes MD in OV> 10/26/24 0746 DD/ TD/TT: 10/26/2445 Medicine Man: Assessment and Plan (1) Perirectal abscess: Status: Acute Plan 58-year-old male with history of recurrent perirectal abscess maybe now with some phlegmon changes. Comes in with some pressure in the rectal area but with the examination his exam seems very benign. No findings of masses noted. Correlating the CT scan with the physical exam I do not think there is anything to actually drain and take to the OR for any interventional procedure right now. We will try just clear liquids and IV antibiotics and reassess tomorrow. Patient feels much more comfortable stable to move around okay. Rectal vault is pretty empty there is no evidence of any hard stool in regards to constipation pressure here. We will re-evaluate tomorrow. Hopefully we can get him better and get him back with a bowel regimen to home. He understands and agrees with the above plan Quality Stroke Does the patient have a stroke diagnosis?: No VTE Prior VTE?: No VTE Risk Level:: Surgical - low VTE Device Contraindication: N/A - Device Ordered VTE Drug Contraindication: Treatment Not Indicated Procedures Date of Service Date of Service: 10/26/24
[2024-10-26] MEDS: Lactated Ringers 1,000 ML 50 ML IVCONT (14:26)
[2024-10-26] MEDS: 0.9 % Sodium Chloride Flush 3 ML SYRINGE IVFLUSH (20:22)
[2024-10-27 03:41] VITALS: BP 111/73; PULSE 68; RESP 16; TEMP 36.9; O2SAT 100
[2024-10-27 07:06] LABS: MANUAL DIFF FLAG NO
[2024-10-27 07:11] LABS: Hematocrit 35.1 % (42.0-52.0); Hemoglobin 11.6 g/dl (14.0-18.0); Imm Gran Abs Auto 0.02 X10*3/uL (0.00-0.03); Imm Gran Pct Auto 0.2 % (0.0-0.4); Lymphocytes Absolute Auto 1.2 X10*3/uL (1.2-4.9); Mean Corpuscular HGB Conc 33.0 g/dl (31.0-36.0); Mean Corpuscular Hemoglobin 28.9 pg (27.0-33.0); Mean Corpuscular Volume 87.5 fL (80.0-98.0); NRBC Abs Auto 0.000 X10*3/uL (0.0-0.012); NRBC Pct Auto 0.0 /100WBC (0.0-0.2); Platelet Count 249 X10*3/uL (160-400); Red Blood Count 4.01 X10*6/uL (4.60-5.80); White Blood Count 9.5 X10*3/uL (4.8-10.8)
[2024-10-27 07:12] VITALS: BP 112/69; PULSE 69; RESP 18; TEMP 37; O2SAT 96
[2024-10-27] MEDS: Lactated Ringers 1,000 ML 50 ML IVCONT (07:23)
[2024-10-27 07:32] LABS: Alanine Aminotransferase 36 U/L (0-40); Albumin Level 3.4 g/dL (3.5-5.0); Alkaline Phosphatase 115 U/L (39-117); Anion Gap 13 (12-20); Aspartate Amino Transferase 25 U/L (5-37); Blood Urea Nitrogen 17 mg/dL (9-16); Calcium 8.9 mg/dL (8.4-10.2); Carbon Dioxide 23 mmol/L (22-29); Chloride 107 mmol/L (96-108); Creatinine Clr Calc Pharmacy 104.3; Estimated Glomerular Filt Rate > 60; Potassium 3.6 mmol/L (3.3-5.1); Sodium 139 mmol/L (135-145); Total Protein 6.4 g/dL (6.5-8.0)
--- NOTE | 2024-10-27 10:05 | MHC.CM.PN ---
Pt. lives with his , he does not use home health services or DME. He has HCP form with will discuss with his family who he will have as HCP. PCP is confirmed: Dr. Eaton. He can arrange transport home at [place], DCP: home, self care. CM to follow for DC needs.
[2024-10-27] MEDS: 0.9 % Sodium Chloride Flush 3 ML SYRINGE IVFLUSH (15:55)
[2024-10-27 16:00] VITALS: BP 141/83; PULSE 71; RESP 18; TEMP 37.1; O2SAT 100
--- NOTE | 2024-10-27 17:53 | PM.PNGS ---
Subjective Subjective Date of Service: 10/28/24 Interval history: Patient says he is feeling much better today less pain. He feels like he is passing a lot more liquid stool kind of the green material that he says is usually present when he has drainage of the fistula. He says that he does not feel like that golf ball rectal sensation anymore. His white count is normal. He is hungry Physical Exam Vital Signs: Vital Signs: Last Vital Signs Temp 98.7 F 10/27/24 16:00 Pulse 71 10/27/24 16:00 Resp 18 10/27/24 16:00 BP 141/83 H 10/27/24 16:00 Pulse Ox 100 10/27/24 16:00 O2 Del Method Room Air 10/27/24 16:00 BMI result Body Mass Index 20.3 Const: General: cooperative, healthy appearing, comfortable and no acute distress GI: Other: Abdomen is soft non distended nontender On exam of the perirectal area where the scar tissue from his previous incision drainage is on the left side just a little bit away from the perianal opening there is a little more firmness here but generally there is no drainage that is not tender. Maybe feels a little more like scar tissue. Objective Data Active Medications Acetaminophen (Acetaminophen 325 Mg Tablet) 650 mg PO Q6H PRN PRN Reason: Pain, Mild 1-3,fever,headache Last Admin: 10/27/24 15:51 Dose: 650 mg Documented By: LUIS Docusate Sodium (Docusate Sodium 100 Mg Capsule) 100 mg PO BID [facility] Last Admin: 10/27/24 07:23 Dose: 100 mg Documented By: LUIS Famotidine (Famotidine 20 Mg Tablet) 20 mg PO BID [facility] Last Admin: 10/27/24 07:23 Dose: 20 mg Documented By: LUIS Lactated Ringer's (Lr) 1,000 mls @ 50 mls/hr IVCONT .Q20H [facility] Last Admin: 10/27/24 07:23 Dose: 50 mls/hr Documented By: LUIS Piperacillin Sod/Tazobactam (Sod 3.375 gm/ Sodium Chloride) 50 mls @ 100 mls/hr IV Q6H [facility] Last Infusion: 10/27/24 16:29 Dose: Infused Documented By: LUIS Ketorolac Tromethamine (Ketorolac Tromethamine 15 Mg/Ml Vial) 15 mg IVPUSH Q6H [facility] Last Admin: 10/27/24 11:57 Dose: 15 mg Documented By: LUIS Ondansetron HCl (Ondansetron Hcl 4 Mg/2 Ml Vial) 4 mg IVPUSH Q8H PRN PRN Reason: Nausea and Vomiting Oxycodone HCl (Oxycodone Hcl Immed Release 5 Mg Tablet) 5 mg PO Q4H PRN PRN Reason: Pain, Severe (Pain Scale 7-10) Sodium Chloride (0.9 % Sodium Chloride Flush 3 Ml Syringe) 3 ml IVFLUSH QSHIFT [facility] Last Admin: 10/27/24 15:55 Dose: 3 ml Documented By: LUIS Trazodone HCl (Trazodone Hcl 50 Mg Tablet) 50 mg PO BEDTIME [facility] Last Admin: 10/26/24 20:22 Dose: 50 mg Documented By: ALBERTANGB Labs 10/27/24 06:58 10/27/24 06:58 Labs: Laboratory Results - last 24 hr 10/27/24 06:58 MCV 87.5 MCH 28.9 MCHC 33.0 RDW 12.4 Plt Count 249 MPV 10.4 Immature Gran % (Auto) 0.2 Neut % (Auto) 75.8 H Lymph % (Auto) 12.2 L Sawyer % (Auto) 10.8 Eos % (Auto) 0.6 Baso % (Auto) 0.4 Lymph # (Auto) 1.2 Sawyer # (Auto) 1.0 Eos # (Auto) 0.1 Baso # (Auto) 0.0 Abs Immat Gran (auto) 0.02 Absolute Neuts (auto) 7.2 Absolute Nucleated RBC 0.000 Nucleated RBC % (auto) 0.0 Anion Gap 13 Estim Creat Clear Calc 104.3 Estimated GFR > 60 Random Glucose 99 Calcium 8.9 Total Bilirubin 1.5 H AST 25 ALT 36 Alkaline Phosphatase 115 Total Protein 6.4 L Albumin 3.4 L Microbiology Microbiology Results: Microbiology 10/26/24 09:24 Blood Culture - Preliminary Blood - Venous No growth after 24 hours. 10/26/24 09:07 Blood Culture - Preliminary Blood - Venous No growth after 24 hours. Procedures Date of Service Date of Service: 10/28/24 Progress Note: A&P Assessment and plan (1) Abscess, rectum: Status: Acute Assessment and Plan: pt is feeling a little better passing funky green material in rectum and no feeling of pressure like before. cont wtih iv zosyn and regular diet Time Spent With Patient Time: Total time managing care of this patient today ____ minutes. Quality Stroke Does the patient have a stroke diagnosis?: No VTE Prior VTE?: No VTE Risk Level:: Surgical - low VTE Device Contraindication: N/A - Device Ordered VTE Drug Contraindication: Treatment Not Indicated
[2024-10-27 19:40] VITALS: BP 128/79; PULSE 69; RESP 16; TEMP 36.8; O2SAT 96
[2024-10-28] MEDS: 0.9 % Sodium Chloride Flush 3 ML SYRINGE IVFLUSH ×3 (00:16→16:33)
[2024-10-28 03:11] VITALS: BP 96/58; PULSE 63; RESP 16; TEMP 36.4; O2SAT 96
[2024-10-28 07:11] VITALS: BP 116/67; PULSE 59; RESP 18; TEMP 36.9; O2SAT 97
[2024-10-28 15:56] VITALS: BP 130/82; PULSE 64; RESP 18; TEMP 36.9; O2SAT 99
--- NOTE | 2024-10-28 16:37 | PM.PNGS ---
Subjective Subjective Date of Service: 10/28/24 Interval history: feeling better had a very normal bowel movment today on stool softeners. says when toradol runs out feels pain pressure on the left perianal area Physical Exam Vital Signs: Vital Signs: Last Vital Signs Temp 98.5 F 10/28/24 15:56 Pulse 64 10/28/24 15:56 Resp 18 10/28/24 15:56 BP 130/82 10/28/24 15:56 Pulse Ox 99 10/28/24 15:56 O2 Del Method Room Air 10/28/24 15:56 BMI result Body Mass Index 20.3 GI: Other: left perianal area around the area of the previous openings for IAnd D has some firmness -? just scar tissue - doesnt feel like fluid collection. rectal exam nontender and no palpable fluid indurated areas 18 gauge needle placed in old left sided perirectal area and advanced and no collections noted no fluid pus air pulled back Objective Data Active Medications Acetaminophen (Acetaminophen 325 Mg Tablet) 650 mg PO Q6H PRN PRN Reason: Pain, Mild 1-3,fever,headache Last Admin: 10/27/24 15:51 Dose: 650 mg Documented By: LUIS Docusate Sodium (Docusate Sodium 100 Mg Capsule) 100 mg PO BID [facility] Last Admin: 10/28/24 07:37 Dose: 100 mg Documented By: BYRON Famotidine (Famotidine 20 Mg Tablet) 20 mg PO BID [facility] Last Admin: 10/28/24 07:37 Dose: 20 mg Documented By: BYRON Piperacillin Sod/Tazobactam (Sod 3.375 gm/ Sodium Chloride) 50 mls @ 100 mls/hr IV Q6H [facility] Last Admin: 10/28/24 16:31 Dose: 100 mls/hr Documented By: BYRON Ketorolac Tromethamine (Ketorolac Tromethamine 15 Mg/Ml Vial) 15 mg IVPUSH Q6H [facility] Last Admin: 10/28/24 12:53 Dose: 15 mg Documented By: BYRON Ondansetron HCl (Ondansetron Hcl 4 Mg/2 Ml Vial) 4 mg IVPUSH Q8H PRN PRN Reason: Nausea and Vomiting Oxycodone HCl (Oxycodone Hcl Immed Release 5 Mg Tablet) 5 mg PO Q4H PRN PRN Reason: Pain, Severe (Pain Scale 7-10) Sodium Chloride (0.9 % Sodium Chloride Flush 3 Ml Syringe) 3 ml IVFLUSH QSHIFT [facility] Last Admin: 10/28/24 16:33 Dose: 3 ml Documented By: BYRON Trazodone HCl (Trazodone Hcl 50 Mg Tablet) 50 mg PO BEDTIME [facility] Last Admin: 10/27/24 21:57 Dose: 50 mg Documented By: YOGESH Labs 10/27/24 06:58 10/27/24 06:58 Microbiology Microbiology Results: Microbiology 10/26/24 09:24 Blood Culture - Preliminary Blood - Venous No growth after 48 hours. 10/26/24 09:07 Blood Culture - Preliminary Blood - Venous No growth after 48 hours. Procedures Date of Service Date of Service: 10/28/24 Progress Note: A&P Assessment and plan (1) Abscess, rectum: Status: Acute Assessment and Plan: im hopiong that the abscess drained higher up internally in the rectum and thats why he generally feels well and improved. MY probing with 18 gauge did not revel anything will get pelvis CT in am and make npo in case the CT shows something requiring drainage cont with diet until midnight and iv zosyn he understands and agrees with the plan Time Spent With Patient Time: Total time managing care of this patient today ____ minutes. Quality Stroke Does the patient have a stroke diagnosis?: No VTE Prior VTE?: No VTE Risk Level:: Surgical - low VTE Device Contraindication: N/A - Device Ordered VTE Drug Contraindication: Treatment Not Indicated
[2024-10-28 19:46] VITALS: BP 119/66; PULSE 63; RESP 16; TEMP 37.1; O2SAT 99
[2024-10-28 23:53] VITALS: BP 107/70; PULSE 67; RESP 16; TEMP 37.2; O2SAT 97
[2024-10-29] MEDS: 0.9 % Sodium Chloride Flush 3 ML SYRINGE IVFLUSH ×3 (00:03→21:33)
[2024-10-29 03:32] VITALS: BP 101/64; PULSE 52; RESP 16; TEMP 36.7; O2SAT 97
[2024-10-29 07:49] VITALS: BP 128/88; PULSE 63; RESP 20; TEMP 36.6; O2SAT 97
--- NOTE | 2024-10-29 12:51 | PM.PNGS ---
Subjective Subjective Date of Service: 10/29/24 Interval history: doing okay, pain well controlled with medication, as it wears off he begins to feel a golf ball sensation in the rectum. Continues to have bloody/yellow pus drainage from anus. Denies fever or chills. having repeat CT today Physical Exam Vital Signs: Vital Signs: Last Vital Signs Temp 97.9 F 10/29/24 07:49 Pulse 63 10/29/24 07:49 Resp 20 10/29/24 07:49 BP 128/88 10/29/24 07:49 Pulse Ox 97 10/29/24 07:49 O2 Del Method Room Air 10/29/24 07:49 BMI result Body Mass Index 20.3 Const: General: comfortable and no acute distress Orientation/consciousness: patient oriented x3 GI: Other: perirectal ID scar apparent. scan bloody discharge surrounding the area. 2x2 area or induration palpable through the skin on the left buttock, perirectal area. mildly tender ANDREA performed, i was unable to palpate a fluid collection. upon withdrawing, there was bloody discharge with scant purulence noted. Neuro: General: patient oriented x3 Objective Data Active Medications Acetaminophen (Acetaminophen 325 Mg Tablet) 650 mg PO Q6H PRN PRN Reason: Pain, Mild 1-3,fever,headache Last Admin: 10/28/24 16:58 Dose: 650 mg Documented By: BYRON Docusate Sodium (Docusate Sodium 100 Mg Capsule) 100 mg PO BID [facility] Last Admin: 10/29/24 07:42 Dose: 100 mg Documented By: BYRON Famotidine (Famotidine 20 Mg Tablet) 20 mg PO BID [facility] Last Admin: 10/29/24 07:42 Dose: 20 mg Documented By: BYRON Piperacillin Sod/Tazobactam (Sod 3.375 gm/ Sodium Chloride) 50 mls @ 100 mls/hr IV Q6H [facility] Last Infusion: 10/29/24 12:06 Dose: Infused Documented By: BYRON Ketorolac Tromethamine (Ketorolac Tromethamine 15 Mg/Ml Vial) 15 mg IVPUSH Q6H [facility] Last Admin: 10/29/24 12:06 Dose: 15 mg Documented By: BYRON Ondansetron HCl (Ondansetron Hcl 4 Mg/2 Ml Vial) 4 mg IVPUSH Q8H PRN PRN Reason: Nausea and Vomiting Oxycodone HCl (Oxycodone Hcl Immed Release 5 Mg Tablet) 5 mg PO Q4H PRN PRN Reason: Pain, Severe (Pain Scale 7-10) Sodium Chloride (0.9 % Sodium Chloride Flush 3 Ml Syringe) 3 ml IVFLUSH QSHIFT [facility] Last Admin: 10/29/24 07:43 Dose: 3 ml Documented By: BYRON Trazodone HCl (Trazodone Hcl 50 Mg Tablet) 50 mg PO BEDTIME [facility] Last Admin: 10/28/24 20:35 Dose: 50 mg Documented By: KAMLESHTYBAI Labs 10/27/24 06:58 10/27/24 06:58 Microbiology Microbiology Results: Microbiology 10/26/24 09:24 Blood Culture - Preliminary Blood - Venous No growth after 48 hours. 10/26/24 09:07 Blood Culture - Preliminary Blood - Venous No growth after 48 hours. Procedures Date of Service Date of Service: 10/29/24 Progress Note: A&P Assessment and plan (1) Perirectal abscess: Status: Acute Plan 58 year old patient admitted for management of a recurrent perirectal abscess. Patient is improving today, pain is well controlled on medication but he does feel fullness in the rectum when it wears off. He is currently afebrile, denies fever or chills overnight. On exam i was unable to palpate anything that would require drainage or surgical intervention at this time. On ANDREA i was again unable to appreciate a fluid collection, but i did note some bloody discharge with a small amount of purulent yellow discharge on the glove. The area was mildly tender. A repeat CT was performed showing improvement of the fluid collection. it is possible he facilitated the draining with a bowel movement. Patient discussed plan with Dr. Pugh for possible elective colon resection due to frequent diverticulitis and rectal abscess, plan to follow as outpt. Will advance diet, patient is not having a procedure continue abx sitz baths TID Time Spent With Patient Time: Total time managing care of this patient today ____ minutes. Quality Stroke Does the patient have a stroke diagnosis?: No VTE Prior VTE?: No VTE Risk Level:: Surgical - low VTE Device Contraindication: N/A - Device Ordered VTE Drug Contraindication: Treatment Not Indicated
[2024-10-29 14:44] VITALS: BP 126/83; PULSE 72; RESP 18; TEMP 36; O2SAT 96
[2024-10-29 15:41] VITALS: BP 131/81; PULSE 77; RESP 18; TEMP 36.2; O2SAT 98
[2024-10-29 19:40] VITALS: BP 119/81; PULSE 78; RESP 18; TEMP 36.6; O2SAT 98
[2024-10-30 04:00] VITALS: BP 121/78; PULSE 50; RESP 16; TEMP 36.4; O2SAT 98
[2024-10-30 07:50] VITALS: BP 131/88; PULSE 65; RESP 17; TEMP 36.4; O2SAT 95
--- NOTE | 2024-10-30 07:50 | P.PNGS_ITS ---
Subjective Subjective Date of Service: 10/30/24 <Piedad Summers - Last Filed: 10/30/24 07:59> 10/30/24 <Jay Ho PA-C - Last Filed: 10/30/24 12:27> Interval history: Interval history: Pt states he feels much better. Pt states the cyst popped last night and has been draining well. He reports that he no longer feels high pressure in the area and there is minimal pain and drainage characterized by yellowish/red material. He has been urinating, passing flatus, and having BM. Pt denies any nausea, vomiting, dysuria. Pt is ambulatory, alert, and in a pleasant demeanor. <Piedad Summers - Last Filed: 10/30/24 07:59> Physical Exam 2 Vital Signs: Vital Signs: Last Vital Signs Temp 97.5 F 10/30/24 04:00 Pulse 50 10/30/24 04:00 Resp 16 10/30/24 04:00 BP 121/78 10/30/24 04:00 Pulse Ox 98 10/30/24 04:00 O2 Del Method Room Air 10/30/24 04:00 BMI result Body Mass Index 20.3 <Piedad Summers - Last Filed: 10/30/24 07:59> GI: Other: very minimal tenderness <Piedad Summers - Last Filed: 10/30/24 07:59> Rectal Exam - Male: Yes visual inspection normal <Piedad Summers - Last Filed: 10/30/24 07:59> Objective Data Active Medications Acetaminophen (Acetaminophen 325 Mg Tablet) 650 mg PO Q6H PRN PRN Reason: Pain, Mild 1-3,fever,headache Last Admin: 10/28/24 16:58 Dose: 650 mg Documented By: BYRON Docusate Sodium (Docusate Sodium 100 Mg Capsule) 100 mg PO BID [facility] Last Admin: 10/29/24 21:24 Dose: 100 mg Documented By: CARMELO Famotidine (Famotidine 20 Mg Tablet) 20 mg PO BID [facility] Last Admin: 10/29/24 21:24 Dose: 20 mg Documented By: CARMELO Piperacillin Sod/Tazobactam (Sod 3.375 gm/ Sodium Chloride) 50 mls @ 100 mls/hr IV Q6H [facility] Last Infusion: 10/30/24 03:52 Dose: Infused Documented By: CARMELO Ketorolac Tromethamine (Ketorolac Tromethamine 15 Mg/Ml Vial) 15 mg IVPUSH Q6H [facility] Last Admin: 10/30/24 05:25 Dose: 15 mg Documented By: CARMELO Ondansetron HCl (Ondansetron Hcl 4 Mg/2 Ml Vial) 4 mg IVPUSH Q8H PRN PRN Reason: Nausea and Vomiting Oxycodone HCl (Oxycodone Hcl Immed Release 5 Mg Tablet) 5 mg PO Q4H PRN PRN Reason: Pain, Severe (Pain Scale 7-10) Sodium Chloride (0.9 % Sodium Chloride Flush 3 Ml Syringe) 3 ml IVFLUSH QSHIFT [facility] Last Admin: 10/29/24 21:33 Dose: 3 ml Documented By: CARMELO Trazodone HCl (Trazodone Hcl 50 Mg Tablet) 50 mg PO BEDTIME [facility] Last Admin: 10/29/24 21:24 Dose: 50 mg Documented By: CARMELO <Piedad Summers - Last Filed: 10/30/24 07:59> Labs CBC & Chem 7: 10/30/24 08:13 10/27/24 06:58 <Piedad Summers - Last Filed: 10/30/24 07:59> Procedures Date of Service Date of Service: 10/30/24 <Piedad Summers - Last Filed: 10/30/24 07:59> 10/30/24 <Jay oH PA-C - Last Filed: 10/30/24 12:27> Progress Note: A&P Assessment and plan (1) Perirectal abscess: Status: Acute <Piedad Summers - Last Filed: 10/30/24 07:59> Assessment and Plan: Pt can be sent home. <Piedad Summers - Last Filed: 10/30/24 07:59> Pt can be sent home Patient seen and examined alongside med student, I agree with the above assessment. He is doing much better today, pain is improved with oral tylenol, he has not felt the pressure in the rectum that he was previously felt. he has has multiple small bowel movements and endorses some blood and small amounts of pus. On exam the perianal area is less indurated this morning, i was unable to appreciate a fluid collection. Patient feels ready to be discharged this morning. Will send him for 10 days of Augmentin for further antibiotic coverage. pateint agreeable to plan <Jay Ho PA-C - Last Filed: 10/30/24 12:27> Time Spent With Patient Time: Total time managing care of this patient today ____ minutes. <Piedad Summers - Last Filed: 10/30/24 07:59> Quality Stroke Does the patient have a stroke diagnosis?: No <Piedad Summers - Last Filed: 10/30/24 07:59> VTE Prior VTE?: No <Piedad Summers - Last Filed: 10/30/24 07:59> VTE Risk Level:: Surgical - low <Piedad Summers - Last Filed: 10/30/24 07:59> VTE Device Contraindication: N/A - Device Ordered <Piedad Summers - Last Filed: 10/30/24 07:59> VTE Drug Contraindication: Treatment Not Indicated <Piedad Summers - Last Filed: 10/30/24 07:59>
[2024-10-30 08:24] LABS: Hematocrit 37.3 % (42.0-52.0); Hemoglobin 12.3 g/dl (14.0-18.0); Mean Corpuscular HGB Conc 33.0 g/dl (31.0-36.0); Mean Corpuscular Hemoglobin 29.1 pg (27.0-33.0); Mean Corpuscular Volume 88.4 fL (80.0-98.0); NRBC Abs Auto 0.000 X10*3/uL (0.0-0.012); NRBC Pct Auto 0.0 /100WBC (0.0-0.2); Platelet Count 334 X10*3/uL (160-400); Red Blood Count 4.22 X10*6/uL (4.60-5.80); White Blood Count 4.6 X10*3/uL (4.8-10.8)
[2024-10-30 08:53] VITALS: BP 143/84; PULSE 58; RESP 17; TEMP 36.6; O2SAT 95
--- NOTE | 2024-10-30 09:14 | MHC.CM.PN ---
Patient is discharged to home today self care. He will self transport home.
--- NOTE | 2024-10-31 14:34 | P.DS_ITS ---
DS: Providers Provider Date of Service: 10/30/24 Date of admission: 10/26/24 12:26 Date of discharge: 10/31/24 Primary care physician: Shell Eaton MD Admitting clinician: Joanna Pugh Attending physician on admission: Joanna Pugh Attending physician on discharge: Joanna Pugh DS: Diagnosis Discharge Diagnosis (1) Perirectal abscess: Status: Acute DS: Summary Hospital Course Hospital Course: admission hpi: Antonio Santiago is a 58 year old male who is well known to the surgical service who had in the past and left significant perirectal abscess which seems like it may have occurred once or twice. He had been doing okay and then underwent a sigmoid scope back in September with Dr. Her however he was unable to traverse much past the sigmoid colon and the patient then had a barium enema which did not reveal any colon pathology once completed. Patient has started feeling some lower abdominal and then rectal pain that felt like his previous episodes of diverticulitis. He started having more discomfort in the rectal area and it felt like if there was a golf ball in place. He had been in his good health until a couple days ago when he went to an ice cream social had a lot of ice cream and then had a lot of diarrhea after that. When he has these GI flare ups he usually calls the surgical department gets on some antibiotics and he had taken at home some Augmentin that he had. He also used up on his diet eating just bland food and the diarrhea improved. However the sensation in the rectal area and just feeling not good maybe having some chills at home made him come into the emergency room. Here his white count was little elevated to 13,[address] scan of his abdomen and pelvis shows transmural collection consistent with maybe an abscess and inflammatory changes in the perirectal lower area going close to the subcutaneous tissue on the left side. On exam however the patient denies feeling any significant pain on palpation says that he has had just small bowel movements but no bloody material or purulent material. He received some pain medication and was feeling better. He denies any urinary retention. Hospital course: Patient admitted for management of perirectal abscess, plan to clear liquids and IV antibiotics and reassess. Patient feels much more comfortable stable to move around okay. Rectal vault is pretty empty there is no evidence of any hard stool in regards to constipation pressure here. We will re-evaluate tomorrow. Hopefully we can get him better and get him back with a bowel regimen to home. He understands and agrees with the above plan. On second day of admission, he is feeling much better less pain. He feels like he is passing a lot more liquid stool kind of the green material that he says is usually present when he has drainage of the fistula. He says that he does not feel like that golf ball rectal sensation anymore. His white count is normal. Continued with plan. On day 2 admit, feeling better had a very normal bowel movment today on stool softeners. says when toradol runs out feels pain pressure on the left perianal area. area was probed with an 18g needle. Day 3 of admission, patient has repeat CT, showing resolution of the perirectal abscess. pain well controlled with medication, as it wears off he begins to feel a golf ball sensation in the rectum. Continues to have bloody/yellow pus drainage from anus. Denies fever or chills. day 4 of admission, Pt states he feels much better. Pt states the cyst popped last night and has been draining well. He reports that he no longer feels high pressure in the area and there is minimal pain and drainage characterized by yellowish/red material. He has been urinating, passing flatus, and having BM. Pt denies any nausea, vomiting, dysuria. [place] ready to go home. At the time of discharge patient was in stable condition and his abdominal exam was soft and benign, the area of induration in the perianal area was improved. Sent home with 10 day course of augmentin Status at Discharge Functional status at discharge: independent ambulation Overall status at discharge: patient is progressing back to baseline Time Attestation Discharge Coordination Time (in mins): 30 Quality: Safe Use of Opioids Does Pt have an Active Cancer Diagnosis on the Problem List?: No Quality: Stroke Does the patient have a stroke diagnosis?: No Physical Exam Vital Signs: Vital Signs: Last Vital Signs Temp 97.8 F 10/30/24 08:53 Pulse 58 10/30/24 08:53 Resp 17 10/30/24 08:53 BP 143/84 H 10/30/24 08:53 Pulse Ox 95 10/30/24 08:53 O2 Del Method Room Air 10/30/24 08:53 BMI result Body Mass Index 20.3 GI: Other: very minimal tenderness Rectal Exam - Male: Yes visual inspection normal Discharge Plan Discharge Anticipated Discharge Date/Time: 10/30/24 10:03 Patient Disposition: Home, Self-Care Discharge Diagnosis: Perirectal abscess Referrals: Po,Shell Melendez MD [Primary Care Provider, Internal Medicine] - 1 Week Discharge Medications: New potassium chloride 20 mEq packet 20 meq PO DAILY 4 Days Qty: 4 0RF amoxicillin-pot clavulanate 875-125 mg tablet 1 tab PO BID 10 Days Qty: 20 0RF Continued trazodone 50 mg tablet 50 mg PO BEDTIME PRN (Reason: sleep) Qty: 90 2RF ibuprofen 600 mg tablet 600 mg PO TID PRN (Reason: for pain) Qty: 30 0RF acetaminophen [Tylenol] 325 mg Tablet 325 mg PO QID PRN (Reason: Pain) amoxicillin-pot clavulanate 875-125 mg tablet 1 tab PO BID Discharge Orders: Discharge Order (Routine); Ordered 10/30/24 Ordered By: Jay Ho Diet: Advance to usual diet Activity on Discharge: As tolerated Stand Alone Forms: Patient Portal Discharge page, Work/School Release Print Language: Luxembourgish Care Plan Goals: return to baseline level of health Health Concerns: diverticulitis perirectal abscess Plan of Treatment: follow up in the office as needed Assessment: patient doing well Patient Instructions: Hypokalemia (ED) Discharge Date/Time: 10/30/24 09:02
== END 2024-10-30 09:02 | disposition home or self-care (01) | DRG 395 ==
LOC: HO.ED 12:00 → HO.EDOVER 12:54 → HO.IMC 19:18 → HO.S3 10-29 13:47
PROVIDERS: Physician Assistant; Admitting Provider Surgery; Emergency Provider Emergency Medicine Emergency Medical Services; PCP Internal Medicine; Visit Provider Surgery
DX: K61.1 Rectal abscess (principal); Z87.891 Personal history of nicotine dependence; Z79.899 Other long term (current) drug therapy
CPT/HCPCS: 36415; 74176; 74177; 80053; 83605; 83690; 83735; 85025; 85027; 85610; 85730; 87040; 93005; 99285; J1885; J2270; J2405; J2543; J3480; J7120; Q9967

== ENCOUNTER → 2024-10-26 03:09 | Outpatient (BNV) | payer OTHER, SELFPAY | PROVIDERS: Emergency Provider Emergency Medicine Emergency Medical Services; PCP Internal Medicine; Visit Provider Radiology Diagnostic Radiology | DX: K57.32 Diverticulitis of large intestine without perforation or abscess without bleeding (principal) | CPT/HCPCS: 74177 ==

== ENCOUNTER 2024-10-26 12:26 | Outpatient (BNV) | payer OTHER, SELFPAY | END 2024-10-29 08:00 | PROVIDERS: Admitting Provider Surgery; Emergency Provider Emergency Medicine Emergency Medical Services; PCP Internal Medicine; Visit Provider Radiology Diagnostic Radiology | DX: K51.313 Ulcerative (chronic) rectosigmoiditis with fistula (principal) | CPT/HCPCS: 74176 ==

== ENCOUNTER → 2024-10-26 12:26 | Outpatient (BNV) | payer OTHER, SELFPAY | PROVIDERS: Admitting Provider Surgery; Emergency Provider Emergency Medicine Emergency Medical Services; PCP Internal Medicine; Visit Provider Surgery | DX: K61.1 Rectal abscess (principal) | CPT/HCPCS: 99222; 99232 ==

== ENCOUNTER 2024-11-02 13:53 | Outpatient (AMB) | payer OTHER, SELFPAY ==
--- OUTSIDE RECORDS SUMMARY | 2024-11-02 13:56 | XMS_ITS | Patient Health Record ---
Author Organization [facility] Address [address] [place] [id number] Care Team Providers Care Coal Picker Name Role Phone Shell Eaton MD Primary Care Provider Sonu Chauhan Jr Unavailable Allergies No Known Allergies Results Component Value Reference Range Notes FL barium enema w air contra st Reviewed date:09/17/2024 08:35:13 AM Interpretation: Performing Lab: Notes/Report: [facility] [address] [place] [address] Fluoroscopy Report Signed Patient: Antonio Terrazas MR#: [id number] : 1965 Acct:[id number] Age/Sex: 58 / M ADM Date: 09/14/24 Loc: HO.SSS Attending Dr: Sonu Her MD Ordering Physician: Sonu Her MD Date of Service: 09/14/24 Procedure(s): FL barium enema w air contrast Accession Number(s): [id number] cc: Sonu Her MD; Shell Eaton MD EXAMINATION: XR BARIUM ENEMA WITH AIR CLINICAL INFORMATION: Diverticulosis. Failed colonoscopy. CT abdomen and pelvis with contrast 07/07/2024. COMPARISON: CT abdomen and pelvis 07/07/2024. 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 Subsequently a balloon inflated rectal catheter was placed and retrograde thick barium was administered under fluoroscopy. FINDINGS: [employer] Turret Lathe Operator images reveal moderate gas in the colon following incomplete colonoscopy. There is normal retrograde flow of barium through the rectum, sigmoid, ascending, descending colon to the level of cecum. There is a segmental narrowing of sigmoid colon where there is diffuse diverticulosis. On static images there is extension of barium contrast in the submucosal and intramural tissue but no extraluminal contrast seen.. There are scattered diverticula seen in the rest of the sigmoid, transverse and ascending colon. No intraluminal filling defect or narrowing seen. . Visualized cecum is unremarkable. Appendix and small bowel is not visualized. FLUOROSCOPY TIME: 0.1 minute and 47 seconds DOSE AREA PRODUCT: 5469 uGy-m2 (microgray-meter squared) FL/FL barium enema w air contrast IMPRESSION: Colonic diverticulosis. There is area of narrowing in the sigmoid colon suspicious for diverticulitis. There is submucosal and submucosal extravasation of contrast but no extraluminal contrast seen. Rest of colon is unremarkable. Cecum is unremarkable. There is no reflux of contrast into the terminal ileum. Electronically signed by: Tam Hopkins MD 09/14/2024 04:32 PM EDT RP Dictated By: Tam Hopkins MD Signed By: <Electronically signed by Tam Hopkins MD in OV> 09/14/24 1632 DD/ 1112 TD/TT: 09/14/24 1523 Bag Checker: [facility] Reviewed date:09/14/2024 02:39:12 PM Interpretation: Performing Lab: Notes/Report: [address] [address] XRay Report Signed Patient: Antonio Terrazas MR#: [id number] : 1965 Acct:[id number] Age/Sex: 58 / M ADM Date: 09/14/24 Loc: [facility] Attending Dr: Sonu Her MD Ordering Physician: Sonu Her MD Date of Service: 09/14/24 Procedure(s): XR KUB Accession Number(s): [id number] cc: Sonu Her MD; Shell Eaton MD EXAMINATION: XR ABDOMEN KUB CLINICAL INDICATION: Post procedure COMPARISON: CT from 08/21/2024 TECHNIQUE: AP view of the abdomen. FINDINGS: Moderate small and large bowel gas is present. No abnormalities are evident. Rounded calcifications in left hemipelvis are probably phleboliths. XR/XR KUB IMPRESSION: Unremarkable abdomen. Electronically signed by: Magdi Martin MD 09/14/2024 12:12 PM EDT RP Dictated By: Magdi Martin MD Signed By: <Electronically signed by Magdi Martin MD in OV> 09/14/24 1212 DD/ 1140 TD/TT: 09/14/24 1145 Bag Checker: Reason For Referral No Information Medications Medication [...] Problem Status W/U Status Risk Notes Problem 37420728 Epigastric pain (R10.13) Active confirmed Problem Diverticular disease of colon (447220266) Diverticulosis (K57.90) Active confirmed Problem 242402731 Abnormal finding s in stool (R19.5) Active confirmed Problem 196861407 Abnormal CT scan , colon (R93.3) Active confirmed Problem 702140965 Gastroesophageal reflux disease, unspecified whether esophagitis present (K21.9) Active confirmed Problem Gastroesophageal reflux disease (disorder) (397101647) Chronic GERD (K21.9) Active confirmed Vital Signs Temperature 98.2 degrees Fahrenheit 07/16/2024 Blood pressure diastolic 01 mm Hg 07/16/2024 Height 71 in 07/16/2024 Blood pressure systolic 001 mm Hg 07/16/2024 Weight 150 lbs 07/16/2024 BMI 20.92 kg/m2 07/16/2024 Encounters Encounter Location Date Provider Diagnosis [facility] [address] [place], [place] [id number] 09/14/2024 Sonu Her Jr Diverticular disease K57.90 and Abnormal colonoscopy R93.3 [facility] [address] [place] [address] 07/16/2024 Sonu Her Jr Diverticulosis K57.[address] scan, colon R93.3 [facility] [address] [place] [address] 06/07/2024 Sonu Her Jr [facility] [address] [place] [address] 06/25/2024 Sonu Her Jr [facility] [address] [place], [place] [address] 07/10/2024 Sonu Her Jr [facility] [address] [place], [place] [address] 08/07/2024 Sonu Her Jr [facility] [address] [place], [place] [address] 09/17/2024 Sonu Her Jr Assessments Encounter Date Diagnosis (ICD Code) Assessment Notes Treatment Notes Treatment Clinical Notes Section Notes 09/14/2024 Abnormal colonoscopy (ICD-10 - R93.3) 09/14/2024 Diverticular disease (ICD-10 - K57.90) 07/16/2024 Diverticulosis (ICD-10 - K57.90) We discussed [...] 07/16/2024 Next Appt Details Provider Name:Sonu Nathanael luz , 01/18/2025 10:20:00 AM, [address] [place] [address], [address], [place], [address], Insurance Providers Payer Name Payer Address Payer Phone Subscriber Number Group Number Insured Name Patient Relationship to Insured Coverage Start Date Coverage End Date [employer] [place] [address] [place] [phone] [id number] ANTONIO TERRAZAS Self - patient is the insured Medical (General) History Medical History History ICD Code Gastroesophageal reflux disease Anxiety Colonoscopy 06/19/21, exam to 30 cm, thompson um enema normal, ten-year followup Hyperlipidemia Anal fistula Surgical History Surgery Date(Month/Year) appendicitis 1979 Hospitalization History Reason Date(Month/Year) diverticulitis 04/2021
[2024-11-02 13:58] VITALS: BP 120/80; PULSE 72; RESP 18; TEMP 36.5; O2SAT 95; BMI 19.4
--- NOTE | 2024-11-02 13:58 | A.OFFPC_ITS ---
Vital Signs 11/02/24 13:58 Height 5 ft 11 in Weight 139 lb 4 oz BMI 19.4 BP 120/80 Blood Pressure Location Lt brachial Position Sitting Respiration 18 Pulse 72 Pulse Source Pulse Oximeter Temp 97.7 F Temp Source Temporal Artery Scan Pulse Oximetry (%) 95 Oxygen Delivery Method Room Air Intake Visit Reasons: [facility] 10/30 Rectal pain Tactical Debriefer Officer Required: No Accompanied by: Self / Same As Patient Allergies No Known Allergies (No Known Allergies*) Allergy (Verified 11/02/24 14:22) Medication List - Last Reconciled 11/02/24 by LOWELL Garcia acetaminophen (Tylenol) 325 mg PO QID PRN amoxicillin-pot clavulanate 875-125 mg 1 tab PO BID 10 days amoxicillin-pot clavulanate 875-125 mg 1 tab PO BID ibuprofen 600 mg PO TID PRN potassium chloride 20 mEq PO DAILY 4 days trazodone 50 mg PO BEDTIME PRN Tobacco use date assessed: 11/02/24 Dental Screening Dental Screen Date: 11/02/24 Did you have a dental visit in the last 12 months?: Yes Did you have a dental problem in the last 6 months where you did not have access to dental care?: No Was dental information given to patient?: Patient has dentist HPI [facility] 10/30 Rectal pain HPI Details The patient is a 58-year-old male presenting for post hospital admission follow up. The patient went into the hospital with complaints of Left lower quadrant abdominal pain with associated nonbloody diarrhea, subjective fever and chills associated with nausea without vomiting. The patient has a history of left significant perirectal abscess. This seems to has reappeared, CT of abdomen and pelvis confirmed this. The perirectal abscess was drained and treated with antibiotics in the hospital. The patient was also discharged on Augmentin 875-125 mg x 10 days. He has a significant past medical history of recurrent diverticulitis needing to be treated with antibiotics. Four day hospital stay consistent of managing his pain and allowing the abscess to drain. Patient reports that he is back to his baseline. He also reports that he is not sure what normal supposed to feel like, and that he has not been normal for a long time. He denies abdominal pain, denies diarrhea or constipation, denies any blood or mucus in his stool. He reports that he is peeing okay, but is getting up 3-4 times at night to urinate. Reports that at times he is lying in bed, shortly after just finished urinating, he feels the urge to urinate but only small drops come out. Reports that he feels like he is emptying his bladder and does not feel like his bladder is distended. He denies any pain, dysuria, or any drainage from his penis. He denies any possibility of STDs. Patient reports that he was told that he has a swollen prostate that was confirmed on imaging before. He reports that he his hesitant to start a new medication due to the possibility of any side effects, adding to all the other complications that he already have. He is hoping to see Urology 1st before consenting to any medications. The patient denies any chills or fever. Denies shortness of breath, chest pain, dizziness or heart palpitation. TCM TCM Information Date of Discharge 10/30/24 Discharged From [facility] Contact Date (Reference documentation from this date) 10/31/24 [facility] Medical History Anal fistula Hx of sigmoidoscopy Diverticulitis Perirectal abscess Hematuria Shoulder pain Alcohol abuse GERD (gastroesophageal reflux disease) Vitamin D deficiency Anxiety Diverticulitis Hypercholesterolemia Surgical History History of biopsy History of rectal surgery History of surgery History of colonoscopy H/O wrist surgery History of eye surgery History of appendectomy (~1979) Family History Father Diabetes Hypertension Mother No problems noted. 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 1. Little interest or pleasure in doing things: not at all 2. Feeling down, depressed, or hopeless: not at all 3. Trouble falling or staying asleep, or sleeping too much: not at all 4. Feeling tired or having little energy: not at all 5. Poor appetite or overeating: not at all 6. Feeling bad about yourself - or that you are a failure or have let yourself or your family down: not at all 7. Trouble concentrating on things, such as reading the newspaper or watching television: not at all 8. Moving or speaking so slowly that other people could have noticed. Or the opposite - being so fidgety or restless that you have been moving around a lot more than usual: not at all 9. Thoughts that you would be better off or of hurting yourself in some way: not at all Total score: 0 Depression Screening Interpretation: Negative Depression Screening Done: Yes Source: Developed by Drs. Alden Dozier, Nella Dudley, Grant Hogan and colleagues, with an educational nilson from [employer]. Thrive Questionnaire Date Thrive assessed: 11/02/24 I am a: Patient What is your living situation today?: I have a steady place to live Within the past 12 months, did the food you bought not last and you didn't have the money to get more?: Never true Within the past 12 months, did you worry whether your food would run out before you got money to buy more?: Never true Do you have trouble paying for medicines?: No Do you have trouble getting transportation to medical appointments?: No Do you have trouble paying your heating and electricity bill?: No Do you have trouble taking care of your child, family member or friend?: No Do you have trouble with day-to-day activities such as bathing, preparing meals, shopping, managing finances, etc.?: No Are you currently unemployed and looking for a job?: No Are you interested in more education?: No Please select the resources that you would like help with: None Currently or been in a relationship where the following occur: No concerns reported THRIVE Score: 0 AUDIT C Alcohol Use Questionnaire (AUDIT-C) 1. How often do you have a drink containing alcohol?: Monthly or less 2. How many drinks containing alcohol do you have on a typical day when you are drinking?: 1 or 2 3. How often do you have six or more drinks on one occasion?: Never Total Score: 1 JELANI-7 AMB Questionnaire JELANI-7 Date JELANI - 7 assessed: 07/18/24 Feeling nervous, anxious, or on edge: 0 = Not at all Not being able to stop or control worryin = Not at all Worrying too much about different things: 0 = Not at all Trouble relaxin = Not at all Being so restless that it is hard to sit still: 0 = Not at all Becoming easily annoyed or irritable: 0 = Not at all Feeling afraid as if something awful might happen: 0 = Not at all Total JELANI-7 score (0-4 normal; 5-9 mild; 10-14 moderate; 15-21 severe): 0 Source: Developed by Drs. Alden Dozier, Nella Dudley, Grant Hogan and colleagues, with an educational nilson from [employer]. Review of Systems Const Denies body aches, Denies chills, Denies fever(s), Denies headache(s) and Denies poor appetite Eyes Reports no additional complaints ENT Denies dysphagia, Denies dizziness, Denies headache(s) and Denies odynophagia Card Denies chest pain, Denies syncope, Denies edema, Denies irregular heart rhythm, Denies lightheadedness and Denies dyspnea Resp Denies cough and Denies dyspnea GI Denies abdominal pain, Denies constipation, Denies dysphagia, Denies diarrhea, Denies nausea, Denies odynophagia and Denies vomiting Reports nocturia and Reports other (urges that are only producing small amount of urine) Musc Reports no additional complaints and Denies abnormal gait Skin/Breast Reports system reviewed and no additional complaints, except as documented Neuro Denies abnormal gait, Denies dizziness, Denies syncope and Denies headache(s) Psych Reports no additional complaints Physical exam (Primary Care) Vital Signs: Last Vital Signs Temp 97.7 F 11/02/24 13:58 Pulse 72 11/02/24 13:58 Resp 18 11/02/24 13:58 BP 120/80 11/02/24 13:58 Pulse Ox 95 11/02/24 13:58 Oxygen Delivery Method Room Air 11/02/24 13:58 BMI result Body Mass Index 19.4 Tobacco/Smoking Status: Tobacco use Status Tobacco use date assessed 11/02/24 11/02/24 14:00 Patient Tobacco Use Status Former Tobacco user 11/02/24 14:00 Tobacco use type Cigarette 11/02/24 14:00 e-Cigarette/Vaping Use Never Used 11/02/24 14:00 PHQ-9: PHQ-9 Score PHQ-9: Total score 0 11/02/24 15:05 Depression Screening Interpretation: Negative Thrive Assessment: Date of Thrive Assessment Date Thrive assessed 11/02/24 11/02/24 14:00 Currently or been in a relationship where the following occur: No concerns reported Const General: cooperative, healthy appearing, comfortable and no acute distress Orientation/consciousness: patient oriented x3 HENMT Head: Yes normocephalic Ears: hearing grossly normal bilaterally General nose exam: Normal external nose present Eyes General: appearance normal, both eyes and all related structures Conjunctivae: conjunctivae normal Neck Neck: Yes full ROM and Yes no lymphadenopathy Resp Effort & Inspection: normal respiratory effort Auscultation: clear to auscultation bilaterally, no crackles, no rales, no rhonchi and no wheezes Cardio Rate: regular rate Rhythm: regular rhythm Heart sounds: S1 normal heart sound present, no gallops and no murmurs GI Inspection: No distended Palpation (GI): Soft to palpation, nontender and No hepatosplenomegaly present Auscultation: normal bowel sounds General: Yes no CVA tenderness Back/Spine/Pelvis Back: no CVA tenderness Skin General skin exam: no rashes or lesions noted Neuro General: patient oriented x3 Gait exam (Neuro): Normal gait present Extrem General: Yes normal to inspection, Yes full ROM and No edema Psych Affect: normal affect Attitude: cooperative Insight: Good insight present (Psych) Judgement: Good judgement present (Psych) Results AMB Urinalysis Dipstick UR Leukocytes Negative Last Edit by Karol Good MA on 11/02/24 14:54 UR Nitrite Negative Last Edit by Karol Good MA on 11/02/24 14:5 4 UR Urobilinogen 1 Last Edit by Karol Good MA on 11/02/24 14:54 UR Protein 30 Last Edit by Karol Good MA on 11/02/24 14:54 UR Ph 6.0 Last Edit by Karol Good MA on 11/02/24 14:54 UR Blood Negative Last Edit by Karol Good MA on 11/02/24 14:54 UR Specific [place]green 1.020 Last Edit by Karol Good MA on 5 14:54 UR Ketone Negative Last Edit by Karol Good MA on 11/02/24 14:54 UR Bilirubin Negative Last Edit by Karol Good MA on 11/02/24 14 :54 UR Glucose Negative Last Edit by Karol Good MA on 11/02/24 14:5 4 Results Reviewed Results Reviewed: Laboratory Last Values Urine pH (Clinic) 6.0 11/02/24 14:50 Specific [place]green (Clinic) 1.020 11/02/24 14:50 Ur Protein (Clinic) 30 11/02/24 14:50 Ur Ketones (Clinic) Negative 11/02/24 14:50 Urine Blood (Clinic) Negative 11/02/24 14:50 Urine Nitrite Negative 11/02/24 14:50 Urine Bilirubin (Clinic) Negative 11/02/24 14:50 Urobilinogen (Clinic) 1 11/02/24 14:50 Leukocyte Esterase (Clinic) Negative 11/02/24 14:50 Urine Glucose (Clinic) Negative 11/02/24 14:50 Coding Level of Care Code TCM Mod MDM <= 7 Days Diagnoses Diverticulitis K57.92 Left lower quadrant abdominal pain R10.32 Abdominal location: left lower quadrant Perirectal abscess K61.1 Benign prostatic hyperplasia with weak urinary stream N40.1; R39.12 Lower urinary tract symptom detail: weak urinary stream Lower urinary tract symptom presence: symptoms present Time Spent (min) 42 Assessment & Plan Assessment & Plan (1) Diverticulitis: Comment: December Code(s): K57.92 - Diverticulitis of intestine, part unspecified, without perforation or abscess without bleeding Category: Medical Plan: Recurrent diverticulitis that has been managed on and off for the antibiotics. The patient was managed in the hospital recently with symptoms of diverticulitis and was found to have a recurrent perirectal abscess. He was treated with antibiotics. Patient reports that there has been discussions of possible sigmoidectomy due to his recurrent diverticulitis. He has been putting this off but after his recent hospital admission he is given this is a serious thought. (2) Abdominal pain: Code(s): R10.9 - Unspecified abdominal pain Category: Medical Qualifiers: Abdominal location: left lower quadrant Qualified Code(s): R10.32 - Left lower quadrant pain Plan: His abdominal pain subsided with draining of the abscess and antibiotic treatments. It was treated for pain in the hospital but has not needed anymore pain medication prior to discharge. (3) Perirectal abscess: Comment: Incision and drainage April 2021 Dr. Stearns Code(s): K61.1 - Rectal abscess Category: Medical Plan: Left perirectal abscess drained and treated with antibiotics. The patient was also discharged on Augmentin 875-125 mg b.i.d. times 10 days. (4) BPH (benign prostatic hyperplasia): Code(s): N40.0 - Benign prostatic hyperplasia without lower urinary tract symptoms Category: Medical Qualifiers: Lower urinary tract symptom detail: weak urinary stream Lower urinary tract symptom presence: symptoms present Qualified Code(s): N40.1 - Benign prostatic hyperplasia with lower urinary tract symptoms; R39.12 - Poor urinary stream Plan: Patient reports that this has been ongoing. He has been noticing a weaker stream that he attributes to age. Getting up to urinate 3-4 times at night, at times, only drops come out, and even though he does not feel distended and feel like his bladder is being emptied, the frequent urge a somewhat concerning to him. Urinalysis done in office was negative and was sent to the lab for further evaluation. Urology referral placed Orders: Orders AMB Urinalysis Dipstick 11/02/24 R35.0 - Frequency of micturition PSA,Total (Free>4and<10) 11/02/24 D64.9 - Anemia, unspecified, E87.6 - Hypokalemia, N40.0 - Benign prostatic hyperplasia without lower urinary tract symptoms, R35.0 - Frequency of micturition Basic Metabolic Panel 11/02/24 D64.9 - Anemia, unspecified, E87.6 - Hypokalemia, N40.0 - Benign prostatic hyperplasia without lower urinary tract symptoms, R35.0 - Frequency of micturition Vitamin B12 and Folate 11/02/24 D64.9 - Anemia, unspecified, E87.6 - Hypokalemia, N40.0 - Benign prostatic hyperplasia without lower urinary tract symptoms, R35.0 - Frequency of micturition UA CC w/rflx Micro + Cult 11/02/24 R35.0 - Frequency of micturition Referrals 2 Urology Referral N40.1 - Benign prostatic hyperplasia with lower urinary tract symptoms, R39.12 - Poor urinary stream
== END 2024-11-02 15:17 | disposition home or self-care (01) ==
LOC: HO.HMCH 13:54
PROVIDERS: PCP Internal Medicine
DX: R10.32 Left lower quadrant pain (principal); K61.1 Rectal abscess; N40.1 Benign prostatic hyperplasia with lower urinary tract symptoms; R39.12 Poor urinary stream; K57.92 Diverticulitis of intestine, part unspecified, without perforation or abscess without bleeding

== ENCOUNTER 2024-11-02 13:53 | Outpatient (REF) | payer OTHER, SELFPAY ==
[2024-11-02 15:34] LABS: Appearance Urine Clear; Glucose Urine UA Negative (Negative); PH 7.0 (5.0-9.0); Specific Gravity - Urine 1.025 (1.005-1.025); UMIC TRIGGER UACC YES
== END 2024-11-02 13:54 | disposition home or self-care (01) ==
LOC: HO.LNP 13:53
PROVIDERS: PCP Internal Medicine
DX: Z09 Encounter for follow-up examination after completed treatment for conditions other than malignant neoplasm (principal); K57.92 Diverticulitis of intestine, part unspecified, without perforation or abscess without bleeding; R10.32 Left lower quadrant pain; K61.1 Rectal abscess; N40.1 Benign prostatic hyperplasia with lower urinary tract symptoms; R39.12 Poor urinary stream; R35.0 Frequency of micturition; Z13.31 Encounter for screening for depression
CPT/HCPCS: 81001; 81002; 96127

== ENCOUNTER 2024-11-05 06:06 | Outpatient (REF) | payer OTHER, SELFPAY ==
--- OUTSIDE RECORDS SUMMARY | 2024-11-05 06:09 | XMS_ITS | Patient Health Record ---
Author Organization [facility] Address [address] [place] [id number] Care Team Providers Care Hydrogeologist Name Role Phone Shell Eaton MD Primary Care Provider Sonu Chauhan Jr Unavailable [phone] Allergies No Known Allergies Results Component Value Reference Range Notes FL barium enema w air contra st Reviewed date:09/17/2024 08:35:13 AM Interpretation: Performing Lab: Notes/Report: [facility] [address] [place] [address] Fluoroscopy Report Signed Patient: Antonio Terrazas MR#: [id number] : 1965 Acct:[id number] Age/Sex: 58 / M ADM Date: 09/14/24 Loc: HO.SSS Attending Dr: Sonu Her MD Ordering Physician: Sonu Her MD Date of Service: 09/14/24 Procedure(s): FL barium enema w air contrast Accession Number(s): [id number] cc: Sonu Her MD; Shell Eaton MD EXAMINATION: XR BARIUM ENEMA WITH AIR CLINICAL INFORMATION: Diverticulosis. Failed colonoscopy. CT abdomen and pelvis with contrast 07/07/2024. COMPARISON: CT abdomen and pelvis 07/07/2024. TECHNIQUE: Maintenance Instructor images of abdomen were obtained. Subsequently a balloon inflated rectal catheter was placed and retrograde thick barium was administered under fluoroscopy. FINDINGS: Maintenance Instructor images reveal moderate gas in the colon [...] 09/14/24 1632 DD/ 1112 TD/TT: 09/14/24 1523 Marketing Assistant Manager: [facility] XR KUB Reviewed date:09/14/2024 02:39:12 PM Interpretation: Performing Lab: Notes/Report: [address] [address] XRay Report Signed Patient: Antonio Terrazas MR#: [id number] : 1965 Acct:[id number] Age/Sex: 58 / M ADM Date: 09/14/24 Loc: [facility] Attending Dr: Sonu Her MD Ordering Physician: Sonu Her MD Date of Service: 09/14/24 Procedure(s): XR KUB Accession Number(s): [id number] cc: Sonu Her MD; Shell Eaton MD [...] 09/14/24 1212 DD/ 1140 TD/TT: 09/14/24 1145 Marketing Assistant Manager: Reason For Referral No Information Medications Medication [...] Problem Status W/U Status Risk Notes Problem [id number] Epigastric pain (R10.13) Active confirmed Problem Diverticular disease of colon (390711962) Diverticulosis (K57.90) Active confirmed Problem [id number] Abnormal finding s in stool (R19.5) Active confirmed Problem 790657909 Abnormal CT scan , colon (R93.3) Active confirmed Problem [id number] Gastroesophageal reflux disease, unspecified whether esophagitis present (K21.9) Active confirmed Problem Chronic GERD (K21.9) Active confirmed Vital Signs Temperature 98.2 degrees Fahrenheit 07/16/2024 Blood pressure diastolic 01 mm Hg 07/16/2024 Height 71 in 07/16/2024 Blood pressure systolic 001 mm Hg 07/16/2024 Weight 150 lbs 07/16/2024 BMI 20.92 kg/m2 07/16/2024 Encounters Encounter Location Date Provider Diagnosis [facility] Outpatient [address] [place] [id number] 09/14/2024 Sonu Her Jr Diverticular disease K57.90 and Abnormal colonoscopy R93.3 [facility] [address] [place] [address] 07/16/2024 Sonu Arden Jr Diverticulosis K57.[address] scan, colon R93.3 [facility] [address] [place], [place] [address] 06/07/2024 Sonu Her Jr [facility] [address] [place], [place] [address] 06/25/2024 Sonu Her Jr [facility] [address] [place], [place] [address] 07/10/2024 Sonu Her Jr [facility] [address] [place], [place] [address] 08/07/2024 Sonu Her Jr [facility] [address] [place], [place] [address] 09/17/2024 Sonu Her Jr Assessments Encounter Date [...] Name:Sonu Nathanael luz , 01/18/2025 10:20:00 AM, [address], [address], [place], [address], Insurance Providers Payer Name Payer Address Payer Phone Subscriber Number Group Number Insured Name Patient Relationship to Insured Coverage Start Date Coverage End Date [employer] [place] [address] [place] [phone] [id number] ANTONIO TERRAZAS Self - patient is the insured Medical (General) History Medical History History ICD Code Gastroesophageal reflux disease Anxiety Colonoscopy 06/19/21, exam to 30 cm, thompson um enema normal, ten-year followup Hyperlipidemia Anal fistula Surgical History Surgery Date(Month/Year) appendicitis 1979 Hospitalization History Reason Date(Month/Year) diverticulitis 04/2021
[2024-11-05 06:33] LABS: MANUAL DIFF FLAG NO
[2024-11-05 07:49] LABS: Hematocrit 43.2 % (42.0-52.0); Hemoglobin 13.8 g/dl (14.0-18.0); Imm Gran Abs Auto 0.02 X10*3/uL (0.00-0.03); Imm Gran Pct Auto 0.3 % (0.0-0.4); Lymphocytes Absolute Auto 2.0 X10*3/uL (1.2-4.9); Mean Corpuscular HGB Conc 31.9 g/dl (31.0-36.0); Mean Corpuscular Hemoglobin 28.6 pg (27.0-33.0); Mean Corpuscular Volume 89.6 fL (80.0-98.0); NRBC Abs Auto 0.000 X10*3/uL (0.0-0.012); NRBC Pct Auto 0.0 /100WBC (0.0-0.2); Platelet Count 430 X10*3/uL (160-400); Red Blood Count 4.82 X10*6/uL (4.60-5.80); Reticulocytes Absolute 0.046 X10*6/uL (0.026-0.095); White Blood Count 7.4 X10*3/uL (4.8-10.8)
[2024-11-05 08:25] LABS: Anion Gap 11 (12-20); Blood Urea Nitrogen 22 mg/dL (9-16); Calcium 9.8 mg/dL (8.4-10.2); Carbon Dioxide 29 mmol/L (22-29); Chloride 107 mmol/L (96-108); Estimated Glomerular Filt Rate > 60; Iron 102 mcg/dL (45-160); Percent Iron Saturation 40 % (15-50); Potassium 3.9 mmol/L (3.3-5.1); Sodium 143 mmol/L (135-145); Total Iron Binding Capacity 254 mcg/dL (228-428); Unsaturated Iron Binding 152 ug/dL
[2024-11-05 08:26] LABS: Appearance Urine Clear; Glucose Urine UA Negative (Negative); PH 6.0 (5.0-9.0); Specific Gravity - Urine >= 1.030 (1.005-1.025); UMIC TRIGGER UACC YES
[2024-11-05 08:32] LABS: PSA,Total (Free>4and<10) 2.63 ng/mL (0.00-4.00)
[2024-11-05 08:39] LABS: Ferritin 215 ng/mL (20-250)
[2024-11-05 08:40] LABS: UACC Culture Trigger YES
[2024-11-05 08:44] LABS: Folate 9.2 ng/mL (> or = 4.0); Vitamin B12 814 pg/mL (200-900)
== END 2024-11-05 06:07 | disposition home or self-care (01) ==
LOC: HO.LAB 06:06
PROVIDERS: PCP Internal Medicine
DX: N40.1 Benign prostatic hyperplasia with lower urinary tract symptoms (principal); D64.9 Anemia, unspecified; E78.00 Pure hypercholesterolemia, unspecified; R35.0 Frequency of micturition; E87.6 Hypokalemia; Z12.5 Encounter for screening for malignant neoplasm of prostate
CPT/HCPCS: 36415; 80048; 81001; 82607; 82728; 82746; 83540; 84153; 85025; 85045; 87086

== ENCOUNTER 2024-11-09 10:40 | Outpatient (AMB) | payer OTHER, SELFPAY ==
--- OUTSIDE RECORDS SUMMARY | 2024-11-09 10:43 | XMS_ITS | Patient Health Record ---
Author Organization [facility] Address [address] [place] [address] Care Team Providers Care Moisture Tester Name Role Phone Shell Eaton MD Primary Care Provider Sonu Chauhan Jr Unavailable Allergies No Known Allergies Results Component Value Reference Range Notes FL barium enema w air contra st Reviewed date:09/17/2024 08:35:13 AM Interpretation: Performing Lab: Notes/Report: [facility] [address] [place] [address] Fluoroscopy Report Signed Patient: Antonio Terrazas MR#: [id number] : 1965 Acct:[id number] Age/Sex: 58 / M ADM Date: 09/14/24 Loc: HO.SSS Attending Dr: Sonu Her MD Ordering Physician: Sonu Her MD Date of Service: 09/14/24 Procedure(s): FL barium enema w air contrast Accession Number(s): [id number] cc: Sonu Her MD; Shell Eaton MD EXAMINATION: XR BARIUM ENEMA WITH AIR CLINICAL INFORMATION: Diverticulosis. Failed colonoscopy. CT abdomen and pelvis with contrast 07/07/2024. COMPARISON: CT abdomen and pelvis 07/07/2024. TECHNIQUE: Chair Post Machine Operator images of abdomen were obtained. Subsequently a balloon inflated rectal catheter was placed and retrograde thick barium was administered under fluoroscopy. FINDINGS: Chair Post Machine Operator images reveal moderate gas in the [...] 09/14/24 1632 DD/ 1112 TD/TT: 09/14/24 1523 Drum Maker: [facility] XR KUB Reviewed date:09/14/2024 02:39:12 PM Interpretation: Performing Lab: Notes/Report: [address] [address] XRay Report Signed Patient: Antonio Terrazas MR#: [id number] : 1965 Acct:[id number] Age/Sex: 58 / M ADM Date: 09/14/24 Loc: [facility] Attending Dr: Sonu Her MD Ordering Physician: Sonu Her MD Date of Service: 09/14/24 Procedure(s): XR KUB Accession Number(s): [id number] cc: Sonu Her MD; Shell Eaton MD [...] 09/14/24 1212 DD/ 1140 TD/TT: 09/14/24 1145 Drum Maker: Reason For Referral No Information Medications Medication [...] Problem Status W/U Status Risk Notes Problem 68669000 Epigastric pain (R10.13) Active confirmed Problem Diverticular disease of colon (021042741) Diverticulosis (K57.90) Active confirmed Problem 436614638 Abnormal finding s in stool (R19.5) Active confirmed Problem 877309196 Abnormal CT scan , colon (R93.3) Active confirmed Problem 030472330 Gastroesophageal reflux disease, unspecified whether esophagitis present (K21.9) Active confirmed Problem Gastroesophageal reflux disease (disorder) (886859772) Chronic GERD (K21.9) Active confirmed Vital Signs Temperature 98.2 degrees Fahrenheit 07/16/2024 Blood pressure diastolic 01 mm Hg 07/16/2024 Height 71 in 07/16/2024 Blood pressure systolic 001 mm Hg 07/16/2024 Weight 150 lbs 07/16/2024 BMI 20.92 kg/m2 07/16/2024 Encounters Encounter Location Date Provider Diagnosis [facility] Outpatient [address], [place] [id number] 09/14/2024 Sonu Her Jr Diverticular disease K57.90 and Abnormal colonoscopy R93.3 [facility] [address] [place] [address] 07/16/2024 Sonu Her Jr Diverticulosis K57.[address] scan, colon R93.[address] [facility] [address] [place] [address] 06/07/2024 Sonu eHr Jr [facility] [address] [place] [address] 06/25/2024 Sonu Her Jr [facility] [address] [place], [place] [address] 07/10/2024 Sonu Her Jr [facility] [address] [place], [place] [address] 08/07/2024 Sonu Her Jr [facility] [address] [place], [place] [address] 09/17/2024 Sonu Her Jr Assessments Encounter Date [...] Name:Sonu Nathanael luz , 01/18/2025 10:20:00 AM, [address] [place] [address], [address], [place], [address], Insurance Providers Payer Name Payer Address Payer Phone Subscriber Number Group Number Insured Name Patient Relationship to Insured Coverage Start Date Coverage End Date [employer] [place] [address] [place] [phone] [id number] ANTONIO TERRAZAS Self - patient is the insured Medical (General) History Medical History History ICD Code Gastroesophageal reflux disease Anxiety Colonoscopy 06/19/21, exam to 30 cm, thompson um enema normal, ten-year followup Hyperlipidemia Anal fistula Surgical History Surgery Date(Month/Year) appendicitis 1979 Hospitalization History Reason Date(Month/Year) diverticulitis 04/2021
--- NOTE | 2024-11-09 10:49 | A.OFFVIS_ITS ---
Vital Signs 11/09/24 10:53 Height 51 ft Weight 141 lb BMI 0.3 BP 129/79 Blood Pressure Location Rt brachial Position Sitting Pulse 75 Intake Visit Reasons: Diverticulitis Intake Note: Patient is seen in office for ER follow up visit. Wants to discuss colon dudley rgery. Pt c/o: uncomfortable with BM. On and off constipation, diarrhea. 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 Required: No Accompanied by: Self / Same As Patient Allergies No Known Allergies (No Known Allergies*) Allergy (Verified 11/09/24 10:51) Medication List - Last Reconciled 11/09/24 by Vicente Stearns MD acetaminophen (Tylenol) 325 mg PO QID PRN erythromycin 1 g (2 x 500 mg) PO TID ibuprofen 600 mg PO TID PRN neomycin 1 g (2 x 500 mg) PO TID 3 doses polyethylene glycol 3350 (Miralax) 17 grams PO DAILY potassium chloride 20 mEq PO DAILY 4 days trazodone 50 mg PO BEDTIME PRN HPI Comments Details: 58-year-old male patient well known to the surgical service with a previous history of a perirectal abscess, status post incision and drainage on several occasions. He was previously explored for possible perianal fistula however no fistula could be identified. He was recently admitted on 10/26/2024 with recurrence of the perirectal abscess. A sigmoid scope had previously been performed by Dr. Her in September 2024 but he was unable to traverse the sigmoid colon due to stricture. 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 Inflammatory stranding and soft tissue swelling was noted in the left perirectal and perianal spaces. He generally feels improved but does have occasional discomfort in the perianal skin. We had previously discussed elective sigmoid colectomy to remove this area of possible fistula formation and he returns today to discuss proceeding with the surgery. He denies any current fever or chills. His bowels have been difficult and he is generally constipated. He completed his 10 day course of Augmentin. [facility] Medical History Anal fistula Hx of sigmoidoscopy Diverticulitis Perirectal abscess Hematuria Shoulder pain Alcohol abuse GERD (gastroesophageal reflux disease) Vitamin D deficiency Anxiety Diverticulitis Hypercholesterolemia Surgical History History of biopsy History of rectal surgery History of surgery History of colonoscopy H/O wrist surgery History of eye surgery History of appendectomy (~1979) Family History Father Diabetes Hypertension Mother No problems noted. 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) Cognitive needs: No Hearing needs: No Vision needs: Yes (Glasses) Review of Systems Const All systems reviewed & are unremarkable except as noted in HPI and below Physical Exam Vital Signs: Last Vital Signs Pulse 75 11/09/24 10:53 BP 129/79 11/09/24 10:53 BMI result Body Mass Index 0.3 Const General: cooperative and no acute distress Nutritional Appearance: well nourished Orientation/consciousness: patient oriented x3 Limitations: no limitations HEENT Head: Yes normocephalic and Yes atraumatic Ears: hearing grossly normal bilaterally Resp Effort & Inspection: normal respiratory effort, no audible wheezes, no cough and no respiratory distress Cardio Jugular venous distension: no JVD GI Inspection: Yes normal to inspection Palpation (GI): Soft to palpation, nontender, no guarding, not rigid, No hepatosplenomegaly present, no hernias and no masses Percussion: Yes normal to percussion Auscultation: normal bowel sounds Rectal Exam - Male: Yes deferred Skin Other: Warm, dry, no rash Neuro General: patient oriented x3 Extrem General: Yes no clubbing, cyanosis or edema Assessment & Plan Assessment & Plan (1) Diverticulitis: Comment: December Code(s): K57.92 - Diverticulitis of intestine, part unspecified, without perforation or abscess without bleeding Category: Medical (2) Colonic fistula: Code(s): K63.2 - Fistula of intestine Category: Medical Plan 58-year-old male patient with recurring episodes of Linda rectal abscess collections requiring incision and drainage recently admitted to the surgical service for recurrent abscess. Workup with CT abdomen and pelvis did reveal evidence of diverticulitis with wall thickening and rectosigmoid fistula formation. We again discussed hand assisted laparoscopic sigmoid colectomy as a possible option and after discussion of the procedure, risks and alternatives, he consents to proceeding with this hand assisted laparoscopic sigmoid colectomy to be performed as a short-stay admit. We discussed the enhanced recovery after surgery protocol (ERAS) as well as the bowel prep needed the day prior to surgery. He was instructed on the bowel prep procedure and expressed understanding. Medications: New erythromycin administer at 1 PM, 2 PM, and 11 PM the day prior to surgery 1 g (2 x 500 mg) PO TID 6 tabs 0RF neomycin administer at 1 PM, 2 PM, and 11 PM the day prior to surgery 1 g (2 x 500 mg) PO TID 6 tabs 0RF 3 doses polyethylene glycol 3350 (Miralax) Mixed entire bottle polyethylene glycol with 2 bottles of Gatorade (not red colored). Drink 1 cup every 15 minutes starting at 09:00 day prior to surgery until either completed or when bowels are clear. 17 grams PO DAILY 238 grams 0RF Coding Level of Care Code Est Pt Level 4 (08384) Diagnoses Diverticulitis K57.92 Colonic fistula K63.2
[2024-11-09 10:53] VITALS: BP 129/79; PULSE 75
== END 2024-11-09 11:31 | disposition home or self-care (01) ==
LOC: HO.HGS 10:41
PROVIDERS: PCP Internal Medicine; Visit Provider Surgery
DX: K57.92 Diverticulitis of intestine, part unspecified, without perforation or abscess without bleeding (principal); K63.2 Fistula of intestine
CPT/HCPCS: 99214

== ENCOUNTER 2024-11-16 09:22 | Outpatient (AMB) | payer OTHER, SELFPAY ==
--- NOTE | 2024-11-16 09:26 | A.OFFPC_ITS ---
Vital Signs 11/16/24 09:27 Height 5 ft 11 in Weight 142 lb BMI 19.8 BP 120/60 Blood Pressure Location Lt brachial Position Sitting Pulse 64 Pulse Source Pulse Oximeter Temp 97.1 F Temp Source Temporal Artery Scan Pulse Oximetry (%) 98 Oxygen Delivery Method Room Air Intake Visit Reasons: , BPH and diverticulosis Intake Note: Patient is here to follow up on BPH, Diverticulosis. Cotton Program Technician Required: No Platinum Smith: Not Required per policy Accompanied by: Self / Same As Patient Allergies No Known Allergies (No Known Allergies*) Allergy (Verified 11/16/24 09:26) Medication List - Last Reconciled 11/16/24 by Shell Eaton MD acetaminophen 1,000 mg PO Q6H PRN docusate sodium (Colace) 100 mg PO DAILY erythromycin 1 g (2 x 500 mg) PO TID ibuprofen 600 mg PO TID PRN maltodextrin-fructose 0.68 kcal/mL (Ensure Pre-Surgery) 1 ea PO ONCE 1 day neomycin 1 g (2 x 500 mg) PO TID 3 doses polyethylene glycol 3350 (Miralax) 17 grams PO DAILY trazodone 50 mg PO BEDTIME PRN Tobacco use date assessed: 11/16/24 Dental Screening Dental Screen Date: 11/02/24 HPI , BPH and diverticulosis HPI Details colon resection next week Dr. [facility] Medical History (Updated 11/16/24 @ 10:07 by Shell Eaton MD) Osteoarthritis Mild anemia Anal fistula Hx of sigmoidoscopy Diverticulitis Perirectal abscess Hematuria Shoulder pain Alcohol abuse Vitamin D deficiency Anxiety Hypercholesterolemia Surgical History History of open reduction and internal fixation (ORIF) procedure History of rectal surgery History of colonoscopy H/O wrist surgery History of eye surgery History of appendectomy (~1979) Family History Father Diabetes Hypertension Mother No problems noted. Paternal Grandfather Substance abuse Maternal Grandfather Substance abuse Social History Household Members: Spouse Housing: House Are you a primary rn primary care to a significant other at home: No Do you presently have visiting nurse or other home services: No Alcohol intake: current Alcohol intake frequency: does not drink Comment: advised of trip hazard Patient Tobacco Use Status: Former Tobacco user Tobacco use type: Cigarette Years Smoked: 18 e-Cigarette/Vaping Use: Never Used Second Hand Smoke Exposure: Yes Substance Use Type: Marijuana service: No Current occupational status: employed and unemployed 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 1. Little interest or pleasure in doing things: not at all 2. Feeling down, depressed, or hopeless: not at all 3. Trouble falling or staying asleep, or sleeping too much: not at all 4. Feeling tired or having little energy: not at all 5. Poor appetite or overeating: not at all 6. Feeling bad about yourself - or that you are a failure or have let yourself or your family down: not at all 7. Trouble concentrating on things, such as reading the newspaper or watching television: not at all 8. Moving or speaking so slowly that other people could have noticed. Or the opposite - being so fidgety or restless that you have been moving around a lot more than usual: not at all 9. Thoughts that you would be better off or of hurting yourself in some way: not at all Total score: 0 Depression Screening Interpretation: Negative Depression Screening Done: Yes Source: Developed by Drs. Alden Dozier, Nella Dudley, Grant Hogan and colleagues, with an educational nilson from [employer]. Thrive Questionnaire Date Thrive assessed: 07/18/24 I am a: Patient What is your living situation today?: I have a steady place to live Within the past 12 months, did the food you bought not last and you didn't have the money to get more?: Never true Within the past 12 months, did you worry whether your food would run out before you got money to buy more?: Never true Do you have trouble paying for medicines?: No Do you have trouble getting transportation to medical appointments?: No Do you have trouble paying your heating and electricity bill?: No Do you have trouble taking care of your child, family member or friend?: No Do you have trouble with day-to-day activities such as bathing, preparing meals, shopping, managing finances, etc.?: No Are you currently unemployed and looking for a job?: No Are you interested in more education?: No Please select the resources that you would like help with: None Currently or been in a relationship where the following occur: No concerns reported THRIVE Score: 0 AUDIT C Alcohol Use Questionnaire (AUDIT-C) 1. How often do you have a drink containing alcohol?: Monthly or less Total Score: 1 JELANI-7 AMB Questionnaire JELANI-7 Date JELANI - 7 assessed: 07/18/24 Feeling nervous, anxious, or on edge: 0 = Not at all Not being able to stop or control worryin = Not at all Worrying too much about different things: 0 = Not at all Trouble relaxin = Not at all Being so restless that it is hard to sit still: 0 = Not at all Becoming easily annoyed or irritable: 0 = Not at all Feeling afraid as if something awful might happen: 0 = Not at all Total JELANI-7 score (0-4 normal; 5-9 mild; 10-14 moderate; 15-21 severe): 0 Source: Developed by Drs. Alden Dozier, Nella Dudley, Grant Hogan and colleagues, with an educational nilson from [employer]. Physical exam (Primary Care) Vital Signs: Last Vital Signs Temp 97.1 F 11/16/24 09:27 Pulse 64 11/16/24 09:27 BP 120/60 11/16/24 09:27 Pulse Ox 98 11/16/24 09:27 Oxygen Delivery Method Room Air 11/16/24 09:27 BMI result Body Mass Index 19.8 Tobacco/Smoking Status: Tobacco use Status Tobacco use date assessed 11/16/24 11/16/24 09:33 Patient Tobacco Use Status Former Tobacco user 11/16/24 09:33 Tobacco use type Cigarette 11/16/24 09:33 e-Cigarette/Vaping Use Never Used 11/16/24 09:33 PHQ-9: PHQ-9 Score PHQ-9: Total score 0 11/16/24 10:07 Depression Screening Interpretation: Negative Thrive Assessment: Date of Thrive Assessment Date Thrive assessed 07/18/24 11/16/24 09:33 Currently or been in a relationship where the following occur: No concerns reported Const General: alert; No acute distress Eyes Conjunctivae: conjunctivae normal Resp Auscultation: clear to auscultation bilaterally Cardio Rate: regular rate Rhythm: regular rhythm GI Inspection: Yes normal to inspection Extrem General: Yes normal to inspection and No edema Coding Level of Care Code Est Pt Level 4 (04553) Diagnoses Diverticular disease K57.90 Gastroesophageal reflux disease without esophagitis K21.9 Esophagitis presence: without esophagitis Benign prostatic hyperplasia with weak urinary stream N40.1; R39.12 Lower urinary tract symptom detail: weak urinary stream Lower urinary tract symptom presence: symptoms present Generalized anxiety disorder F41.1 Hypercholesterolemia E78.00 Assessment & Plan Assessment & Plan (1) Diverticular disease: Code(s): K57.90 - Diverticulosis of intestine, part unspecified, without perforation or abscess without bleeding Category: Medical Plan: Patient follows up with the surgeon and planned surgery (2) GERD (gastroesophageal reflux disease): Code(s): K21.9 - Gastro-esophageal reflux disease without esophagitis Category: Medical Qualifiers: Esophagitis presence: without esophagitis Qualified Code(s): K21.9 - Gastro-esophageal reflux disease without esophagitis Plan: Avoid the foods that causes that usually spicy foods, tomato products, juices, coffee, soda and foods that your sensitive to. After eating do not lie down, allow 3-4 hours before in lie down. And keep the head of bed above 30 degrees to avoid the acid from going up. (3) BPH (benign prostatic hyperplasia): Code(s): N40.0 - Benign prostatic hyperplasia without lower urinary tract symptoms Category: Medical Qualifiers: Lower urinary tract symptom detail: weak urinary stream Lower urinary tract symptom presence: symptoms present Qualified Code(s): N40.1 - Benign prostatic hyperplasia with lower urinary tract symptoms; R39.12 - Poor urinary stream Plan: Stable (4) Generalized anxiety disorder: Code(s): F41.1 - Generalized anxiety disorder Category: Medical Plan: Continue with present medication of trazodone (5) Hypercholesterolemia: Code(s): E78.00 - Pure hypercholesterolemia, unspecified Category: Medical Plan: Avoid fried foods, chicken skin, eggs, butter margarine, pastries and meat. Be it pork or beef they have a lot of cholesterol Plan History of Present Illness The patient is a 59-year-old male presenting for a follow-up visit and preoperative evaluation for scheduled colon resection surgery. The patient has a history of diverticular disease, which has been recurrent and problematic, leading to the decision for surgical intervention. He has undergone multiple CAT scans, with the most recent one in October 2024, which confirmed the presence of diverticulitis. The patient reports that his symptoms of constipation and urinary difficulties seem to coincide, likely due to the anatomical proximity of the sigmoid colon and bladder. The patient also has a history of hypercholesterolemia and gastroesophageal reflux disease (GERD), both of which are currently stable with ongoing management. He is on trazodone for generalized anxiety disorder, which he takes as needed to help with sleep. The patient has benign prostatic hyperplasia (BPH), with recent imaging showing an enlarged prostate but normal prostate-specific antigen levels. He reports occasional difficulty urinating, which he associates with episodes of constipation. Recent blood work from November 05, 2024, indicated mild anemia with a hemoglobin level of 13.8 g/dL, which is improving, and mild thrombocytosis. Other lab results showed normal electrolytes, renal function, liver function, and adequate iron levels. The patient has a small left parumbilical hernia and an indirect inguinal hernia, both of which are not currently symptomatic but require caution with heavy lifting. Health Maintenance - Colonoscopy up to date as of 2021 Social History Review of Systems - Gastrointestinal: Reports constipation and associated urinary difficulties. Denies other gastrointestinal symptoms. - Genitourinary: Reports occasional difficulty urinating, particularly during episodes of constipation. Denies nocturia. Physical Exam Results - Labs: Mild anemia with hemoglobin level of 13.8 g/dL, mild thrombocytosis, normal electrolytes, renal function, liver function, and adequate iron levels. - Imaging: Recent CAT scan confirmed diverticulitis and showed an enlarged prostate, small left parumbilical hernia, and indirect inguinal hernia. Plan The patient is scheduled for a colon resection surgery to address recurrent diverticular disease, which has been causing significant symptoms and complications. Preoperative evaluation has been completed, and the patient is advised to avoid heavy lifting due to the presence of hernias. Management of hypercholesterolemia and GERD will continue with current medications, and the patient is advised to maintain adherence to prescribed treatments. The patient is also instructed to continue trazodone as needed for anxiety and sleep disturbances. Follow-up with the surgeon is planned postoperatively to monitor recovery and address any complications that may arise. The patient is encouraged to stay hydrated and engage in light physical activity post-surgery to aid recovery. Patient was informed and verbally consented to the use of an ambient scribe for clinic note documentation during this visit. Discussion Notes I discussed with the patient the plan for the upcoming colon resection surgery, emphasizing the importance of avoiding heavy lifting due to his hernias. We reviewed the management of his hypercholesterolemia and GERD, and I advised him to continue his current medications. I also explained the need for postoperative follow-up with the surgeon and encouraged him to stay hydrated and engage in light physical activity to aid recovery. Patient Instructions - Avoid heavy lifting to prevent hernia complications. - Continue current medications for hypercholesterolemia and GERD. - Take trazodone as needed for anxiety and sleep. - Stay hydrated and engage in light physical activity post-surgery. - Follow up with the surgeon postoperatively.
[2024-11-16 09:27] VITALS: BP 120/60; PULSE 64; TEMP 36.2; O2SAT 98; BMI 19.8
--- OUTSIDE RECORDS SUMMARY | 2024-11-16 09:36 | XMS_ITS | Patient Health Record ---
Author Organization [facility] Address [address] [place] [address] Care Team Providers Care Welding Instructor Name Role Phone Shell Eaton MD Primary Care Provider Sonu Chauhan Jr Unavailable Allergies No Known Allergies Results Component Value Reference Range Notes FL barium enema w air contra st Reviewed date:09/17/2024 08:35:13 AM Interpretation: Performing Lab: Notes/Report: [facility] [address] [place] [address] Fluoroscopy Report Signed Patient: Antonio Terrazas MR#: [id number] : 1965 Acct:[id number] Age/Sex: 58 / M ADM Date: 09/14/24 Loc: HO.SSS Attending Dr: Sonu Her MD Ordering Physician: Sonu Her MD Date of Service: 09/14/24 Procedure(s): FL barium enema w air contrast Accession Number(s): [id number] cc: Sonu Her MD; Shell Eaton MD EXAMINATION: XR BARIUM ENEMA WITH AIR CLINICAL INFORMATION: Diverticulosis. Failed colonoscopy. CT abdomen and pelvis with contrast 07/07/2024. COMPARISON: CT abdomen and pelvis 07/07/2024. TECHNIQUE: Calibration Technician images of abdomen were obtained. Subsequently a balloon inflated rectal catheter was placed and retrograde thick barium was administered under fluoroscopy. FINDINGS: Calibration Technician images reveal moderate gas in the colon [...] 09/14/24 1632 DD/ 1112 TD/TT: 09/14/24 1523 [employer] Remover: [facility] [place] Reviewed date:09/14/2024 02:39:12 PM Interpretation: Performing Lab: Notes/Report: [address] [address] XRay Report Signed Patient: Antonio Terrazas MR#: [id number] : 1965 Acct:[id number] Age/Sex: 58 / M ADM Date: 09/14/24 Loc: [facility] Attending Dr: Sonu Her MD Ordering Physician: Sonu Her MD Date of Service: 09/14/24 Procedure(s): XR KUB Accession Number(s): [id number] cc: Sonu Her MD; Shell Eaton MD [...] 09/14/24 1212 DD/ 1140 TD/TT: 09/14/24 1145 [employer] Remover: Reason For Referral No Information Medications Medication [...] Problem Status W/U Status Risk Notes Problem 66187044 Epigastric pain (R10.13) Active confirmed Problem Diverticular disease of colon (339996474) Diverticulosis (K57.90) Active confirmed Problem 502811839 Abnormal finding s in stool (R19.5) Active confirmed Problem 807164188 Abnormal CT scan , colon (R93.3) Active confirmed Problem 042308038 Gastroesophageal reflux disease, unspecified whether esophagitis present (K21.9) Active confirmed Problem Chronic GERD (K21.9) Active confirmed Vital Signs Temperature 98.2 degrees Fahrenheit 07/16/2024 Blood pressure diastolic 01 mm Hg 07/16/2024 Height 71 in 07/16/2024 Blood pressure systolic 001 mm Hg 07/16/2024 Weight 150 lbs 07/16/2024 BMI 20.92 kg/m2 07/16/2024 Encounters Encounter Location Date Provider Diagnosis [facility] Outpatient [address] [place] [phone] 09/14/2024 Sonu Her Jr Diverticular disease K57.90 and Abnormal colonoscopy R93.3 [facility] [address] [place] [address] 07/16/2024 Sonu Arden Jr Diverticulosis K57.[address] scan, colon R93.3 [facility] [address] [place], [place] [address] 06/07/2024 Sonu Her Jr [facility] [address] [place], [place] [address] 06/25/2024 Sonu Her Jr [facility] [address] [place], [place] [address] 07/10/2024 Sonu Her Jr [facility] [address] [place], [place] [address] 08/07/2024 Sonu Her Jr [facility] [address] [place], [place] [address] 09/17/2024 Sonu Her Jr Assessments Encounter Date [...] Nathanael luz , 01/18/2025 10:20:00 AM, [address], [address], [place], [address], Insurance Providers Payer Name Payer Address Payer Phone Subscriber Number Group Number Insured Name Patient Relationship to Insured Coverage Start Date Coverage End Date [employer] [place] [address] [place] [phone] [id number] ANTONIO TERRAZAS Self - patient is the insured Medical (General) History Medical History History ICD Code Gastroesophageal reflux disease Anxiety Colonoscopy 06/19/21, exam to 30 cm, thompson um enema normal, ten-year followup Hyperlipidemia Anal fistula Surgical History Surgery Date(Month/Year) appendicitis 1979 Hospitalization History Reason Date(Month/Year) diverticulitis 04/2021
== END 2024-11-16 10:20 | disposition home or self-care (01) ==
LOC: HO.HMCH 09:23
PROVIDERS: PCP Internal Medicine; Visit Provider Internal Medicine
DX: K57.90 Diverticulosis of intestine, part unspecified, without perforation or abscess without bleeding (principal); K21.9 Gastro-esophageal reflux disease without esophagitis; N40.1 Benign prostatic hyperplasia with lower urinary tract symptoms; R39.12 Poor urinary stream; F41.1 Generalized anxiety disorder; E78.00 Pure hypercholesterolemia, unspecified

== ENCOUNTER 2024-11-22 05:53 | Inpatient (IN) | payer OTHER, SELFPAY ==
[2024-11-15 11:59] VITALS: BMI 19.5
[2024-11-15 12:05] VITALS: BP 107/80; PULSE 72; RESP 20; O2SAT 97
--- NOTE | 2024-11-15 12:12 | HO.ANESPROP2 ---
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 Pt denies previous ETOH abuse and none recently d/t divertic ds PMFSH Active Problems Active Problems: All Active Problems Urine frequency (Acute) Colonic fistula (Acute) Paraumbilical hernia (Acute) Left inguinal hernia (Acute) BPH (benign prostatic hyperplasia) (Acute) Mural thickening of colon (Acute) Anorectal pain (Acute) Mild anemia (Acute) Osteoarthritis of right wrist (Acute) Right wrist pain (Acute) Painful arc syndrome of left shoulder (Acute) Calcific tendinitis of left shoulder (Acute) Thrombosed external hemorrhoid (Acute) Constipation (Acute) Neck pain (Acute) Insomnia (Acute) Upper respiratory tract infection (Acute) Shoulder pain, left (Acute) Generalized anxiety disorder (Acute) Anal fistula (Acute) Abdominal pain (Acute) Tonsillitis (Acute) Lump of skin (Acute) Contact dermatitis (Acute) Annual physical exam (Acute) Hematuria (Acute) Diverticulitis (Acute) Shoulder pain (Acute) GERD (gastroesophageal reflux disease) (Acute) Anxiety (Acute) Hypercholesterolemia (Acute) Past Medical History Medical History Osteoarthritis Mild anemia Anal fistula Hx of sigmoidoscopy Diverticulitis Perirectal abscess Hematuria Shoulder pain Alcohol abuse Vitamin D deficiency Anxiety Hypercholesterolemia Family History Family History Father Diabetes Hypertension Mother No problems noted. Paternal Grandfather Substance abuse Maternal Grandfather Substance abuse Family history of problems with anesthesia: No Surgical History Surgical History History of open reduction and internal fixation (ORIF) procedure History of rectal surgery History of colonoscopy H/O wrist surgery History of eye surgery History of appendectomy (~1979) History of Problems with Anesthesia: No Social History Social History Household Members: Spouse Housing: House Are you a primary managed care manager to a significant other at home: No Do you presently have visiting nurse or other home services: No Alcohol intake: current Alcohol intake frequency: does not drink Comment: advised of trip hazard Patient Tobacco Use Status: Former Tobacco user Tobacco use type: Cigarette Years Smoked: 18 e-Cigarette/Vaping Use: Never Used Second Hand Smoke Exposure: Yes Use of substances other than those prescribed or required for medical reasons: Yes Substance Use Type: Marijuana Substance Use Type Other:: smokes & edibles occasionally Substance Use Frequency: Occasionally Have you been hit, kicked, punched, or otherwise hurt by someone within the past year? 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) Cognitive needs: No Hearing needs: No Vision needs: Yes (Glasses) Meds Allergies Allergy/AdvReac Type Severity Reaction Status Date / Time No Known Allergies (No Known Allergy Verified 11/22/24 06:02 Allergies*) Home Medications ?Medication ?Instructions ?Recorded ?Confirmed ?Last Taken ?Type acetaminophen 500 mg tablet 1,000 mg PO Q6H PRN Pain 11/15/24 11/16/24 Unknown History docusate sodium 100 mg capsule 100 mg PO DAILY 11/15/24 11/16/24 11/19/24 History (Colace) Exam Height,Weight and Vital Signs: Height 5 ft 11 in Weight 63.503 kg Last Vital Signs Pulse 72 11/15/24 12:05 Resp 20 11/15/24 12:05 BP 107/80 11/15/24 12:05 Pulse Ox 97 11/15/24 12:05 O2 Del Method Room Air 11/15/24 12:05 Pertinent Lab Results Pertinent Lab Results: Laboratory Tests 11/05/24 06:31 WBC 7.4 Hgb 13.8 L Hct 43.2 Plt Count 430 H D Sodium 143 Potassium 3.9 Chloride 107 Carbon Dioxide 29 BUN 22 H Creatinine 0.91 Lab Results 11/15/24 Range/Units 12:42 Blood Type A Negative Antibody Screen NEGATIVE Narrative Narrative: EKG 10/2024 Vent. Rate : 70 BPM Atrial Rate : 70 BPM P-R Int : 166 ms QRS Dur : 92 ms QT Int : 434 ms P-R-T Axes : 61 13 22 degrees QTcB Int : 468 ms Normal sinus rhythm Normal ECG When compared with ECG of 16-Feb-2020 20:23, No significant change was found Airway Mallampati Class: I TM Dist: >3cm Neck ROM: Full Loose/Missing/Broken Teeth: No (8&9 bonded) Heart: RRR Lungs: CTAB Assessment and Plan Assessment Anesthesia Assessment: Anesthesia Plan Discussed and PAT Visit Final Anesthetic Review Family History of Problems with Anesthesia: No History of Problems with Anesthesia: No Documented by User: Raza Stanton MD 11/22/24 07:20 PMFSH Past Medical History Medical History Osteoarthritis Mild anemia Anal fistula Hx of sigmoidoscopy Diverticulitis Perirectal abscess Hematuria Shoulder pain Alcohol abuse Vitamin D deficiency Anxiety Hypercholesterolemia Functional capacity: independent ambulation Family History Family History Father Diabetes Hypertension Mother No problems noted. Paternal Grandfather Substance abuse Maternal Grandfather Substance abuse Surgical History Surgical History History of open reduction and internal fixation (ORIF) procedure History of rectal surgery History of colonoscopy H/O wrist surgery History of eye surgery History of appendectomy (~1979) Social History Social History Household Members: Spouse Housing: House Are you a primary managed care manager to a significant other at home: No Do you presently have visiting nurse or other home services: No Alcohol intake: current Alcohol intake frequency: does not drink Comment: advised of trip hazard Patient Tobacco Use Status: Former Tobacco user Tobacco use type: Cigarette Years Smoked: 18 e-Cigarette/Vaping Use: Never Used Second Hand Smoke Exposure: Yes Use of substances other than those prescribed or required for medical reasons: Yes Substance Use Type: Marijuana Substance Use Type Other:: smokes & edibles occasionally Substance Use Frequency: Occasionally Have you been hit, kicked, punched, or otherwise hurt by someone within the past year? 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) Cognitive needs: No Hearing needs: No Vision needs: Yes (Glasses) Meds Allergies Allergy/AdvReac Type Severity Reaction Status Date / Time No Known Allergies (No Known Allergy Verified 11/22/24 06:02 Allergies*) Home Medications ?Medication ?Instructions ?Recorded ?Confirmed ?Last Taken ?Type acetaminophen 500 mg tablet 1,000 mg PO Q6H PRN Pain 11/15/24 11/16/24 Unknown History docusate sodium 100 mg capsule 100 mg PO DAILY 11/15/24 11/16/24 11/19/24 History (Colace) Exam Exam Date and Time: 11/22/24 Assessment and Plan Final Anesthetic Review NPO: Yes ASA Class: II Final Preanesthetic Review: No Changes in Pt Med Stat, Meds/Allgs Chart Reviewed, Consent Obtained/Reviewed and Anes Risks/Benef Reviewed Patient Risk: Intermediate Procedure Risk: Intermediate Anesthetic Plan Anesthetic Plan: GA, Regional Block and Agree w/ Assess. and Plan Disposition: Standard PACU
[2024-11-22] VITALS (16 sets, daily range): BP systolic 111–182; BP diastolic 78–93; PULSE 66–76; RESP 13–20; TEMP 36.1–37.1; O2SAT 98–100; BMI 19.7
--- OUTSIDE RECORDS SUMMARY | 2024-11-22 06:15 | XMS_ITS | Patient Health Record ---
Author Organization [facility] Address [address] [place] [address] Care Team Providers Care Diesel Scoop Operator Name Role Phone Shell Eaton MD Primary Care Provider Sonu Chauhan Jr Unavailable Allergies No Known Allergies Results Component Value Reference Range Notes FL barium enema w air contra st Reviewed date:09/17/2024 08:35:13 AM Interpretation: Performing Lab: Notes/Report: [facility] [address] [place] [address] Fluoroscopy Report Signed Patient: Antonio Terrazas MR#: [id number] : 1965 Acct:[id number] Age/Sex: 58 / M ADM Date: 09/14/24 Loc: HO.SSS Attending Dr: Sonu Her MD Ordering Physician: Sonu Her MD Date of Service: 09/14/24 Procedure(s): FL barium enema w air contrast Accession Number(s): [id number] cc: Sonu Her MD; Shell Eaton MD EXAMINATION: XR BARIUM ENEMA WITH AIR CLINICAL INFORMATION: Diverticulosis. Failed colonoscopy. CT abdomen and pelvis with contrast 07/07/2024. COMPARISON: CT abdomen and pelvis 07/07/2024. TECHNIQUE: Implant Polisher images of abdomen were obtained. Subsequently a balloon inflated rectal catheter was placed and retrograde thick barium was administered under fluoroscopy. FINDINGS: Implant Polisher images reveal moderate gas in the colon [...] 09/14/24 1632 DD/ 1112 TD/TT: 09/14/24 1523 Pipe Line Repairer: [facility] XR KUB Reviewed date:09/14/2024 02:39:12 PM Interpretation: Performing Lab: Notes/Report: [address] [address] XRay Report Signed Patient: Antonio Terrazas MR#: [id number] : 1965 Acct:[id number] Age/Sex: 58 / M ADM Date: 09/14/24 Loc: [facility] Attending Dr: Sonu Her MD Ordering Physician: Sonu Her MD Date of Service: 09/14/24 Procedure(s): XR KUB Accession Number(s): [id number] cc: Sonu Her MD; Shell Eaton MD [...] 09/14/24 1212 DD/ 1140 TD/TT: 09/14/24 1145 Pipe Line Repairer: Reason For Referral No Information Medications Medication [...] Problem Status W/U Status Risk Notes Problem 65020824 Epigastric pain (R10.13) Active confirmed Problem Diverticular disease of colon (236839273) Diverticulosis (K57.90) Active confirmed Problem 061878443 Abnormal finding s in stool (R19.5) Active confirmed Problem 797598773 Abnormal CT scan , colon (R93.3) Active confirmed Problem 606945376 Gastroesophageal reflux disease, unspecified whether esophagitis present (K21.9) Active confirmed Problem Chronic GERD (K21.9) Active confirmed Vital Signs Temperature 98.2 degrees Fahrenheit 07/16/2024 Blood pressure diastolic 01 mm Hg 07/16/2024 Height 71 in 07/16/2024 Blood pressure systolic 001 mm Hg 07/16/2024 Weight 150 lbs 07/16/2024 BMI 20.92 kg/m2 07/16/2024 Encounters Encounter Location Date Provider Diagnosis [facility] Outpatient [address] [place] [phone] 09/14/2024 Sonu Her Jr Diverticular disease K57.90 and Abnormal colonoscopy R93.3 [facility] [address] [place] [address] 07/16/2024 Sonu Arden Jr Diverticulosis K57.[address] scan, colon R93.3 [facility] [address] [place], [place] [address] 06/07/2024 Sonu Her Jr [facility] [address] [place], [place] [address] 06/25/2024 Sonu Her Jr [facility] [address] [place], [place] [address] 07/10/2024 Sonu Her Jr [facility] [address] [place], [place] [address] 08/07/2024 Sonu Her Jr [facility] [address] [place], [place] [address] 09/17/2024 Sonu Her Jr Assessments Encounter Date [...] Nathanael luz , 01/18/2025 10:20:00 AM, [address] [facility], [address], [place], [address], Insurance Providers Payer Name Payer Address Payer Phone Subscriber Number Group Number Insured Name Patient Relationship to Insured Coverage Start Date Coverage End Date [employer] [address] [place] [phone] [id number] ANTONIO TERRAZAS Self - patient is the insured Medical (General) History Medical History History ICD Code Gastroesophageal reflux disease Anxiety Colonoscopy 06/19/21, exam to 30 cm, thompson um enema normal, ten-year followup Hyperlipidemia Anal fistula Surgical History Surgery Date(Month/Year) appendicitis 1979 Hospitalization History Reason Date(Month/Year) diverticulitis 04/2021
[2024-11-22] MEDS: Lactated Ringers 1,000 ML 100 ML IVCONT (06:31)
--- NOTE | 2024-11-22 07:08 | PHA.MEDREC ---
Pharmacy Consult ? Medication Reconciliation Pharmacy has reviewed the medication reconciliation done by nursing staff.
--- NOTE | 2024-11-22 07:27 | MHC.SHP ---
Pre-Procedural Eval Section A - 24 Hr Update-Section A only Date of Service: 11/22/24 The patient is an INPATIENT: No Changes since office visit: Yes Patient answered all questions; No Cold of Flu in the past 2 weeks, No New Medical Problems and No Changes in Medication The patient has been examined within 24 hours of the surgical procedure. The History & Physical has been completed within 30 days and I have reviewed it.: Yes Section B - Complete if H&P > 30 days Chief Complaint: Colorectal fistuls, sigmoid colon Allergies: Allergies Allergy/AdvReac Type Severity Reaction Status Date / Time No Known Allergies (No Known Allergy Verified 11/22/24 06:02 Allergies*) Plan Diagnosis/Plan: Unchanged I have reviewed the history and physical and performed a pertinent physical examination on my patient. No changes have occurred unless specified. Time Spent With Patient Time: Total time managing care of this patient today ____ minutes.
[2024-11-22] MEDS: cefoTEtan disodium 2 GM VIAL IVPUSH (07:54)
--- NOTE | 2024-11-22 12:39 | P.OP_ITS ---
Operative Note Operative Note Date of Service: 11/22/24 Narrative: Preoperative diagnosis: Colorectal fistula Postoperative diagnosis: Same Procedure: Hand assisted laparoscopic sigmoid colectomy and low anterior resection with colorectal anastomosis Surgeon: Vicente Stearns MD Geophysical Drafter: Eugenia Hui MD, Sammie Jacobs PA-C Anesthesia: General endotracheal plus tap block Indications for procedure: 59-year-old male patient presenting with recurring perirectal abscess collections requiring drainage found on a recent CT to have an apparent sigmoid the sigmoid fistula as well as 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 He presents today for hand assisted laparoscopic sigmoid colectomy. Operative findings: Multiple fistula connections noted between sigmoid colon as well as between sigmoid colon and rectum. Specimen: Rectosigmoid colon Estimated blood loss: 50 mL Complications: None Procedure details: Patient was brought to the OR and placed in a supine position. After administering general anesthesia the patient was placed in a lithotomy position. Surgical time-out was called the consent confirmed. A Velasco catheter was inserted. The perineum was prepped with Betadine and abdomen prepped with ChloraPrep and draped in a sterile fashion. A low midline incision was then created with a scalpel and carried out through subcutaneous tissue, past linea alba into the peritoneum. Some mild adhesions were taken down in the right lower quadrant using electrocautery. A hand port was then inserted in the abdomen insufflated to a pressure 15 mmHg. A 12 mm trocar was then placed in the upper midline and a 5 mm trocar placed in the left upper quadrant. The patient was placed in a Trendelenburg position and rotated to the right. Sigmoid colon was noted to be densely adherent to the left pelvic wall. Disse ction along the white line of Toldt was then performed using LigaSure to dissect along the descending colon up to the splenic flexure. The splenic flexure was then fully mobilized. Attention was then directed to the densely adherent sigmoid colon. Multiple fistulas were identified and gradually freed from the surrounding peritoneum in the pelvis using LigaSure dissection. This was tedious dissection because of the multiple loops of sigmoid colon which were densely adherent possibly due to diverticular disease. After a prolonged dissection the proximal sigmoid colon was mobilized. A proximal line of resection was then determined in the mesentery divided using the LigaSure. A ANDREA stapler was then used to divide the bowel at this location. LigaSure was then used to divide the mesentery below the sigmoid colon. As dissection continued distally a 2nd area of fistula formation was noted to the rectum this was gradually taken down using the LigaSure as well. The dissection was then continued along the pelvic hollows using blunt dissection. Pelvic connections and vessels were then ligated using LigaSure and free ties of 3-0 Polysorb. As the dissection was continued down distally the area of rectal fistula was identified and included in the resection. The mesentery was divided using LigaSure. A curved linear stapler was then used to divide the bowel below this fistula formation. The bowel was then removed and sent to pathology for further examination. Attention was then directed to the descending colon. Pursestring was applied using the pursestring clamp. The bowel was divided above the clamp and the clamp removed. Serial dilations were then performed using the EEA sizers. It was decided use a 28 EEA. The anvil was inserted in the pursestring tied off. Attention was then directed to the rectal stump which was dilated. Upon dilatation a transmural defect was identified below the staple line. This was just at the peritoneal reflection. The decision was made to dissect further down along the peritoneal reflection to include this area of defect. Several firings of the EEA stapler were required in the surrounding bowel was noted to be somewhat thickened due to the surrounding fistula formation. This remaining segment of bowel was placed with the other specimen and sent to pathology. The anorectum was then sized to a 28. The EEA stapler was then inserted and the spike brought out through the rectal stump. This was then connected to the anvil in the stapler fired. Three Surgilon sutures were then placed in a Lembert fashion to reinforce the anastomosis. The stapler was removed and 2 complete donuts were identified. A leak test was performed by filling the pelvis with saline solution and instilling air into the rectum. The rectum was noted to be dilated and no leak could be identified. Wounds were then irrigated with saline solution and suctioned dry. Wounds were checked for hemostasis. All trocars and retractors were now removed. Fascia was closed in the midline incision using a running 0 PDS looped suture. The 12 mm trocar site fascia was closed using a [id number] 0 Polysorb suture. All skin incision were closed using skin alma rosa. Sterile dressings were then applied. The patient tolerated the procedure well. Sponge, instrument, and needle counts were reported as correct. The patient was transferred to PACU in stable condition.
[2024-11-22] MEDS: Dextrose 5 % and Lactated Ring 1,000 ML 125 ML IVCONT ×2 (14:56→21:56)
[2024-11-23] VITALS (7 sets, daily range): BP systolic 130–147; BP diastolic 80–89; PULSE 58–72; RESP 16–18; TEMP 36.2–37.2; O2SAT 97–99; BMI 19.7
[2024-11-23] MEDS: Dextrose 5 % and Lactated Ring 1,000 ML 125 ML IVCONT ×2 (05:22→13:36)
[2024-11-23] MEDS: oxyCODONE HCl Immed Release 5 MG TABLET PO ×3 (05:25→22:22)
--- NOTE | 2024-11-23 06:53 | PC.NURSE ---
Pt ambulated in fuller x2 around the floor with walker. mid abdomen dsg has old stain , using inspr. with enc. up to 1999 .
--- NOTE | 2024-11-23 07:56 | PM.PNGS ---
Subjective Subjective Date of Service: 11/23/24 <Sammie Jacosb PA-C - Last Filed: 11/23/24 08:00> 11/23/24 <Vicente Stearns MD - Last Filed: 11/23/24 15:30> Interval history: Feels ok this morning, sore at midline incision. C/o irritation at catheter site and would like it out. Denies nausea or flatus. <Sammie Jacobs PA-C - Last Filed: 11/23/24 08:00> Physical Exam Vital Signs: Vital Signs: Last Vital Signs Temp 97.6 F 11/23/24 02:59 Pulse 71 11/23/24 02:59 Resp 18 11/23/24 02:59 BP 130/89 11/23/24 02:59 Pulse Ox 98 11/23/24 02:59 O2 Del Method Room Air 11/23/24 02:59 O2 Flow Rate 2 11/22/24 14:20 BMI result Body Mass Index 19.7 <Sammie Jacobs PA-C - Last Filed: 11/23/24 08:00> Const: General: comfortable, no acute distress and alert <Sammie Jacobs PA-C - Last Filed: 11/23/24 08:00> Orientation/consciousness: patient oriented x3 <NARCISO Quiroz Last Filed: 11/23/24 08:00> Resp: Effort & Inspection: normal respiratory effort <NARCISO Quiroz Last Filed: 11/23/24 08:00> GI: Inspection: No distended and Yes incision (some staining at inferior edge of midline incision) <Sammie Jacobs PA-C - Last Filed: 11/23/24 08:00> Palpation (GI): Soft to palpation, Tenderness to palpation present (GI) (mild incisional) and no guarding <NARCISO Quiroz Last Filed: 11/23/24 08:00> Skin: General skin exam: no rashes or lesions noted <NARCISO Quiroz Last Filed: 11/23/24 08:00> Neuro: General: patient oriented x3 and moves all extremities <NARCISO Quiroz Filed: 11/23/24 08:00> Objective Data Active Medications Hydromorphone HCl (Hydromorphone Hcl 0.5 Mg/0.5 Ml Syringe) 0.5 mg IVPUSH Q3H PRN; Protocol PRN Reason: Pain, Severe (Pain Scale 7-10) Last Admin: 11/23/24 06:07 Dose: 0.5 mg Documented By: CARMELO Acetaminophen (Ofirmev) 1,000 mg in 100 mls @ 400 mls/hr IV Q6H PRN PRN Reason: Pain, Mild (Pain Scale 1-3) Last Infusion: 11/22/24 23:47 Dose: Infused Documented By: CARMELO Dextrose/Lactated Ringer's (D5lr) 1,000 mls @ 125 mls/hr IVCONT .Q8H KIRA Last Admin: 11/23/24 05:22 Dose: 125 mls/hr Documented By: CARMELO Lidocaine HCl (Lidocaine Hcl 2 % Jelly 6 Ml Jel.Pf.Dequan) 1 appl TOPICAL TID PRN; Protocol PRN Reason: catheter irritation Naloxone HCl (Naloxone Hcl 0.4 Mg/Ml Vial) 0.04 mg IVPUSH Q5M PRN PRN Reason: Excessive sedation or RR < 8 Ondansetron HCl (Ondansetron Hcl 4 Mg/2 Ml Vial) 4 mg IVPUSH QID PRN PRN Reason: Nausea Oxycodone HCl (Oxycodone Hcl Immed Release 5 Mg Tablet) 5 mg PO Q6H PRN PRN Reason: Pain, Moderate(Pain Scale 4-6) Last Admin: 11/23/24 05:25 Dose: 5 mg Documented By: CARMELO Phenazopyridine HCl (Phenazopyridine Hcl 200 Mg Tablet) 200 mg PO TID PRN PRN Reason: catheter irritation Stop: 11/24/24 17:01 Last Admin: 11/22/24 17:46 Dose: 200 mg Documented By: VERONICA Sodium Chloride (0.9 % Sodium Chloride Flush 3 Ml Syringe) 3 ml IVFLUSH [facility] Last Admin: 11/23/24 07:10 Dose: Not Given Documented By: VERONICA Non-Admin Reason: IV Running Trazodone HCl (Trazodone Hcl 50 Mg Tablet) 50 mg PO BEDTIME PRN PRN Reason: Sleep <Sammie Jacobs PA-C - Last Filed: 11/23/24 08:00> Labs CBC & Chem 7: 11/23/24 08:29 11/23/24 08:28 <Sammie Jacobs PA-C - Last Filed: 11/23/24 08:00> Procedures Date of Service Date of Service: 11/23/24 <Sammie Jacobs PA-C - Last Filed: 11/23/24 08:00> 11/23/24 <Vicente Stearns MD - Last Filed: 11/23/24 15:30> Progress Note: A&P Assessment and plan (1) S/P colon resection: Status: Acute <Sammie Jacobs PA-C - Last Filed: 11/23/24 08:00> Assessment and Plan: POD #1 s/p hand assisted laparoscopic sigmoid colectomy and low anterior resection with colorectal anastomosis for colorectal fistula. Doing well post op, tolerating clears, no evidence of GI function yet. VSS. Abd exam overall benign with appropriate post op tenderness. Good UOP, clear. Dc ortiz, dec IVF. Continue clear liquids for now. Increase activity and ambulation. Await GI function. Pain control. Patient comfortable with plan. Await AM labs. Await pathology. <Sammie Jacobs PA-C - Last Filed: 11/23/24 08:00> POD #1 s/p hand assisted laparoscopic sigmoid colectomy and low anterior resection with colorectal anastomosis for colorectal fistula. Doing well post op, tolerating clears, no evidence of GI function yet. VSS. Abd exam overall benign with appropriate post op tenderness. Good UOP, clear. Dc ortiz, dec IVF. Continue clear liquids for now. Increase activity and ambulation. Await GI function. Pain control. Patient comfortable with plan. Await AM labs. Await pathology. Agree with the above assessment and plan. Re-examined this afternoon the patient is much more comfortable. He tolerated removal of the Ortiz catheter and has been passing clear urine. He took some clear liquids but is not very hungry at this time. Continue clear liquids. Ambulation and incentive spirometry encouraged. <Vicente Stearns MD - Last Filed: 11/23/24 15:30> Time Spent With Patient Time: Total time managing care of this patient today ____ minutes. <Sammie Jacobs PA-C - Last Filed: 11/23/24 08:00> Quality Stroke Does the patient have a stroke diagnosis?: No <Sammie Jacobs PA-C - Last Filed: 11/23/24 08:00> VTE Prior VTE?: No <Sammie Jacobs PA-C - Last Filed: 11/23/24 08:00> VTE Risk Level:: Surgical - low <Sammie Jacobs PA-C - Last Filed: 11/23/24 08:00> VTE Device Contraindication: N/A - Device Ordered <Sammie Jacobs PA-C - Last Filed: 11/23/24 08:00> VTE Drug Contraindication: Treatment Not Indicated <Sammie Jacobs PA-C - Last Filed: 11/23/24 08:00>
--- NOTE | 2024-11-23 08:20 | HO.POSTANES ---
Post Anesthesia Evaluation Post Anesthesia Evaluation Date of Service: 11/23/24 Vital Signs: Vital Signs Temp Pulse Resp BP Pulse Ox O2 Del Method 11/23/24 08:17 97.5 F 62 18 137/85 98 Room Air 11/23/24 02:59 97.6 F 71 18 130/89 98 Room Air 11/22/24 22:00 97.3 F 66 18 148/86 H 99 Room Air Anesthesia: Nerve Block and General Mental Status: Awake Pain Control: Satisfactory Nausea/Vomiting: None Hydration: Adequate Anesthesia-Related Issues: No Anes. Related Issues
[2024-11-23 08:43] LABS: MANUAL DIFF FLAG NO
[2024-11-23 08:51] LABS: Hematocrit 36.0 % (42.0-52.0); Hemoglobin 11.8 g/dl (14.0-18.0); Imm Gran Abs Auto 0.03 X10*3/uL (0.00-0.03); Imm Gran Pct Auto 0.3 % (0.0-0.4); Lymphocytes Absolute Auto 1.0 X10*3/uL (1.2-4.9); Mean Corpuscular HGB Conc 32.8 g/dl (31.0-36.0); Mean Corpuscular Hemoglobin 28.9 pg (27.0-33.0); Mean Corpuscular Volume 88.2 fL (80.0-98.0); NRBC Abs Auto 0.000 X10*3/uL (0.0-0.012); NRBC Pct Auto 0.0 /100WBC (0.0-0.2); Platelet Count 183 X10*3/uL (160-400); Red Blood Count 4.08 X10*6/uL (4.60-5.80); White Blood Count 9.0 X10*3/uL (4.8-10.8)
[2024-11-23 09:17] LABS: Anion Gap 13 (12-20); Blood Urea Nitrogen 14 mg/dL (9-16); Calcium 8.5 mg/dL (8.4-10.2); Carbon Dioxide 23 mmol/L (22-29); Chloride 109 mmol/L (96-108); Creatinine Clr Calc Pharmacy 101.5; Estimated Glomerular Filt Rate > 60; Potassium 3.4 mmol/L (3.3-5.1); Sodium 142 mmol/L (135-145)
--- NOTE | 2024-11-23 11:21 | MHC.CLN ---
NUTRITION CONSULT CLEAR LIQUID DIET. S/P COLON RESECTION. WEIGHT LOSS TREND X ONE YEAR. S/P COLON RESECTION DUE TO COLORECTAL FISTULA. BMI=19.7 AND WEIGHT IS 82% IBW. FOLLOW FOR DIET ADVANCEMENT. SEE CLINICAL NUTRITION ASSESSMENT 11/23/24.
--- NOTE | 2024-11-23 14:22 | MHC.CM.PN ---
Male 59ys DX Colorectal Fistula S/P colon resection Recent admit Lives with his He is independent with all functional mobility. No DME PCP DR Eaton DP Home with 's support. She will provide transportation home.
[2024-11-24] MEDS: Dextrose 5 % and Lactated Ring 1,000 ML 80 ML IVCONT ×3 (00:52→23:53)
[2024-11-24 02:25] VITALS: BP 158/89; PULSE 69; RESP 20
--- NOTE | 2024-11-24 03:05 | PC.NURSE ---
patient with diarrhea, refusing bed alarm out of fear of incontinence. patient educated on risks and safety precautions instituted by the hospital, and assured we can help clean him up if needed. continued to refuse.
[2024-11-24 05:36] VITALS: BP 132/92; PULSE 62; RESP 18; TEMP 36.7; O2SAT 99
--- NOTE | 2024-11-24 05:40 | PC.NURSE ---
Patient moved bowels this morning. Brown liquid stool. Reports pressure, distention and pain improved.
--- NOTE | 2024-11-24 08:35 | P.PNGS_ITS ---
Subjective Subjective Date of Service: 11/24/24 Interval history: Patient reports feeling cold this morning. Reports having a nonbloody bowel movement this morning. He did have some increased pain prior to this but does feel better after having a bowel movement and passing flatus. Still feeling queasy, not very hungry. Would like to stay on clear liquids for now. Physical Exam 2 Vital Signs: Vital Signs: Last Vital Signs Temp 98.0 F 11/24/24 05:36 Pulse 62 11/24/24 05:36 Resp 18 11/24/24 05:36 BP 132/92 H 11/24/24 05:36 Pulse Ox 99 11/24/24 05:36 O2 Del Method Room Air 11/24/24 05:36 O2 Flow Rate 2 11/22/24 14:20 BMI result Body Mass Index 19.7 Const: General: no acute distress Nutritional Appearance: thin O rientation/consciousness: patient oriented x3 Limitations: no limitations Resp: Effort & Inspection: normal respiratory effort, no audible wheezes, no cough and no respiratory distress GI: Other: Dressings changed, wound clean and intact without redness or discharge. Abdomen mildly distended with expected tenderness. Skin: Other: Warm, dry, no rash Neuro: General: patient oriented x3 Extrem: Other: No pedal edema Objective Data Active Medications Hydromorphone HCl (Hydromorphone Hcl 0.5 Mg/0.5 Ml Syringe) 0.5 mg IVPUSH Q3H PRN; Protocol PRN Reason: Pain, Severe (Pain Scale 7-10) Last Admin: 11/24/24 05:35 Dose: 0.5 mg Documented By: BRO Acetaminophen (Ofirmev) 1,000 mg in 100 mls @ 400 mls/hr IV Q6H PRN PRN Reason: Pain, Mild (Pain Scale 1-3) Last Infusion: 11/24/24 02:00 Dose: Infused Documented By: BRO Dextrose/Lactated Ringer's (D5lr) 1,000 mls @ 80 mls/hr IVCONT .[id number] KIRA Last Admin: 11/24/24 00:52 Dose: 80 mls/hr Documented By: BRO Lidocaine HCl (Lidocaine Hcl 2 % Jelly 6 Ml Jel.Pf.Dequan) 1 appl TOPICAL TID PRN; Protocol PRN Reason: catheter irritation Naloxone HCl (Naloxone Hcl 0.4 Mg/Ml Vial) 0.04 mg IVPUSH Q5M PRN PRN Reason: Excessive sedation or RR < 8 Ondansetron HCl (Ondansetron Hcl 4 Mg/2 Ml Vial) 4 mg IVPUSH QID PRN PRN Reason: Nausea Last Admin: 11/24/24 08:27 Dose: 4 mg Documented By: SKYLER Oxycodone HCl (Oxycodone Hcl Immed Release 5 Mg Tablet) 5 mg PO Q6H PRN PRN Reason: Pain, Moderate(Pain Scale 4-6) Last Admin: 11/23/24 22:22 Dose: 5 mg Documented By: DA Phenazopyridine HCl (Phenazopyridine Hcl 200 Mg Tablet) 200 mg PO TID PRN PRN Reason: catheter irritation Stop: 11/24/24 17:01 Last Admin: 11/22/24 17:46 Dose: 200 mg Documented By: VERONICA Sodium Chloride (0.9 % Sodium Chloride Flush 3 Ml Syringe) 3 ml IVFLUSH QSHIFT [facility] Last Admin: 11/24/24 00:48 Dose: Not Given Documented By: BRO Non-Admin Reason: IV Running Trazodone HCl (Trazodone Hcl 50 Mg Tablet) 50 mg PO BEDTIME PRN PRN Reason: Sleep Labs 11/23/24 08:29 11/23/24 08:28 Labs: Laboratory Results - last 24 hr 11/23/24 11/23/24 08:28 08:29 MCV 88.2 MCH 28.9 MCHC 32.8 RDW 13.7 Plt Count 183 D MPV 11.3 Immature Gran % (Auto) 0.3 Neut % (Auto) 82.7 H Lymph % (Auto) 10.6 L [place] % (Auto) 5.9 Eos % (Auto) 0.3 Baso % (Auto) 0.2 Lymph # (Auto) 1.0 L [place] # (Auto) 0.5 Eos # (Auto) 0.0 Baso # (Auto) 0.0 Abs Immat Gran (auto) 0.03 Absolute Neuts (auto) 7.5 Absolute Nucleated RBC 0.000 Nucleated RBC % (auto) 0.0 Anion Gap 13 Estim Creat Clear Calc 101.5 Estimated GFR > 60 Random Glucose 117 H Calcium 8.5 D Procedures Date of Service Date of Service: 11/24/24 Progress Note: A&P Assessment and plan (1) Diverticular disease: Status: Acute (2) S/P colon resection: Status: Acute Plan POD 2 following hand assisted converted to open sigmoid colectomy and low anterior resection for a colo colo and colorectal fistula due to diverticulitis. Patient is now passing liquid stool and flatus. Wounds are clean and intact. We will keep on clear liquids for now, advanced as tolerated. Patient encouraged to ambulate, continue incentive spirometry. Time Spent With Patient Time: Total time managing care of this patient today ____ minutes. Quality Stroke Does the patient have a stroke diagnosis?: No VTE Prior VTE?: No VTE Risk Level:: Surgical - low VTE Device Contraindication: N/A - Device Ordered VTE Drug Contraindication: Treatment Not Indicated
[2024-11-24] MEDS: 0.9 % Sodium Chloride Flush 3 ML SYRINGE IVFLUSH ×2 (09:35→19:53)
[2024-11-24] MEDS: oxyCODONE HCl Immed Release 5 MG TABLET PO (15:15)
[2024-11-24 15:28] VITALS: BP 138/89; PULSE 62; RESP 16; TEMP 37; O2SAT 95
[2024-11-24 23:30] VITALS: BP 134/88; PULSE 67; RESP 18; TEMP 36.6; O2SAT 96
[2024-11-25 03:56] VITALS: BP 122/75; PULSE 75; RESP 18; TEMP 36.6; O2SAT 98
[2024-11-25 08:14] VITALS: BP 119/84; PULSE 61; RESP 14; TEMP 36.8; O2SAT 98
--- NOTE | 2024-11-25 08:47 | PM.PNGS ---
Subjective Subjective Date of Service: 11/25/24 Interval history: Patient reports mild incisional discomfort. He is urinating well, urine is dark jean pierre color. He reports passing flatus but no bowel movement noted. Has been ambulating throughout the day. Physical Exam Vital Signs: Vital Signs: Last Vital Signs Temp 98.3 F 11/25/24 08:14 Pulse 61 11/25/24 08:14 Resp 14 11/25/24 08:14 BP 119/84 11/25/24 08:14 Pulse Ox 98 11/25/24 08:14 O2 Del Method Room Air 11/25/24 08:14 O2 Flow Rate 2 11/22/24 14:20 BMI result Body Mass Index 19.7 Const: General: no acute distress Nutritional Appearance: thin Orientation/consciousness: patient oriented x3 Limitations: no limitations Resp: Effort & Inspection: normal respiratory effort, no audible wheezes, no cough and no respiratory distress GI: Other: Dressings changed, wound clean and intact without redness or discharge. Abdomen mildly distended with expected tenderness. Skin: Other: Warm, dry, no rash Neuro: General: patient oriented x3 Extrem: Other: No pedal edema Objective Data Active Medications Hydromorphone HCl (Hydromorphone Hcl 0.5 Mg/0.5 Ml Syringe) 0.5 mg IVPUSH Q3H PRN; Protocol PRN Reason: Pain, Severe (Pain Scale 7-10) Last Admin: 11/25/24 06:01 Dose: 0.5 mg Documented By: PILLO Acetaminophen (Ofirmev) 1,000 mg in 100 mls @ 400 mls/hr IV Q6H PRN PRN Reason: Pain, Mild (Pain Scale 1-3) Last Admin: 11/25/24 08:26 Dose: 400 mls/hr Documented By: SKYLER Naloxone HCl (Naloxone Hcl 0.4 Mg/Ml Vial) 0.04 mg IVPUSH Q5M PRN PRN Reason: Excessive sedation or RR < 8 Ondansetron HCl (Ondansetron Hcl 4 Mg/2 Ml Vial) 4 mg IVPUSH QID PRN PRN Reason: Nausea Last Admin: 11/24/24 08:27 Dose: 4 mg Documented By: SKYLER Oxycodone HCl (Oxycodone Hcl Immed Release 5 Mg Tablet) 5 mg PO Q6H PRN PRN Reason: Pain, Moderate(Pain Scale 4-6) Last Admin: 11/24/24 15:15 Dose: 5 mg Documented By: SKYLER Sodium Chloride (0.9 % Sodium Chloride Flush 3 Ml Syringe) [facility] Last Admin: 11/25/24 08:25 Dose: Not Given Documented By: SKYLER Non-Admin Reason: IV Running Trazodone HCl (Trazodone Hcl 50 Mg Tablet) 50 mg PO BEDTIME PRN PRN Reason: Sleep Labs 11/23/24 08:29 11/23/24 08:28 Procedures Date of Service Date of Service: 11/25/24 Progress Note: A&P Assessment and plan (1) Diverticular disease: Status: Acute (2) S/P colon resection: Status: Acute Plan POD 3 following hand assisted converted to open sigmoid colectomy and low anterior resection for a colo-colon and colorectal fistula due to diverticulitis. Patient had liquid stool yesterday but today reports only passing flatus. Urine remains dark jean pierre in color. Incisions are clean and intact. Plan advance to regular diet today. Check urinalysis. Continue ambulation, incentive spirometry Time Spent With Patient Time: Total time managing care of this patient today ____ minutes. Quality Stroke Does the patient have a stroke diagnosis?: No VTE Prior VTE?: No VTE Risk Level:: Surgical - low VTE Device Contraindication: N/A - Device Ordered VTE Drug Contraindication: Treatment Not Indicated
[2024-11-25 10:11] LABS: Appearance Urine Cloudy; Glucose Urine UA Negative (Negative); PH 7.5 (5.0-9.0); Specific Gravity - Urine 1.020 (1.005-1.025); UMIC TRIGGER UACC YES
[2024-11-25 10:24] LABS: UACC Culture Trigger YES
[2024-11-25] MEDS: Sulfamethox/Trimeth 800/160 TABLET 1 TAB PO ×2 (11:17→19:43)
[2024-11-25 15:52] VITALS: BP 128/83; PULSE 68; RESP 14; TEMP 36.8; O2SAT 99
[2024-11-25] MEDS: 0.9 % Sodium Chloride Flush 3 ML SYRINGE IVFLUSH ×2 (15:52→19:43)
[2024-11-25 22:47] VITALS: RESP 18
[2024-11-26 03:39] VITALS: RESP 16
[2024-11-26 05:17] VITALS: BP 129/78; PULSE 56; RESP 18; TEMP 36.4; O2SAT 97
[2024-11-26 06:20] VITALS: RESP 19
[2024-11-26 06:49] VITALS: BP 147/80; PULSE 57; RESP 16; TEMP 36.6; O2SAT 98
--- NOTE | 2024-11-26 07:04 | PM.PNGS ---
Subjective Subjective Date of Service: 11/26/24 <[facility] Filed: 11/26/24 07:12> 11/26/24 <Sammie Jacobs PA-C - Last Filed: 11/26/24 08:01> Interval history: The patient is a 59 y/o M POD 4 s/p hand assisted converted to open sigmoid colectomy and lower anterior resection due to diverticulitis. Today, he is feeling well. He has not yet had a bowel movement but feels fullness in his lower abdomen. He has passed gas. He is worried about straining too hard when attempting a BM. He is tolerating solid diet w/o n/v. He is ambulating and using his spirometry device as recommended. He reports no chest pain, SOB, fever, or chills. <[facility] Filed: 11/26/24 07:12> Physical Exam Vital Signs: Vital Signs: Last Vital Signs Temp 98 F 11/26/24 06:49 Pulse 57 11/26/24 06:49 Resp 16 11/26/24 06:49 BP 147/80 H 11/26/24 06:49 Pulse Ox 98 11/26/24 06:49 O2 Del Method Room Air 11/26/24 06:49 O2 Flow Rate 2 11/22/24 14:20 BMI result Body Mass Index 19.7 <[facility] Filed: 11/26/24 07:12> Const: General: cooperative, comfortable, no acute distress, alert and awake <[facility] Filed: 11/26/24 07:12> Orientation/consciousness: patient oriented x3 <[facility] Filed: 11/26/24 07:12> Resp: Effort & Inspection: normal respiratory effort <[facility] Filed: 11/26/24 07:12> Auscultation: clear to auscultation bilaterally, no crackles, no rales, no rhonchi, no wheezes and breath sounds present <[facility] Filed: 11/26/24 07:12> Cardio: Rate: regular rate <[facility] Filed: 11/26/24 07:12> Rhythm: regular rhythm <[facility] Filed: 11/26/24 07:12> Heart sounds: no click, no gallops, no murmurs and no rubs <[facility] Last Filed: 11/26/24 07:12> GI: Other: incisions clean appearing, alma rosa intact <Sammie Jacobs PA-C - Last Filed: 11/26/24 08:01> Inspection: Yes distended (very mild ) <Sammie Jacobs PA-C - Last Filed: 11/26/24 08:01> Palpation (GI): Soft to palpation and Tenderness to palpation present (GI) ( fullness to palpation) in the LLQ <[facility] - Last Filed: 11/26/24 07:12> Palpation (GI): no guarding <Sammie Jacobs PA-C - Last Filed: 11/26/24 08:01> Skin: Other: [address] without surround erythema. Largest dressing has some blood on the lower portion of it. <[facility] Last Filed: 11/26/24 07:12> Neuro: General: patient oriented x3 <[facility] Last Filed: 11/26/24 07:12> Objective Data Active Medications Hydromorphone HCl (Hydromorphone Hcl 0.5 Mg/0.5 Ml Syringe) 0.5 mg IVPUSH Q3H PRN; Protocol PRN Reason: Pain, Severe (Pain Scale 7-10) Last Admin: 11/26/24 06:20 Dose: 0.5 mg Documented By: LYNDA-CHANCE Acetaminophen (Ofirmev) 1,000 mg in 100 mls @ 400 mls/hr IV Q6H PRN PRN Reason: Pain, Mild (Pain Scale 1-3) Last Infusion: 11/26/24 01:13 Dose: Infused Documented By: LYNDA-CHNACE Naloxone HCl (Naloxone Hcl 0.4 Mg/Ml Vial) 0.04 mg IVPUSH Q5M PRN PRN Reason: Excessive sedation or RR < 8 Ondansetron HCl (Ondansetron Hcl 4 Mg/2 Ml Vial) 4 mg IVPUSH QID PRN PRN Reason: Nausea Last Admin: 11/24/24 08:27 Dose: 4 mg Documented By: SKYLER Oxycodone HCl (Oxycodone Hcl Immed Release 5 Mg Tablet) 5 mg PO Q6H PRN PRN Reason: Pain, Moderate(Pain Scale 4-6) Last Admin: 11/24/24 15:15 Dose: 5 mg Documented By: SKYLER Sodium Chloride (0.9 % Sodium Chloride Flush 3 Ml Syringe) 3 ml IVFLUSH QSHIFT [facility] Last Admin: 11/25/24 19:43 Dose: 3 ml Documented By: SILVESTRE Trazodone HCl (Trazodone Hcl 50 Mg Tablet) 50 mg PO BEDTIME PRN PRN Reason: Sleep Trimethoprim/Sulfamethoxazole (Sulfamethox/Trimeth 800/160 Tablet) 1 tab PO BID [facility] Last Admin: 11/25/24 19:43 Dose: 1 tab Documented By: SILVESTRE <[facility] - Last Filed: 11/26/24 07:12> Labs CBC & Chem 7: 11/23/24 08:29 11/23/24 08:28 <[facility] Last Filed: 11/26/24 07:12> Labs: Laboratory Results - last 24 hr 11/25/24 09:49 Urine Color Dark Yellow Urine Appearance Cloudy Urine pH 7.5 Ur Specific [place] 1.020 Urine Protein 30 (1+) H Urine Glucose (UA) Negative Urine Ketones Negative Urine Blood Large (3+) H Urine Nitrite Positive H Ur Leukocyte Esterase Small (1+) H Urine RBC >20 H Urine WBC 11-20 H Ur Squamous Epith Cells 0-2 Urine Bacteria None Seen Hyaline Casts 0-2 <[facility] Last Filed: 11/26/24 07:12> Procedures Date of Service Date of Service: 11/26/24 <[facility] Last Filed: 11/26/24 07:12> 11/26/24 <Sammie Jacobs PA-C - Last Filed: 11/26/24 08:01> Progress Note: A&P Assessment and plan (1) Colonic fistula: Status: Acute <[facility] Last Filed: 11/26/24 07:12> (2) S/P colon resection: Status: Acute <[facility] Last Filed: 11/26/24 07:12> Assessment and Plan: The patient is a 59 y/o M POD 4 s/p hand assisted converted to open sigmoid colectomy and lower anterior resection due to diverticulitis who is feeling better. 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 Plan Continue ambulating Continue spirometry 10x per hour Continue solid diet Monitor for BM Agree with above assessment and plan by Cristobal MS-3. He is doing well post op, pain well controlled and tolerating solid diet, awaiting BM at this point. He does c/o some urinary symptoms including urinary hesitancy, does note these symptoms preoperatively including nocturia but worsened post op. He reports he was told he had an enlarged prostate when he was seen by urology and had cystoscopy but had refused medication at that time. He was started on bactrim yesterday. We discussed his worsening of symptoms may be due to UTI, if no improvement in symptoms may benefit from finasteride initiation. Abd overall benign with clean incisions, soft, appropriate post op tenderness. Cont increasing activity, IS use. Stable for dc to home when has BM. <Sammie Jacobs PA-C - Last Filed: 11/26/24 08:01> Time Spent With Patient Time: Total time managing care of this patient today ____ minutes. <Yamilaradha Jain Last Filed: 11/26/24 07:12> Quality Stroke Does the patient have a stroke diagnosis?: No <Yamilaradha Hernandez Last Filed: 11/26/24 07:12> VTE Prior VTE?: No <[facility]ilaradha [facility]rickson[facility] Last Filed: 11/26/24 07:12> VTE Risk Level:: Surgical - low <[facility] - Last Filed: 11/26/24 07:12> VTE Device Contraindication: N/A - Device Ordered <Yamilaradha Hendricksonh Last Filed: 11/26/24 07:12> VTE Drug Contraindication: Treatment Not Indicated <[facility] Hendricksonh - Last Filed: 11/26/24 07:12>
[2024-11-26] MEDS: Sulfamethox/Trimeth 800/160 TABLET 1 TAB PO ×2 (08:03→21:29)
[2024-11-26] MEDS: 0.9 % Sodium Chloride Flush 3 ML SYRINGE IVFLUSH ×3 (08:04→21:32)
--- NOTE | 2024-11-26 11:01 | MHC.CLN ---
F/U DIET ADVANCED TO REGULAR 11/25. MOST RECENT PO INTAKE APPEARS GOOD. FOLLOW FOR PO INTAKE AND DIET TOLERANCE.
--- NOTE | 2024-11-26 13:17 | P.CONHOSP_ITS ---
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 On evaluation, the patient has no acute complaints. He endorses feeling well postoperatively. He is walking, communicating well. He is eating and drinking well He is stooling and urinating appropriately. Patient required catheterization during procedure and postoperatively. He had reported some dark jean pierre urine with some urinary tenesmus. He denies deep suprapubic pain, dysuria. He reports that sediment this output from urine has resolved, and is currently yellow/clear output. Denies fevers chills or shakes. He also endorses constipation. He had some liquid stools 11/24, which resolved. The patient reports passing gas appropriately, but mentions feeling constipated. Review of Systems 2 Review of Systems: Yes all other systems are reviewed and are negative COUNTS INCLUDE 234 BEDS AT THE [facility] Medical History (Updated 11/26/24 @ 13:32 by Ashutosh Mart MD) Constipation Osteoarthritis Mild anemia Anal fistula Hx of sigmoidoscopy Diverticulitis Perirectal abscess Hematuria Shoulder pain Alcohol abuse Vitamin D deficiency Anxiety Hypercholesterolemia Functional capacity: independent ambulation Family History Father Diabetes Hypertension Mother No problems noted. Paternal Grandfather Substance abuse Maternal Grandfather Substance abuse Surgical History History of open reduction and internal fixation (ORIF) procedure History of rectal surgery History of colonoscopy H/O wrist surgery History of eye surgery History of appendectomy (~1979) Social History Household Members: Spouse Housing: House Are you a primary manager intensive care to a significant other at home: No Do you presently have visiting nurse or other home services: No Alcohol intake: current Alcohol intake frequency: does not drink Comment: Low fall - Independent in room, No bed alarm Patient Tobacco Use Status: Former Tobacco user Tobacco use type: Cigarette Years Smoked: 18 e-Cigarette/Vaping Use: Never Used Second Hand Smoke Exposure: Yes Use of substances other than those prescribed or required for medical reasons: Yes Substance Use Type: Marijuana Substance Use Type Other:: smokes & edibles occasionally Substance Use Frequency: Occasionally Currently Displaying Signs/Symptoms of Drug Intoxication Withdrawal: No Have you been hit, kicked, punched, or otherwise hurt by someone within the past year? If so, by whom?: No Do you feel safe in your current relationship?: Yes Is there a partner from a previous relationship who is making you feel unsafe now?: No Are you made to feel afraid or neglected: No Spiritual Healthcare Practices: no Mandaeism Healthcare Practices: no Cultural Healthcare Practices: no Are you DNR?: No Advance Directives Information Provided: Yes (as above noted) Advance Directives on File: No Do you have a plan to hurt others: No Plan Recently lost weight without trying: Yes How much weight loss: 14-23 pounds Eating poorly because of decreased appetite: Yes Nutrition screen score: 5 Poor oral hygiene: No service: No Current occupational status: employed and unemployed 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) Cognitive needs: No Hearing needs: No Vision needs: Yes (Glasses) Meds Allergies Allergy/AdvReac Type Severity Reaction Status Date / Time No Known Allergies (No Known Allergy Verified 11/22/24 06:02 Allergies*) Active Medications: Current Medications Hydromorphone HCl (Hydromorphone Hcl 0.5 Mg/0.5 Ml Syringe) 0.5 mg IVPUSH Q3H PRN; Protocol PRN Reason: Pain, Severe (Pain Scale 7-10) Last Admin: 11/26/24 10:38 Dose: 0.5 mg Acetaminophen (Ofirmev) 1,000 mg in 100 mls @ 400 mls/hr IV Q6H PRN PRN Reason: Pain, Mild (Pain Scale 1-3) Last Infusion: 11/26/24 08:28 Dose: Infused Naloxone HCl (Naloxone Hcl 0.4 Mg/Ml Vial) 0.04 mg IVPUSH Q5M PRN PRN Reason: Excessive sedation or RR < 8 Ondansetron HCl (Ondansetron Hcl 4 Mg/2 Ml Vial) 4 mg IVPUSH QID PRN PRN Reason: Nausea Last Admin: 11/24/24 08:27 Dose: 4 mg Oxycodone HCl (Oxycodone Hcl Immed Release 5 Mg Tablet) 5 mg PO Q6H PRN PRN Reason: Pain, Moderate(Pain Scale 4-6) Last Admin: 11/24/24 15:15 Dose: 5 mg Sodium Chloride (0.9 % Sodium Chloride Flush 3 Ml Syringe) 3 ml IVFLUSH QSHIFT [facility] Last Admin: 11/26/24 08:04 Dose: 3 ml Trazodone HCl (Trazodone Hcl 50 Mg Tablet) 50 mg PO BEDTIME PRN PRN Reason: Sleep Trimethoprim/Sulfamethoxazole (Sulfamethox/Trimeth 800/160 Tablet) 1 tab PO BID [facility] Last Admin: 11/26/24 08:03 Dose: 1 tab Home Medications ?Medication ?Instructions ?Recorded ?Confirmed ?Last Taken ?Type acetaminophen 500 mg tablet 1,000 mg PO Q6H PRN Pain 0 11/15/24 11/16/24 Unknown History docusate sodium 100 mg capsule 100 mg PO DAILY 5 11/16/24 11/19/24 History (Colace) Physical Exam 2 Vital Signs and Narrative: Vital Signs: Last Vital Signs Temp 98 F 11/26/24 06:49 Pulse 57 11/26/24 06:49 Resp 16 11/26/24 06:49 BP 147/80 H 11/26/24 06:49 Pulse Ox 98 11/26/24 06:49 O2 Del Method Room Air 11/26/24 06:49 O2 Flow Rate 2 11/22/24 14:20 BMI result Body Mass Index 19.7 General: A&O x3, oriented to time place person and situation, comfortable, no pain Cardiac: S1, S2 auscultated with no S3/4, no MRG. Well perfused. Respiratory: Normal breath sounds auscultated throughout all lung zones, without wheezing, rales. Normal rate. GI/ : Vertical median laparotomy scar noted, with prior laparoscopic port entry scars identified; alma rosa; no bleeding, fluctuation, oozing, bruising. Abdomen not distended. MSK: Normal ambulation without pain at bony prominences or musculature Neurological: Normal neurological examination on overview, without obvious CN II-XII abnormalities. 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 Medicine has been consulted for complaints of urinary changes and mild urinary tenesmus, found to have a complicated urinary tract infection. Complicated UTI Urinary tenesmus No leukocytosis No pyrexia fevers chills rigors Vital signs within normal limits. Urinalysis revealing positive nitrites with pyuria Had Velasco catheter in place. PLAN - continue Bactrim DS b.i.d. p.o. for 7 days total - no need to repeat urinalysis unless symptoms persist - monitor overall urinary output BPH Probable element of superimposed BPH, as demonstrated by complaints of tenesmus and bladder fullness. PLAN - can add tamsulosin 0.4 mg nighttime if no symptomatic relief from Bactrim Functional constipation Likely superimposed functional constipation and opioid induced constipation. PLAN - senna 8.6 mg nighttime - continue docusate - MiraLax daily We will sign off on patient case. Please do not hesitate to contact us if there are any further questions. Total time managing care of this patient today: 30 minutes.
[2024-11-26 15:59] VITALS: BP 139/80; PULSE 57; RESP 14; TEMP 36.4; O2SAT 98
--- NOTE | 2024-11-26 16:14 | MHC.CM.PN ---
PT NOT YET MEDICALLY CLEAR, PER MD NOTE, AWAITING RETURN OF BOWEL FUNCTION DCP: HOME, TO TRANSPORT
[2024-11-26] MEDS: oxyCODONE HCl Immed Release 5 MG TABLET PO (17:33)
[2024-11-26 19:23] VITALS: BP 132/81; PULSE 62; RESP 18; TEMP 36.8; O2SAT 98
[2024-11-27] MEDS: oxyCODONE HCl Immed Release 5 MG TABLET PO ×2 (01:18→08:10)
[2024-11-27 06:00] VITALS: BP 113/62; PULSE 62; RESP 18; TEMP 36.7; O2SAT 96
[2024-11-27 06:04] LABS: MANUAL DIFF FLAG NO
[2024-11-27 06:21] LABS: Anion Gap 12 (12-20); Blood Urea Nitrogen 11 mg/dL (9-16); Calcium 8.5 mg/dL (8.4-10.2); Carbon Dioxide 24 mmol/L (22-29); Chloride 105 mmol/L (96-108); Creatinine Clr Calc Pharmacy 83.0; Estimated Glomerular Filt Rate > 60; Potassium 3.4 mmol/L (3.3-5.1); Sodium 138 mmol/L (135-145)
[2024-11-27 06:55] LABS: Hematocrit 30.7 % (42.0-52.0); Hemoglobin 10.6 g/dl (14.0-18.0); Imm Gran Abs Auto 0.01 X10*3/uL (0.00-0.03); Imm Gran Pct Auto 0.2 % (0.0-0.4); Lymphocytes Absolute Auto 1.3 X10*3/uL (1.2-4.9); Mean Corpuscular HGB Conc 34.5 g/dl (31.0-36.0); Mean Corpuscular Hemoglobin 29.7 pg (27.0-33.0); Mean Corpuscular Volume 86.0 fL (80.0-98.0); NRBC Abs Auto 0.000 X10*3/uL (0.0-0.012); NRBC Pct Auto 0.0 /100WBC (0.0-0.2); Platelet Count 220 X10*3/uL (160-400); Red Blood Count 3.57 X10*6/uL (4.60-5.80); White Blood Count 5.5 X10*3/uL (4.8-10.8)
--- NOTE | 2024-11-27 07:06 | P.PNGS_ITS ---
Subjective Subjective Date of Service: 11/27/24 <[facility] Last Filed: 11/27/24 07:12> 11/27/24 <Sammie Jacobs PA-C - Last Filed: 11/27/24 07:49> 11/27/24 <Vicente Stearns MD - Last Filed: 11/27/24 08:20> Interval history: The patient is a 59 y/o M POD 4 s/p hand assisted converted to open sigmoid colectomy and lower anterior resection due to diverticulitis. Overnight, he reports diarrhea. He has not had a solid bowel movement yet but continues to pass gas. He is still having difficulty with urination. He is also having some anterior L thigh tingling/pain which goes away with movement. He said that Augmentin caused this issue in the past, which resolved with the discontinuation of Augmentin. He is ambulating and using spirometry. <[facility] Last Filed: 11/27/24 07:12> Physical Exam 2 Vital Signs: Vital Signs: Last Vital Signs Temp 98.1 F 11/27/24 06:00 Pulse 62 11/27/24 06:00 Resp 18 11/27/24 06:00 BP 113/62 11/27/24 06:00 Pulse Ox 96 11/27/24 06:00 O2 Del Method Room Air 11/27/24 06:00 O2 Flow Rate 2 11/22/24 14:20 BMI result Body Mass Index 19.7 <[facility] Filed: 11/27/24 07:12> Const: General: cooperative, comfortable and no acute distress <[facility] Filed: 11/27/24 07:12> Orientation/consciousness: patient oriented x3 <[facility] Filed: 11/27/24 07:12> Resp: Effort & Inspection: normal respiratory effort <[facility] Filed: 11/27/24 07:12> Auscultation: clear to auscultation bilaterally, no crackles, no rales, no rhonchi and no wheezes <[facility] Filed: 11/27/24 07:12> Cardio: Rate: regular rate <[facility] Filed: 11/27/24 07:12> Rhythm: regular rhythm <[facility] Last Filed: 11/27/24 07:12> Heart sounds: no click, no gallops, no murmurs and no rubs <[facility] Last Filed: 11/27/24 07:12> GI: Other: incisions clean, alma rosa intact <Sammie Jacobs PA-C - Last Filed: 11/27/24 07:49> Palpation (GI): Soft to palpation, Tenderness to palpation present (GI) (around large incision site), no guarding and not rigid <[facility] - Last Filed: 11/27/24 07:12> Percussion: Yes normal to percussion <[facility] Last Filed: 11/27/24 07:12> Auscultation: normal bowel sounds <[facility] Last Filed: 11/27/24 07:12> Neuro: General: patient oriented x3 <[facility] Last Filed: 11/27/24 07:12> Objective Data Active Medications Docusate Sodium (Docusate Sodium 100 Mg Capsule) 100 mg PO BID [facility] Last Admin: 11/26/24 21:30 Dose: Not Given Documented By: TYESHA Non-Admin Reason: multiple watery stools Hydromorphone HCl (Hydromorphone Hcl 0.5 Mg/0.5 Ml Syringe) 0.5 mg IVPUSH Q3H PRN; Protocol PRN Reason: Pain, Severe (Pain Scale 7-10) Last Admin: 11/26/24 10:38 Dose: 0.5 mg Documented By: ABRAHAM Acetaminophen (Ofirmev) 1,000 mg in 100 mls @ 400 mls/hr IV Q6H PRN PRN Reason: Pain, Mild (Pain Scale 1-3) Last Infusion: 11/27/24 04:24 Dose: Infused Documented By: TYESHA Naloxone HCl (Naloxone Hcl 0.4 Mg/Ml Vial) 0.04 mg IVPUSH Q5M PRN PRN Reason: Excessive sedation or RR < 8 Ondansetron HCl (Ondansetron Hcl 4 Mg/2 Ml Vial) 4 mg IVPUSH QID PRN PRN Reason: Nausea Last Admin: 11/24/24 08:27 Dose: 4 mg Documented By: SKYLER Oxycodone HCl (Oxycodone Hcl Immed Release 5 Mg Tablet) 5 mg PO Q6H PRN PRN Reason: Pain, Moderate(Pain Scale 4-6) Last Admin: 11/27/24 01:18 Dose: 5 mg Documented By: TYESHA Polyethylene Glycol (Polyethylene Glycol 3350 17 Gm Powd.Pack) 17 gm PO DAILY COUNTS INCLUDE 234 BEDS AT THE [facility] Last Admin: 11/26/24 13:53 Dose: 17 gm Documented By: ABRAHAM Sodium Chloride (0.9 % Sodium Chloride Flush 3 Ml Syringe) 3 ml IVFLUSH QSHIFT COUNTS INCLUDE 234 BEDS AT THE [facility] Last Admin: 11/26/24 21:32 Dose: 3 ml Documented By: TYESHA Trazodone HCl (Trazodone Hcl 50 Mg Tablet) 50 mg PO BEDTIME PRN PRN Reason: Sleep Trimethoprim/Sulfamethoxazole (Sulfamethox/Trimeth 800/160 Tablet) 1 tab PO BID COUNTS INCLUDE 234 BEDS AT THE [facility] Last Admin: 11/26/24 21:29 Dose: 1 tab Documented By: TYESHA [facility] Last Filed: 11/27/24 07:12> Labs CBC & Chem 7: 11/27/24 05:12 11/27/24 05:12 <[facility] - Last Filed: 11/27/24 07:12> Labs: Laboratory Results - last 24 hr 11/27/24 05:12 MCV 86.0 MCH 29.7 MCHC 34.5 RDW 13.2 Plt Count 220 MPV 10.8 Immature Gran % (Auto) 0.2 Neut % (Auto) 61.9 Lymph % (Auto) 22.8 Sac % (Auto) 6.9 Eos % (Auto) 7.8 H Baso % (Auto) 0.4 Lymph # (Auto) 1.3 Sac # (Auto) 0.4 Eos # (Auto) 0.4 Baso # (Auto) 0.0 Abs Immat Gran (auto) 0.01 Absolute Neuts (auto) 3.4 Absolute Nucleated RBC 0.000 Nucleated RBC % (auto) 0.0 Anion Gap 12 Estim Creat Clear Calc 83.0 Estimated GFR > 60 Random Glucose 86 Calcium 8.5 <Isreal Hendricksonh - Last Filed: 11/27/24 07:12> Microbiology Microbiology Results: Microbiology 11/25/24 Unknown Urine Culture - Final Urine clean catch - Clean Catch Midstream No growth. <Isreal Hendricksonh - Last Filed: 11/27/24 07:12> Procedures Date of Service Date of Service: 11/27/24 <[facility] - Last Filed: 11/27/24 07:12> 11/27/24 <Sammie Jacobs PA-C - Last Filed: 11/27/24 07:49> 11/27/24 <Vicente Stearns MD - Last Filed: 11/27/24 08:20> Progress Note: A&P Assessment and plan (1) S/P colon resection: Status: Acute <Isreal Hendricksonh - Last Filed: 11/27/24 07:12> (2) Complicated UTI (urinary tract infection): Status: Acute <Isreal Hendricksonh - Last Filed: 11/27/24 07:12> Assessment and Plan: The patient is a 59 y/o M POD 4 s/p hand assisted converted to open sigmoid colectomy and lower anterior resection due to diverticulitis who had diarrhea overnight. Plan Continue to monitor for solid BM Continue ambulating Continue spirometry Continue solid diet <Isreal Hendricksonh - Last Filed: 11/27/24 07:12> The patient is a 59 y/o M POD 4 s/p hand assisted converted to open sigmoid colectomy and lower anterior resection due to diverticulitis who had diarrhea overnight. Plan Continue to monitor for solid BM Continue ambulating Continue spirometry Continue solid diet Agree with above assessment and plan by Cristobal MS-3. Patient overall doing well, now with loose stools. Still having some difficulty with urination. VSS. Abd exam very benign with clean incision, very mild incisional tenderness, soft. Stable for dc to home today with follow up in the office in 1 week. Will dc on bactrim. Agreeable to starting flomax for persistent symptoms. Has urology follow up next month. <Sammie Jacobs PA-C - Last Filed: 11/27/24 07:49> The patient is a 59 y/o M POD 4 s/p hand assisted converted to open sigmoid colectomy and lower anterior resection due to diverticulitis who had diarrhea overnight. Plan Continue to monitor for solid BM Continue ambulating Continue spirometry Continue solid diet Agree with above assessment and plan by Cristobal MS-3. Patient overall doing well, now with loose stools. Still having some difficulty with urination. VSS. Abd exam very benign with clean incision, very mild incisional tenderness, soft. Stable for dc to home today with follow up in the office in 1 week. Will dc on bactrim. Agreeable to starting flomax for persistent symptoms. Has urology follow up next month. Patient seen and examined independently. Agree with the above assessment and plan. Patient okay for discharge today with follow-up in the office next week. He was advised to avoid lifting greater than 10 lb for the next month. He was encouraged to ambulate. He is welcome to call for any questions or concerns. < Vicente Stearns MD - Last Filed: 11/27/24 08:20> Time Spent With Patient Time: Total time managing care of this patient today ____ minutes. <[facility]real Hendricksonh - Last Filed: 11/27/24 07:12> Quality Stroke Does the patient have a stroke diagnosis?: No <[facility] Last Filed: 11/27/24 07:12> VTE Prior VTE?: No <[facility] Last Filed: 11/27/24 07:12> VTE Risk Level:: Surgical - low <Isreal Jain Last Filed: 11/27/24 07:12> VTE Device Contraindication: N/A - Device Ordered <Isreal Jain - Last Filed: 11/27/24 07:12> VTE Drug Contraindication: Treatment Not Indicated <Isreal Jain Last Filed: 11/27/24 07:12>
[2024-11-27 07:31] VITALS: BP 131/91; PULSE 56; RESP 18; TEMP 36.7; O2SAT 95
[2024-11-27] MEDS: Sulfamethox/Trimeth 800/160 TABLET 1 TAB PO (08:10)
[2024-11-27] MEDS: 0.9 % Sodium Chloride Flush 3 ML SYRINGE IVFLUSH (08:12)
--- NOTE | 2024-11-27 08:37 | P.DS_ITS ---
DS: Providers Provider Date of Service: 11/27/24 Date of admission: 11/22/24 05:53 Date of discharge: 11/27/24 Primary care physician: Shell Eaton MD Attending physician on admission: Vicente Stearns Consults: 11/26/24 07:28 Consult to Hospitalist Routine Comment: Consulting Provider: [facility] Hospitalists Reason For Exam: Proteinuria, microscopic hematuria Attending physician on discharge: Vicente Stearns DS: Diagnosis Discharge Diagnosis (1) S/P colon resection: Status: Acute (2) Complicated UTI (urinary tract infection): Status: Acute DS: Summary Hospital Course Hospital Course: HPI AT ADMISSION: 59-year-old male patient presenting with recurring perirectal abscess collections requiring drainage found on a recent CT to have an apparent sigmoid the sigmoid fistula as well as 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 He presents today for hand assisted laparoscopic sigmoid colectomy. HOSPITAL COURSE: On 11/22/24, hand assisted laparoscopic sigmoid colectomy and low anterior resection with colorectal anastomosis was performed by Dr. Alejandro isidro. He was found to have multiple fistula connections noted between sigmoid colon as well as between sigmoid colon and rectum and possibly the bladder. The patient tolerated the procedure well and had an uncomplicated post operative course. His ortiz was removed on POD #1. He was ambulated. He began to pass flatus. He did develop urinary symptoms and UA was positive for leukocyte esterase/nitrites and he was started on Bactrim DS BID. His diet was advanced to solids. He began to have liquid BMs. His urinary symptoms improved slightly but he reported hesitancy and nocturia at home at baseline and was started on tamsulosin 0.4mg PO at bedtime for likely BPH. On the day of discharge, he felt well and was tolerating a solid diet without nausea or vomiting, had good pain control and was ambulating without difficulty. He was hemodynamically stable. His abdomen was benign with appropriate post op tenderness and clean and intact dressings. He felt ready for discharge. He was discharged to home on 11/27/24 in stable condition on oral Bactrim to complete 7 days of treatment. He is to follow up in the office in 1 week. He has a follow up with Urology in January. Status at Discharge Functional status at discharge: independent ambulation Overall status at discharge: patient is progressing back to baseline Time Attestation Discharge Coordination Time (in mins): 35 Quality: Safe Use of Opioids Does Pt have an Active Cancer Diagnosis on the Problem List?: No Quality: Stroke Does the patient have a stroke diagnosis?: No Physical Exam Vital Signs: Vital Signs: Last Vital Signs Temp 98.1 F 11/27/24 07:31 Pulse 56 11/27/24 07:31 Resp 18 11/27/24 07:31 BP 131/91 H 11/27/24 07:31 Pulse Ox 95 11/27/24 07:31 O2 Del Method Room Air 11/27/24 07:31 O2 Flow Rate 2 11/22/24 14:20 BMI result Body Mass Index 19.7 Const: General: comfortable, no acute distress and alert Orientation/consciousness: patient oriented x3 Resp: Effort & Inspection: normal respiratory effort GI: Inspection: No distended and Yes incision (clean, alma rosa intact) Palpation (GI): Soft to palpation, Tenderness to palpation present (GI) (mild incisional) and no guarding Percussion: Yes normal to percussion Skin: General skin exam: no rashes or lesions noted Neuro: General: patient oriented x3 and moves all extremities DS: Data Data Completed and Pending Completed studies during hospitalization [Text1]: Pending at discharge 11/22/24 12:28 Surgical [PTH] Routine A. Colon, sigmoid, segmental resection: - Two adherent segments of colon with mural abscess formation, granulation tissue, and foreign body giant cell reaction to refractile material, consistent with fistula tract. - Diverticular disease with multiple abscess formations and granulation tissue. - Serosal adhesions and serositis. - One reactive pericolonic lymph node. B. Colon, anastomotic rings, takedown: Two annular portions of colonic mucosa and wall with mild reactive changes. Labs on day of discharge: Laboratory Results - last 24 hr 11/27/24 05:12 WBC 5.5 RBC 3.57 L Hgb 10.6 L Hct 30.7 L MCV 86.0 MCH 29.7 MCHC 34.5 RDW 13.2 Plt Count 220 MPV 10.8 Immature Gran % (Auto) 0.2 Neut % (Auto) 61.9 Lymph % (Auto) 22.8 [place] % (Auto) 6.9 Eos % (Auto) 7.8 H Baso % (Auto) 0.4 Lymph # (Auto) 1.3 [place] # (Auto) 0.4 Eos # (Auto) 0.4 Baso # (Auto) 0.0 Abs Immat Gran (auto) 0.01 Absolute Neuts (auto) 3.4 Absolute Nucleated RBC 0.000 Nucleated RBC % (auto) 0.0 Sodium 138 Potassium 3.4 Chloride 105 Carbon Dioxide 24 Anion Gap 12 BUN 11 Creatinine 0.88 Estim Creat Clear Calc 83.0 Estimated GFR > 60 Random Glucose 86 Calcium 8.5 Discharge Plan Discharge Anticipated Discharge Date/Time: 11/27/24 08:21 Patient Disposition: Home, Self-Care Discharge Diagnosis: Colonic fistula, diverticulitis Referrals: Vicente Stearns MD [Physician, General Surgery] - 1 Week Po,Shell Melendez MD [Primary Care Provider, Internal Medicine] - 1 Week Discharge Medications: New oxycodone 5 mg tablet 5 mg PO Q6H PRN (Reason: pain (scale score 7-10)) Qty: 15 0RF Rx Instructions: Partial Fill upon patient request. tamsulosin [Flomax] 0.4 mg capsule 0.4 mg PO BEDTIME Qty: 60 1RF sulfamethoxazole-trimethoprim [Bactrim DS] 800-160 mg tablet 1 tab PO BID Qty: 9 0RF Continued trazodone 50 mg tablet 50 mg PO BEDTIME PRN (Reason: sleep) Qty: 90 2RF No Action ibuprofen 600 mg tablet 600 mg PO TID PRN (Reason: for pain) Qty: 30 0RF acetaminophen [Tylenol Ex Str Rapid Release] 500 mg Tablet 1,000 mg PO Q6H PRN (Reason: Pain) docusate sodium [Colace] 100 mg Capsule 100 mg PO DAILY Discharge Orders: Discharge Order (Routine); Ordered 11/27/24 Ordered By: Vicente Stearns Diet: Advance to usual diet Activity on Discharge: No heavy lifting Stand Alone Forms: Patient Portal Discharge page Print Language: Irish Activity Restrictions/Additional Instructions: No lifting > 10 pounds for 1 month No driving for one week Use warm compress or heating pad on low as needed Take Tylenol Extra-strength 1-2 tabs every 6 hours as needed for pain Oxycodone every 6-8 hours as needed for severe pain Colace 100 mg every day as needed for constipation Follow up in office in one week. Care Plan Goals: Returned to normal activity and diet Health Concerns: Diverticular fistula Plan of Treatment: Rectosigmoid resection with colorectal anastomosis Assessment: Diverticular fistula sigmoid colon Discharge Date/Time: 11/27/24 09:37
[2024-11-27 09:27] VITALS: BP 136/81; PULSE 75; RESP 18; TEMP 36.9; O2SAT 98
--- NOTE | 2024-11-27 09:41 | MHC.CM.PN ---
DP: PT HAS BEEN MEDICALLY CLEARED FOR DC HOME, NO SERVICES. DAUGHTER WILL TRANSPORT.
== END 2024-11-27 09:37 | disposition home or self-care (01) | DRG 330 ==
LOC: HO.SSSA 06:12 → HO.S3 13:35
PROVIDERS: Hospitalist; Admitting Provider Surgery; PCP Internal Medicine; Visit Provider Surgery
PROC: 0DTE0ZZ Resection of Large Intestine, Open Approach (ICD-10-PCS; principal; 2024-11-22 07:30)
DX: K63.2 Fistula of intestine (principal); K57.20 Diverticulitis of large intestine with perforation and abscess without bleeding; N39.0 Urinary tract infection, site not specified; N40.1 Benign prostatic hyperplasia with lower urinary tract symptoms; R39.12 Poor urinary stream; K59.04 Chronic idiopathic constipation; Z87.891 Personal history of nicotine dependence; Z79.899 Other long term (current) drug therapy
CPT/HCPCS: 36415; 80048; 81001; 85025; 86850; 86900; 86901; 87086; 88304; 88305; 88307; J0131; J0665; J1171; J2003; J2004; J2250; J2405; J2704; J3010

== ENCOUNTER → 2024-11-22 05:53 | Outpatient (BNV) | payer OTHER, SELFPAY | PROVIDERS: Admitting Provider Surgery; PCP Internal Medicine; Visit Provider Hospitalist | DX: N39.0 Urinary tract infection, site not specified (principal); K59.00 Constipation, unspecified; N40.1 Benign prostatic hyperplasia with lower urinary tract symptoms; R39.12 Poor urinary stream | CPT/HCPCS: 99232 ==

== ENCOUNTER → 2024-11-22 05:53 | Outpatient (BNV) | payer OTHER, SELFPAY | PROVIDERS: Admitting Provider Surgery; PCP Internal Medicine; Visit Provider Surgery | DX: K57.90 Diverticulosis of intestine, part unspecified, without perforation or abscess without bleeding (principal); Z90.49 Acquired absence of other specified parts of digestive tract | CPT/HCPCS: 44204; 44213; 99024 ==

== ENCOUNTER 2024-12-07 09:07 | Outpatient (AMB) | payer OTHER, SELFPAY ==
--- OUTSIDE RECORDS SUMMARY | 2023-08-01 06:20 | XMS_ITS ---
Author Organization [facility] Address [address] [facility] [address] [place] [phone] Care Team Providers Care Handle Machine Operator Name Role Phone Shell Eaton MD Primary Care Provider Von Her Jr, Sonu Crowley REASON FOR VISIT abdominal pain Encounters Encounter Location Date Provider Diagnosis [facility] [address] [place] [phone] 08/01/2023 Sonu Her Jr Plan Of Treatment Next Appt Details Provider Name:Sonu luz Jr, 01/18/2025 10:20:00 AM, [address] [place] [address], [address], [place], [phone], Progress Notes * PAM TERRAZAS ADOB:1965 (59 yo M)Acc No.[id number]:08/01/2023 Progress Notes Patient: PAM PEREZ Provider: Odette Her MD :1965 A ge:57 Y S ex:Male Date:08/01/2023 Address:[address] [place], [place] [id number] Pcp:Shell Eaton MD Subjective: * Chief Complaints: [...] MD Date: 0 08/01/2023 Generated for Printi ng/Faunique/eTransmitting on: 0 12/07/2024 09:54 AM EDT
--- OUTSIDE RECORDS SUMMARY | 2024-06-11 09:15 | XMS_ITS ---
Author Organization [facility] Address [address] [facility] [address] [place] [phone] Care Team Providers Care Coat Baster Name Role Phone Shell Eaton MD Primary Care Provider Von Her Jr, Sonu Crowley REASON FOR VISIT Patient presents today for gerd Encounters Encounter Location Date Provider Diagnosis [facility] [address] [place] [address] [place] [phone] 06/11/2024 Sonu Her Jr Plan Of Treatment Next Appt Details Provider Name:Sonu luz Jr, 01/18/2025 10:20:00 AM, [address] [place] [address], Suite [facility], [place], [address], Progress Notes * PAM TERRAZAS ADOB:1965 (59 yo M)Acc No.[id number]:06/11/2024 Progress Notes Patient: PAM PEREZ Provider: Odette Her MD :1965 A ge:58 Y S ex:Male Date:06/11/2024 Address:[address] [place], [place] [phone] Pcp:Shell Eaton MD Subjective: * Chief Complaints: [...] MD Date: 0 06/11/2024 Generated for Mary villarreal/Hanna/eTransmitting on: 0 12/07/2024 09:54 AM EDT
--- OUTSIDE RECORDS SUMMARY | 2024-09-07 03:30 | XMS_ITS ---
Author Organization [facility] Address [address] [place] [address] [place] [address] Care Team Providers Care Air Traffic Supervisor Name Role Phone Shell Eaton MD Primary Care Provider Sonu Chauhan Jr REASON FOR VISIT abn ct scan of colon,diverticulitis Encounters Encounter Location Date Provider Diagnosis [facility] [place] [address] [place] [phone] 09/07/2024 Sonu Her Jr Plan Of Treatment Next Appt Details Provider Name:Sonu luz Jr, 01/18/2025 10:20:00 AM, [address] [place] [address], Suite [facility], [place], [address], Progress Notes * PAM TERRAZAS ADOB:1965 (59 yo M)Acc No.[id number]:09/07/2024 COLON WITH MAC Patient: PAM PEREZ Provider: Odette Her MD :1965 A ge:58 Y S ex:Male Date:09/07/2024 Address:[address] [place], [place] [phone] Pcp:Shell Eaton MD Subjective: * Chief Complaints: [...] MD Date: 0 09/07/2024 Generated for Mary villarreal/Hanna/eTkristasmitting on: 0 12/07/2024 09:54 AM EDT
--- OUTSIDE RECORDS SUMMARY | 2024-09-14 05:20 | XMS_ITS ---
Author Organization [place] [facility] Address [address] [facility] [address] [place] [phone] Care Team Providers Care Bale Coverer Name Role Phone Shell Eaton MD Primary Care Provider Sonu Chauhan Jr [phone] REASON FOR VISIT abn ct scan of colon,diverticulosis Encounters Encounter Location Date Provider Diagnosis [facility] [place] [address] [place] [id number] 09/14/2024 Sonu Her Jr Diverticular disease K57.90 and Abnormal colonoscopy R93.3 Assessments Encounter Date Diagnosis (ICD Code) Assessment Notes Treatment Notes Treatment Clinical Notes Section Notes 09/14/2024 Diverticular disease (ICD-10 - K57.90) 09/14/2024 Abnormal colonoscopy (ICD-10 - R93.3) Plan Of Treatment Next Appt Details Provider Name:Sonu luz , 01/18/2025 10:20:00 AM, [address] [facility], Suite [facility], [place], [address], Progress Notes * PAM TERRAZAS ADOB:1965 (59 yo M)Acc No.[id number]:09/14/2024 COLON WITH MAC Patient: PAM PEREZ Ryann Provider: Odette Her MD :1965 A ge:58 Y S ex:Male Date:09/14/2024 Address:[address] [place] [address] Pcp:Shell Eaton MD Subjective: * Chief Complaints: [...] MD Date: 0 09/14/2024 Generated for Mary villarreal/Hanna/Angelitting on: 0 12/07/2024 09:54 AM EDT
--- NOTE | 2024-12-07 09:14 | MHC.OFFVIS ---
Vital Signs 12/07/24 09:23 Height 5 ft 11 in Weight 134 lb 2 oz BMI 18.7 BP 131/90 H Blood Pressure Location Lt brachial Position Sitting Pulse 72 Intake Visit Reasons: s/p GORE lap sigmoid colectomy Intake Note: Patient is seen in office for post op assessment post hand assisted laparoscopic sigmoid colectomy and low anterior resection with colorectal anastomosis. 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 He feels much improved in his having regular bowel movements. His appetite is still low but improving. He has some soreness from the alma rosa in the midline incision. He denies any fever or chills. [facility] Medical History Complicated UTI (urinary tract infection) Diverticular disease Colonic fistula Constipation Osteoarthritis Mild anemia Anal fistula Hx of sigmoidoscopy Diverticulitis Perirectal abscess Hematuria Shoulder pain Alcohol abuse Vitamin D deficiency Anxiety Hypercholesterolemia Surgical History S/P colon resection (11/22/24) History of open reduction and internal fixation (ORIF) procedure History of rectal surgery History of colonoscopy H/O wrist surgery History of eye surgery History of appendectomy (~1979) Family History Father Diabetes Hypertension Mother No problems noted. Paternal Grandfather Substance abuse Maternal Grandfather Substance abuse Social History Household Members: Spouse Housing: House Are you a primary gericare aide teacher to a significant other at home: No Do you presently have visiting nurse or other home services: No Alcohol intake: current Alcohol intake frequency: does not drink Comment: Low fall - Independent in room, No bed alarm Patient Tobacco Use Status: Former Tobacco user Tobacco use type: Cigarette Years Smoked: 18 e-Cigarette/Vaping Use: Never Used Second Hand Smoke Exposure: Yes Substance Use Type: Marijuana service: No Current occupational status: employed and unemployed 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 Adams removed and Steri-Strips applied. Neuro General: patient oriented x3 Extrem Other: No edema Assessment & Plan Assessment & Plan (1) Diverticulitis: Comment: December Code(s): K57.92 - Diverticulitis of intestine, part unspecified, without perforation or abscess without bleeding Category: Medical Plan Patient much improved following sigmoid colectomy. Wounds are healing nicely without evidence of infection or hernia. He should continue to avoid lifting greater than 10 lb return approximately 4 weeks for wound examination. Coding Level of Care Code Global (07091) Diagnoses Diverticulitis K57.92
[2024-12-07 09:23] VITALS: BP 131/90; PULSE 72; BMI 18.7
--- OUTSIDE RECORDS SUMMARY | 2024-12-07 09:54 | XMS_ITS | Patient Health Record ---
Author Organization [facility] Address [address] [place] [address] Care Team Providers Care Supply Planner Name Role Phone Shell Eaton MD Primary Care Provider Sonu Chauhan Jr Unavailable [phone] Allergies No Known Allergies Results Component Value Reference Range Notes FL barium enema w air contra st Reviewed date:09/17/2024 08:35:13 AM Interpretation: Performing Lab: Notes/Report: [facility] [address] [place] [address] Fluoroscopy Report Signed Patient: Antonio Terrazas MR#: [id number] : 1965 Acct:[id number] Age/Sex: 58 / M ADM Date: 09/14/24 Loc: HO.SSS Attending Dr: Sonu Her MD Ordering Physician: Sonu Her MD Date of Service: 09/14/24 Procedure(s): FL barium enema w air contrast Accession Number(s): [id number] cc: Sonu Her MD; Shell Eaton MD EXAMINATION: XR BARIUM ENEMA WITH AIR CLINICAL INFORMATION: Diverticulosis. Failed colonoscopy. CT abdomen and pelvis with contrast 07/07/2024. COMPARISON: CT abdomen and pelvis 07/07/2024. TECHNIQUE: Train Station Agent images of abdomen were obtained. Subsequently a balloon inflated rectal catheter was placed and retrograde thick barium was administered under fluoroscopy. FINDINGS: Train Station Agent images reveal moderate gas in the colon [...] 09/14/24 1632 DD/ 1112 TD/TT: 09/14/24 1523 Med Specialist: [facility] XR KUB Reviewed date:09/14/2024 02:39:12 PM Interpretation: Performing Lab: Notes/Report: [address] [address] XRay Report Signed Patient: Antonio Terrazas MR#: [id number] : 1965 Acct:[id number] Age/Sex: 58 / M ADM Date: 09/14/24 Loc: [facility] Attending Dr: Sonu Her MD Ordering Physician: Sonu Her MD Date of Service: 09/14/24 Procedure(s): XR KUB Accession Number(s): [id number] cc: Sonu Her MD; Shell Eaton MD [...] 09/14/24 1212 DD/ 1140 TD/TT: 09/14/24 1145 Med Specialist: Reason For Referral No Information Medications Medication [...] Problem Status W/U Status Risk Notes Problem 62084603 Epigastric pain (R10.13) Active confirmed Problem Diverticular disease of colon (827857318) Diverticulosis (K57.90) Active confirmed Problem 999334886 Abnormal finding s in stool (R19.5) Active confirmed Problem 866674322 Abnormal CT scan , colon (R93.3) Active confirmed Problem 056105141 Gastroesophageal reflux disease, unspecified whether esophagitis present (K21.9) Active confirmed Problem Gastroesophageal reflux disease (disorder) (042022341) Chronic GERD (K21.9) Active confirmed Vital Signs Temperature 98.2 degrees Fahrenheit 07/16/2024 Blood pressure diastolic 01 mm Hg 07/16/2024 Height 71 in 07/16/2024 Blood pressure systolic 001 mm Hg 07/16/2024 Weight 150 lbs 07/16/2024 BMI 20.92 kg/m2 07/16/2024 Encounters Encounter Location Date Provider Diagnosis [facility] [address] [place], [place] [id number] 09/14/2024 Sonu Her Jr Diverticular disease K57.90 and Abnormal colonoscopy R93.3 [facility] [address] [place] [address] 07/16/2024 Sonu Her Jr Diverticulosis K57.[address] scan, colon R93.3 [facility] [address] [place] [address] 06/07/2024 Sonu Her Jr [facility] [address] [place] [address] 06/25/2024 Sonu Her Jr [facility] [address] [place], [place] [address] 07/10/2024 Sonu Her Jr [facility] [address] [place], [place] [address] 08/07/2024 Sonu Her Jr [facility] [address] [place], [place] [address] 09/17/2024 Sonu Her Jr Assessments Encounter Date [...] Name:Sonu Nathanael luz , 01/18/2025 10:20:00 AM, [address] [place] [address], [address], [place], [address], Insurance Providers Payer Name Payer Address Payer Phone Subscriber Number Group Number Insured Name Patient Relationship to Insured Coverage Start Date Coverage End Date [employer] [place] [address] [place] [phone] [id number] ANTONIO TERRAZAS Self - patient is the insured Medical (General) History Medical History History ICD Code Gastroesophageal reflux disease Anxiety Colonoscopy 06/19/21, exam to 30 cm, thompson um enema normal, ten-year followup Hyperlipidemia Anal fistula Surgical History Surgery Date(Month/Year) appendicitis 1979 Hospitalization History Reason Date(Month/Year) diverticulitis 04/2021
== END 2024-12-07 09:35 | disposition home or self-care (01) ==
LOC: HO.HGS 09:08
PROVIDERS: PCP Internal Medicine; Visit Provider Surgery
DX: K57.92 Diverticulitis of intestine, part unspecified, without perforation or abscess without bleeding (principal)
CPT/HCPCS: 99024

== ENCOUNTER → 2024-12-07 09:07 | Outpatient (BNVA) | payer OTHER, SELFPAY | PROVIDERS: PCP Internal Medicine; Visit Provider Surgery | DX: K57.92 Diverticulitis of intestine, part unspecified, without perforation or abscess without bleeding (principal); Z98.890 Other specified postprocedural states; Z87.891 Personal history of nicotine dependence; Z13.89 Encounter for screening for other disorder ==

== ENCOUNTER 2025-01-04 10:05 | Outpatient (AMB) | payer OTHER, SELFPAY ==
--- OUTSIDE RECORDS SUMMARY | 2023-08-01 06:20 | XMS_ITS ---
Author Organization [facility] Address [address] [facility] [place] [phone] Care Team Providers Care Activity Leader Name Role Phone Shell Eaton MD Primary Care Provider Von Her Jr, Sonu Crowley REASON FOR VISIT abdominal pain Encounters Encounter Location Date Provider Diagnosis [facility] [address] [place] [phone] 08/01/2023 Sonu Her Jr Plan Of Treatment Next Appt Details Provider Name:Sonu luz Jr, 01/18/2025 10:20:00 AM, [address] [place] [address], [address], [place], [phone], Progress Notes * PAM TERRAZAS ADOB:1965 (59 yo M)Acc No.[id number]:08/01/2023 Progress Notes Patient: PAM PEREZ Provider: Odette Her MD :1965 A ge:57 Y S ex:Male Date:08/01/2023 Address:[address] [place], [place] [id number] Pcp:Shell Eaton MD Subjective: * Chief Complaints: * 1 . Abdominal pain. * Medical History: Objective: * Vitals: Assessment: Plan: * Treatment: * * The named appointment provid er may or may not be the originator of this progress note, and it is not deemed complete until electronically signed by the appointment provider. Sign off status: Pending * Provider: Odette Her MD Date: 0 08/01/2023 Generated for Printi ng/Faericag/eTransmitting on: 1 10:53 AM EDT
--- OUTSIDE RECORDS SUMMARY | 2024-06-11 09:15 | XMS_ITS ---
Author Organization [facility] Address [address] [facility] [address] [place] [address] Care Team Providers Care Surgeon Chief Name Role Phone Shell Eaton MD Primary Care Provider Von Her Jr, oSnu Crowley [phone] REASON FOR VISIT Patient presents today for gerd Encounters Encounter Location Date Provider Diagnosis [facility] [address] [place] [address] [place] [phone] 06/11/2024 Sonu Her Jr Plan Of Treatment Next Appt Details Provider Name:Sonu luz Jr, 01/18/2025 10:20:00 AM, [address] [place] [address], [address] [facility], [place], [address], Progress Notes * PAM TERRAZAS ADOB:1965 (59 yo M)Acc No.[id number]:06/11/2024 Progress Notes Patient: PAM PEREZ Provider: Odette Her MD :1965 A ge:58 Y S ex:Male Date:06/11/2024 Address:[address] [place], [place] [phone] Pcp:Shell Eaton MD Subjective: * Chief Complaints: [...] 0 06/11/2024 Generated for Mary villarreal/Hanna/eTransmitting on: 1 10:54 AM EDT
--- OUTSIDE RECORDS SUMMARY | 2024-09-07 03:30 | XMS_ITS ---
Author Organization [facility] Address [address] [place] [address] [place] [address] Care Team Providers Care Call Centre Supervisor Name Role Phone Shell Eaton MD Primary Care Provider Sonu Chauhan Jr REASON FOR VISIT abn ct scan of colon,diverticulitis Encounters Encounter Location Date Provider Diagnosis [facility] Outpatient [address] [place] [phone] 09/07/2024 Sonu Her Jr Plan Of Treatment Next Appt Details Provider Name:Sonu luz Jr, 01/18/2025 10:20:00 AM, [address] [place] [address], Suite [facility], [place], [address], Progress Notes * PAM TERRAZAS ADOB:1965 (59 yo M)Acc No.[id number]:09/07/2024 COLON WITH MAC Patient: PAM PEREZ Provider: Odette Her MD :1965 A ge:58 Y S ex:Male Date:09/07/2024 Address:[address] [place], [place] [phone] Pcp:Shell Eaton MD Subjective: * Chief Complaints: [...] MD Date: 0 09/07/2024 Generated for Mary villarreal/Hanna/eTransmitting on: 1 10:53 AM EDT
--- OUTSIDE RECORDS SUMMARY | 2024-09-14 05:20 | XMS_ITS ---
Author Organization [place] [facility] [place] Address [address] [facility] [address] [place] [phone] Care Team Providers Care Charge Attendant Name Role Phone Shell Eaton MD Primary Care Provider Sonu Chauhan Jr REASON FOR VISIT abn ct scan of colon,diverticulosis Encounters Encounter Location Date Provider Diagnosis [facility] [place] [address] [place] [phone] 09/14/2024 Sonu Her Jr Diverticular disease K57.90 and Abnormal colonoscopy R93.3 Assessments Encounter Date Diagnosis (ICD Code) Assessment Notes Treatment Notes Treatment Clinical Notes Section Notes 09/14/2024 Diverticular disease (ICD-10 - K57.90) 09/14/2024 Abnormal colonoscopy (ICD-10 - R93.3) Plan Of Treatment Next Appt Details Provider Name:Sonu luz , 01/18/2025 10:20:00 AM, [address] [facility], Suite [facility], [place], [address], Progress Notes * PAM TERRAZAS ADOB:1965 (59 yo M)Acc No.[id number]:09/14/2024 COLON WITH MAC Patient: PAM PEREZ Raynn Provider: Odette Her MD :1965 A ge:58 Y S ex:Male Date:09/14/2024 Address:[address] [place] [address] Pcp:Shell Eaton MD Subjective: * Chief Complaints: [...] 0 09/14/2024 Generated for Mary villarreal/Hanna/Angelitting on: 1 10:54 AM EDT
--- NOTE | 2025-01-04 10:10 | MHC.OFFVIS ---
Vital Signs 01/04/25 10:17 Height 5 ft 11 in Weight 145 lb 8 oz BMI 20.3 BP 111/65 Blood Pressure Location Lt brachial Position Sitting Pulse 65 Intake Visit Reasons: 4wk s/p GORE lap sigmoid colectomy Intake Note: Patient is seen in office for one month follow up visit, following sigmoid colectomy. 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 He feels much improved in his actually gaining weight. His abdominal incision is healing well with no drainage or redness noted. He reports an improved appetite as well. His bowels are improved and no longer needs to take Colace. He has added a fiber gummy which is improving his bowels. [facility] Medical History Complicated UTI (urinary tract infection) Diverticular disease Colonic fistula Constipation Osteoarthritis Mild anemia Anal fistula Hx of sigmoidoscopy Diverticulitis Perirectal abscess Hematuria Shoulder pain Alcohol abuse Vitamin D deficiency Anxiety Hypercholesterolemia Surgical History S/P colon resection (11/22/24) History of open reduction and internal fixation (ORIF) procedure History of rectal surgery History of colonoscopy H/O wrist surgery History of eye surgery History of appendectomy (~1979) Family History Father Diabetes Hypertension Mother No problems noted. Paternal Grandfather Substance abuse Maternal Grandfather Substance abuse Social History Household Members: Spouse Housing: House Are you a primary health care law specialist to a significant other at home: No Do you presently have visiting nurse or other home services: No Alcohol intake: current Alcohol intake frequency: does not drink Comment: Low fall - Independent in room, No bed alarm Patient Tobacco Use Status: Former Tobacco user Tobacco use type: Cigarette Years Smoked: 18 e-Cigarette/Vaping Use: Never Used Second Hand Smoke Exposure: Yes Substance Use Type: Marijuana service: No Current occupational status: employed and unemployed 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 No hernia with Valsalva maneuvers Neuro General: patient oriented x3 Extrem Other: No edema Assessment & Plan Assessment & Plan (1) Diverticulitis: Comment: December Code(s): K57.92 - Diverticulitis of intestine, part unspecified, without perforation or abscess without bleeding Category: Medical Plan 59-year-old male patient returning 1 month following hand assisted converted to open sigmoid colectomy. His wounds are clean, dry, and intact without evidence of hernia formation. Overall he is much improved with improved p.o. intake and normal bowels. He may resume normal activity without restriction. He should follow up as needed. Coding Level of Care Code Global (76008) Diagnoses Diverticulitis K57.92
[2025-01-04 10:17] VITALS: BP 111/65; PULSE 65; BMI 20.3
--- OUTSIDE RECORDS SUMMARY | 2025-01-04 10:54 | XMS_ITS | Patient Health Record ---
Author Organization [facility] Address [address] [place] [address] Care Team Providers Care Tar Pot Worker Name Role Phone Shell Eaton MD Primary Care Provider Sonu Chauhan Jr Unavailable Allergies No Known Allergies Results Component Value Reference Range Notes FL barium enema w air contra st Reviewed date:09/17/2024 08:35:13 AM Interpretation: Performing Lab: Notes/Report: [facility] [address] [place] [address] Fluoroscopy Report Signed Patient: Antonio Terrazas MR#: [id number] : 1965 Acct:[id number] Age/Sex: 58 / M ADM Date: 09/14/24 Loc: HO.SSS Attending Dr: Sonu Her MD Ordering Physician: Sonu Her MD Date of Service: 09/14/24 Procedure(s): FL barium enema w air contrast Accession Number(s): [id number] cc: Sonu Her MD; Shell Eaton MD EXAMINATION: XR BARIUM ENEMA WITH AIR CLINICAL INFORMATION: Diverticulosis. Failed colonoscopy. CT abdomen and pelvis with contrast 07/07/2024. COMPARISON: CT abdomen and pelvis 07/07/2024. TECHNIQUE: Manager Garden images of abdomen were obtained. Subsequently a balloon inflated rectal catheter was placed and retrograde thick barium was administered under fluoroscopy. FINDINGS: Manager Garden images reveal moderate gas in the colon [...] 09/14/24 1632 DD/ 1112 TD/TT: 09/14/24 1523 Exercise Equipment Specialist: [facility] [place] Reviewed date:09/14/2024 02:39:12 PM Interpretation: Performing Lab: Notes/Report: [address] [address] XRay Report Signed Patient: Antonio Terrazas MR#: [id number] : 1965 Acct:[id number] Age/Sex: 58 / M ADM Date: 09/14/24 Loc: [facility] Attending Dr: Sonu Her MD Ordering Physician: Sonu Her MD Date of Service: 09/14/24 Procedure(s): XR KUB Accession Number(s): [id number] cc: Sonu Her MD; Shell Eaton MD [...] 09/14/24 1212 DD/ 1140 TD/TT: 09/14/24 1145 Exercise Equipment Specialist: Reason For Referral No Information Medications [...] Problem Status W/U Status Risk Notes Problem 34124897 Epigastric pain (R10.13) Active confirmed Problem Diverticular disease of colon (350256699) Diverticulosis (K57.90) Active confirmed Problem 557177836 Abnormal finding s in stool (R19.5) Active confirmed Problem 993879008 Abnormal CT scan , colon (R93.3) Active confirmed Problem 520264811 Gastroesophageal reflux disease, unspecified whether esophagitis present (K21.9) Active confirmed Problem Gastroesophageal reflux disease (disorder) (613877484) Chronic GERD (K21.9) Active confirmed Vital Signs Temperature 98.2 degrees Fahrenheit 07/16/2024 Blood pressure diastolic 01 mm Hg 07/16/2024 Height 71 in 07/16/2024 Blood pressure systolic 001 mm Hg 07/16/2024 Weight 150 lbs 07/16/2024 BMI 20.92 kg/m2 07/16/2024 Encounters Encounter Location Date Provider Diagnosis [facility] [address] [place], [place] [phone] 09/14/2024 Sonu Her Jr Diverticular disease K57.90 and Abnormal colonoscopy R93.3 [facility] [address] [place] [address] 07/16/2024 Sonu Her Jr Diverticulosis K57.[address] scan, colon R93.3 [facility] [address] [place] [address] 06/07/2024 Sonu Her Jr [facility] [address] [place] [address] 06/25/2024 Sonu Her Jr [facility] [address] [place], [place] [address] 07/10/2024 Sonu Her Jr [facility] [address] [place], [place] [address] 08/07/2024 Sonu Her Jr [facility] [address] [place], [place] [address] 09/17/2024 Sonu Her Jr Assessments Encounter Date [...] Name:Sonu Nathanael luz , 01/18/2025 10:20:00 AM, [address] [place] [address], [address], [place], [address], Insurance Providers Payer Name Payer Address Payer Phone Subscriber Number Group Number Insured Name Patient Relationship to Insured Coverage Start Date Coverage End Date D[employer] [place] [address] [place] [phone] [id number] ANTONIO TERRAZAS Self - patient is the insured Medical (General) History Medical History History ICD Code Gastroesophageal reflux disease Anxiety Colonoscopy 06/19/21, exam to 30 cm, thompson um enema normal, ten-year followup Hyperlipidemia Anal fistula Surgical History Surgery Date(Month/Year) appendicitis 1979 Hospitalization History Reason Date(Month/Year) diverticulitis 04/2021
== END 2025-01-04 10:42 | disposition home or self-care (01) ==
LOC: HO.HGS 10:06
PROVIDERS: PCP Internal Medicine; Visit Provider Surgery
DX: K57.92 Diverticulitis of intestine, part unspecified, without perforation or abscess without bleeding (principal)
CPT/HCPCS: 99024

== ENCOUNTER 2025-02-08 16:05 | Outpatient (AMB) | payer OTHER, SELFPAY ==
[2025-02-08 16:10] VITALS: BP 90/64; PULSE 64; TEMP 36.3; O2SAT 99; BMI 20.8
--- NOTE | 2025-02-08 16:10 | MHC.PC.OV ---
Vital Signs 02/08/25 16:10 02/08/25 16:56 Height 5 ft 11 in Weight 149 lb 6 oz BMI 20.8 BP 90/64 110/70 Blood Pressure Location Lt brachial Lt brachial Position Sitting Sitting Pulse 64 Pulse Source Pulse Oximeter Temp 97.3 F Temp Source Temporal Artery Scan Pulse Oximetry (%) 99 Oxygen Delivery Method Room Air Intake Visit Reasons: PHYSICAL Intake Note: Patient is here to follow up on BPH, Diverticulosis. Managed Care Specialist Required: No Special Education Aide: Not Required per policy Accompanied by: Self / Same As Patient Allergies No Known Allergies (No Known Allergies*) Allergy (Verified 02/08/25 16:13) Medication List - Last Reconciled 02/08/25 by Shell Eaton MD acetaminophen 1,000 mg PO Q6H PRN ibuprofen 600 mg PO TID PRN multivitamin with iron 1 tab PO DAILY trazodone 50 mg PO BEDTIME PRN Tobacco use date assessed: 11/16/24 Dental Screening Dental Screen Date: 02/08/25 Did you have a dental visit in the last 12 months?: Yes Did you have a dental problem in the last 6 months where you did not have access to dental care?: No Was dental information given to patient?: Patient has dentist [facility] Medical History (Updated 02/08/25 @ 16:53 by Shell Eaton MD) Complicated UTI (urinary tract infection) Diverticular disease Colonic fistula Constipation Osteoarthritis Mild anemia Anal fistula Hx of sigmoidoscopy Diverticulitis Perirectal abscess Hematuria Shoulder pain Alcohol abuse Vitamin D deficiency Anxiety Hypercholesterolemia Surgical History S/P colon resection (11/22/24) History of open reduction and internal fixation (ORIF) procedure History of rectal surgery History of colonoscopy H/O wrist surgery History of eye surgery History of appendectomy (~1979) Family History Father Diabetes Hypertension Mother No problems noted. Paternal Grandfather Substance abuse Maternal Grandfather Substance abuse Social History (Updated 02/08/25 @ 16:59 by Shell Eaton MD) Household Members: Spouse Housing: House Are you a primary behavioral health care manager to a significant other at home: No Do you presently have visiting nurse or other home services: No Alcohol intake: current Alcohol intake frequency: does not drink Comment: Low fall - Independent in room, No bed alarm 10 beer all year Patient Tobacco Use Status: Former Tobacco user Tobacco use type: Cigarette Years Smoked: 18 quit smoking 2014 e-Cigarette/Vaping Use: Never Used Second Hand Smoke Exposure: Yes Substance Use Type: Marijuana service: No Current occupational status: employed and unemployed 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 1. Little interest or pleasure in doing things: not at all 2. Feeling down, depressed, or hopeless: not at all 3. Trouble falling or staying asleep, or sleeping too much: not at all 4. Feeling tired or having little energy: not at all 5. Poor appetite or overeating: not at all 6. Feeling bad about yourself - or that you are a failure or have let yourself or your family down: not at all 7. Trouble concentrating on things, such as reading the newspaper or watching television: not at all 8. Moving or speaking so slowly that other people could have noticed. Or the opposite - being so fidgety or restless that you have been moving around a lot more than usual: not at all 9. Thoughts that you would be better off or of hurting yourself in some way: not at all Total score: 0 Depression Screening Interpretation: Negative Depression Screening Done: Yes Source: Developed by Drs. Alden Dozier, Nella Dudley, Grant Hogan and colleagues, with an educational nilson from [employer]. Thrive Questionnaire Date Thrive assessed: 11/16/24 I am a: Patient What is your living situation today?: I have a steady place to live Within the past 12 months, did the food you bought not last and you didn't have the money to get more?: Never true Within the past 12 months, did you worry whether your food would run out before you got money to buy more?: Never true Do you have trouble paying for medicines?: No Do you have trouble getting transportation to medical appointments?: No Do you have trouble paying your heating and electricity bill?: No Do you have trouble taking care of your child, family member or friend?: No Do you have trouble with day-to-day activities such as bathing, preparing meals, shopping, managing finances, etc.?: No Are you currently unemployed and looking for a job?: No Are you interested in more education?: No Please select the resources that you would like help with: None Currently or been in a relationship where the following occur: No concerns reported THRIVE Score: 0 AUDIT C Alcohol Use Questionnaire (AUDIT-C) 1. How often do you have a drink containing alcohol?: Monthly or less Total Score: 1 JELANI-7 AMB Questionnaire JELANI-7 Date JELANI - 7 assessed: 07/18/24 Feeling nervous, anxious, or on edge: 0 = Not at all Not being able to stop or control worryin = Not at all Worrying too much about different things: 0 = Not at all Trouble relaxin = Not at all Being so restless that it is hard to sit still: 0 = Not at all Becoming easily annoyed or irritable: 0 = Not at all Feeling afraid as if something awful might happen: 0 = Not at all Total JELANI-7 score (0-4 normal; 5-9 mild; 10-14 moderate; 15-21 severe): 0 Source: Developed by Drs. Alden Dozier, Nella Dudley, Grant Hogan and colleagues, with an educational nilson from [employer]. Review of Systems Const Denies poor appetite and Denies weakness Eyes Denies no additional complaints ENT Reports Normal hearing present, Denies dizziness, Denies nasal congestion, Denies tinnitus and Denies sore throat Card Denies chest pain, Denies syncope, Denies rapid heart rate and Denies dyspnea Resp Denies cough and Denies dyspnea GI Denies change in stool character, Reports constipation, Denies diarrhea, Denies nausea and Denies vomiting Denies dysuria and Denies urinary frequency Neuro Reports Normal hearing present, Denies confusion, Denies dizziness, Denies syncope and Denies weakness Psych Denies confusion Physical exam (Primary Care) Vital Signs: Last Vital Signs Temp 97.3 F 02/08/25 16:10 Pulse 64 02/08/25 16:10 BP 90/64 02/08/25 16:10 Pulse Ox 99 02/08/25 16:10 Oxygen Delivery Method Room Air 02/08/25 16:10 BMI result Body Mass Index 20.8 Tobacco/Smoking Status: Tobacco use Status Tobacco use date assessed 11/16/24 02/08/25 16:12 Patient Tobacco Use Status Former Tobacco user 02/08/25 16:12 Tobacco use type Cigarette 02/08/25 16:12 e-Cigarette/Vaping Use Never Used 02/08/25 16:12 PHQ-9: PHQ-9 Score PHQ-9: Total score 0 02/08/25 16:12 Depression Screening Interpretation: Negative Thrive Assessment: Date of Thrive Assessment Date Thrive assessed 11/16/24 02/08/25 16:12 Currently or been in a relationship where the following occur: No concerns reported Const General: No confusion Orientation/consciousness: No confusion HENMT Head: Yes normocephalic Ears: external ears normal and TM's normal bilaterally Face and sinus: Yes normal facial exam Mouth: moist mucous membranes Throat: Yes tonsils normal Eyes Conjunctivae: conjunctivae normal Pupils: Equal, round and reactive pupils present and Pupil accommodation reflex normal Direct Ophthalmoscopy: normal light reflex Neck Neck: No lymphadenopathy Thyroid: Thyroid normal Chest Chest palpation & inspection: normal inspection of the chest Resp Effort & Inspection: normal respiratory effort and no audible wheezes Auscultation: clear to auscultation bilaterally, no crackles, no wheezes and lung sounds not diminished Cardio Rate: regular rate Rhythm: regular rhythm Peripheral pulses: radial pulses present and dorsalis pedis present GI Palpation (GI): no masses Auscultation: normal bowel sounds and normoactive bowel sounds Rectal Exam - Male: Yes deferred Skin General skin exam: no rashes or lesions noted Rashes: no rashes Neuro General: No confusion Cranial nerves: Yes Equal, round and reactive pupils present and Yes Normal hearing present Cognition (Neuro): normal cognition Gait exam (Neuro): Normal gait present Motor exam (neuro): 5/5 motor strength present throughout Deep tendon reflexes (DTR's): Right brachioradialis reflex intensity grade: 2+, Left brachioradialis reflex intensity grade: 2+, Right patellar reflex intensity grade: 2+ and Left patellar reflex intensity grade: 2+ Extrem General: No edema Coding Level of Care Code Est Pt Prev Care 40-64y(31137) Diagnoses Annual physical exam Z00.00 Diverticulitis K57.92 Hypercholesterolemia E78.00 Gastroesophageal reflux disease without esophagitis K21.9 Esophagitis presence: without esophagitis Benign prostatic hyperplasia with weak urinary stream N40.1; R39.12 Lower urinary tract symptom presence: symptoms present Lower urinary tract symptom detail: weak urinary stream Left inguinal hernia K40.90 Generalized anxiety disorder F41.1 Assessment & Plan Assessment & Plan (1) Annual physical exam: Code(s): Z00.00 - Encounter for general adult medical examination without abnormal findings Category: Medical Plan: Patient is advised to eat healthy, keep well hydrated, keep active and have adequate sleep. (2) Diverticulitis: Comment: December, colectomy November 2024 Code(s): K57.92 - Diverticulitis of intestine, part unspecified, without perforation or abscess without bleeding Category: Medical Plan: Status post colectomy patient follows up with Gastroenterology (3) Hypercholesterolemia: Code(s): E78.00 - Pure hypercholesterolemia, unspecified Category: Medical Plan: Avoid fried foods, chicken skin, eggs, butter margarine, pastries and meat. Be it pork or beef they have a lot of cholesterol LDL goal of less than 130 and triglyceride of less than 150 (4) GERD (gastroesophageal reflux disease): Code(s): K21.9 - Gastro-esophageal reflux disease without esophagitis Category: Medical Qualifiers: Esophagitis presence: without esophagitis Qualified Code(s): K21.9 - Gastro-esophageal reflux disease without esophagitis Plan: Avoid the foods that causes that usually spicy foods, tomato products, juices, coffee, soda and foods that your sensitive to. After eating do not lie down, allow 3-4 hours before in lie down. And keep the head of bed above 30 degrees to avoid the acid from going up. (5) BPH (benign prostatic hyperplasia): Code(s): N40.0 - Benign prostatic hyperplasia without lower urinary tract symptoms Category: Medical Qualifiers: Lower urinary tract symptom presence: symptoms present Lower urinary tract symptom detail: weak urinary stream Qualified Code(s): N40.1 - Benign prostatic hyperplasia with lower urinary tract symptoms; R39.12 - Poor urinary stream Plan: Continue with tamsulosin (6) Left inguinal hernia: Code(s): K40.90 - Unilateral inguinal hernia, without obstruction or gangrene, not specified as recurrent Category: Medical (7) Generalized anxiety disorder: Code(s): F41.1 - Generalized anxiety disorder Category: Medical Plan History of Present Illness The patient is a 59-year-old male with a history of hypercholesterolemia, GERD, generalized anxiety disorder, anal fistula, BPH, left inguinal hernia, and umbilical hernia, who presents for a physical exam. His last visit was in November 2024. The patient has a history of recurrent diverticulitis for which he underwent a hand-assisted sigmoid colectomy that was converted to an open procedure in November 2020. Post-operatively, he reports the surgical wound site has healed very well, and his bowel movements are good, with only occasional diarrhea. Urinary issues he experienced, which were thought to be related to BPH, have resolved since the surgery. His last colonoscopy was in June 2021. Blood work from November 27, presumably pre-operative, showed anemia with a hemoglobin of 10.6, hypokalemia, and good renal function. The patient started taking a multivitamin with iron to address the anemia. The patient reports a history of shingles about 12-15 years ago, which was a very mild case. He has no known drug allergies. His mother of an aortic aneurysm five years ago, and there is no family history of cancer. His current medications include trazodone for sleep, and he takes Tylenol and ibuprofen as needed, alternating between them. He was prescribed tamsulosin (Flomax) but is not taking it as his urinary symptoms resolved after his colectomy. He has not been taking bupropion for a while. Health Maintenance The patient is due for his next colonoscopy in 2031. The patient declined the flu vaccine. A discussion was held regarding the shingles vaccine, and he was advised it is a two-shot series available at the pharmacy. He was counseled on marijuana use, with a recommendation for edibles over smoking due to lower cardiovascular and cancer risks. He was encouraged to maintain a healthy lifestyle with proper hydration, diet, and exercise. Social History - Alcohol Use: Patient reports rarely drinking alcohol, with no consumption since September or October. - Tobacco Use: He is a former smoker, having quit approximately 10 years ago or more. - Recreational Drug Use: The patient uses marijuana, including both smoking and edibles. - Weight Management: His weight dropped to 130 pounds after his surgery and hospital stay, and he has since gained about 19 pounds, now weighing 149 pounds, up from 142 at a previous visit. Review of Systems - General: Denies fevers or passing out episodes. Reports weight gain post-surgery. - HEENT: Denies problems with swallowing or coughing with eating. Reports hearing is good. Reports no vision problems with his current prescription. - Respiratory: Denies waking up short of breath or needing to sit up to breathe, but occasionally feels he has to catch his breath after getting up to use the bathroom at night. - Cardiovascular: Denies chest pain or dizziness. - Gastrointestinal: Denies nausea or vomiting, except during episodes of diverticulitis. Denies heartburn. Reports good bowel movements with occasional diarrhea. - Genitourinary: Reports nocturia, waking up a couple of times per night to urinate, which is his baseline. Physical Exam General: Cooperative, healthy appearing, comfortable, no acute distress and well developed Orientation: Patient oriented x3 Limitations: No limitations Head: Normal to inspection Ears: Hearing grossly normal bilaterally Nose: Normal external nose present Face and sinus: Normal facial exam Eyes: Appearance normal, both eyes and all related structures Neck: Normal visual inspection and Yes full ROM Respiratory: Normal respiratory effort and able to speak in complete sentences. Clear to auscultation bilaterally Cardiovascular: Regular rate and rhythm. Normal S1 and S2 GI: Normal to inspection. Soft to palpation and nontender Skin: No rashes or lesions noted Neuro: Patient oriented x3 Extremities: Normal to inspection Results - Labs (November 27): Blood work showed anemia (hemoglobin 10.6, hematocrit 30.7) and hypokalemia. Renal function was noted to be good. - Procedures: A colonoscopy was performed in June 2021. Plan Patient was informed and verbally consented to the use of an ambient scribe for clinic note documentation during this visit. 1. Recurrent Diverticulitis, Status Post Sigmoid Colectomy The patient is recovering well from his sigmoid colectomy for recurrent diverticulitis. His bowel habits have normalized, and his umbilical hernia was repaired during the same procedure. He will continue to follow up with gastroenterology. 2. Anemia And Hypokalemia The patient had anemia and electrolyte abnormalities on his last labs in November. He has been taking a multivitamin with iron. A fasting blood work order is being placed to recheck his CBC and electrolytes. 3. Inguinal Hernia The patient has a mild inguinal hernia which was noted on exam. It is not severe enough to warrant surgical intervention at this time. The patient is advised to minimize heavy lifting. 4. Benign Prostatic Hyperplasia (Bph) The patient was prescribed tamsulosin (Flomax) but has not been taking it. His urinary symptoms, which were likely related to his diverticular disease, have resolved since his colectomy. Therefore, no active treatment for BPH is currently indicated. Discussion Notes I have reviewed the patient's recovery from his sigmoid colectomy, and he is doing well. We discussed the need for follow-up fasting blood work to reassess his anemia and electrolyte levels from November. I have advised him that iron supplementation can be constipating. We discussed his inguinal hernia, which is mild and does not require intervention at this time, but he should avoid heavy lifting. I also reviewed his vaccination status; he declined the flu shot, but we discussed the benefits and side effects of the shingles vaccine, which is a two-part series available at the pharmacy. I clarified that his next colonoscopy is not due until 2031 unless he develops new symptoms. We also discussed his marijuana use, and I advised that edibles are a safer alternative to smoking due to the latter's association with increased risks of heart attack, stroke, and bladder cancer. Patient Instructions - Please go to the lab for fasting blood work. Do not eat for 8 hours before the test, but you may have sips of water. - Continue taking your multivitamin with iron as discussed, but be aware that iron can cause constipation. - Your inguinal hernia is very mild and does not need surgery at this time. Please avoid heavy lifting to prevent it from getting worse. - Your next colonoscopy is not due for about 10 years, in 2031. Contact us if you develop any new or concerning symptoms before then. - If you choose to get the shingles vaccine, it is available at the pharmacy and requires two shots. - If you choose to use marijuana, edibles are a safer option than smoking, which has been linked to a higher risk of heart attack, stroke, and bladder cancer. - Continue to maintain a healthy lifestyle by staying hydrated, eating well, and keeping physically active. - Please let me know if you have any problems in between visits. Orders: Orders Comprehensive Met. Panel Today D64.9 - Anemia, unspecified IRON PROFILE Today D64.9 - Anemia, unspecified Reticulocyte Count Today D64.9 - Anemia, unspecified Free T4 (Free Thyroxine) Today D64.9 - Anemia, unspecified Prostate Specific Antigen Scr Today D64.9 - Anemia, unspecified Thyroid Stimulating Hormone Today D64.9 - Anemia, unspecified UA CC w/rflx Micro + Cult Today D64.9 - Anemia, unspecified, R30.0 - Dysuria Complete Blood Count Auto Diff Today D64.9 - Anemia, unspecified Ferritin Today D64.9 - Anemia, unspecified Vitamin B12 and Folate Today D64.9 - Anemia, unspecified Lipid Panel Today D64.9 - Anemia, unspecified, E78.00 - Pure hypercholesterolemia, unspecified
--- OUTSIDE RECORDS SUMMARY | 2025-02-08 16:48 | XMS_ITS | Data Portability ---
Author Organization [facility] - [facility] Address [address] [place] [address] Assessment No assessment recorded. Plan of Treatment [...] OC-UDS Send Out Template DOT completed ROHIT ROBBBRIAN PA - [facility] 06/10/2022 09:37:22 Imaging Results None recorded. Procedure Notes None recorded. Medical Equipment None Reported. Vitals None Recorded Social History None recorded. Functional Status None recorded. Mental Status None recorded. Family History Nothing Reported. Medical History No medical history recorded. Past Encounters Encounter ID Performer Location Encounter Start Date Encounter Closed Date Diagnosis/Indication Diagnosis SNOMED-CT Code Diagnosis ICD10 Code Diagnosis IMO Codes Diagnosis Note [id number] [address] [place] [address] 06/22/2015 09:24:56 06/22/2015 10:17:08 [id number] [address] [place] [address] 07/03/2015 18:04:47 07/03/2015 19:15:00 [id number] CHANDA HERNANDEZ MD [address] [place] [address] 06/10/2022 09:07:50 06/10/2022 09:40:45 History and physical examination, occupation [id number] Z02.1 Health Concerns Section Related Observation LastModified by Organization Detai ls LastModified Time None Recorded Concern Status LastModified by Organization Details LastModified Time None Recorded Advance Directives Directive None Recorded Payers Insurance Date Sequence Insurance Name Policy Number Policy Smith Covered Member ID Smith Member ID Guarantor Name 06/10/2022 OC-ESCREEN Antonio A [place] [id number] Antonio A [place] 06/10/[address] [facility] [id number] Antonio A A Jack [id number] Antonio A [place] 02/22/2022 [employer] Antonio A Jack
[2025-02-08 16:56] VITALS: BP 110/70
== END 2025-02-08 17:11 | disposition home or self-care (01) ==
LOC: HO.HMCH 16:06
PROVIDERS: PCP Internal Medicine; Visit Provider Internal Medicine
DX: Z00.00 Encounter for general adult medical examination without abnormal findings (principal); K57.92 Diverticulitis of intestine, part unspecified, without perforation or abscess without bleeding; E78.00 Pure hypercholesterolemia, unspecified; K21.9 Gastro-esophageal reflux disease without esophagitis; N40.1 Benign prostatic hyperplasia with lower urinary tract symptoms; R39.12 Poor urinary stream; K40.90 Unilateral inguinal hernia, without obstruction or gangrene, not specified as recurrent; F41.1 Generalized anxiety disorder

== ENCOUNTER 2025-02-11 06:12 | Outpatient (REF) | payer OTHER, SELFPAY ==
--- OUTSIDE RECORDS SUMMARY | 2024-06-11 08:15 | XMS_ITS ---
Author Organization [facility] Address [address] [place] [address] Care Team Providers Care Accounts Executive Name Role Phone Shell Eaton MD Primary Care Provider Von Her Jr, Sonu Crowley REASON FOR VISIT Patient presents today for gerd Encounters Encounter Location Date Provider Diagnosis [facility] [address] [facility] [address] [place] [phone] 06/11/2024 Sonu Her Jr Plan Of Treatment No Information Progress Notes * PAM TERRAZAS ADOB:1965 (59 yo M)Acc No.[id number]:06/11/2024 Progress Notes Patient: PAM PEREZ Provider: Odette Her MD :1965 A ge:58 Y S ex:Male Date:06/11/2024 Address:[address] [place], [place] [phone] Pcp:Shell Eaton MD Subjective: * Chief Complaints: * 1 . Patient presents today for gerd. * Medical History: Objective: * Vitals: Assessment: Plan: * Treatment: * * The named appointment provid er may or may not be the originator of this progress note, and it is not deemed complete until electronically signed by the appointment provider. Sign off status: Pending * Provider: Odette Her MD Date: 0 06/11/2024 Generated for Mary villarreal/Hanna/Angelitting on: 04/13/2024 06:15 AM EST
--- OUTSIDE RECORDS SUMMARY | 2024-09-07 02:30 | XMS_ITS ---
Author Organization [facility] Address [address] [place] [address] Care Team Providers Care Ice Seller Name Role Phone Angelito CHINCHILLA, Shell Primary Care Provider Sonu Chauhan Jr [phone] REASON FOR VISIT abn ct scan of colon,diverticulitis Encounters Encounter Location Date Provider Diagnosis [facility] Outpatient [address] [place] [phone] 09/07/2024 Sonu Her Jr Plan Of Treatment No Information Progress Notes * MKPAM BUCIO ADOB:1965 (59 yo M)Acc No.[id number]:09/07/2024 COLON WITH MAC Patient: PAM PEREZ Provider: Odette Her MD :1965 A ge:58 Y S ex:Male Date:09/07/2024 Address:[address] [place], [place] [phone] Pcp:Shell Eaton MD Subjective: * Chief Complaints: * [address] scan of colon,diverticulitis. * Medical History: Objective: * Vitals: Assessment: Plan: * Treatment: * * The named appointment provid er may or may not be the originator of this progress note, and it is not deemed complete until electronically signed by the appointment provider. Sign off status: Pending * Provider: Odette Her MD Date: 0 09/07/2024 Generated for Mary villarreal/Hanna/Angelitting on: 04/13/2024 06:14 AM EST
--- OUTSIDE RECORDS SUMMARY | 2024-09-14 04:20 | XMS_ITS ---
Author Organization [place] [facility] Address [address] [place] [id number] Care Team Providers Care Welder Fitter Apprentice Name Role Phone Angelito CHINCHILLA, Shell Primary Care Provider Sonu Chauhan Jr REASON FOR VISIT abn ct scan of colon,diverticulosis Encounters Encounter Location Date Provider Diagnosis [facility] [place] [address] [place] [id number] 09/14/2024 Sonu Her Jr Diverticular disease K57.90 and Abnormal colonoscopy R93.3 Assessments Encounter Date Diagnosis (ICD Code) Assessment Notes Treatment Notes Treatment Clinical Notes Section Notes 09/14/2024 Diverticular disease (ICD-10 - K57.90) 09/14/2024 Abnormal colonoscopy (ICD-10 - R93.3) Plan Of Treatment No Information Progress Notes * PAM TERRAZAS ADOB:1965 (59 yo M)Acc No.[id number]:09/14/2024 COLON WITH MAC Patient: PAM PEREZ Provider: Odette Her MD :1965 A ge:58 Y S ex:Male Date:09/14/2024 Address:[address] [place], [place] [phone] Pcp:Shell Eaton MD Subjective: * Chief Complaints: * [address] scan of colon,diverticulosis. * Medical History: Objective: * Vitals: Assessment: * Assessment: 1. D iverticular disease - K57.90 (Primary) 2 . A bnormal colonoscopy - R93.3 Plan: * Treatment: * Procedure Codes: 4 5330 DIAGNOSTIC SIGMOIDOSCOPY, 0529F INTRVL 3+YRS PTS CLNSCP DOCD * * The named appointment provid er may or may not be the originator of this progress note, and it is not deemed complete until electronically signed by the appointment provider. Sign off status: Pending * Provider: Odette Her MD Date: 0 09/14/2024 Generated for Mary villarreal/Hanna/Dakota on: 1 04/13/2024 06:14 AM EST
--- OUTSIDE RECORDS SUMMARY | 2025-01-18 05:20 | XMS_ITS ---
Author Organization [facility] Address [address] [place] [address] Care Team Providers Care Councilperson Name Role Phone Shell Eaton MD Primary Care Provider Von Her Jr, Sonu Crowley [phone] REASON FOR VISIT Patient presents today for gerd Encounters Encounter Location Date Provider Diagnosis [facility] [address] [facility] [address] [place] [address] 01/18/2025 Sonu Her Jr Plan Of Treatment No Information Progress Notes * PAM TERRAZAS ADOB:1965 (59 yo M)Acc No.[id number]:01/18/2025 Progress Notes Patient: PAM PEREZ Provider: Odette Her MD :1965 A ge:59 Y S ex:Male Date:01/18/2025 Address:[address] [place], [place] [id number] Pcp:Shell Eaton MD Subjective: * Chief Complaints: [...] Pending * Provider: Odette Her MD Date: Generated for Mary villarreal/Hanna/Angelitting on: 04/13/2024 06:15 AM EST
--- OUTSIDE RECORDS SUMMARY | 2025-02-11 06:15 | XMS_ITS | Data Portability ---
Author Organization [facility] - [facility] Address [address] [place] [address] Assessment No assessment recorded. Plan of Treatment [...] ICD10 Code Diagnosis IMO Codes Diagnosis Note [id number] [address] [place] [address] 06/22/2015 09:24:56 06/22/2015 10:17:08 [id number] [address] [place] [address] 07/03/2015 18:04:47 07/03/2015 19:15:00 [id number] CHANDA HERNANDEZ MD [address] [place] [address] 06/10/2022 09:07:50 06/10/2022 09:40:45 History and physical examination, occupation [id number] Z02.1 Health Concerns Section Related Observation LastModified by Organization Detai ls LastModified Time None Recorded Concern Status LastModified by Organization Details LastModified Time None Recorded Advance Directives Directive None Recorded Payers Insurance Date Sequence Insurance Name Policy Number Policy Smith Covered Member ID Smith Member ID Guarantor Name 06/10/2022 OC-ESCREEN Antonio A [place] [id number] Atnonio A [place] 06/10/2022 1 [facility] [id number] Antonio A A [place] [id number] Antonio A Jack 02/22/2022 [employer] Antonio A Jack
--- OUTSIDE RECORDS SUMMARY | 2025-02-11 06:15 | XMS_ITS | Patient Health Record ---
Author Organization [facility] Address [address] [place] [address] Care Team Providers Care Supervisor Park Workers Name Role Phone Shell Eaton MD Primary Care Provider Sonu Chauhan Jr Unavailable Allergies No Known Allergies Results Component Value Reference Range Notes FL barium enema w air contra st Reviewed date:09/17/2024 08:35:13 AM Interpretation: Performing Lab: Notes/Report: [facility] [address] [place] [address] Fluoroscopy Report Signed Patient: Antonio Terrazas MR#: [id number] : 1965 Acct:[id number] Age/Sex: 58 / M ADM Date: 09/14/24 Loc: HO.SSS Attending Dr: Sonu Her MD Ordering Physician: Sonu Her MD Date of Service: 09/14/24 Procedure(s): [place] barium enema w air contrast Accession Number(s): [id number] cc: Sonu Her MD; Shell Eaton MD EXAMINATION: XR BARIUM ENEMA WITH AIR CLINICAL INFORMATION: Diverticulosis. Failed colonoscopy. CT abdomen and pelvis with contrast 07/07/2024. COMPARISON: CT abdomen and pelvis 07/07/2024. TECHNIQUE: Videotape Sales Representative images of abdomen were obtained. Subsequently a balloon inflated rectal catheter was placed and retrograde thick barium was administered under fluoroscopy. 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: [facility] XR KUB Reviewed date:09/14/2024 02:39:12 PM Interpretation: Performing Lab: Notes/Report: [address] [address] XRay Report Signed Patient: Antonio Terrazas MR#: [id number] : 1965 Acct:[id number] Age/Sex: 58 / M ADM Date: 09/14/24 Loc: [facility] Attending Dr: Sonu Her MD Ordering Physician: Sonu Her MD Date of Service: 09/14/24 Procedure(s): XR KUB Accession Number(s): [id number] cc: Sonu Her MD; Shell Eaton MD [...] 09/14/24 1212 DD/ 1140 TD/TT: 09/14/24 1145 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 Active traZODone HCl 50 MG TAKE 1 TABLET ORALLY BEDTIME NEEDED FOR SLEEP Oral; Duration: 90 as needed Active Immunizations Vaccine Route [...] Problem Status W/U Status Risk Notes Problem Epigastric pain (33906344) Epigastric pain (R10.13) Active confirmed Problem Diverticular disease of colon (983928864) Diverticulosis (K57.90) Active confirmed Problem Abnormal feces (232496758) Abnormal findings in stool (R19.5) Active confirmed Problem Computed tomography result abnormal (275696869) Abnormal CT scan, colon (R93.3) Active confirmed Problem Gastroesophageal reflux disease (082392037) Gastroesophageal reflux disease, unspecified whether esophagitis present (K21.9) Active confirmed Problem Gastroesophageal reflux disease (disorder) (252800366) Chronic GERD (K21.9) Active confirmed Vital Signs Temperature 98.2 degrees Fahrenheit 07/16/2024 Blood pressure diastolic 01 mm Hg 07/16/2024 Height 71 in 07/16/2024 Blood pressure systolic 001 mm Hg 07/16/2024 Weight 150 lbs 07/16/2024 BMI 20.92 kg/m2 07/16/2024 Encounters Encounter Location Date Provider Diagnosis [facility] Outpatient [address] [place] [phone] 09/14/2024 Sonu Her Jr Diverticular disease K57.90 and Abnormal colonoscopy R93.3 [facility] [address] [facility] [place] [address] 07/16/2024 Sonu Her Jr Diverticulosis K57.[address] scan, colon R93.3 [facility] [address] [place], [place] [address], [place] [address] 06/07/2024 Sonu Her Jr [facility] [address] [place], [place] [address], [place] [address] 06/25/2024 Sonu Her Jr [facility] [address] [place] [address], [place] [address] 07/10/2024 Sonu Her Jr [facility] [address] [place], [place] [address], [place] [address] 08/07/2024 Sonu Her Jr [facility] [address] [place] [address], [place] [address] 09/17/2024 Sonu Her Jr [facility] [address] [place] [address], [place] [address] 01/16/2025 Sonu Her Jr Assessments Encounter Date Diagnosis [...] 04/22/2021 UPPER GI ENDOSCOPY 05/16/2023 COLONOSCOPY 07/16/2024 Insurance Providers Payer Name Payer Address Payer Phone Subscriber Number Group Number Insured Name Patient Relationship to Insured Coverage Start Date Coverage End Date [employer] [place] [address] [place] [phone] [id number] ANTONIO TERRAZAS Self - patient is the insured Medical (General) History Medical History History ICD Code Gastroesophageal reflux disease Anxiety Colonoscopy 06/19/21, exam to 30 cm, thompson um enema normal, ten-year followup Hyperlipidemia Anal fistula Surgical History Surgery Date(Month/Year) appendicitis 1979 Hospitalization History Reason Date(Month/Year) diverticulitis 04/2021
[2025-02-11 06:50] LABS: MANUAL DIFF FLAG NO
[2025-02-11 07:34] LABS: Appearance Urine Clear; Glucose Urine UA Negative (Negative); PH 7.5 (5.0-9.0); Specific Gravity - Urine 1.020 (1.005-1.025)
[2025-02-11 07:42] LABS: Hematocrit 44.3 % (42.0-52.0); Hemoglobin 14.0 g/dl (14.0-18.0); Imm Gran Abs Auto 0.01 X10*3/uL (0.00-0.03); Imm Gran Pct Auto 0.2 % (0.0-0.4); Lymphocytes Absolute Auto 1.7 X10*3/uL (1.2-4.9); Mean Corpuscular HGB Conc 31.6 g/dl (31.0-36.0); Mean Corpuscular Hemoglobin 28.7 pg (27.0-33.0); Mean Corpuscular Volume 91.0 fL (80.0-98.0); NRBC Abs Auto 0.000 X10*3/uL (0.0-0.012); NRBC Pct Auto 0.0 /100WBC (0.0-0.2); Platelet Count 243 X10*3/uL (160-400); Red Blood Count 4.87 X10*6/uL (4.60-5.80); Reticulocytes Absolute 0.030 X10*6/uL (0.026-0.095); White Blood Count 4.5 X10*3/uL (4.8-10.8)
[2025-02-11 08:08] LABS: Alanine Aminotransferase 22 U/L (0-40); Albumin Level 4.0 g/dL (3.5-5.0); Alkaline Phosphatase 84 U/L (39-117); Anion Gap 12 (12-20); Aspartate Amino Transferase 23 U/L (5-37); Blood Urea Nitrogen 17 mg/dL (9-16); Calcium 9.2 mg/dL (8.4-10.2); Carbon Dioxide 28 mmol/L (22-29); Chloride 106 mmol/L (96-108); Cholesterol 199 mg/dL (<200); Estimated Glomerular Filt Rate > 60; HDL Cholesterol 54 mg/dL (>40); Iron 65 mcg/dL (45-160); Percent Iron Saturation 25 % (15-50); Potassium 4.0 mmol/L (3.3-5.1); Sodium 142 mmol/L (135-145); Total Iron Binding Capacity 261 mcg/dL (228-428); Total Protein 6.6 g/dL (6.5-8.0); Triglycerides 119 mg/dL (<150); Unsaturated Iron Binding 196 ug/dL
[2025-02-11 08:20] LABS: Folate 8.3 ng/mL (> or = 4.0); Vitamin B12 1729 pg/mL (200-900)
[2025-02-11 08:26] LABS: Ferritin 51 ng/mL (20-250); Free T4 (Free Thyroxine) 1.02 ng/dL (0.71-1.85); Thyroid Stimulating Hormone 2.51 uIU/mL (0.32-4.0)
== END 2025-02-11 06:13 | disposition home or self-care (01) ==
LOC: HO.LAB 06:12
PROVIDERS: PCP Internal Medicine; Visit Provider Internal Medicine
DX: R30.0 Dysuria (principal); D64.9 Anemia, unspecified; E78.00 Pure hypercholesterolemia, unspecified; Z12.5 Encounter for screening for malignant neoplasm of prostate
CPT/HCPCS: 36415; 80053; 80061; 81003; 82607; 82728; 82746; 83540; 84153; 84439; 84443; 85025; 85045